=== PATIENT | female | born 1935 | race Caucasian/White ===

== ENCOUNTER 2016-12-30 00:12 | Inpatient (IN) ==
--- NOTE | 2016-12-30 05:06 | Emergency Department Note ---
Disposition Clinical Impression: Hypercalcemia, NSTEMI (non-ST elevated myocardial infarction) Acute on chronic kidney failure Qualifiers: Acute renal failure type: unspecified Chronic kidney disease stage: stage 4 ( severe) Qualified Code(s): N17.9 - Acute kidney failure, unspecified Acute exacerbation of CHF (congestive heart failure) Qualifiers: Congestive heart failure type: diastolic Qualified Code(s): I50.33 - Acute on chronic diastolic (congestive) heart failure Fall Qualifiers: Encounter type: initial encounter Qualified Code(s): W19.XXXA - Unspecified fall, initial encounter Disposition: Still a Patient Condition: Critical Referrals: NONE,PCP [Primary Care Provider] - Forms: ED Satisfaction Letter Time of Disposition: 07:01 Fall HPI - General Chief Complaint: ED Fall Stated Complaint: fall Time Seen by Provider: 12/30/16 04:14 Source: patient, family Nursing Notes Reviewed: Yes Vital Signs Reviewed: Yes - History of Present Illness HPI Narrative: Mrs. Dorsey, an 81yo female, presents from home via EMS for evaluation of fall. Onset 4 PM last night. Patient states that she was walking and experienced intense left knee pain. She was attempting to find a place to sit and rest but was unable to do so before her knee gave out and she fell. No loss across this. She was not down for very long and was able to reach the telephone. She did not hit her head or neck. Her only pain at this time is left knee pain and left hip pain. Patient is anticoagulated on Coumadin secondary to atrial fibrillation. PMH: Atrial fibrillation, diabetes, congestive heart failure, chronic kidney disease-in discussion with her caregivers regarding dialysis.. ROS: Positive: Left knee and left hip pain. Negative: Chest pain, palpitations, dyspnea, diaphoresis, unusual back pain, headache, loss of consciousness, dysuria, melena, hematochezia, fever, chills - Related Data Home Medications Medication Instructions Recorded Confirmed Amlodipine Besylate 10 mg PO DAILY 10/02/15 10/02/15 DULoxetine [Cymbalta] 30 mg PO DAILY 10/02/15 10/02/15 Esomeprazole Magnesium [Nexium] 40 mg PO DAILY 10/02/15 10/02/15 Gabapentin [Neurontin] 300 mg PO TID 10/02/15 10/02/15 Hydralazine HCl 50 mg PO TID 10/02/15 10/02/15 Insulin Glargine,Hum.rec.anlog 22 unit SQ DAILY 10/02/15 10/02/15 [Lantus Solostar] Isosorbide MONOnitrate (24 HR) 30 mg PO DAILY 12/30/16 12/30/16 [Imdur] Metoprolol XL (24 HR) Succ [Toprol 25 mg PO DAILY 12/30/16 12/30/16 XL] Warfarin [Coumadin] 5 mg PO SUMOWETHFR 12/30/16 12/30/16 Warfarin perPT [Coumadin perPT] 5.5 mg PO TUTHSA 12/30/16 12/30/16 Previous Rx's Medication Instructions Recorded Acetaminophen [Tylenol] 650 mg PO Q6HR PRN #0 tablet 10/10/15 Aspirin Enteric Coated [Aspirin EC] 81 mg PO DAILY tablet. 10/10/15 Docusate [Colace] 100 mg PO BID PRN #0 capsule 10/10/15 Furosemide [Lasix] 80 mg PO BID tablet 10/10/15 Allergies Allergy/AdvReac Type Severity Reaction Status Date / Time cephalexin [From Keflex] AdvReac Unknown Hypotension Verified 10/02/15 21:49 codeine AdvReac Hypotension Verified 10/02/15 21:49 lisinopril AdvReac See Verified 10/02/15 21:49 Comments metoprolol AdvReac See Verified 10/02/15 21:49 Comments All systems ED: reviewed and negative except as stated. Fall PMH - Past Medical History Medical history: Reports: atrial fibrillation, CHF, diabetes, renal disease Surgical history: Reports: cholecystectomy, orthopedic, other, PJ/BSO Psychiatric history: Reports: no psych history - Social History Smoking Status: Never smoker Alcohol use: Reports: none Drug use: Reports: none Physical Exam Vital Signs Reviewed General: Patient is alert, oriented, and in no acute distress. HEENT: No facial asymmetry. Head is normocephalic and atraumatic. PERRLA, EOMI. oral mucosa moist. Trachea midline. Cardiovascular: Heart regular rate and rhythm without clicks, rubs, gallops. Systolic murmur. No JVD. PMI nondisplaced. Bilateral radial and cells pedis pulses 2/4. Respiratory: Symmetric chest rise with good respiratory effort. Bilateral breath sounds are clear without wheezing, crackles, or rhonchi. Abdomen: Obese. Bowel sounds present normoactive x-4 quadrants. Abdomen is soft, nondistended, and nontender. Musculoskeletal: Muscle strength 5/5 and symmetric bilaterally in upper and lower extremities. Midline C-spine tenderness. Tenderness to palpation of patient's left knee and left hip. Neuro: Cranial nerves II through XII grossly intact. Sensation light touch intact. Psych: Patient's affect is appropriate for situation. - General Limitations: no limitations General appearance: alert, in no apparent distress Course Course Narrative: Patient presents from home. EMS after what appears to be a mechanical fall secondary to left knee giving out secondary to left knee pain. She had no head trauma, no loss of consciousness. Patient has midline C-spine tenderness, left knee pain, left hip pain. Patient notes she has fallen 4 times recently because of her left knee pain which eventually will give out on her. Patient does have a history of atrial fibrillation. On bedside monitor, she is bradycardic with a rate of 46 with PVCs. Pulses at that time her strong, she is awake and alert. No she clinically has the potential to have symptomatic bradycardia, her story is clearly consistent with mechanical cause. In contrast , however, patient's family at bedside notes that patient is a candidate for pacemaker and she has been having falls frequently over the past several months which are not always attributed to knee pain. This is concerning and more consistent with symptomatic bradycardia. Patient's lab work has multiple concerning points. She has elevated creatinine of 4.0 which is well above her baseline in the tissues. She has hypercalcemia and the 13th; no history of cancer. Patient has elevated troponin of 0.15-no ST -T changes on EKG and no chest pain. I cannot explain her troponin strictly with renal insufficiency. Echocardiogram of 08/28/16: LVEF 60-65%. Patient's imaging results today have returned showing no acute injuries per radiology read. Assessment: Acute on chronic kidney injury. Exacerbation of diastolic congestive heart failure. Hypercalcemia. NSTEMI. Fall. Knee X-Ray 12/30/16 00:26 IMPRESSION: Osteochondral injury could be an acute or chronic process. MRI would be required to differentiate. Tricompartmental osteoarthrosis. D/ / Ankur East MD / Ankur East MD Interpreting Provider: Ankur East MD Hip X-Ray 12/30/16 04:45 IMPRESSION: No acute osseous abnormality. D/ / Rolf Matson MD / Rolf Matson MD Interpreting Provider: Rolf Matson MD Cervical Spine CT 12/30/16 04:46 IMPRESSION: No acute abnormality of the cervical spine. D/ / Rolf Matson MD / Rolf Matson MD Interpreting Provider: Rolf Matson MD Head CT 12/30/16 04:46 IMPRESSION: Small vessel chronic ischemic changes with no acute hemorrhage or definite evidence for acute ischemia. D/ / Ankur East MD / Ankur East MD Interpreting Provider: Ankur East MD Vital Signs Temperature 97.8 F 12/30/16 00:13 Pulse Rate 57 12/30/16 00:13 Respiratory Rate 18 12/30/16 00:13 Blood Pressure 199/82 12/30/16 00:13 O2 Sat by Pulse Oximetry 93 12/30/16 00:13 Temperature 97.8 F 12/30/16 00:13 Pulse Rate 54 12/30/16 07:00 Respiratory Rate 16 12/30/16 07:00 Blood Pressure 119/105 12/30/16 07:00 O2 Sat by Pulse Oximetry 95 12/30/16 07:00 Oxygen Delivery Oxygen Delivery Nasal Cannula Fall - Lab Data Result diagrams: 12/30/16 05:13 12/30/16 05:13 Lab Results 12/30/16 12/30/16 12/30/16 Range/Units 05:13 05:13 05:13 WBC 6.7 (4.3-11.1) K/mcL RBC 3.98 (3.82-4.97) M/mcL Hgb 12.0 (11.5-15.4) g/dL Hct 37.3 (35.3-44.9) % MCV 93.7 (83.0-100.0) fL MCH 30.2 (28.0-33.3) pg MCHC 32.2 (31.6-35.5) g/dL RDW 15.6 H (11.5-14.5) % Plt Count 234 (140-400) K/mcL MPV 10.9 (9.4-12.4) fL Immature Gran % 1.2 (0-4) % Seg Neutrophils % 51.6 % Lymphocytes % 19.0 % Monocytes % 26.9 % Eosinophils % 1.0 % Basophils % 0.3 % Neutrophils # 3.5 (1.6-8.9) K/mcL Lymphocytes # 1.3 (0.6-4.6) K/mcL Monocytes # 1.8 H (0.0-1.3) K/mcL Eosinophils # 0.1 (0.0-0.6) K/mcL Basophils # 0.0 (0.0-0.2) K/mcL Reactive Lymphocytes Present A (Not Present) Platelet Estimate Normal (Normal) PT 30.8 H (9.4-12.1) Seconds INR 2.8 Sodium 139 (136-145) mEq/L Potassium 4.4 (3.5-4.5) mEq/L Chloride 105 (98-109) mEq/L Carbon Dioxide 21 (19-29) mEq/L BUN 71 H (7-20) mg/dL Creatinine 4.03 H (0.57-1.11) mg/dL Est GFR ( Amer) 13 L (> 60) Est GFR (Non-Af Amer) 11 L (> 60) BUN/Creatinine Ratio 18 (6-26) Glucose 139 H (70-99) mg/dL Calculated Osmolality 311 H (280-300) Calcium 13.4 H* (8.6-10.8) mg/dL Troponin I (0-0.03) ng/mL B-Natriuretic Peptide (0-100) pg/mL TSH 1.703 (0.350-4.840) mcIU/mL 12/30/16 12/30/16 Range/Units 05:13 05:13 WBC (4.3-11.1) K/mcL RBC (3.82-4.97) M/mcL Hgb (11.5-15.4) g/dL Hct (35.3-44.9) % MCV (83.0-100.0) fL MCH (28.0-33.3) pg MCHC (31.6-35.5) g/dL RDW (11.5-14.5) % Plt Count (140-400) K/mcL MPV (9.4-12.4) fL Immature Gran % (0-4) % Seg Neutrophils % % Lymphocytes % % Monocytes % % Eosinophils % % Basophils % % Neutrophils # (1.6-8.9) K/mcL Lymphocytes # (0.6-4.6) K/mcL Monocytes # (0.0-1.3) K/mcL Eosinophils # (0.0-0.6) K/mcL Basophils # (0.0-0.2) K/mcL Reactive Lymphocytes (Not Present) Platelet Estimate (Normal) PT (9.4-12.1) Seconds INR Sodium (136-145) mEq/L Potassium (3.5-4.5) mEq/L Chloride (98-109) mEq/L Carbon Dioxide (19-29) mEq/L BUN (7-20) mg/dL Creatinine (0.57-1.11) mg/dL Est GFR ( Amer) (> 60) Est GFR (Non-Af Amer) (> 60) BUN/Creatinine Ratio (6-26) Glucose (70-99) mg/dL Calculated Osmolality (280-300) Calcium (8.6-10.8) mg/dL Troponin I 0.15 H* (0-0.03) ng/mL B-Natriuretic Peptide 605 H (0-100) pg/mL TSH (0.350-4.840) mcIU/mL - EKG Data EKG attestation: Yes I reviewed and interpreted this EKG. EKG results narrative: EKG dated 12/30/16 at 05:08 interpreted as sinus bradycardia with a rate of 50. Normal intervals. Left axis. Rare PVCs. Left bundle branch block. QRS and T waves are appropriately discordant. Compared to previous EKG dated 09/03/2016 showing no acute ischemic changes. Attestation Statement - Attestation Attestation: I, Reese Higginbotham DO, examined this patient [id number] and my medical decision-making was reviewed with Dr. Magdy Mendoza, Resident Physician. I agree with the documented findings, disposition and treatment plan as described except to the extent set forth below. Please see my progress notes for details. 81-year-old female presents to emergency room with complaint of a mechanical fall at home. Family is with her and describes multiple other issues including generalized weakness fatigue increased exertional dyspnea. Patient does not follow up with her doctors and she supposed to. Family describes a patient most of the time refusing to be seen by medical riders. Vital signs on presentation are stable except for bradycardia. Patient has known atrial fibrillation and is on blood thinner Coumadin at home. Patient did fall denied any head injury or loss of consciousness. Physical exam is a well-appearing female in no distress answering questions appropriately. HEENT signs of trauma. Pupils are equal round reactive to light. Oropharynx is patent. Extremities are moist trachea is midline. Lungs are clear heart is regular abdomen is soft she moves all 4 extremities but does have pain in the left knee. Patient also has progression of her renal insufficiency and was evaluated by her production illustrator and may require dialysis at some point here in the future. Patient found to have elevated calcium, elevated BNP, elevated troponin with abnormal EKG. Patient is currently denying chest pain shortness of breath fevers chills nausea vomiting or diarrhea. Denies headache or vision change. Patient to be evaluated in the inpatient setting for treatment of multiple abnormalities including electrolyte and cardiac related pathology. Echo was reviewed from previous evaluation appears to be stable. See detailed documentation of physical exam, medical intervention, medical decision making process and consultations in the resident physician's note. Patient is stable and in no acute distress at time of admission process being completed.
[2016-12-30 05:19] LABS: Basophils % 0.3 %; Eosinophils # 0.1 K/mcL (0.0-0.6); Hematocrit 37.3 % (35.3-44.9); Immature Granulocytes % 1.2 % (0-4); Lymphocytes # 1.3 K/mcL (0.6-4.6); Mean Corpuscular HGB Conc 32.2 g/dL (31.6-35.5); Mean Corpuscular Hemoglobin 30.2 pg (28.0-33.3); Mean Corpuscular Volume 93.7 fL (83.0-100.0); Mean Platelet Volume 10.9 fL (9.4-12.4); Monocytes # 1.8 K/mcL (0.0-1.3); Monocytes % 26.9 %; Platelet Count 234 K/mcL (140-400); Red Blood Count 3.98 M/mcL (3.82-4.97); Red Cell Distribution Width 15.6 % (11.5-14.5); Segmented Neutrophils % 51.6 %
[2016-12-30 05:24] LABS: INR 2.8; Prothrombin Time 30.8 Seconds (9.4-12.1)
[2016-12-30 05:25] LABS: Neutrophils # 3.5 K/mcL (1.6-8.9)
[2016-12-30 05:30] LABS: Potassium 4.4 mEq/L (3.5-4.5)
[2016-12-30 05:32] LABS: Calcium 13.4 mg/dL (8.6-10.8)
[2016-12-30] MEDS ORDERED: 0.9 % Sodium Chloride 1,000 ML IVC ONE (05:36)
[2016-12-30 05:39] LABS: Platelet Estimate Normal (Normal); Reactive Lymphocytes Present (Not Present)
[2016-12-30 06:12] LABS: Thyroid Stimulating Hormone 1.703 mcIU/mL (0.350-4.840)
[2016-12-30] MEDS ORDERED: Aspirin 81 MG TAB.CHEW PO ONE (06:25)
[2016-12-30] MEDS ORDERED: *HR* Morphine 2 MG/ML SYRINGE IVP PRN (07:55)
[2016-12-30] MEDS ORDERED: Naloxone 0.4 MG/ML INJ IVP PRN (07:55)
[2016-12-30] MEDS ORDERED: *HR* OxyCODONE Immed Rel 5 MG TABLET PO PRN (07:55)
[2016-12-30] MEDS ORDERED: Ondansetron 4 MG/2 ML VIAL IVP PRN (07:55)
[2016-12-30] MEDS ORDERED: Acetaminophen 325 MG TABLET PO PRN ×2 (07:55→15:33)
[2016-12-30 08:38] LABS: Albumin 3.2 g/dL (3.5-5.0); Albumin/Globulin Ratio 0.8 (1.1-2.2); Bilirubin,Total 0.2 mg/dL (0.2-1.2); Calcium 12.2 mg/dL (8.6-10.8); Globulin 3.9 g/dL (2.4-3.5); Magnesium 2.2 mg/dL (1.6-2.6); Phosphorous 4.5 mg/dL (2.3-4.7); Potassium 4.3 mEq/L (3.5-4.5); Total Protein 7.1 g/dL (6.0-8.3)
[2016-12-30] MEDS ORDERED: FLUARIX QUAD 2017-18 36MOS UP/PF 0.5 ML SYRINGE IM ONE (09:12)
[2016-12-30] MEDS: hydrALAZINE 25 MG TABLET PO SCH ×3 (09:29→22:10)
[2016-12-30] MEDS: Gabapentin 100 MG CAPSULE PO SCH ×3 (09:29→22:10)
[2016-12-30] MEDS: Isosorbide MONOnitrate (24 HR) 30 MG TAB.ER.24H PO SCH (09:29)
[2016-12-30] MEDS: Aspirin Enteric Coated 81 MG Tablet PO SCH (09:29)
[2016-12-30] MEDS: 0.9 % Sodium Chloride 1,000 ML IVC SCH ×2 (09:30→19:29)
[2016-12-30] MEDS: amLODIPine 5 MG TABLET PO SCH (09:30)
--- NOTE | 2016-12-30 11:14 | Internal Med History&Physical ---
<Brian Haywood - Last Filed: 12/30/16 11:08> Date of Encounter: 12/30/16 Time of Encounter: 11:08 Assessment and Plan (1) Acute kidney injury superimposed on chronic kidney disease Current visit: Yes Status: Acute Patient reports increase in urinary frequency, polyruia, excessive thirst, and falls. H/o CKD which she reports her ice house supervisor suggesting Hemodialysis. Increasing in Cr from baseline and hypercalcemia noted on metabolic panel. She apprears to be dehydrated. Continuous IVF 0.9% NS @100cc/hr. Stop lasix q12 calcium Consult Nephrology, she has previously seen Dr. Sarkar metabolic panel in AM (2) Bradycardia Current visit: Yes Status: Acute Presents s/p multiple falls at home over the last few days. Noted to be bradycardic per EKG. Troponin elevated, she does have a h/o CHF for which she sees cardio. Stop BB Consult cardio Continuous cardiac monitoring Trend trop (3) Diabetes mellitus Current visit: Yes Status: Chronic Chronic history of diabetes mellitus. Continue long-acting insulin at home dose Qualifiers: Diabetes mellitus type: type 2 Diabetes mellitus complication status: with unspecified complications Diabetes mellitus assisted insulin use: with intermediate frame tender use Qualified Code(s): E11.8 - Type 2 diabetes mellitus with unspecified complications; Z79.4 - [facility] (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 (4) Hypercalcemia Current visit: Yes Status: Acute Hypercalcemia 12.2 likely due to dehydration and CKD. Imaging does not reveal any suspicious lesions and ROS and exam are non-suspicious for malignancy. Q12 calcium Consult nephrology. Dr. Sarkar has seen patient upon prior visits metabolic panel in AM 0.9 % NS @100 cc/hr PTH, and Vit D ordered for further eval (5) Fall Current visit: Yes Status: Acute Reports multiple falls throughout the last few days, reporting 3-4 overall. She denies any syncope only stating "my knee keeps giving out". Is on Coumadin at home, CT head negative for hemorrhage. Is noted to be bradycardic via EKG. Up with assist only Cardiac monitoring Consult cardiology Stop BB for now Qualifiers: Encounter type: initial encounter Qualified Code(s): W19.XXXA - Unspecified fall, initial encounter (6) Elevated troponin Current visit: Yes Status: Acute Falls at home over the last few days. Workup in the ED revealed elevated troponin of 0.20. Trend troponins to r/o ischemia (7) DVT prophylaxis Current visit: Yes Status: Acute Risk for dvt d/t hospital stay and prolonged immobility. Will continue patients warfarin. Internal Medicine - H&P: HPI Chief complaint: falls, fatigue, weakness Admitted From: Home Plans for Post Hospital Care: Home History of present illness: Ms. Dorsey is a 81 year old female with a past medical history of CHF, CAD, atrial fibrillation, diabetes mellitus presents to [facility] home due to multiple falls, reporting 3-4 falls within the last 48 hours. Patient reports that her left knee has continued to give out over the last couple of days and that she is experiencing left knee pain. Family at bedside and reports that she has had an increasing alkaline phosphatase throughout the last couple of months even before the knee pain began. Family reports that she has seen cardiology, and air hoist operator informed family she may be a candidate for pacemaker due to history of bradycardia. Telemetry in the ED revealed bradycardia, EKG confirmed bradycardia with PVCs and a rate of 46. CT head unremarkable. X-ray of knee and hip unremarkable. Metabolic panel reveals hypercalcemia 12.2, elevated creatinine of 3.82, she does see a ice house supervisor due to CKD. Troponin elevated at 0.20. Both hypercalcemia and elevated troponin may be a result renal disease. She is being admitted to [facility] for further workup and evaluation. Past Med Surg Social Fam HX - Past Medical History Medical history: arthritis, atrial fibrillation, CHF, diabetes, hyperlipidemia, hypertension, renal disease Psychiatric history: no psych history - Past Surgical History Surgical History: cholecystectomy, orthopedic, other, PJ/BSO - Social History Smoking Status: Never smoker Smokeless Tobacco Status: No Alcohol use: none Drug use: none - Family History Mother Living Status: Hx Family Cardiac Disorders: Yes Hx Family Cancer: Yes (Skin) Hx Family Endocrine Disorder: Yes (diabetes) Father History Unknown: Yes Adopted: No Family Member Ethnicity: Non- Living Status: Hx Family Cardiac Disorders: Yes Hx Family Endocrine Disorder: Yes (diabetes) Internal Medicine - H&P: Meds Amlodipine Besylate 10 mg PO DAILY 10/02/15 [History] DULoxetine [Cymbalta] 30 mg PO DAILY 10/02/15 [History] Esomeprazole Magnesium [Nexium] 40 mg PO DAILY 10/02/15 [History] Gabapentin [Neurontin] 300 mg PO TID 10/02/15 [History] Hydralazine HCl 50 mg PO TID 10/02/15 [History] Insulin Glargine,Hum.rec.anlog [Lantus Solostar] 18 unit SQ QPM 10/02/15 [ History] Acetaminophen [Tylenol] 650 mg PO Q6HR PRN #0 tablet 10/10/15 [Rx] Aspirin Enteric Coated [Aspirin EC] 81 mg PO DAILY tablet. 10/10/15 [Rx] Docusate [Colace] 100 mg PO BID PRN #0 capsule 10/10/15 [Rx] Furosemide [Lasix] 80 mg PO BID tablet 10/10/15 [Rx] Isosorbide MONOnitrate (24 HR) [Imdur] 30 mg PO DAILY 12/30/16 [History] Metoprolol XL (24 HR) Succ [Toprol XL] 25 mg PO DAILY 12/30/16 [History] Warfarin [Coumadin] 5 mg PO SUMOWETHFR 12/30/16 [History] Warfarin perPT [Coumadin perPT] 5.5 mg PO TUTHSA 12/30/16 [History] 3 Allergy/AdvReac Type Severity Reaction Status Date / Time cephalexin [From Keflex] AdvReac Unknown Hypotension Verified 10/02/15 21:49 codeine AdvReac Hypotension Verified 10/02/15 21:49 lisinopril AdvReac See Verified 10/02/15 21:49 Comments metoprolol AdvReac See Verified 10/02/15 21:49 Comments All Systems PM: A 10-system review of systems was performed and is negative for pertinent findings except as documented above in the HPI. - Constitutional Constitutional: fatigue, falls (Reporting 3-4 yesterday and 1 today), weakness, no chills, no fever(s), no night sweats, no weight gain, no weight loss - EENT Eyes: no change in vision, no discharge, no pain, no photophobia Ears: no ear discharge, no ear pain, no tinnitus Nose, mouth and throat: no dysphagia, no nasal discharge, no neck pain, no sore throat - Cardiovascular Cardiovascular ROS IM: dyspnea on exertion, lightheadedness, no chest pain, no diaphoresis, no edema, no palpitations, no syncope - Respiratory Respiratory: cough (Dry and nonproductive), no dyspnea, no wheezing, no chest congestion, no excessive phlegm production, no pain with cough - Gastrointestinal Gastrointestinal: no abdominal pain, no diarrhea, no hematemesis, no hematochezia, no melena, no nausea, no vomiting - Genitourinary Genitourinary: urinary frequency, no change in urinary stream, no dysuria, no flank pain, no hematuria, no urinary incontinence - Musculoskeletal Musculoskeletal ROS IM: arthralgias (back and BL hips), back pain, no deformity , no joint swelling, no muscle cramps, no muscle weakness, no myalgias, no numbness, no tingling - Integumentary Integumentary IM: no new lesions, no non-healing lesions, no rash, no unusual bruising - Neurological Neurological ROS: frequent falls, weakness, no confusion, no convulsions, no disequilibrium, no dizziness, no focal weakness, no headache(s), no loss of vision, no numbness, no tingling, no tremor(s) - Endocrine Endocrine IM: fatigue, polydipsia, polyuria, no excessive sweating - Hematologic/Lymphatic Hematologic/Lymphatic: no easy bruising - Constitutional Vitals: Temp Pulse Resp BP Pulse Ox 97.5 F L 52 18 197/81 94 12/30/16 08:55 12/30/16 09:00 12/30/16 08:55 12/30/16 08:55 12/30/16 08:55 General appearance: Present: cooperative, A&O X 3, no acute distress, obese, answers questions appropriately - Head Head exam: Present: atraumatic, normocephalic - Eye Eye exam: Present: EOMI, PERRL. Absent: nystagmus, periorbital swelling Pupils: Present: PERRL - Neck Neck exam general surgery: Present: supple, trachea midline. Absent: lymphadenopathy - Respiratory Respiratory exam: Present: CTAB. Absent: accessory muscle use, rales, rhonchi, wheezes - Cardiovascular Cardiovascular exam: Present: bradycardia, irregular rhythm, +S1, +S2, systolic murmur. Absent: diastolic murmur, gallop, rubs - GI/Abdominal GI/Abdominal exam: Present: normal bowel sounds, soft, no peritoneal signs. Absent: distended, tenderness - Extremities Exam Extremities exam: Present: warm, radial pulses palpable and symmetrical. Absent : calf tenderness, cyanotic, pedal edema - Expanded Upper Extremities Exam Forearm wrist exam: Present: ecchymosis (RUE) Hand wrist exam: Present: ecchymosis - Back Exam Back exam: Present: normal inspection. Absent: tenderness, vertebral tenderness - Neurological Exam Neurological exam: Present: alert, CN II-XII intact, oriented X3, no focal deficits. Absent: pronater drift, facial droop, speech deficit - Psychiatric Psychiatric exam: Present: normal affect, normal mood - Skin Skin exam: Present: dry, intact Internal Med - H&P Results - Labs CBC & Chem 7: 12/30/16 05:13 12/30/16 08:17 Labs: BMP 12/30/16 08:17 Sodium 140 Potassium 4.3 Chloride 110 H Carbon Dioxide 18 L BUN 67 H Creatinine 3.82 H Glucose 143 H Calcium 12.2 H Cardiac Enzymes 12/30/16 Range/Units 08:17 Troponin I 0.20 H* (0-0.03) ng/mL Liver Function 12/30/16 Range/Units 08:17 Total Bilirubin 0.2 (0.2-1.2) mg/dL AST 17 (5-34) Units/L ALT 14 (0-55) Units/L Alkaline Phosphatase 67 (38-126) Units/L Albumin 3.2 L (3.5-5.0) g/dL - EKG Data Prior EKG available for review: yes EKG comments: 12/30/16 11:23 Sinus bradycardia with occasional PVCs - Diagnostic Studies CT scan - head Status: image reviewed by me Additional comments: No evidence of hemorrhage or acute ischemia. Showing chronic small vessel ischemic changes. Other Images Status: image reviewed by me Additional comments: CT of C-spine reveals no abnormalities Chest x-ray Additional comments: Stable, acute versus chronic pulmonary hypertension without signs or symptoms of overt CHF <Lee Stewart - Last Filed: 12/30/16 17:43> Date of Encounter: 12/30/16 Internal Medicine - H&P: HPI History of present illness: Ms. Dorsey is a 81 year old female All Systems PM: A 10-system review of systems was performed and is negative for pertinent findings except as documented above in the HPI. - Constitutional Vitals: Temp Pulse Resp BP Pulse Ox 97.9 F 52 15 184/70 94 12/30/16 16:06 12/30/16 16:06 12/30/16 16:06 12/30/16 16:06 12/30/16 16:06 Internal Med - H&P Results - Labs CBC & Chem 7: 12/30/16 05:13 12/30/16 08:17 Labs: BMP 12/30/16 08:17 Sodium 140 Potassium 4.3 Chloride 110 H Carbon Dioxide 18 L BUN 67 H Creatinine 3.82 H Glucose 143 H Calcium 12.2 H Cardiac Enzymes 12/30/16 Range/Units 08:17 Troponin I 0.20 H* (0-0.03) ng/mL Liver Function 12/30/16 Range/Units 08:17 Total Bilirubin 0.2 (0.2-1.2) mg/dL AST 17 (5-34) Units/L ALT 14 (0-55) Units/L Alkaline Phosphatase 67 (38-126) Units/L Albumin 3.2 L (3.5-5.0) g/dL - Attending Attestation I have personally performed a face to face evaluation on this patient and I discussed the assessment and plan with the nurse practitioner. I have reviewed and agree with the documented care plan. History and Exam by me shows: Ms. Dorsey is a 81 year old female with a past medical history of CHF, CAD, atrial fibrillation, diabetes mellitus presents to [facility] home due to multiple falls, reporting 3-4 falls within the last 48 hours. Patient reports that her left knee has continued to give out over the last couple of days and that she is experiencing left knee pain. Family at bedside and reports that she has had an increasing alkaline phosphatase throughout the last couple of months even before the knee pain began. Family reports that she has seen cardiology, and air hoist operator informed family she may be a candidate for pacemaker due to history of bradycardia. Telemetry in the ED revealed bradycardia, EKG confirmed bradycardia with PVCs and a rate of 46. CT head unremarkable. X-ray of knee and hip unremarkable. Metabolic panel reveals hypercalcemia 12.2, elevated creatinine of 3.82, she does see a ice house supervisor due to CKD. Troponin elevated at 0.20. Both hypercalcemia and elevated troponin may be a result renal disease. She is being admitted to [facility] for further workup and evaluation. Gne: A, A, O x3 Chest : CTA, No Wheezing, No crackles Heart: S1 S2 + Bradycardia a/p 1. Acute hypercalcemia 2. RIYA with CKD-4 her hypercalcemia due to dehdyration will proceed with hypercalcemia work up IV fluids avoid nephrotoxic meds 3. Bradycardia Card consulted Hold B everardo
--- NOTE | 2016-12-30 12:50 | Cardiology Consult Note ---
<Tata Olson - Last Filed: 12/30/16 13:23> Date of Encounter: 12/30/16 Time of Encounter: 12:00 Assessment and Plan (1) Fall Current Visit: Yes Status: Acute Per cardiology: -Mechanical fall at home. -Denies dizziness/lightheadedness. -Management per primary service. Qualifiers: Encounter type: initial encounter Qualified Code(s): W19.XXXA - Unspecified fall, initial encounter (2) Acute kidney injury superimposed on chronic kidney disease Current Visit: Yes Status: Acute Per cardiology: -Known CKD with baseline creatinine 2.3-2.6. -Creatinine on admission 4.03. -Management per primary service. -Recommend nephrology consultation. (3) Bradycardia Current Visit: Yes Status: Chronic Per cardiology: -Known bradycardia. -Telemetry with average HR 52. -Holter 09/2016 reviewed with average HR 50, sinus bradycardia. -Echo 08/18/16 with LVEF 60-65%, mild concentric LVH, atypical septal motion consistent with bundle branch block, RV appeared dilated with normal systolic function, mild MR, mild TR, severe pulmonary hypertension. -Denies dizziness, lightheadedness. -Will continue to monitor. -Consider EP consult. (4) A-fib Current Visit: No Status: Chronic Per cardiology: -Known PAF. -On coumadin for anticoagulation. -Periods of a.fib noted per telemetry. -Holter 09/2016 with PAF. -Will continue to monitor. Qualifiers: Atrial fibrillation type: unspecified Qualified Code(s): I48.91 - Unspecified atrial fibrillation (5) Elevated troponin Current Visit: Yes Status: Acute Per cardiology: -Troponin 0.15, 0.2. -Denies chest pain -Recent echo as above. -Mildly elevated troponin in the setting of fall and RIYA on CKD, -ECG with no ischemic changes. -Will continue to monitor troponin. -Do not suspect NSTEMI, suspect demand ischemia related to fall and RIYA on CKD. Discussion w patient/family: The assessment and plan as outlined above was discussed with the patient and/or family members who expressed understanding and agreement. All questions were answered. Thank you for involving us in the care of your patient. Please call with any questions. Discussed and reviewed with . History of Present Illness Consult date: 12/30/16 Requesting physician: Magdy Mendoza Consult reason: suspected symptomatic bradycardia, elevated troponin Chief complaint: fall History of present illness: Ms. Dorsey is a 81 year old female with a relevant past medical history of bradycardia, CKD, atrial fibrillation, CHF, DM. Patient states she was at home when she felt her knee "give out" and fell. Patient states she was not dizzy or lightheaded prior to or at the time of the fall. Patient denies chest pain or shortness of breath. Patient admits ot fatigue, however states this is about baseline for a few years. Patient denies any dizziness, lightheadedness, syncope , or near syncope. Past Med Surg Social Fam HX - Past Medical History Attestation: Yes The following information was validated with the patient. Source: patient, old records reviewed Medical history: arthritis, atrial fibrillation, CHF, diabetes, hyperlipidemia, hypertension, renal disease Psychiatric history: no psych history - Past Surgical History Surgical History: cholecystectomy, orthopedic, other, PJ/BSO - Social History Smoking Status: Never smoker Smokeless Tobacco Status: No Alcohol use: none Drug use: none - Family History Mother Living Status: Hx Family Cardiac Disorders: Yes Hx Family Cancer: Yes (Skin) Hx Family Endocrine Disorder: Yes (diabetes) Father History Unknown: Yes Adopted: No Family Member Ethnicity: Non- Living Status: Hx Family Cardiac Disorders: Yes Hx Family Endocrine Disorder: Yes (diabetes) Medications and Allergies Amlodipine Besylate 10 mg PO DAILY 10/02/15 [History] DULoxetine [Cymbalta] 30 mg PO DAILY 10/02/15 [History] Esomeprazole Magnesium [Nexium] 40 mg PO DAILY 10/02/15 [History] Gabapentin [Neurontin] 300 mg PO TID 10/02/15 [History] Hydralazine HCl 50 mg PO TID 10/02/15 [History] Insulin Glargine,Hum.rec.anlog [Lantus Solostar] 18 unit SQ QPM 10/02/15 [ History] Acetaminophen [Tylenol] 650 mg PO Q6HR PRN #0 tablet 10/10/15 [Rx] Aspirin Enteric Coated [Aspirin EC] 81 mg PO DAILY tablet. 10/10/15 [Rx] Docusate [Colace] 100 mg PO BID PRN #0 capsule 10/10/15 [Rx] Furosemide [Lasix] 80 mg PO BID tablet 10/10/15 [Rx] Isosorbide MONOnitrate (24 HR) [Imdur] 30 mg PO DAILY 12/30/16 [History] Metoprolol XL (24 HR) Succ [Toprol XL] 25 mg PO DAILY 12/30/16 [History] Warfarin [Coumadin] 5 mg PO SUMOWETHFR 12/30/16 [History] Warfarin perPT [Coumadin perPT] 5.5 mg PO TUTHSA 12/30/16 [History] 3 Allergy/AdvReac Type Severity Reaction Status Date / Time cephalexin [From Keflex] AdvReac Unknown Hypotension Verified 10/02/15 21:49 codeine AdvReac Hypotension Verified 10/02/15 21:49 lisinopril AdvReac See Verified 10/02/15 21:49 Comments metoprolol AdvReac See Verified 10/02/15 21:49 Comments All Systems Review: A 10-system review of systems was performed and is negative for pertinent findings except as documented above in the HPI. - Constitutional Constitutional: frequent falls - Cardiovascular Cardiovascular: as per HPI Physical Examination Vital Signs, Last 4 Hours Temp Pulse Resp BP Pulse Ox 12/30/16 11:12 97.8 F 54 16 177/57 98 12/30/16 09:00 52 12/30/16 08:55 97.5 F L 49 18 197/81 94 General: Conversant, No Apparent Distress HEENT: Atraumatic, Normocephaly, Mucus Membranes Moist Neck: No JVD, Normal carotid pulses Cardiac: Reg Rate and Rhythm, Normal S1 and S2, No Murmur Lungs: Normal Breath Sounds, No Wheeze, Rales, Rhonchi Neuro: Alert and responsive, No focal deficits noted Abdomen: Soft, Non-Tender Skin: No rashes noted on visualized skin Musculoskeletal: No Chest Wall Tenderness Extremities: No Clubbing, No Cyanosis, No Edema, Normal Pulses Results 12/30/16 05:13 12/30/16 08:17 Lab Results Impressions Knee X-Ray 12/30/16 00:26 IMPRESSION: Osteochondral injury could be an acute or chronic process. MRI would be required to differentiate. Tricompartmental osteoarthrosis. D/ / Ankur East MD / Ankur East MD Interpreting Provider: Ankur East MD Hip X-Ray 12/30/16 04:45 IMPRESSION: No acute osseous abnormality. D/ / Rolf Matson MD / Rolf Matson MD Interpreting Provider: Rolf Matson MD Cervical Spine CT 12/30/16 04:46 IMPRESSION: No acute abnormality of the cervical spine. D/ / Rolf Mtason MD / Rolf Matson MD Interpreting Provider: Rolf Matson MD Head CT 12/30/16 04:46 IMPRESSION: Small vessel chronic ischemic changes with no acute hemorrhage or definite evidence for acute ischemia. D/ / Ankur East MD / Ankur East MD Interpreting Provider: Ankur East MD Chest X-Ray 12/30/16 06:07 IMPRESSION: Stable cardiomegaly. Acute versus chronic pulmonary venous hypertension with no overt congestive heart failure. D/ / 12/30/2016 07:15:28 Heber Evans MD / [facility] Interpreting Provider: Heber Evans MD Active Medications Acetaminophen (Tylenol) 650 mg PO Q6HR PRN PRN Reason: Mild Pain (1-3) Stop: 07/01/17 07:56 Amlodipine Besylate (Norvasc) 10 mg PO DAILY [facility] Stop: 07/01/17 09:01 Last Admin: 12/30/16 09:30 Dose: 10 mg Aspirin (Aspirin Ec) 81 mg PO DAILY [facility] Stop: 07/01/17 09:01 Last Admin: 12/30/16 09:29 Dose: 81 mg Docusate Sodium (Colace) 100 mg PO BID PRN; Protocol PRN Reason: Constipation Stop: 07/01/17 08:03 Duloxetine HCl (Cymbalta) 30 mg PO DAILY [facility] Stop: 07/01/17 09:01 Last Admin: 12/30/16 09:29 Dose: 30 mg Gabapentin (Neurontin) 100 mg PO TID [facility] Stop: 07/01/17 09:01 Last Admin: 12/30/16 09:29 Dose: 100 mg Hydralazine HCl (Hydralazine) 50 mg PO TID [facility] Stop: 07/01/17 09:01 Last Admin: 12/30/16 09:29 Dose: 50 mg Sodium Chloride (0.9 % Sodium Chloride) 1,000 mls @ 100 mls/hr IVC .Q10H [facility] Stop: 07/01/17 08:01 Last Admin: 12/30/16 09:30 Dose: 100 mls/hr Insulin Detemir (Levemir) 18 unit SQ QPM [facility] Stop: 07/01/17 18:01 Isosorbide Mononitrate (Imdur) 30 mg PO DAILY [facility] Stop: 07/01/17 09:01 Last Admin: 12/30/16 09:29 Dose: 30 mg Morphine Sulfate (Morphine Sulfate) 2 mg IVP Q4HR PRN PRN Reason: Severe Pain (7-10) Stop: 07/01/17 07:56 Naloxone HCl (Narcan) 0.4 mg IVP Q2MIN PRN PRN Reason: Opioid Reversal Stop: 07/01/17 07:56 Ondansetron HCl (Zofran) 4 mg IVP Q8HR PRN PRN Reason: Nausea And Vomiting Stop: 07/01/17 07:56 Oxycodone HCl (Roxicodone) 5 mg PO Q6HR PRN PRN Reason: Moderate Pain (4-6) Stop: 07/01/17 07:56 Laboratory Tests 10/07/15 10/08/15 12/30/16 03:23 04:47 05:13 Hgb INR 2.8 Chloride Creatinine 2.42 H 2.37 H Calcium Ionized Calcium Troponin I B-Natriuretic Peptide 12/30/16 12/30/16 12/30/16 05:13 05:13 05:13 Hgb 12.0 INR Chloride Creatinine 4.03 H Calcium 13.4 H* Ionized Calcium Troponin I 0.15 H* B-Natriuretic Peptide 12/30/16 12/30/16 12/30/16 05:13 08:17 08:17 Hgb INR Chloride Creatinine Calcium Ionized Calcium 1.68 H Troponin I 0.20 H* B-Natriuretic Peptide 605 H 12/30/16 08:17 Hgb INR Chloride 110 H Creatinine 3.82 H Calcium Ionized Calcium Troponin I B-Natriuretic Peptide - Imaging and Cardiology Chest Xray: report reviewed Echo: report reviewed Holter: report reviewed - EKG Interpretation EKG results cardiology: personally reviewed (ECG with sinus bradycardia, left bundle branch block, HR 50. PVC noted.), other (Telemetry reviewed with average HR 52, atrial fibrillation with slow ventricular response with intermittent sinus bradycarida.) Consult Discharge Plan - Plan Referrals: NONE,PCP [Primary Care Provider] - <Munira Aponte - Last Filed: 12/30/16 18:09> Date of Encounter: 12/30/16 Assessment and Plan Discussion w patient/family: The assessment and plan as outlined above was discussed with the patient and/or family members who expressed understanding and agreement. All questions were answered. Thank you for involving us in the care of your patient. Please call with any questions. History of Present Illness History of present illness: Ms. Dorsey is a 81 year old female All Systems Review: A 10-system review of systems was performed and is negative for pertinent findings except as documented above in the HPI. Physical Examination Vital Signs, Last 4 Hours Temp Pulse Resp BP Pulse Ox 12/30/16 16:06 97.9 F 52 15 184/70 94 Results 12/30/16 05:13 12/30/16 08:17 Lab Results 12/30/16 12/30/16 08:17 08:17 Sodium 140 Potassium 4.3 Chloride 110 H Carbon Dioxide 18 L BUN 67 H Creatinine 3.82 H Glucose 143 H Calcium 12.2 H Magnesium 2.2 Total Bilirubin 0.2 AST 17 ALT 14 Alkaline Phosphatase 67 Troponin I 0.20 H* - Attending Attestation I examined this patient and my medical decision-making was reviewed with the Resident Physician. I agree with the documented findings, disposition and treatment plan. Ms. Dorsey presents after having a mechanical fall at home due to intense left knee pain. She denies LOC. Incidentally noted is ARF on CKD. Mild troponin elevation is not diagnostic in setting of ARF, GFR 11. Recommend cycling troponin for downtrend. Patient denies chest pain. There are no ischemic ECG findings. Continue aspirin. Otherwise noted is sinus bradycardia which is longstanding. She's being followed in the outpatient Cardiology office. There has been no documentation of syncopal events and recent holter did not demonstrate serious concerns. However, it is reasonable to have her evaluated by EP while hospitalized but can also be done as an outpatient. Continue telemetry monitoring.
--- NOTE | 2016-12-30 14:22 | Nephrology Consult Note ---
Date of Encounter: 12/30/16 Time of Encounter: 14:21 Assessment and Plan (1) CKD (chronic kidney disease) stage 5, GFR less than 15 ml/min Current Visit: Yes Status: Acute In September 2015 old records show baseline Scr 3.17 and GFR 14. 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 Does not have an access yet. Will proceed with CKD workup Renal diet Strict I/Os Avoid nephrotoxins if possible Does not need urgent dialysis at this time but will monitor very closely (2) Fall Current Visit: Yes Status: Acute per primary team Qualifiers: Encounter type: initial encounter Qualified Code(s): W19.XXXA - Unspecified fall, initial encounter (3) Bradycardia Current Visit: Yes Status: Chronic per cardiology team History of Present Illness - Reason for Consult Consult date: 12/30/16 - Chief Complaint multiple falls, CKD stage 5 - History of Present Illness Ms. Dorsey is a 81 year old female with a past medical history of CHF, CAD, atrial fibrillation, diabetes mellitus, CKD stage 5 who was admitted due to multiple falls, reporting 3-4 falls within the last 48 hours. Family reported that she has seen cardiology, and private mortgage banker safe informed family she may be a candidate for pacemaker due to history of bradycardia. Metabolic panel reveals hypercalcemia 12.2, elevated creatinine of 3.82; she does see Dr Michael, conservation science teacher in [place] due to CKD stage 5 and they have already discussed dialysis. She does not have an access at this time. Past Med Surg Social Fam HX - Past Medical History Medical history: arthritis, atrial fibrillation, CHF, diabetes, hyperlipidemia, hypertension, renal disease Psychiatric history: no psych history - Past Surgical History Surgical History: cholecystectomy, orthopedic, other, PJ/BSO - Social History Smoking Status: Never smoker Smokeless Tobacco Status: No Alcohol use: none Drug use: none - Family History Mother Living Status: Hx Family Cardiac Disorders: Yes Hx Family Cancer: Yes (Skin) Hx Family Endocrine Disorder: Yes (diabetes) Father History Unknown: Yes Adopted: No Family Member Ethnicity: Non- Living Status: Hx Family Cardiac Disorders: Yes Hx Family Endocrine Disorder: Yes (diabetes) Medications and Allergies Amlodipine Besylate 10 mg PO DAILY 10/02/15 [History] DULoxetine [Cymbalta] 30 mg PO DAILY 10/02/15 [History] Esomeprazole Magnesium [Nexium] 40 mg PO DAILY 10/02/15 [History] Gabapentin [Neurontin] 300 mg PO TID 10/02/15 [History] Hydralazine HCl 50 mg PO TID 10/02/15 [History] Insulin Glargine,Hum.rec.anlog [Lantus Solostar] 18 unit SQ QPM 10/02/15 [ History] Acetaminophen [Tylenol] 650 mg PO Q6HR PRN #0 tablet 10/10/15 [Rx] Aspirin Enteric Coated [Aspirin EC] 81 mg PO DAILY tablet. 10/10/15 [Rx] Docusate [Colace] 100 mg PO BID PRN #0 capsule 10/10/15 [Rx] Furosemide [Lasix] 80 mg PO BID tablet 10/10/15 [Rx] Isosorbide MONOnitrate (24 HR) [Imdur] 30 mg PO DAILY 12/30/16 [History] Metoprolol XL (24 HR) Succ [Toprol XL] 25 mg PO DAILY 12/30/16 [History] Warfarin [Coumadin] 5 mg PO SUMOWETHFR 12/30/16 [History] Warfarin perPT [Coumadin perPT] 5.5 mg PO TUTHSA 12/30/16 [History] 3 Allergy/AdvReac Type Severity Reaction Status Date / Time cephalexin [From Keflex] AdvReac Unknown Hypotension Verified 10/02/15 21:49 codeine AdvReac Hypotension Verified 10/02/15 21:49 lisinopril AdvReac See Verified 10/02/15 21:49 Comments metoprolol AdvReac See Verified 10/02/15 21:49 Comments Review of Systems All Systems: reviewed and no additional remarkable complaints except as stated Constitutional: frequent falls, no chills, no fatigue Nose, mouth and throat: dizziness Cardiovascular: no chest pain, no leg edema, no palpitations Respiratory: no dyspnea Gastrointestinal: no vomiting Musculoskeletal: muscle weakness Neurological: no behavioral changes Exam - Vital Signs Vital signs: Initial Vital Signs Temp Pulse Resp BP Pulse Ox 97.8 F 57 18 199/82 93 12/30/16 00:13 12/30/16 00:13 12/30/16 00:13 12/30/16 00:13 12/30/16 00:13 Vital Signs - Last 8 Hours Temp Pulse Resp BP Pulse Ox 12/30/16 11:12 97.8 F 54 16 177/57 98 12/30/16 09:00 52 12/30/16 08:55 97.5 F L 49 18 197/81 94 12/30/16 08:26 57 18 165/69 97 12/30/16 08:25 18 165/69 Intake and Output 12/29/16 12/30/16 12/30/16 23:59 07:59 15:59 Intake Total 480 / 480 Output Total 150 / 150 Balance 330 / 330 Intake: Oral 480 / 480 Output: Urine 150 / 150 Other: Meal Lunch Percent of Meal Consumed 75% Blood Glucose* 150 - General Appearance General appearance: well-developed, well-nourished EENT: ATNC, mucous membranes moist, hearing intact, vision intact Neck: supple Respiratory: clear Cardiology: no edema, normal S1, normal S2 Gastrointestinal: no tenderness, no guarding Integumentary: warm and dry Neurologic: alert and oriented x3 Psychiatric: mood/affect appropriate, cooperative Results - Lab Results 12/30/16 05:13 12/30/16 08:17 Most recent lab results Calcium 12.2 mg/dL (8.6-10.8) H 12/30/16 08:17 Phosphorus 4.5 mg/dL (2.3-4.7) 12/30/16 08:17 Magnesium 2.2 mg/dL (1.6-2.6) 12/30/16 08:17 Consult Discharge Plan - Plan Referrals: NONE,PCP [Primary Care Provider] -
[2016-12-30] MEDS: Insulin DETEMIR 100 UNIT/ML X5UNITS SQ SCH (17:47)
[2016-12-30] MEDS ORDERED: Warfarin perPT PO PRN (18:00)
[2016-12-30] MEDS ORDERED: *HR* Warfarin 4 MG TABLET PO SCH (18:00)
--- NOTE | 2016-12-30 18:17 | Electrocardiograph Report ---
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
--- NOTE | 2016-12-31 00:54 | Event Note ---
Date of Encounter: 12/31/16 Time of Encounter: 00:50 Patient's blood pressure decreased from 196/72 to 174/68 after IV Hydralazine and telemetry reveals NSR at 63 with occasional runs of A-flutter. Patient has a h/o A-fib and is on IVF at 100cc/hr for RIYA. IVF decreased to 75cc/hr and second dose of IV Hydralazine ordered.
[2016-12-31 06:08] LABS: Protein/Creatinine Ratio,Urine 4.87 mg/mg (0-0.20)
[2016-12-31 06:41] LABS: Bilirubin,Urine Negative (Negative); Blood,Urine Trace (Negative); Clarity,Urine Cloudy (Clear); Color,Urine Yellow (Yellow); Glucose,Urine (UA) Normal (Normal); Ketones,Urine Negative (Negative); Protein,Urine 100 mg/dL (Neg-Trace); Specific Gravity,Urine 1.013 (1.010-1.025)
[2016-12-31 06:42] LABS: Bacteria,Urine Many per hpf (None-Few); Hyaline Casts,Urine None Seen per lpf (None-Few); Leukocyte Esterase,Urine Large (Negative); Nitrite,Urine Negative (Negative); RBC,Urine 0-3 per hpf (0-3); Squamous Epithelial Cell,Urine Few per lpf (None-Few); Urobilinogen,Urine Normal (Normal); WBC,Urine TNTC per hpf (0-3)
[2016-12-31 06:43] LABS: Mucus,Urine Few (Few); Yeast,Urine Few per hpf (None Seen)
[2016-12-31 07:40] LABS: Albumin 3.1 g/dL (3.5-5.0); Albumin/Globulin Ratio 0.8 (1.1-2.2); Bilirubin,Total 0.3 mg/dL (0.2-1.2); Calcium 11.6 mg/dL (8.6-10.8); Globulin 3.7 g/dL (2.4-3.5); Magnesium 2.1 mg/dL (1.6-2.6); Potassium 4.9 mEq/L (3.5-4.5); Total Protein 6.8 g/dL (6.0-8.3)
[2016-12-31 07:48] LABS: Hematocrit 33.5 % (35.3-44.9); Mean Corpuscular Hemoglobin 29.5 pg (28.0-33.3); Mean Corpuscular Volume 95.2 fL (83.0-100.0); Mean Platelet Volume 11.7 fL (9.4-12.4); Platelet Count 223 K/mcL (140-400); Red Blood Count 3.52 M/mcL (3.82-4.97); Red Cell Distribution Width 15.9 % (11.5-14.5)
[2016-12-31 08:11] LABS: Hemoglobin 10.4 g/dL (11.5-15.4)
[2016-12-31 09:18] LABS: Lymphocytes # 1.2 K/mcL (0.6-4.6); Monocytes # 1.8 K/mcL (0.0-1.3); Neutrophils # 5.3 K/mcL (1.6-8.9); Platelet Estimate Normal (Normal)
[2016-12-31] MEDS: hydrALAZINE 25 MG TABLET PO SCH ×3 (09:30→20:43)
[2016-12-31] MEDS: Isosorbide MONOnitrate (24 HR) 30 MG TAB.ER.24H PO SCH (09:30)
[2016-12-31] MEDS: amLODIPine 5 MG TABLET PO SCH (09:31)
[2016-12-31] MEDS: Gabapentin 100 MG CAPSULE PO SCH ×2 (09:33→15:54)
--- NOTE | 2016-12-31 09:57 | Cardiology Progress Note ---
Date of Encounter: 12/31/16 Time of Encounter: 08:30 Assessment and Plan (1) Fall Current Visit: Yes Status: Acute Per cardiology: -Mechanical fall at home. -Denies dizziness/lightheadedness. -Management per primary service. Qualifiers: Encounter type: initial encounter Qualified Code(s): W19.XXXA - Unspecified fall, initial encounter (2) Acute kidney injury superimposed on chronic kidney disease Current Visit: Yes Status: Acute Per cardiology: -Known CKD with baseline creatinine 2.3-2.6. -Creatinine on admission 4.03. -Creatinine today 3.46. -Nephrology following. -Management per primary and nephrology services. (3) Bradycardia Current Visit: Yes Status: Chronic Per cardiology: -Known bradycardia. -Telemetry with average HR 62. -Holter 09/2016 reviewed with average HR 50, sinus bradycardia. -Echo 08/18/16 with LVEF 60-65%, mild concentric LVH, atypical septal motion consistent with bundle branch block, RV appeared dilated with normal systolic function, mild MR, mild TR, severe pulmonary hypertension. -Denies dizziness, lightheadedness. -Will continue to monitor. -Consider EP consult in am. (4) A-fib Current Visit: No Status: Chronic Per cardiology: -Known PAF. -On coumadin for anticoagulation. -Periods of a.fib noted per telemetry. -Holter 09/2016 with PAF. -Will continue to monitor. Qualifiers: Atrial fibrillation type: unspecified Qualified Code(s): I48.91 - Unspecified atrial fibrillation (5) Elevated troponin Current Visit: Yes Status: Acute Per cardiology: -Troponin 0.15, 0.2, 0.14. -Denies chest pain -Recent echo as above. -Mildly elevated troponin in the setting of fall and RIYA on CKD, -ECG with no ischemic changes. -Will continue to monitor troponin. -Do not suspect NSTEMI, suspect demand ischemia related to fall and RIYA on CKD. (6) Essential hypertension Current Visit: Yes Status: Chronic Per cardiology: -Known HTN. -On amlodipine and hydralazine. -Was given IV hydralazine during the night. -BP 180-190s systolic. -Unable to add joaquín inhibitor or ARB due to renal function. -Will discuss and review medications and BP with and will make changes. Discussion w patient/family: The assessment and plan as outlined above was discussed with the patient and/or family members who expressed understanding and agreement. All questions were answered. Thank you for involving us in the care of your patient. Please call with any questions. Discussed and reviewed with . Subjective Principal diagnosis: fall Interval history: Patient states she feels well this morning. Patient denies chest pain or shortness of breath. Patient denies dizziness or lightheadedness. Objective Vital Signs, Last 4 Hours Temp Pulse Resp BP Pulse Ox 12/31/16 08:12 60 12/31/16 07:23 98.7 F 65 18 183/75 95 General: Conversant, No Apparent Distress HEENT: Atraumatic, Normocephaly, Mucus Membranes Moist Neck: No JVD, Normal carotid pulses Cardiac: Reg Rate and Rhythm, Normal S1 and S2, No Murmur Lungs: Normal Breath Sounds, No Wheeze, Rales, Rhonchi Neuro: Alert and responsive, No focal deficits noted Abdomen: Soft, Non-Tender Skin: No rashes noted on visualized skin Musculoskeletal: No Chest Wall Tenderness Extremities: No Clubbing, No Cyanosis, No Edema, Normal Pulses Results 12/31/16 06:24 12/31/16 06:24 Lab Results Active Medications Acetaminophen (Tylenol) 650 mg PO Q6HR PRN PRN Reason: Mild Pain (1-3) Stop: 07/01/17 15:34 Amlodipine Besylate (Norvasc) 10 mg PO DAILY [facility] Stop: 07/01/17 09:01 Last Admin: 12/31/16 09:31 Dose: 10 mg Aspirin (Aspirin Ec) 81 mg PO DAILY [facility] Stop: 07/01/17 09:01 Last Admin: 12/30/16 09:29 Dose: 81 mg Docusate Sodium (Colace) 100 mg PO BID PRN; Protocol PRN Reason: Constipation Stop: 07/01/17 08:03 Duloxetine HCl (Cymbalta) 30 mg PO DAILY [facility] Stop: 07/01/17 09:01 Last Admin: 12/31/16 09:30 Dose: 30 mg Gabapentin (Neurontin) 100 mg PO TID [facility] Stop: 07/01/17 09:01 Last Admin: 12/31/16 09:33 Dose: 100 mg Hydralazine HCl (Hydralazine) 50 mg PO TID [facility] Stop: 07/01/17 09:01 Last Admin: 12/31/16 09:30 Dose: 50 mg Sodium Chloride (0.9 % Sodium Chloride) 1,000 mls @ 75 mls/hr IVC .[id number] [facility] Stop: 07/02/17 00:50 Insulin Detemir (Levemir) 18 unit SQ QPM [facility] Stop: 07/01/17 18:01 Last Admin: 12/30/16 17:47 Dose: 18 unit Isosorbide Mononitrate (Imdur) 30 mg PO DAILY [facility] Stop: 07/01/17 09:01 Last Admin: 12/31/16 09:30 Dose: 30 mg Morphine Sulfate (Morphine Sulfate) 2 mg IVP Q4HR PRN PRN Reason: Severe Pain (7-10) Stop: 07/01/17 07:56 Naloxone HCl (Narcan) 0.4 mg IVP Q2MIN PRN PRN Reason: Opioid Reversal Stop: 07/01/17 07:56 Omeprazole (Prilosec) 40 mg PO DAILY [facility] Stop: 07/02/17 09:01 Last Admin: 12/31/16 09:32 Dose: 20 mg Ondansetron HCl (Zofran) 4 mg IVP Q8HR PRN PRN Reason: Nausea And Vomiting Stop: 07/01/17 07:56 Oxycodone HCl (Roxicodone) 5 mg PO Q6HR PRN PRN Reason: Moderate Pain (4-6) Stop: 07/01/17 07:56 Warfarin Sodium (Coumadin Perpt) 1 each PO DAILY@1800 PRN PRN Reason: SEE COMMENTS Stop: 07/01/17 18:01 Warfarin Sodium (Coumadin) 4 mg PO DAILY@1800 [facility] Stop: 07/01/17 18:01 Last Admin: 12/30/16 17:47 Dose: 4 mg Laboratory Tests 12/30/16 12/30/16 12/30/16 05:13 05:13 08:17 Hgb Creatinine 4.03 H Troponin I 0.15 H* 0.20 H* 12/30/16 12/30/16 12/31/16 08:17 20:56 06:24 Hgb 10.4 L D Creatinine 3.82 H Troponin I 0.14 H* 12/31/16 06:24 Hgb Creatinine 3.46 H Troponin I - Imaging and Cardiology Chest Xray: report reviewed Echo: report reviewed Holter: report reviewed - EKG Interpretation EKG results cardiology: other (Telemetry reviewed with average HR previous 12 hours noted to be 62, sinus rhythm. Minimum HR 48 at 2032. PVCs and PACs noted.) Consult Discharge Plan - Plan Referrals: NONE,PCP [Primary Care Provider] -
[2016-12-31] MEDS: Aspirin Enteric Coated 81 MG Tablet PO SCH (10:26)
[2016-12-31 10:56] LABS: Prothrombin Time 21.9 Seconds (9.4-12.1)
--- NOTE | 2016-12-31 11:57 | Internal Med Progress Note ---
Date of Encounter: 12/31/16 Time of Encounter: 11:54 - Assessment and plan (1) UTI (urinary tract infection) Current Visit: Yes Status: Acute Assessment and plan: Start doxy empirically. f/u urine culture, adjust Abx. Qualifiers: Urinary tract infection type: acute cystitis Hematuria presence: without hematuria Qualified Code(s): N30.00 - Acute cystitis without hematuria (2) Hyperkalemia Current Visit: Yes Status: Acute Assessment and plan: renal diet. Iv fluids (3) Bradycardia Current Visit: Yes Status: Chronic Assessment and plan: Ct to monitor, tele, appreciate cardio recs. (4) Acute kidney injury superimposed on chronic kidney disease Current Visit: Yes Status: Acute Assessment and plan: IV fluids. Gentle IV fluid hydration. Avoid nephrotoxins. Monitor blood pressure. Check BUN and creatinine in the morning. (5) Diabetes mellitus Current Visit: Yes Status: Chronic Qualifiers: Diabetes mellitus type: type 2 Diabetes mellitus complication status: with unspecified complications Diabetes mellitus snf insulin use: with snf use Qualified Code(s): E11.8 - Type 2 diabetes mellitus with unspecified complications; Z79.4 - penitentiary (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 (6) DVT prophylaxis Current Visit: Yes Status: Acute Assessment and plan: She is fully anticoagulated with Coumadin. (7) A-fib Current Visit: No Status: Chronic Assessment and plan: She had some runs of A. fib. Currently back in sinus. Qualifiers: Atrial fibrillation type: unspecified Qualified Code(s): I48.91 - Unspecified atrial fibrillation (8) Essential hypertension Current Visit: Yes Status: Chronic Assessment and plan: Continue Norvasc and into her. Consider adding oral hydralazine and uncontrolled. - Subjective Interval history: Patient is confused. Limited history. Per records rodrigo has had multiple falls. She denies dysuria and admits to mental cloudiness. Denies N, V, CP - Constitutional Vitals: Temp Pulse Resp BP Pulse Ox 98.7 F 53 18 183/75 95 12/31/16 07:23 12/31/16 11:19 12/31/16 07:23 12/31/16 07:23 12/31/16 07:23 General appearance: Present: cooperative, A&O X 3, no acute distress, obese, answers questions appropriately - Eye Eye exam: Present: PERRL, conjuntiva pink, sclera anicteric Pupils: Present: PERRL - Respiratory Respiratory exam: Present: decreased breath sounds, CTAB. Absent: accessory muscle use, rales, rhonchi, wheezes - Cardiovascular Cardiovascular exam: Present: bradycardia, +S1, +S2. Absent: diastolic murmur, gallop, rubs, systolic murmur - GI/Abdominal GI/Abdominal exam: Present: normal bowel sounds, soft, no peritoneal signs. Absent: distended, tenderness - Extremities Exam Extremities exam: Present: warm, radial pulses palpable and symmetrical. Absent : calf tenderness, cyanotic, pedal edema - Skin Skin exam: Present: dry, intact Internal Medicine: Result - Labs CBC & Chem 7: 12/31/16 06:24 12/31/16 06:24 Labs: Short CBC 12/31/16 Range/Units 06:24 WBC 8.3 (4.3-11.1) K/mcL Hgb 10.4 L D (11.5-15.4) g/dL Hct 33.5 L (35.3-44.9) % Plt Count 223 (140-400) K/mcL Neutrophils # 5.3 (1.6-8.9) K/mcL BMP 12/31/16 06:24 Sodium 142 Potassium 4.9 H Chloride 115 H Carbon Dioxide 17 L BUN 61 H Creatinine 3.46 H Glucose 104 H Calcium 11.6 H Cardiac Enzymes 12/30/16 Range/Units 20:56 Troponin I 0.14 H* (0-0.03) ng/mL Liver Function 12/31/16 Range/Units 06:24 Total Bilirubin 0.3 (0.2-1.2) mg/dL AST 18 (5-34) Units/L ALT 13 (0-55) Units/L Alkaline Phosphatase 62 (38-126) Units/L Albumin 3.1 L (3.5-5.0) g/dL Urine 12/31/16 Range/Units 01:50 Urine Color Yellow (Yellow) Urine Clarity Cloudy A (Clear) Urine pH 6.0 (5.0-8.0) pH Units Ur Specific Adin 1.013 (1.010-1.025) Urine Protein 100 H (Neg-Trace) mg/dL Urine Glucose (UA) Normal (Normal) mg/dL - ABG Interpretation ABG results: PT/INR, D-dimer PT 21.9 Seconds (9.4-12.1) H 12/31/16 10:45 Consult Discharge Plan - Plan Referrals: Krystle Henderson CNP [Primary Care Provider] - 01/08/17 1:00 pm
[2016-12-31] MEDS ORDERED: Doxycycline 100 MG in 0.9 % Sodium Chloride Mini Bag 100 ML IVPB SCH (12:00)
[2016-12-31] MEDS ORDERED: Isosorbide MONOnitrate (24 HR) 30 MG TAB.ER.24H PO ONE (12:14)
[2016-12-31] MEDS: 0.9 % Sodium Chloride 1,000 ML IVC SCH (12:34)
[2016-12-31] MEDS ORDERED: Dextrose Gel 15 GM PO PRN ×2 (15:58)
[2016-12-31] MEDS ORDERED: *HR* Dextrose 50 % in Water (Syg) 50 ML SYRINGE IVP PRN (15:58)
[2016-12-31] MEDS ORDERED: D5% in Water 1,000 ML IVC PRN (15:58)
[2016-12-31] MEDS: *HR* Warfarin 5 MG TABLET PO SCH (17:45)
[2016-12-31] MEDS: Insulin LISPRO 300 UNITS/3 ML VIAL SQ SCH ×2 (17:46→21:45)
[2016-12-31] MEDS: Insulin DETEMIR 100 UNIT/ML X5UNITS SQ SCH (18:27)
[2017-01-01 05:03] LABS: Basophils % 0.3 %; Eosinophils # 0.1 K/mcL (0.0-0.6); Eosinophils % 1.5 %; Hematocrit 33.8 % (35.3-44.9); Hemoglobin 10.4 g/dL (11.5-15.4); Immature Granulocytes % 0.7 % (0-4); Lymphocytes # 1.1 K/mcL (0.6-4.6); Lymphocytes % 15.9 %; Mean Corpuscular HGB Conc 30.8 g/dL (31.6-35.5); Mean Corpuscular Hemoglobin 29.9 pg (28.0-33.3); Mean Corpuscular Volume 97.1 fL (83.0-100.0); Mean Platelet Volume 11.3 fL (9.4-12.4); Monocytes # 2.1 K/mcL (0.0-1.3); Monocytes % 30.5 %; Neutrophils # 3.5 K/mcL (1.6-8.9); Platelet Count 177 K/mcL (140-400); Red Blood Count 3.48 M/mcL (3.82-4.97); Red Cell Distribution Width 16.1 % (11.5-14.5); Segmented Neutrophils % 51.1 %
[2017-01-01 05:05] LABS: INR 1.9; Prothrombin Time 20.3 Seconds (9.4-12.1)
[2017-01-01 05:13] LABS: Potassium 4.5 mEq/L (3.5-4.5)
[2017-01-01 05:31] LABS: Anisocytosis 1+ (Not Present); Platelet Estimate Normal (Normal)
--- NOTE | 2017-01-01 08:10 | Electrocardiograph Report ---
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
--- NOTE | 2017-01-01 08:27 | Internal Med Progress Note ---
<Esteban Delaney - Last Filed: 01/01/17 17:26> Date of Encounter: 01/01/17 Time of Encounter: 08:27 - Assessment and plan (1) UTI (urinary tract infection) Current Visit: Yes Status: Acute Assessment and plan: Patient presented to the ED after sustaining multiple falls and confusion. Patient was determined on UA to have a UTI Urine cultures growing gram negative rubina, sensitivities pending. Patient reports decreased confusion and better alertness this morning. Also reports resolution of her abdominal pain. -Discontinued doxycyline d1 -Continue Rocephin d1 Qualifiers: Urinary tract infection type: acute cystitis Hematuria presence: without hematuria Qualified Code(s): N30.00 - Acute cystitis without hematuria (2) Fall Current Visit: Yes Status: Acute Assessment and plan: Multiple falls over the past 48 hours prior to admission. CT Head was negative for acute intracranial process Knee and Hip xrays were essentially negative. Suspect falls likely secondary to confusion and UTI. Though, cardiac cause cannot be fully ruled out in this patient known to have afib and bradycardia. Continue with fall precautions and monitor patient. Qualifiers: Encounter type: initial encounter Qualified Code(s): W19.XXXA - Unspecified fall, initial encounter (3) Confusion Current Visit: Yes Status: Acute Assessment and plan: Presented with confusion and "mental cloudiness". This morning patient reports she is more alert and back to her baseline. Likely secondary to UTI, will continue to monitor mental status. (4) Bradycardia Current Visit: Yes Status: Chronic Assessment and plan: Presented and found to have bradycardia rate 53-57 on arrival. -Continue telemetry. Hr 52-58 overnight, likely baseline. -Cardio was consulted. -Continue holding metoprolol XL -EP Consult reviewed, no indication for further intervention at this time. Outpatient Cardio follow up. Avoid AV daniel blockers (5) A-fib Current Visit: Yes Status: Chronic Assessment and plan: Telemetry revealed runs of afib, but was at sinus rhythm yesterday. Still continues to have occassional afib. -Continue with coumadin therapy -Continue telemetry. Qualifiers: Atrial fibrillation type: paroxysmal Qualified Code(s): I48.0 - Paroxysmal atrial fibrillation (6) CKD (chronic kidney disease) stage 5, GFR less than 15 ml/min Current Visit: Yes Status: Chronic Assessment and plan: Known history of CKD stage 5, determined to have Cr 4.03 on arrival Cr 3.32, returning to baseline. -Nephrology on board. Continue following recommendations, avoid nephrotoxic agents, renal protective strategy. No need for dialysis -Renal diet (7) Hyperkalemia Current Visit: Yes Status: Resolved Assessment and plan: Potassium 4.9 yesterday. Potassium 4.5 this morning. -continue following labs. -Renal diet -Nephrology on board. (8) Diabetes mellitus Current Visit: Yes Status: Resolved Assessment and plan: Know history of diabetes. Continue with renal and ada diet Continue insulin per protocol Qualifiers: Diabetes mellitus type: type 2 Diabetes mellitus complication status: with unspecified complications Diabetes mellitus intermediate manager insulin use: with retirement use Qualified Code(s): E11.8 - Type 2 diabetes mellitus with unspecified complications; Z79.4 - joint terminal attack controller (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 (9) Essential hypertension Current Visit: Yes Status: Chronic Assessment and plan: Bp 154/63, rate 58. Continue home dose of norvasc and hydralazine, continue holding Metoprolol due to bradycardia. Continue monitoring vitals. Known history of adverse reaction to lisinopril, CKD stage 5 may be concern for addition of a hctz, and metoprolol causing bradycardia. -Nephro on board, will continue to follow recommendations. (10) DVT prophylaxis Current Visit: Yes Status: Acute Assessment and plan: Continue with Coumadin. - Subjective Interval history: Ms. Dorsey is an 81 year old female with history CHF, CAD, afib on coumadin, fm , htn who presented to the ED after multiple falls over the past 48 hours and mental cloudiness. Patient reports that she could tell she was not thinking right, but reports that has cleared up this morning. She also report that overall she is feeling much better and abdominal pain is now gone. Denies fevers, chills, sweats, nausea, vomiting, dysphagia, chest pain or pressure, shortness of breath, abdominal pain, changes in bowels, dysuria or increased frequency, new weakness, or new loss of sensation. - Constitutional Vitals: Temp Pulse Resp BP Pulse Ox 98.0 F 58 16 154/63 97 01/01/17 07:36 01/01/17 07:36 01/01/17 07:36 01/01/17 07:36 01/01/17 07:36 General appearance: Present: cooperative, A&O X 3, pleasant, no acute distress, obese, answers questions appropriately - Head Head exam: Present: atraumatic, normal inspection, normocephalic - Eye Eye exam: Present: EOMI, normal appearance - ENT ENT exam: Present: mucous membranes moist, normal exam, normal oropharynx - Neck Neck exam general surgery: Present: full ROM, normal inspection, trachea midline - Respiratory Respiratory exam: Present: CTAB. Absent: rales, rhonchi, wheezes, tachypnea - Cardiovascular Cardiovascular exam: Present: irregular rhythm, +S1, +S2. Absent: diastolic murmur, JVD, systolic murmur - GI/Abdominal GI/Abdominal exam: Present: normal bowel sounds, soft. Absent: distended, guarding, rebound, tenderness, no peritoneal signs - Extremities Exam Extremities exam: Present: full ROM, normal capillary refill, normal inspection , warm, radial pulses palpable and symmetrical. Absent: pedal edema, tenderness - Neurological Exam Neurological exam: Present: alert, oriented X3, no focal deficits, strengths equal and symetr throughout. Absent: facial droop, speech deficit - Psychiatric Psychiatric exam: Present: normal affect, normal mood - Skin Skin exam: Present: dry, intact, normal color, warm. Absent: rash Internal Medicine: Result - Labs CBC & Chem 7: 01/01/17 04:08 01/01/17 04:08 Labs: Short CBC 12/31/16 01/01/17 Range/Units 06:24 04:08 WBC 6.8 (4.3-11.1) K/mcL Hgb 10.4 L (11.5-15.4) g/dL Hct 33.8 L (35.3-44.9) % Plt Count 177 (140-400) K/mcL Neutrophils # 5.3 3.5 (1.6-8.9) K/mcL BMP 01/01/17 04:08 Sodium 139 Potassium 4.5 Chloride 113 H Carbon Dioxide 16 L BUN 54 H Creatinine 3.32 H Glucose 95 Calcium 11.0 H - ABG Interpretation ABG results: PT/INR, D-dimer PT 20.3 Seconds (9.4-12.1) H 01/01/17 04:08 - Impressions Impressions Echocardiogram Limited Views 12/31/16 08:46 Impressions: LVEF 60-65%. Normal LV chamber size and function. Mild concentric left ventricular hypertrophy. Atypical septal motion consistent with bundle branch block. Left Ventricular Wall Motion: Rest Echo Findings All wall segments showed normal motion. Findings: Study Quality * Technically adequate exam. ECG Findings * Sinus rhythm with BBB. Left Ventricle * LVEF 60-65%. * Normal LV chamber size and function. * Mild concentric left ventricular hypertrophy. * Atypical septal motion consistent with bundle branch block. Aorta * Normally sized aortic root. Pericardium * The pericardium appears normal. IVC * The IVC is not well evaluated. Consult Discharge Plan - Plan Referrals: Krystle Henderson CNP [Primary Care Provider] - 01/08/17 1:00 pm Munira Aponte DO [Partnered Physician] - 01/23/17 10:30 am <Cisco Colvin - Last Filed: 01/01/17 18:15> Date of Encounter: 01/01/17 - Assessment and plan (1) UTI (urinary tract infection) Current Visit: Yes Status: Acute Qualifiers: Urinary tract infection type: acute cystitis Hematuria presence: without hematuria Qualified Code(s): N30.00 - Acute cystitis without hematuria (2) Hyperkalemia Current Visit: Yes Status: Resolved (3) Bradycardia Current Visit: Yes Status: Chronic (4) Acute kidney injury superimposed on chronic kidney disease Current Visit: Yes Status: Acute (5) Diabetes mellitus Current Visit: Yes Status: Resolved Qualifiers: Diabetes mellitus type: type 2 Diabetes mellitus complication status: with unspecified complications Diabetes mellitus intermediate manager insulin use: with retirement use Qualified Code(s): E11.8 - Type 2 diabetes mellitus with unspecified complications; Z79.4 - joint terminal attack controller (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 (6) DVT prophylaxis Current Visit: Yes Status: Acute (7) A-fib Current Visit: Yes Status: Chronic Qualifiers: Atrial fibrillation type: paroxysmal Qualified Code(s): I48.0 - Paroxysmal atrial fibrillation (8) Essential hypertension Current Visit: Yes Status: Chronic - Constitutional Vitals: Temp Pulse Resp BP Pulse Ox 97.6 F 61 18 177/62 92 01/01/17 16:35 01/01/17 16:35 01/01/17 16:35 01/01/17 16:35 01/01/17 16:35 Internal Medicine: Result - Labs CBC & Chem 7: 01/01/17 04:08 01/01/17 04:08 Labs: Short CBC 01/01/17 Range/Units 04:08 WBC 6.8 (4.3-11.1) K/mcL Hgb 10.4 L (11.5-15.4) g/dL Hct 33.8 L (35.3-44.9) % Plt Count 177 (140-400) K/mcL Neutrophils # 3.5 (1.6-8.9) K/mcL BMP 01/01/17 04:08 Sodium 139 Potassium 4.5 Chloride 113 H Carbon Dioxide 16 L BUN 54 H Creatinine 3.32 H Glucose 95 Calcium 11.0 H - ABG Interpretation ABG results: PT/INR, D-dimer PT 20.3 Seconds (9.4-12.1) H 01/01/17 04:08 - Impressions Impressions Echocardiogram Limited Views 12/31/16 08:46 Impressions: LVEF 60-65%. Normal LV chamber size and function. Mild concentric left ventricular hypertrophy. Atypical septal motion consistent with bundle branch block. Left Ventricular Wall Motion: Rest Echo Findings All wall segments showed normal motion. Findings: Study Quality * Technically adequate exam. ECG Findings * Sinus rhythm with BBB. Left Ventricle * LVEF 60-65%. * Normal LV chamber size and function. * Mild concentric left ventricular hypertrophy. * Atypical septal motion consistent with bundle branch block. Aorta * Normally sized aortic root. Pericardium * The pericardium appears normal. IVC * The IVC is not well evaluated. - Attending Attestation I examined this patient and my medical decision-making was reviewed with the Resident Physician. I agree with the documented findings, disposition and treatment plan as described except to the extent set forth below. Patient's mental status was back to baseline, reports generalized weakness. On exam she is no distress. Heart is regular. Lungs are clear. Abdomen is soft. Plan: Urine culture growing gram-negative rubina. We will continue treatment with ceftriaxone and follow culture and sensitivities. Will adjust antibiotic therapy according to final culture results. Continue with PT OT. Blood glucose and 100-200 range. We will decrease Levemir to 5 units daily at bedtime.
[2017-01-01] MEDS: Isosorbide MONOnitrate (24 HR) 60 MG TAB.ER.24H PO SCH (09:06)
[2017-01-01] MEDS: Aspirin Enteric Coated 81 MG Tablet PO SCH (09:06)
[2017-01-01] MEDS: hydrALAZINE 25 MG TABLET PO SCH ×3 (09:06→21:54)
[2017-01-01] MEDS: amLODIPine 5 MG TABLET PO SCH (09:06)
[2017-01-01] MEDS: Insulin LISPRO 300 UNITS/3 ML VIAL SQ SCH ×4 (09:07→21:48)
--- NOTE | 2017-01-01 10:22 | Nephrology Progress Note ---
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 (2) Fall Current Visit: Yes Status: Acute per primary team Qualifiers: Encounter type: initial encounter Qualified Code(s): W19.XXXA - Unspecified fall, initial encounter (3) Bradycardia Current Visit: Yes Status: Chronic per primary team Subjective Principal diagnosis: fall Interval history: Patient seen and examined. Feeling well and thinks she may be discharged tomorrow. Objective - Vital Signs Vital signs: Vital Signs Temp Pulse Resp BP Pulse Ox 01/01/17 07:36 98.0 F 58 16 154/63 97 01/01/17 04:17 98.0 F 56 14 145/67 94 01/01/17 00:49 97.9 F 53 14 165/69 97 12/31/16 19:39 97.9 F 52 14 178/65 97 12/31/16 16:50 98.2 F 57 13 177/68 98 12/31/16 15:30 50 12/31/16 11:50 98.0 F 53 16 121/65 93 12/31/16 11:19 53 Intake and Output 12/31/16 01/01/17 01/01/17 23:59 07:59 15:59 Intake Total 300 / 300 1000 / 1000 Output Total 800 / 800 600 / 600 Balance -500 / -500 400 / 400 Intake: IV Fluids 1000 / 1000 0.45% Sodium Chloride 1000 Ml 1000 / 1000 1000 Ml 1,000 ML @ 75 mls/hr IVC .[id number] SHAZIA Rx#:[id number] Oral 300 / 300 Output: Urine 800 / 800 600 / 600 Other: Meal Dinner Percent of Meal Consumed 90% # Voids 1 Blood Glucose* 113 98 - General Appearance General appearance: Present: well-developed, well-nourished, obese EENT: Present: ATNC, mucous membranes moist, hearing intact, vision intact Neck: Present: supple Respiratory: Present: clear Cardiology: Present: normal S1, normal S2 Gastrointestinal: Present: no tenderness, no guarding Integumentary: Present: warm and dry Neurologic: Present: alert and oriented x3 Psychiatric: Present: mood/affect appropriate, cooperative - Lab 01/01/17 04:08 01/01/17 04:08 Most recent lab results Calcium 11.0 mg/dL (8.6-10.8) H 01/01/17 04:08 Phosphorus 4.0 mg/dL (2.3-4.7) 12/31/16 06:24 Magnesium 2.1 mg/dL (1.6-2.6) 12/31/16 06:24 Urine Creatinine 30 mg/dL 12/31/16 01:50 Urine Sodium 88.0 mEq/L 12/31/16 01:50 Urine Total Protein 146 mg/dL (1-14) H 12/31/16 01:50 Consult Discharge Plan - Plan Referrals: Krystle Henderson CNP [Primary Care Provider] - 01/08/17 1:00 pm
--- NOTE | 2017-01-01 12:05 | Electrophysiology Consult Note ---
Date of Encounter: 01/01/17 Time of Encounter: 12:04 Assessment and Plan (1) Bradycardia Current Visit: Yes Status: Chronic Per EP: -Known hx of bradycardia, not on AV daniel blockers. -K 4.5, TSH 1.703, Mag 2.1. -24 hr telemetry with average HR 54. Lowest HR 42, sinus dominic. Episodes of PAF noted. -Holter 09/2016 reviewed with average HR 50, sinus bradycardia and intermittent junctional rhythm, ectopic atrial rhythm. -Echo LVEF 60-65%, mild concentric LVH, atypical septal motion consistent with bundle branch block. -Denies dizziness, lightheadedness or syncope. -Reports recent fall was mechanical from knee giving out. -Daughter at bedside suspicious that pt may be be minimizing symptoms, but pt continues to deny. -Discussed and reviewed with Dr. Leno Walter. No clinical indication for PPM at this time since she denies symptoms and lowest HR 42. Continue to avoid AV daniel blockers. -Anticipate sign off once seen and evaluated by Dr. Leno Walter. Close outpt follow-up. (2) A-fib Current Visit: Yes Status: Chronic Per EP: -Known PAF hx. -On coumadin for anticoagulation. INR 1.9. -Periods of a.fib noted per telemetry. -Holter 09/2016 with PAF. -Bradycardic, unable to tolerate AV daniel blockers. Qualifiers: Atrial fibrillation type: paroxysmal Qualified Code(s): I48.0 - Paroxysmal atrial fibrillation Discussion w patient/family: The assessment and plan as outlined above was discussed with the patient and/or family members who expressed understanding and agreement. All questions were answered. Thank you for involving us in the care of your patient. Please call with any questions. I will discuss all the above with Dr. Leno Walter and make changes as necessary. History of Present Illness Consult date: 01/01/17 Requesting physician: Tata Olson Consult reason: bradycardia Chief complaint: fall History of present illness: Ms. Dorsey is a 81 year old female with a relevant past medical history of bradycardia, CKD, atrial fibrillation, CHF, DM. Patient states she was at home when she felt her knee "give out" and fell. Patient states she was not dizzy or lightheaded prior to or at the time of the fall. Patient denies chest pain or shortness of breath. Patient admits ot fatigue, however states this is about baseline for a few years. Patient denies any dizziness, lightheadedness, syncope , or near syncope. She reports exertional dyspnea. She has been having bradycardia, PAF with slow ventricular response and intermittent junctional rhythm. Electrophysiology consulted for further evaluation. Prior CV testing: Echo 12/31/16: LVEF 60-65%, Normal LV chamber size and function, Mild concentric left ventricular hypertrophy, Atypical septal motion consistent with bundle branch block. Holter 09/2016: AVG HR 50, sinus dominic. Intermittent junctional rhythm. Intermittent ectopic atrial rhythm. One short episode of PAF. Frequent PVCs. Echo 08/18/16: LVEF 60-65%, mild concentric LVH, atypical septal motion consistent with BBB, RV appeared dilated with normal systolic function, mild MR , mild TR, severe phtn. Past Med Surg Social Fam HX - Past Medical History Medical history: arthritis, atrial fibrillation, CHF, diabetes, hyperlipidemia, hypertension, renal disease Psychiatric history: no psych history - Past Surgical History Surgical History: cholecystectomy, orthopedic, other, PJ/BSO - Social History Smoking Status: Never smoker Smokeless Tobacco Status: No Alcohol use: none Drug use: none - Family History Mother Living Status: Hx Family Cardiac Disorders: Yes Hx Family Cancer: Yes (Skin) Hx Family Endocrine Disorder: Yes (diabetes) Father History Unknown: Yes Adopted: No Family Member Ethnicity: Non- Living Status: Hx Family Cardiac Disorders: Yes Hx Family Endocrine Disorder: Yes (diabetes) Medications and Allergies Amlodipine Besylate 10 mg PO DAILY 10/02/15 [History] DULoxetine [Cymbalta] 30 mg PO DAILY 10/02/15 [History] Esomeprazole Magnesium [Nexium] 40 mg PO DAILY 10/02/15 [History] Gabapentin [Neurontin] 300 mg PO TID 10/02/15 [History] Hydralazine HCl 50 mg PO TID 10/02/15 [History] Insulin Glargine,Hum.rec.anlog [Lantus Solostar] 18 unit SQ QPM 10/02/15 [ History] Acetaminophen [Tylenol] 650 mg PO Q6HR PRN #0 tablet 10/10/15 [Rx] Aspirin Enteric Coated [Aspirin EC] 81 mg PO DAILY tablet. 10/10/15 [Rx] Docusate [Colace] 100 mg PO BID PRN #0 capsule 10/10/15 [Rx] Furosemide [Lasix] 80 mg PO BID tablet 10/10/15 [Rx] Isosorbide MONOnitrate (24 HR) [Imdur] 30 mg PO DAILY 12/30/16 [History] Metoprolol XL (24 HR) Succ [Toprol XL] 25 mg PO DAILY 12/30/16 [History] Warfarin [Coumadin] 5 mg PO SUMOWETHFR 12/30/16 [History] Warfarin perPT [Coumadin perPT] 5.5 mg PO TUTHSA 12/30/16 [History] 3 Allergy/AdvReac Type Severity Reaction Status Date / Time cephalexin [From Keflex] AdvReac Unknown Hypotension Verified 10/02/15 21:49 codeine AdvReac Hypotension Verified 10/02/15 21:49 lisinopril AdvReac See Verified 10/02/15 21:49 Comments metoprolol AdvReac See Verified 10/02/15 21:49 Comments All Systems Review: A 10-system review of systems was performed and is negative for pertinent findings except as documented above in the HPI. Physical Examination Vital Signs, Last 4 Hours Temp Pulse Resp BP Pulse Ox 01/01/17 11:16 50 01/01/17 10:57 98.0 F 51 15 139/56 92 Vital Signs Temp Pulse Resp BP Pulse Ox 01/01/17 11:16 50 01/01/17 10:57 98.0 F 51 15 139/56 92 01/01/17 07:36 98.0 F 58 16 154/63 97 01/01/17 04:17 98.0 F 56 14 145/67 94 01/01/17 00:49 97.9 F 53 14 165/69 97 12/31/16 19:39 97.9 F 52 14 178/65 97 12/31/16 16:50 98.2 F 57 13 177/68 98 12/31/16 15:30 50 Intake and Output 12/31/16 01/01/17 01/01/17 23:59 07:59 15:59 Intake Total 300 / 300 1000 / 1000 Output Total 800 / 800 600 / 600 300 / 300 Balance -500 / -500 400 / 400 -300 / -300 Intake: IV Fluids 1000 / 1000 0.45% Sodium Chloride 1000 Ml 1000 / 1000 1000 Ml 1,000 ML @ 75 mls/hr IVC .[id number] SHAZIA Rx#:[id number] Oral 300 / 300 Output: Urine 800 / 800 600 / 600 300 / 300 Other: Meal Dinner Percent of Meal Consumed 90% # Voids 1 Blood Glucose* 113 98 165 General: Conversant, No Apparent Distress HEENT: Atraumatic, Normocephaly, Mucus Membranes Moist Neck: No JVD, Normal carotid pulses Cardiac: Reg Rate and Rhythm, Normal S1 and S2, No Murmur Lungs: Normal Breath Sounds, No Wheeze, Rales, Rhonchi Neuro: Alert and responsive, No focal deficits noted Abdomen: Soft, Non-Tender Skin: No rashes noted on visualized skin Musculoskeletal: No Chest Wall Tenderness Extremities: No Clubbing, No Cyanosis, No Edema, Normal Pulses Results 01/01/17 04:08 01/01/17 04:08 Lab Results 01/01/17 01/01/17 01/01/17 04:08 04:08 04:08 WBC 6.8 Hgb 10.4 L Hct 33.8 L Plt Count 177 INR 1.9 Sodium 139 Potassium 4.5 Chloride 113 H Carbon Dioxide 16 L BUN 54 H Creatinine 3.32 H Glucose 95 Calcium 11.0 H Short CBC 01/01/17 Range/Units 04:08 WBC 6.8 (4.3-11.1) K/mcL Hgb 10.4 L (11.5-15.4) g/dL Hct 33.8 L (35.3-44.9) % Plt Count 177 (140-400) K/mcL Neutrophils # 3.5 (1.6-8.9) K/mcL BMP 01/01/17 Range/Units 04:08 Sodium 139 (136-145) mEq/L Potassium 4.5 (3.5-4.5) mEq/L Chloride 113 H (98-109) mEq/L Carbon Dioxide 16 L (19-29) mEq/L BUN 54 H (7-20) mg/dL Creatinine 3.32 H (0.57-1.11) mg/dL Glucose 95 (70-99) mg/dL Calcium 11.0 H (8.6-10.8) mg/dL Impressions Echocardiogram Limited Views 12/31/16 08:46 Impressions: LVEF 60-65%. Normal LV chamber size and function. Mild concentric left ventricular hypertrophy. Atypical septal motion consistent with bundle branch block. Left Ventricular Wall Motion: Rest Echo Findings All wall segments showed normal motion. Findings: Study Quality * Technically adequate exam. ECG Findings * Sinus rhythm with BBB. Left Ventricle * LVEF 60-65%. * Normal LV chamber size and function. * Mild concentric left ventricular hypertrophy. * Atypical septal motion consistent with bundle branch block. Aorta * Normally sized aortic root. Pericardium * The pericardium appears normal. IVC * The IVC is not well evaluated. Active Medications Acetaminophen (Tylenol) 650 mg PO Q6HR PRN PRN Reason: Mild Pain (1-3) Stop: 07/01/17 15:34 Amlodipine Besylate (Norvasc) 10 mg PO DAILY [facility] Stop: 07/01/17 09:01 Last Admin: 01/01/17 09:06 Dose: 10 mg Aspirin (Aspirin Ec) 81 mg PO DAILY [facility] Stop: 07/01/17 09:01 Last Admin: 01/01/17 09:06 Dose: 81 mg Dextrose/Water (Dextrose 50% (Syg)) 25 ml IVP AD PRN PRN Reason: Hypoglycemia Stop: 07/02/17 15:59 Docusate Sodium (Colace) 100 mg PO BID PRN; Protocol PRN Reason: Constipation Stop: 07/01/17 08:03 Glucagon (Glucagen) 1 mg IM ONCE PRN PRN Reason: Hypoglycemia Stop: 07/02/17 15:59 Glucose (Gluctose) 15 gm PO ONCE PRN PRN Reason: Hypoglycemia Stop: 07/02/17 15:59 Glucose (Gluctose) 30 gm PO ONCE PRN PRN Reason: Hypoglycemia Stop: 07/02/17 15:59 Hydralazine HCl (Hydralazine) 50 mg PO TID [facility] Stop: 07/01/17 09:01 Last Admin: 01/01/17 09:06 Dose: 50 mg Ceftriaxone Sodium 1,000 mg/ (Dextrose) 100 mls @ 200 mls/hr IVPB Q24H [facility]AZIA Stop: 07/02/17 16:01 Last Admin: 12/31/16 17:43 Dose: 200 mls/hr Dextrose (Dextrose 5%) 1,000 mls @ 100 mls/hr IVC .Q10H PRN PRN Reason: HYPOGLYCEMIA Stop: 07/02/17 15:59 Sodium Chloride (0.45% Sodium Chloride 1000 Ml 1000 Ml) 1,000 mls @ 75 mls/hr IVC .[id number] [facility] Stop: 07/02/17 16:01 Last Admin: 01/01/17 09:06 Dose: 75 mls/hr Insulin Detemir (Levemir) 18 unit SQ QPM [facility] Stop: 07/01/17 18:01 Last Admin: 12/31/16 18:27 Dose: Not Given Insulin Human Lispro (Humalog) 0 units SQ HS [facility] PRN Reason: Protocol Stop: 07/02/17 21:01 Last Admin: 12/31/16 21:45 Dose: Not Given Insulin Human Lispro (Humalog) 0 units SQ TIDAC [facility] PRN Reason: Protocol Stop: 07/02/17 16:31 Last Admin: 01/01/17 11:23 Dose: 2 units Isosorbide Mononitrate (Imdur) 60 mg PO DAILY [facility] Stop: 07/03/17 09:01 Last Admin: 01/01/17 09:06 Dose: 60 mg Morphine Sulfate (Morphine Sulfate) 2 mg IVP Q4HR PRN PRN Reason: Severe Pain (7-10) Stop: 07/01/17 07:56 Naloxone HCl (Narcan) 0.4 mg IVP Q2MIN PRN PRN Reason: Opioid Reversal Stop: 07/01/17 07:56 Omeprazole (Prilosec) 40 mg PO DAILY [facility] Stop: 07/02/17 09:01 Last Admin: 01/01/17 09:06 Dose: 40 mg Ondansetron HCl (Zofran) 4 mg IVP Q8HR PRN PRN Reason: Nausea And Vomiting Stop: 07/01/17 07:56 Oxycodone HCl (Roxicodone) 5 mg PO Q6HR PRN PRN Reason: Moderate Pain (4-6) Stop: 07/01/17 07:56 Last Admin: 12/31/16 10:26 Dose: 5 mg Warfarin Sodium (Coumadin Perpt) 1 each PO DAILY@1800 PRN PRN Reason: SEE COMMENTS Stop: 07/01/17 18:01 Warfarin Sodium (Coumadin) 5 mg PO 1800 [facility] Stop: 07/02/17 18:01 Last Admin: 12/31/16 17:45 Dose: 5 mg - Imaging and Cardiology Stress Test: report reviewed Echo: report reviewed - EKG Interpretation EKG results cardiology: other (12 hr tele AVG HR 54, lowest HR 42 bpm, sinus dominic, PAF noted) Consult Discharge Plan - Plan Referrals: Krystle Henderson CNP [Primary Care Provider] - 01/08/17 1:00 pm Munira Aponte DO [Partnered Physician] - 01/23/17 10:30 am
[2017-01-01] MEDS: Sodium Bicarbonate 75 MEQ in 0.45 % Sodium Chloride 1,000 ML IVC SCH (13:15)
[2017-01-01] MEDS: *HR* Warfarin 5 MG TABLET PO SCH (17:31)
[2017-01-01] MEDS ORDERED: Insulin DETEMIR 100 UNIT/ML X5UNITS SQ SCH (18:15)
[2017-01-01] MEDS: 0.9 % Sodium Chloride 1,000 ML IVC SCH (18:25)
[2017-01-02] MEDS: hydrALAZINE 25 MG TABLET PO SCH ×2 (00:52→14:49)
[2017-01-02 05:58] LABS: Basophils % 0.1 %; Eosinophils # 0.1 K/mcL (0.0-0.6); Eosinophils % 1.8 %; Hematocrit 29.9 % (35.3-44.9); Hemoglobin 9.4 g/dL (11.5-15.4); Immature Granulocytes % 0.7 % (0-4); Lymphocytes # 1.7 K/mcL (0.6-4.6); Lymphocytes % 24.4 %; Mean Corpuscular HGB Conc 31.4 g/dL (31.6-35.5); Mean Corpuscular Hemoglobin 29.8 pg (28.0-33.3); Mean Corpuscular Volume 94.9 fL (83.0-100.0); Mean Platelet Volume 11.6 fL (9.4-12.4); Monocytes # 1.8 K/mcL (0.0-1.3); Monocytes % 27.1 %; Neutrophils # 3.1 K/mcL (1.6-8.9); Platelet Count 181 K/mcL (140-400); Red Blood Count 3.15 M/mcL (3.82-4.97); Red Cell Distribution Width 15.8 % (11.5-14.5); Segmented Neutrophils % 45.9 %
[2017-01-02 06:02] LABS: INR 1.9; Prothrombin Time 20.6 Seconds (9.4-12.1)
[2017-01-02 06:12] LABS: Calcium 10.9 mg/dL (8.6-10.8); Potassium 4.4 mEq/L (3.5-4.5)
[2017-01-02 06:46] LABS: Platelet Estimate Normal (Normal); Toxic Granulation Present (Not Present)
[2017-01-02] MEDS: Sodium Bicarbonate 75 MEQ in 0.45 % Sodium Chloride 1,000 ML IVC SCH (07:47)
[2017-01-02] MEDS: Aspirin Enteric Coated 81 MG Tablet PO SCH (07:47)
[2017-01-02] MEDS: amLODIPine 5 MG TABLET PO SCH (07:47)
[2017-01-02] MEDS: Isosorbide MONOnitrate (24 HR) 60 MG TAB.ER.24H PO SCH (07:47)
--- NOTE | 2017-01-02 08:20 | Internal Med Progress Note ---
Date of Encounter: 01/02/17 Time of Encounter: 08:20 - Assessment and plan (1) UTI (urinary tract infection) Current Visit: Yes Status: Acute Qualifiers: Urinary tract infection type: acute cystitis Hematuria presence: without hematuria Qualified Code(s): N30.00 - Acute cystitis without hematuria (2) Fall Current Visit: Yes Status: Acute Qualifiers: Encounter type: initial encounter Qualified Code(s): W19.XXXA - Unspecified fall, initial encounter (3) Confusion Current Visit: Yes Status: Acute (4) Bradycardia Current Visit: Yes Status: Chronic (5) A-fib Current Visit: Yes Status: Chronic Qualifiers: Atrial fibrillation type: paroxysmal Qualified Code(s): I48.0 - Paroxysmal atrial fibrillation (6) CKD (chronic kidney disease) stage 5, GFR less than 15 ml/min Current Visit: Yes Status: Chronic (7) Hyperkalemia Current Visit: Yes Status: Resolved (8) Diabetes mellitus Current Visit: Yes Status: Resolved Qualifiers: Diabetes mellitus type: type 2 Diabetes mellitus complication status: with unspecified complications Diabetes mellitus intermediate frame tender insulin use: with senior living use Qualified Code(s): E11.8 - Type 2 diabetes mellitus with unspecified complications; Z79.4 - halfway (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 (9) Essential hypertension Current Visit: Yes Status: Chronic (10) DVT prophylaxis Current Visit: Yes Status: Acute - Subjective Interval history: Ms. Dorsey is an 81 year old female with history CHF, CAD, afib on coumadin, fm , htn who presented to the ED after multiple falls over the past 48 hours and mental cloudiness. Patient reports that she could tell she was not thinking right, but reports that has cleared up this morning. She also report that overall she is feeling much better and abdominal pain is now gone. Denies fevers, chills, sweats, nausea, vomiting, dysphagia, chest pain or pressure, shortness of breath, abdominal pain, changes in bowels, dysuria or increased frequency, new weakness, or new loss of sensation. - Constitutional Vitals: Temp Pulse Resp BP Pulse Ox 97.7 F 61 15 194/62 96 01/02/17 08:04 01/02/17 08:04 01/02/17 08:04 01/02/17 08:04 01/02/17 08:04 General appearance: Present: cooperative, A&O X 3, pleasant, no acute distress, obese, answers questions appropriately Internal Medicine: Result - Labs CBC & Chem 7: 01/02/17 05:20 01/02/17 05:20 Labs: Short CBC 01/02/17 Range/Units 05:20 WBC 6.8 (4.3-11.1) K/mcL Hgb 9.4 L (11.5-15.4) g/dL Hct 29.9 L (35.3-44.9) % Plt Count 181 (140-400) K/mcL Neutrophils # 3.1 (1.6-8.9) K/mcL BMP 01/02/17 05:20 Sodium 141 Potassium 4.4 Chloride 112 H Carbon Dioxide 18 L BUN 48 H Creatinine 3.20 H Glucose 115 H Calcium 10.9 H - ABG Interpretation ABG results: PT/INR, D-dimer PT 20.6 Seconds (9.4-12.1) H 01/02/17 05:20 Consult Discharge Plan - Plan Referrals: Krystle Henderson CNP [Primary Care Provider] - 01/08/17 1:00 pm Munira Aponte DO [Partnered Physician] - 01/23/17 10:30 am
[2017-01-02] MEDS: Insulin LISPRO 300 UNITS/3 ML VIAL SQ SCH ×2 (08:42→12:07)
--- NOTE | 2017-01-02 10:29 | Discharge Summary ---
<KataleshiaEsteban goss - Last Filed: 01/02/17 13:22> Date of Encounter: 01/02/17 Time of Encounter: 10:27 - Discharge Diagnosis (1) UTI (urinary tract infection) Priority: Primary Status: Acute Comments: Urine culture returned positive for Klebsiella Pneumoniae. Sensitivity results reviewed. Will discharge to complete total 7 days antibiotics. Qualifiers: Urinary tract infection type: acute cystitis Hematuria presence: without hematuria Qualified Code(s): N30.00 - Acute cystitis without hematuria (2) Fall Priority: Primary Status: Acute Qualifiers: Encounter type: initial encounter Qualified Code(s): W19.XXXA - Unspecified fall, initial encounter (3) Confusion Priority: Primary Status: Resolved (4) Bradycardia Priority: Primary Status: Chronic (5) A-fib Priority: Secondary Status: Chronic Qualifiers: Atrial fibrillation type: paroxysmal Qualified Code(s): I48.0 - Paroxysmal atrial fibrillation (6) CKD (chronic kidney disease) stage 5, GFR less than 15 ml/min Priority: Secondary Status: Chronic (7) Hyperkalemia Priority: Secondary Status: Resolved (8) Diabetes mellitus Priority: Secondary Status: Resolved Qualifiers: Diabetes mellitus type: type 2 Diabetes mellitus complication status: with unspecified complications 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 Adverse reaction to lisinopril and having bradycardia to avoid metoprolol and av daniel blockers. Known history of CKD stage 5, renally dosed antibiotics. To follow up with PCP and Nephrology - Discharge Medications Prescriptions: Cefdinir [Omnicef] 300 mg PO DAILY 5 Days #5 capsule hydroCHLOROthiazide [Hydrochlorothiazide] 25 mg PO DAILY #14 tablet Home Medications: Amlodipine Besylate 10 mg PO DAILY 10/02/15 [History] DULoxetine [Cymbalta] 30 mg PO DAILY 10/02/15 [History] Esomeprazole Magnesium [Nexium] 40 mg PO DAILY 10/02/15 [History] Gabapentin [Neurontin] 300 mg PO TID 10/02/15 [History] Hydralazine HCl 50 mg PO TID 10/02/15 [History] Insulin Glargine,Hum.rec.anlog [Lantus Solostar] 18 unit SQ QPM 10/02/15 [ History] Acetaminophen [Tylenol] 650 mg PO Q6HR PRN #0 tablet 10/10/15 [Rx] Aspirin Enteric Coated [Aspirin EC] 81 mg PO DAILY tablet. 10/10/15 [Rx] Docusate [Colace] 100 mg PO BID PRN #0 capsule 10/10/15 [Rx] Isosorbide MONOnitrate (24 HR) [Imdur] 30 mg PO DAILY 12/30/16 [History] Warfarin [Coumadin] 5 mg PO SUMOWETHFR 12/30/16 [History] Warfarin perPT [Coumadin perPT] 5.5 mg PO TUTHSA 12/30/16 [History] Cefdinir [Omnicef] 300 mg PO DAILY 5 Days #5 capsule 01/02/17 [Rx] hydroCHLOROthiazide [Hydrochlorothiazide] 25 mg PO DAILY #14 tablet 01/02/17 [Rx ] Allergies/Adverse Reactions: 3 Allergy/AdvReac Type Severity Reaction Status Date / Time cephalexin [From Keflex] AdvReac Unknown Hypotension Verified 10/02/15 21:49 codeine AdvReac Hypotension Verified 10/02/15 21:49 lisinopril AdvReac See Verified 10/02/15 21:49 Comments metoprolol AdvReac See Verified 10/02/15 21:49 Comments Procedures/tests Complete & Pending: Procedures Performed prior 72 hours Category Date Time Status ECG 12 lead ECG [ECG] Routine Y 12/31/16 12:22 Completed EV limited echocardiogram Routine Y 12/31/16 08:46 Completed Date of admission: 12/30/16 08:15 Primary care physician: Krystle Henderson Consults: 12/30/16 09:12 Consult to Sharepoint Analyst [CONS] Routine Reason for SW Consult: discharge planning. 01/01/17 07:57 Consult to Electrophysiology (EP) [CONS] Routine Consulting Provider: Electrophysiology Katty Reason for Consult: bradycardia Call Completed: Yes 01/01/17 11:31 Consult to Nephrology [CONS] Routine Consulting Provider: [facility] [place]/ALONDRA/JORGE LUIS/JUVENCIO Reason for Consult: chronic kidney disease. Call Completed: Yes [facility]ing [facility] Anticipated date of discharge: 01/02/17 - Patient Status Disposition: Transfer Inpatient Rehab Fac Condition: Good Functional capacity at discharge: uses cane/walker Overall status at discharge: patient is progressing back to baseline - Discharge Instructions Instructions: Hydrochlorothiazide (By mouth), Cefdinir (By mouth), Fall Prevention (DC) Follow Up With: Krystle Henderson CNP [Primary Care Provider] - 01/08/17 1:00 pm Munira Aponte DO [Partnered Physician] - 01/23/17 10:30 am - Diet and Activity Activity: increase activity as tolerated Diet: diabetic diet, low salt diet, other (renal) Interval History: Patient reports doing well this morning. Denies fevers, chills, sweats, confusion, nausea, vomiting, abdominal pain, dysuria, or increased frequency. Patient also denies chest pain, shortness of breath, changes in bowels, dysphagia, changes in appetite, new weakness, or loss of sensation. Hospital course: Ms. Dorsey is a 81 year old female with history of CHF, CAD, afib on coumadin, diabetes, and SKD stage 5 who presented to ED with complaint of multiple falls according to family members and confusion. This was going on for the past 48 hours. EKG revealed bradycardia with PVCs and rate of 46, CT head was negative , Knee and hip xrays were unremarkable. Patient was determined to have a UTI and was initially started on doxycycline. Antibiotics were changed to Rocephin after cultures grew gram negative bacteria. Patient's confusion and alertness improved after treatment with Rocephin. Patient was also seen by cardiology for bradycardia and recommended avoiding AV daniel blockers and discontinuing metoprolol. Patient developed hypertension overnight since discontinuing lasix and metoprolol, started patient on HCTZ 25mg qd. Patient was also given one dose of Omnicef prior to discharge to determine tolerability due to known allergy to cephalexin, but was tolerating rocephin for past two days without problems. Patient to be discharged to [facility] inpatient rehab with 5 more days of Omnicef and with HCTZ for blood pressure. To follow up with PCP in 3-5 days regarding this hospital stay, Cardiology in 2 weeks, and Nephrology in [place] within 2 weeks. - Time Spent with Patient Total time spent providing and/or coordinating discharge services: - Constitutional Vitals: Temp Pulse Resp BP Pulse Ox 97.7 F 61 15 194/62 96 01/02/17 08:04 01/02/17 08:04 01/02/17 08:04 01/02/17 08:04 01/02/17 08:04 General appearance: Present: cooperative, A&O X 3, pleasant, no acute distress, obese, answers questions appropriately - Head Head exam: Present: atraumatic, normal inspection, normocephalic - Eye Eye exam: Present: EOMI, normal appearance - ENT ENT exam: Present: mucous membranes moist, normal exam, normal oropharynx - Neck Neck exam general surgery: Present: full ROM, normal inspection, supple, trachea midline. Absent: tenderness - Respiratory Respiratory exam: Present: CTAB. Absent: rales, respiratory distress, rhonchi, wheezes, tachypnea - Cardiovascular Cardiovascular exam: Present: bradycardia, +S1, +S2. Absent: diastolic murmur, JVD, systolic murmur - GI/Abdominal GI/Abdominal exam: Present: normal bowel sounds, soft. Absent: distended, guarding, tenderness - Extremities Exam Extremities exam: Present: full ROM, normal capillary refill, normal inspection , warm, radial pulses palpable and symmetrical. Absent: pedal edema, tenderness - Neurological Exam Neurological exam: Present: alert, oriented X3, no focal deficits, strengths equal and symetr throughout. Absent: motor sensory deficit, facial droop, speech deficit - Psychiatric Psychiatric exam: Present: normal affect, normal mood - Skin Skin exam: Present: dry, intact, normal color, warm. Absent: rash <RupeshuOseasCisco - Last Filed: 01/02/17 17:33> Date of Encounter: 01/02/17 - Discharge Diagnosis (1) UTI (urinary tract infection) Status: Acute Qualifiers: Urinary tract infection type: acute cystitis Hematuria presence: without hematuria Qualified Code(s): N30.00 - Acute cystitis without hematuria (2) Hyperkalemia Status: Resolved (3) Bradycardia Status: Chronic (4) Acute kidney injury superimposed on chronic kidney disease Status: Acute (5) Diabetes mellitus Status: Resolved Qualifiers: Diabetes mellitus type: type 2 Diabetes mellitus complication status: with unspecified complications Diabetes mellitus 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 Qualified Code(s): E11.8 - Type 2 diabetes mellitus with unspecified complications; Z79.4 - nursing home (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 (6) DVT prophylaxis Status: Acute (7) A-fib Status: Chronic Qualifiers: Atrial fibrillation type: paroxysmal Qualified Code(s): I48.0 - Paroxysmal atrial fibrillation (8) Essential hypertension Status: Chronic Procedures/tests Complete & Pending: Procedures Performed prior 72 hours Category Date Time Status ECG 12 lead ECG [ECG] Routine Y 12/31/16 12:22 Completed EV limited echocardiogram Routine Y 12/31/16 08:46 Completed Date of admission: 12/30/16 08:15 Primary care physician: Krystle Henderson Consults: 12/30/16 09:12 Consult to Sharepoint Analyst [CONS] Routine Reason for SW Consult: discharge planning. 01/01/17 07:57 Consult to Electrophysiology (EP) [CONS] Routine Consulting Provider: Electrophysiology Katty Reason for Consult: bradycardia Call Completed: Yes 01/01/17 11:31 Consult to Nephrology [CONS] Routine Consulting Provider: Kidney Katty/ALONDRA/JORGE LUIS/JUVENCIO Reason for Consult: chronic kidney disease. Call Completed: Yes Hospital course: Ms. Dorsey is a 81 year old female - Time Spent with Patient Total time spent providing and/or coordinating discharge services: - Constitutional Vitals: Temp Pulse Resp BP Pulse Ox 98.1 F 66 16 171/75 90 01/02/17 11:44 01/02/17 11:44 01/02/17 11:44 01/02/17 11:44 01/02/17 11:44 - Attending Attestation I examined this patient and my medical decision-making was reviewed with the Resident Physician. I agree with the documented findings, disposition and treatment plan as described except to the extent set forth below. Patient appears improved. She is asymptomatic. Abdominal exam reveals soft nontender nondistended abdomen. Plan: Discharged to subacute rehabilitation with antibiotics to complete 7 days. Discharge diagnosis UTI with Klebsiella pneumoniae.
[2017-01-02] MEDS ORDERED: hydroCHLOROthiazide 25 MG TABLET PO SCH (10:30)
[2017-01-02] MEDS ORDERED: Cefdinir 300 MG CAPSULE PO SCH (10:30)
[2017-01-02 11:51] VITALS: BP 171/75
[2017-01-02 12:30] LABS: Complement Component 3 126 mg/dL (88-201); Complement Component 4 38 mg/dL (10-40)
[2017-01-02 12:42] LABS: ANA IgG by ELISA NONE DETECTED (None Detected)
--- NOTE | 2017-01-02 13:07 | Nephrology Progress Note ---
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 avoid supplements in the future Subjective Principal diagnosis: fall Interval history: Pt seen and examined doing well. Interim events noted. Objective - Vital Signs Vital signs: Vital Signs Temp Pulse Resp BP Pulse Ox 01/02/17 11:44 98.1 F 66 16 171/75 90 01/02/17 08:04 97.7 F 61 15 194/62 96 01/02/17 03:21 98.1 F 61 18 175/65 92 01/02/17 00:15 98.1 F 61 17 186/64 92 01/01/17 19:38 97.6 F 56 17 172/65 92 01/01/17 16:35 97.6 F 61 18 177/62 92 Intake and Output 01/01/17 01/02/17 01/02/17 23:59 07:59 15:59 Intake Total 180 / 180 1075 / 1075 100 / 100 Output Total 300 / 300 300 / 300 0 / 0 Balance -120 / -120 775 / 775 100 / 100 Intake: IV Fluids 1075 / 1075 Sodium Bicarbonate 75 MEQ In 0. 1075 / 1075 45% Sodium Chloride 1000 Ml 1000 Ml 1,000 ML @ 75 mls/hr IVC .[id number] SHAZIA Rx#:[id number] Oral 180 / 180 100 / 100 Output: Urine 300 / 300 300 / 300 0 / 0 Other: Meal Dinner Breakfast Percent of Meal Consumed 30% 30% Stool Size Small Stool Consistency formed Stool Color Brown # Voids 1 # Bowel Movements 1 Weight 93.8 kg Blood Glucose* 129 155 Patient Weight 01/02/17 23:59 Weight 93.8 kg - General Appearance General appearance: Present: well-developed, well-nourished (NAD) EENT: Present: ATNC, mucous membranes moist Neck: Present: no JVD, supple Respiratory: Present: clear Cardiology: Present: no edema, normal S1, normal S2 Gastrointestinal: Present: no tenderness, no guarding Integumentary: Present: warm and dry Neurologic: Present: no focal deficit Musculoskeletal: Present: no deformities Psychiatric: Present: mood/affect appropriate, cooperative - Lab 01/02/17 05:20 01/02/17 05:20 Most recent lab results Calcium 10.9 mg/dL (8.6-10.8) H 01/02/17 05:20 Phosphorus 4.0 mg/dL (2.3-4.7) 12/31/16 06:24 Magnesium 2.1 mg/dL (1.6-2.6) 12/31/16 06:24 Urine Creatinine 30 mg/dL 12/31/16 01:50 Urine Sodium 88.0 mEq/L 12/31/16 01:50 Urine Total Protein 146 mg/dL (1-14) H 12/31/16 01:50 Consult Discharge Plan - Plan Referrals: Krystle Henderson CNP [Primary Care Provider] - 01/08/17 1:00 pm Munira Aponte DO [Partnered Physician] - 01/23/17 10:30 am Prescriptions: Cefdinir [Omnicef] 300 mg PO DAILY 5 Days #5 capsule hydroCHLOROthiazide [Hydrochlorothiazide] 25 mg PO DAILY #14 tablet
--- NOTE | 2017-01-02 13:26 | Physician Discharge Referral ---
[facility] Referral Info Transfer To: Inpatient rehab Provider in Charge: Dr. Colvin Provider in Charge after Transfer: PCP - Diagnosis (1) UTI (urinary tract infection) Priority: Primary Status: Acute (2) Fall Priority: Primary Status: Acute (3) Confusion Priority: Primary Status: Resolved (4) Bradycardia Priority: Primary Status: Chronic (5) A-fib Priority: Secondary Status: Chronic (6) CKD (chronic kidney disease) stage 5, GFR less than 15 ml/min Priority: Secondary Status: Chronic (7) Hyperkalemia Priority: Secondary Status: Resolved (8) Diabetes mellitus Priority: Secondary Status: Resolved (9) Essential hypertension Priority: Secondary Status: Chronic - Transfer Medications Prescriptions: Cefdinir [Omnicef] 300 mg PO DAILY 5 Days #5 capsule hydroCHLOROthiazide [Hydrochlorothiazide] 25 mg PO DAILY #14 tablet Home Medications: Amlodipine Besylate 10 mg PO DAILY 10/02/15 [History] DULoxetine [Cymbalta] 30 mg PO DAILY 10/02/15 [History] Esomeprazole Magnesium [Nexium] 40 mg PO DAILY 10/02/15 [History] Gabapentin [Neurontin] 300 mg PO TID 10/02/15 [History] Hydralazine HCl 50 mg PO TID 10/02/15 [History] Insulin Glargine,Hum.rec.anlog [Lantus Solostar] 18 unit SQ QPM 10/02/15 [ History] Acetaminophen [Tylenol] 650 mg PO Q6HR PRN #0 tablet 10/10/15 [Rx] Aspirin Enteric Coated [Aspirin EC] 81 mg PO DAILY tablet. 10/10/15 [Rx] Docusate [Colace] 100 mg PO BID PRN #0 capsule 10/10/15 [Rx] Isosorbide MONOnitrate (24 HR) [Imdur] 30 mg PO DAILY 12/30/16 [History] Warfarin [Coumadin] 5 mg PO SUMOWETHFR 12/30/16 [History] Warfarin perPT [Coumadin perPT] 5.5 mg PO TUTHSA 12/30/16 [History] Cefdinir [Omnicef] 300 mg PO DAILY 5 Days #5 capsule 01/02/17 [Rx] hydroCHLOROthiazide [Hydrochlorothiazide] 25 mg PO DAILY #14 tablet 01/02/17 [Rx ] Allergies/Adverse Reactions: 3 Allergy/AdvReac Type Severity Reaction Status Date / Time cephalexin [From Keflex] AdvReac Unknown Hypotension Verified 10/02/15 21:49 codeine AdvReac Hypotension Verified 10/02/15 21:49 lisinopril AdvReac See Verified 10/02/15 21:49 Comments metoprolol AdvReac See Verified 10/02/15 21:49 Comments - Respiratory Orders Smoking Cessation: Smoking cessation has been advised. For more information, call the [place] Tobacco Quit Line at 2-714-PQCR-NOW. - Lab Orders Lab Orders: Other (include drug levels w/frequency) (BMP in 5 days to monitor renal function) - Ancillary Orders May use pressure relief devices daily prn, May go on SARA w/family/respon constitution party w /meds at nurse discretion PRN, May consult with Dentist, Director Channel, Post Closing Specialist PRN - Advance Directives Code Status: Full Code - Mobility Orders Chair, Bedrest, Other (per PT recommendations) - Rehabiliation Orders Rehab Potential: Good Rehab Orders: ROM Exercises, Evaluation for Physical Therapy, Evaluation for Occupational Therapy - Treatments Skin tear care topically daily PRN per policy, May check for fecal impaction rectally daily PRN - Diet Orders No Added Salt (REENA), Renal CERTIFICATION: I certify that the transfer of the above named patient to an Extended Care Facility is necessary for the continuing treatment of the diagnosis listed. The above information is true and accurate reflection of patient's current condition. Confidential - Redisclosure prohibited without a patient's written consent.
[2017-01-02] MEDS ORDERED: FLUARIX QUAD 2017-18 36MOS UP/PF 0.5 ML SYRINGE IM ONE (14:01)
[2017-01-02] MEDS ORDERED: *HR* Warfarin 5 MG TABLET PO SCH (18:00)
[2017-01-02 22:07] LABS: Urine Collection Duration RANDOM hr; Urine Collection Volume RANDOM mL
[2017-01-03] MEDS ORDERED: Cefdinir 300 MG CAPSULE PO SCH (10:00)
== END 2017-01-02 15:33 | DRG 683 ==
LOC: EMEROO 00:12 → 2NNU 00:12 → 2ANU 01-01 12:27
PROVIDERS: ADMIT Family Medicine; ATTEND Internal Medicine

== ENCOUNTER 2017-04-14 15:37 | Inpatient (IN) ==
[2017-04-14] MEDS ORDERED: Ondansetron 4 MG/2 ML VIAL IVP PRN (18:30)
[2017-04-14] MEDS ORDERED: Naloxone 0.4 MG/ML INJ IVP PRN (18:30)
--- NOTE | 2017-04-14 19:07 | Internal Med History&Physical ---
<Roman Sheffield - Last Filed: 04/14/17 19:53> Date of Encounter: 04/14/17 Time of Encounter: 18:00 Assessment and Plan (1) Acute exacerbation of CHF (congestive heart failure) Status: Acute Acute exacerbation of CHF w/BNP of 1364 on admission. Pt. reports SOB/dyspnea/ orthopnea for the past several weeks which has worsened over the past two days. On exam, pt. has 2+ pitting edema in bilateral LEs and is using accessory muscles when breathing. Diminished breath sounds bilaterally on auscultation. 1.5L daily fluid restriction. Monitor I&O and daily weight. Continuous cardiac telemetry. Supplemental O2w/titration and SpO2 monitoring. DuoNebs Q6 scheduled. Cardiology consult ordered and discussed w/Dr. Aponte and I appreciate the consult. Pt. was given lasix at [facility] prior to transfer to [facility]. Nephrology consult ordered and discussed w/Dr. Sarkar who will see pt. in a.m. Will hold further lasix d/t current ESRD and GFR of 13 and creatinine of 3.32 until nephrology sees pt. Echocardiogram in 12/28 and 60-65 percent LVEF, normal LV chamber size and function, mild concentric left ventricular hypertrophy, and atypical septal motion consistent with BBB. Pt. discussed w/Dr. Olivia who agrees w/plan of care. Pt. is high risk for further morbidity, cardiac, and/or respiratory distress based on current CHF exacerbation, Afib, ESRD, hx, and risk factors. Inpatient. Qualifiers: Congestive heart failure type: diastolic Qualified Code(s): I50.33 - Acute on chronic diastolic (congestive) heart failure (2) HLD (hyperlipidemia) Status: Chronic Hx of chronic HLD but pt. reports she does not currently take a statin and is unsure of her lipid status. Lipid panel in a.m. labs. Will add Lipitor based lipid panel results. Qualifiers: Hyperlipidemia type: pure hypercholesterolemia Qualified Code(s): E78.00 - Pure hypercholesterolemia, unspecified; E78.0 - Pure hypercholesterolemia (3) HTN (hypertension) Status: Chronic Hx of chronic HTN. Monitor pt. and VS. continue patient's amlodipine, Imdur, and hydralazine. Qualifiers: Hypertension type: essential hypertension Qualified Code(s): I10 - Essential (primary) hypertension (4) GERD (gastroesophageal reflux disease) Status: Chronic Hx of chronic GERD. IVP Zofran 4 mg Q8 for N/V. Continue pts. Nexium. Qualifiers: Esophagitis presence: esophagitis presence not specified Qualified Code(s) : K21.9 - Gastro-esophageal reflux disease without esophagitis (5) Elevated troponin Status: Chronic Hx of chronically elevated troponin. Initial troponin 0.06 today. Previous troponins in December ranged from 0.14 to 0.20. Pt. denies chest pain on exam. Will trend x2. Continuous cardiac telemetry. Pt. states she is seen by Dr. Aponte for cardiology. Echocardiogram in December showed LVEF of 6065 percent, normal LV chamber size and function, mild concentric left ventricular hypertrophy and atypical septal motion consistent with bundle-branch block. Cardiology consult ordered and discussed w/Dr. Aponte who will see pt. in a.m. and I appreciate the consult. (6) Iron deficiency anemia Status: Chronic Hx of chronic anemia. Hgb is currently 8.5 and Hct is 28.3 on admission, down from 12.0 and 37.3 on 12/30/16 Pt. denies unusual bleeding. Will monitor H/H in a.m. labs. B12/Folic ordered PO. Monitor f/u labs. Qualifiers: Iron deficiency anemia type: unspecified iron deficiency Qualified Code(s) : D50.9 - Iron deficiency anemia, unspecified (7) A-fib Status: Chronic Hx of chronic atrial fibrillation. Patient currently anti-coagulated with Coumadin. Continuous cardiac telemetry. Will continue patient's Coumadin with pharmacy dosing and monitor patient for signs of bleeding. Qualifiers: Atrial fibrillation type: paroxysmal Qualified Code(s): I48.0 - Paroxysmal atrial fibrillation (8) CKD (chronic kidney disease) stage 5, GFR less than 15 ml/min Status: Chronic Hx of CKD. Pt. currently in ESRD not on dialysis w/GFR of 13 and creatinine of 3.32. Pt. reports her PCP states she may not be dialysis candidate at this time. Nephrology consult ordered and discussed w/Dr. Sarkar who will see pt. in a.m. and I appreciate the consult. Will use IV fluids judiciously d/t current ESRD as well as current CHF exacerbation. Will avoid nephrotoxins. Monitor I&O. (9) Diabetes mellitus Status: Chronic Hx of chronic diabetes controlled w/insulin. Continue patient's Lantus 14 units SQ every afternoon and add low-dose correction insulin sliding scale with hypoglycemic protocol. BG checks before meals at bedtime. A1c in a.m. labs. 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 Monitor patient for signs of bleeding. Internal Medicine - H&P: HPI Chief complaint: SOB/Dyspnea Admitted From: Emergency Dept Plans for Post Hospital Care: Home History of present illness: Ms. Dorsey is a 81 year old female with medical hx of arthritis, atrial fibrillation on Coumadin, CHF, diabetes controlled with insulin, GERD, hyperlipidemia, hypertension, and chronic kidney disease presents from the ED with chief complaint of shortness of breath and dyspnea for the past several weeks which worsened over the past 2 days. Patient reports she had one episode of chest pain 3 days ago that lasted several seconds. Patient reports her PCP is in [place] but sees her at [place]. Patient was given Lasix today prior to being transferred to [facility]. She has been told previously she has congestive heart failure and is in ESRD but is not currently on dialysis. Patient reports SOB, difficulty urinating, dyspnea, and orthopnea denies recent illness, fever, chills, cough, nausea, vomiting, chest pain, changes in vision, numbness, tingling, abdominal pain, unusual bleeding, diarrhea, constipation, dizziness, lightheadedness, pre-syncope, or syncope. Past Med Surg Social Fam HX - Past Medical History Source: patient, old records reviewed Medical history: arthritis, atrial fibrillation, CHF, diabetes, hyperlipidemia, hypertension, renal disease Psychiatric history: no psych history - Past Surgical History Surgical History: cholecystectomy, orthopedic, other, PJ/BSO - Social History Smoking Status: Never smoker Smokeless Tobacco Status: No Alcohol use: none Drug use: none Current living situation: Home Activity Level: Uses cane/walker Recent Out of Country Travel Within the Last 8 Weeks: No Exposure or Possible Exposure to Illness During Travel: No - Family History Mother Race: Family Member Ethnicity: Non- Living Status: Age at : 82 Cause of : CHOKED AND THAT SAME EVENING Hx Family Cardiac Disorders: Yes Hx Family Cancer: Yes Hx Family Endocrine Disorder: Yes Hx Family Neurologic Disorders: Yes Hx Family Medical Disorders: Yes Father Adopted: No Race: Family Member Ethnicity: Non- Living Status: Age at : 80 Cause of : [place] Hx Family Cardiac Disorders: Yes ([place]) Hx Family Endocrine Disorder: Yes Hx Family Medical Disorders: Yes Brother Race: Family Member Ethnicity: Non- Living Status: Still Living Hx Family Cancer: Yes (Melanoma) Sister Race: Family Member Ethnicity: Non- Living Status: Still Living Hx Family Respiratory Disorders: Yes (COPD) Hx Family Cancer: Yes (Lymphoma) Internal Medicine - H&P: Meds Amlodipine Besylate 10 mg PO DAILY 10/02/15 [History] DULoxetine [Cymbalta] 30 mg PO DAILY 10/02/15 [History] Esomeprazole Magnesium [Nexium] 40 mg PO DAILY 10/02/15 [History] Gabapentin [Neurontin] 300 mg PO TID 10/02/15 [History] Insulin Glargine,Hum.rec.anlog [Lantus Solostar] 20 unit SQ HS 10/02/15 [History ] Aspirin Enteric Coated [Aspirin EC] 81 mg PO DAILY tablet. 10/10/15 [Rx] Cyclosporine [Restasis] 1 drop OP BID 04/14/17 [History] Ergocalciferol (VITAMIN D2) [Vitamin D] 400 unit PO DAILY 04/14/17 [History] Ezetimibe [Zetia] 10 mg PO DAILY 04/14/17 [History] Fluticasone Propionate Nasal [Flonase] 1 spr NS BID 04/14/17 [History] Loteprednol Etabonate [Lotemax] 1 drop OP DAILY 04/14/17 [History] Melatonin 10 mg PO HS 04/14/17 [History] Metoprolol Succinate 25 mg PO DAILY 04/14/17 [History] Warfarin [Coumadin] 5 mg PO 3XW 04/15/17 [History] Warfarin [Coumadin] 5.5 mg PO 4XW 04/15/17 [History] Furosemide [Lasix] 40 mg PO BIDDIURETIC #60 tablet 04/21/17 [Rx] Iron 65 mg PO DAILY #0 04/21/17 [Rx] Isosorbide MONOnitrate (24 HR) [Imdur] 60 mg PO DAILY #30 tab.er.24h 04/21/17 [ Rx] hydrALAZINE [HydrALAZINE] 50 mg PO TID #90 tablet 04/21/17 [Rx] 3 Allergy/AdvReac Type Severity Reaction Status Date / Time cephalexin [From Keflex] AdvReac Unknown Hypotension Verified 04/14/17 20:54 codeine AdvReac Hypotension Verified 04/14/17 20:54 lisinopril AdvReac See Verified 04/14/17 20:54 Comments All Systems PM: A 10-system review of systems was performed and is negative for pertinent findings except as documented above in the HPI. - Constitutional Constitutional: no chills, no fever(s), no night sweats - EENT Eyes: no change in vision, no discharge, no pain, no photophobia Ears: no ear discharge, no ear pain, no tinnitus Nose, mouth and throat: no dysphagia, no nasal discharge, no neck pain, no sore throat - Breasts Breasts: as per HPI - Cardiovascular Cardiovascular ROS IM: as per HPI, dyspnea, dyspnea on exertion, edema ( Bilateral), irregular heart rhythm (Afib), orthopnea - Respiratory Respiratory: as per HPI, dyspnea, dyspnea on exertion, no cough, no wheezing, no excessive phlegm production - Gastrointestinal Gastrointestinal: no abdominal pain, no diarrhea, no hematemesis, no hematochezia, no melena, no nausea, no vomiting - Genitourinary Genitourinary: as per HPI, difficulty urinating, no change in urinary stream, no dysuria, no flank pain, no hematuria Menstruation: as per HPI - Musculoskeletal Musculoskeletal ROS IM: no numbness, no tingling - Integumentary Integumentary IM: no rash, no unusual bruising - Neurological Neurological ROS: no confusion, no convulsions, no focal weakness, no numbness, no tingling, no tremor(s) - Psychiatric Psychiatric: as per HPI - Endocrine Endocrine IM: as per HPI - Hematologic/Lymphatic Hematologic/Lymphatic: no easy bruising - Allergic/Immunologic Allergic/Immunologic: as per HPI - Constitutional Vitals: Temp Pulse Resp BP Pulse Ox 97.5 F L 86 14 151/81 91 04/14/17 16:59 04/14/17 16:59 04/14/17 16:59 04/14/17 16:59 04/14/17 16:59 General appearance: Present: cooperative, mild distress, A&O X 3, pleasant, obese, answers questions appropriately - Head Head exam: Present: atraumatic, normal inspection, normocephalic - Eye Eye exam: Present: PERRL, conjuntiva pink, sclera anicteric Pupils: Present: PERRL - ENT ENT exam: Present: normal exam - Neck Neck exam general surgery: Present: normal inspection - Respiratory Respiratory exam: Present: accessory muscle use, decreased breath sounds - Cardiovascular Cardiovascular exam: Present: irregular rhythm (Atrial fibrillation) - GI/Abdominal GI/Abdominal exam: Present: normal bowel sounds, soft, no peritoneal signs. Absent: distended, tenderness - Rectal Rectal exam: Present: deferred - Additional comments: exam deferred. - Extremities Exam Extremities exam: Present: pedal edema (2+ bilateral pitting edema), warm, radial pulses palpable and symmetrical - Back Exam Back exam: Present: normal inspection - Neurological Exam Neurological exam: Present: CN II-XII intact, oriented X3, no focal deficits. Absent: pronater drift, facial droop, speech deficit - Psychiatric Psychiatric exam: Present: normal affect, normal mood - Skin Skin exam: Present: dry, intact Internal Med - H&P Results - EKG Data Prior EKG available for review: no EKG comments: 04/14/17 19:13 EKG dated 04/14/17 shows atrial fibrillation with marked left axis deviation and intraventricular conduction delay, septal myocardial infarction (probably old), and possible lateral myocardial infarction of indeterminate age. <Andrea Olivia P - Last Filed: 04/25/17 11:33> Date of Encounter: 04/25/17 Internal Medicine - H&P: HPI History of present illness: Ms. Dorsey is a 81 year old female All Systems PM: A 10-system review of systems was performed and is negative for pertinent findings except as documented above in the HPI. - Constitutional Vitals: Temp Pulse Resp BP Pulse Ox 98 F 76 20 135/73 96 04/21/17 18:31 01/09/18 18:31 04/21/17 18:31 04/21/17 18:31 04/21/17 18:31 Internal Med - H&P Results - Labs CBC & Chem 7: 04/21/17 04:21 04/21/17 04:21 - Impressions ITS Impressions Chest X-Ray 04/17/17 12:56 IMPRESSION: 1. Findings suggest persistent congestive heart failure. 2. Left lower lobe opacification could represent atelectasis or pneumonia. D/ / 04/17/2017 14:49:37 Rolf Huang MD / martín Interpreting Provider: Rolf Huang MD - Attending Attestation I examined this patient and my medical decision-making was reviewed with the Resident Physician/INSTALLATION SUPERVISOR. I agree with the documented findings, disposition and treatment plan as described except to the extent set forth below.
[2017-04-14] MEDS ORDERED: Dextrose Gel 15 GM/37.5 ML TUBE PO PRN ×2 (19:19)
[2017-04-14] MEDS ORDERED: *HR* Dextrose 50 % in Water (Syg) 50 ML SYRINGE IVP PRN (19:19)
[2017-04-14] MEDS ORDERED: D5% in Water 1,000 ML IVC PRN (19:19)
[2017-04-14] MEDS: Gabapentin 300 MG CAPSULE PO SCH (20:49)
[2017-04-14] MEDS: hydrALAZINE 25 MG TABLET PO SCH (20:50)
[2017-04-14] MEDS: Insulin LISPRO 300 UNITS/3 ML VIAL SQ SCH (21:11)
[2017-04-14 22:03] LABS: INR 1.6; Prothrombin Time 17.8 Seconds (9.4-12.1)
[2017-04-14] MEDS: Ipratropium/Albuterol Neb 3 ML IH SCH (22:13)
[2017-04-14] MEDS ORDERED: *HR* Warfarin 3 MG TABLET PO ONE (22:45)
[2017-04-15 00:39] LABS: Basophils % 0.5 %; Eosinophils % 0.7 %; Hematocrit 26.4 % (35.3-44.9); Immature Granulocytes % 0.5 % (0-4); Immature Platelets 2.2 % (1.1-6.1); Lymphocytes # 0.9 K/mcL (0.6-4.6); Lymphocytes % 16.7 %; Mean Corpuscular HGB Conc 30.3 g/dL (31.6-35.5); Mean Corpuscular Hemoglobin 31.5 pg (28.0-33.3); Mean Corpuscular Volume 103.9 fL (83.0-100.0); Mean Platelet Volume 10.5 fL (9.4-12.4); Monocytes # 1.5 K/mcL (0.0-1.3); Monocytes % 27.1 %; Platelet Count 263 K/mcL (140-400); Red Blood Count 2.54 M/mcL (3.82-4.97); Red Cell Distribution Width 16.5 % (11.5-14.5); Segmented Neutrophils % 54.5 %
[2017-04-15 00:47] LABS: INR 1.6; Prothrombin Time 17.2 Seconds (9.4-12.1)
[2017-04-15 00:50] LABS: Activated Partial Thrombo Time 32.8 Seconds (26.0-36.0)
[2017-04-15 01:23] LABS: Albumin 3.4 g/dL (3.5-5.7); Albumin/Globulin Ratio 1.3 (1.1-2.2); Anisocytosis 1+ (Not Present); Bilirubin,Total 0.3 mg/dL (0.3-1.0); Calcium 9.2 mg/dL (8.6-10.3); Chol/HDL Ratio 3.5 (0-4.9); Globulin 2.7 g/dL (2.4-3.5); Macrocytosis Present (Not Present); Magnesium 2.2 mg/dL (1.6-2.6); Platelet Estimate Normal (Normal); Potassium 4.2 mEq/L (3.5-5.1); Total Protein 6.1 g/dL (6.4-8.9)
[2017-04-15 01:55] LABS: Hemoglobin A1C 5.1 %
[2017-04-15] MEDS: Ipratropium/Albuterol Neb 3 ML IH SCH ×4 (04:17→21:24)
[2017-04-15] MEDS: Folic Acid 1 MG TABLET PO SCH (08:31)
[2017-04-15] MEDS: amLODIPine 5 MG TABLET PO SCH (08:31)
[2017-04-15] MEDS: Gabapentin 300 MG CAPSULE PO SCH ×2 (08:31→14:51)
[2017-04-15] MEDS: hydrALAZINE 25 MG TABLET PO SCH ×3 (08:31→21:25)
[2017-04-15] MEDS: Cyanocobalamin (B-12) 1,000 MCG TABLET PO SCH (08:31)
[2017-04-15] MEDS: Aspirin Enteric Coated 81 MG Tablet PO SCH (08:31)
[2017-04-15] MEDS: Insulin LISPRO 300 UNITS/3 ML VIAL SQ SCH ×4 (08:32→21:19)
[2017-04-15] MEDS ORDERED: Isosorbide MONOnitrate (24 HR) 30 MG TAB.ER.24H PO SCH (09:00)
[2017-04-15 09:10] LABS: Hepatitis B Surface Antigen Nonreactive (Nonreactive)
--- NOTE | 2017-04-15 10:21 | Cardiology Consult Note ---
Date of Encounter: 04/15/17 Time of Encounter: 09:30 Assessment and Plan (1) Acute exacerbation of CHF (congestive heart failure) Current Visit: Yes Status: Acute Per cardiology: -Recent admission at outside facility for diastolic CHF. -ADmitted with increased shortness of breath. States had been working closely with her oil separator regarding diuretic dosing. States at one point was on lasix 80mg BID, most recently on 80mg am and 40mg pm. -CHest x-ray with bialteral pleural effusion with basilar consolidation, diffuse interstitial pulmonary edema. -BNP 1364. -Weight today 91.7 kg (201lbs), weight outpatient office 11/2016 91.5kg. Patient reports weight was up to 204 pounds at home, states by her home scales, weight is normally about 196pounds. -Reports increased peripheral edema at home. No edema noted today. -Reports shortness of breath improved today. -Awaiting nephrology recommendations regarding diuresis. KNown CKD, creatinine 3.07. -TTE 12/2016 LVEF 60-65%, no segmental wall motion abnormalities. -Awaiting nephrology recommendations for diuresis. Consider bumex for recurrent hospital admission for CHF. -Will increase imdur. -Strict i/os, fluid restriction, daily weights. -CHF education reinforced at length with patient. Qualifiers: Congestive heart failure type: diastolic Qualified Code(s): I50.33 - Acute on chronic diastolic (congestive) heart failure (2) Elevated troponin Current Visit: Yes Status: Chronic Per cardiology: -Troponins 0.04, 0.05, 0.05. Troponins flat and adynamic in the setting of CHF. -Denies chest pain. -ECG with no acute ischemic changes noted. -Denies chest pain. -TTE 12/2016 with LVEF 60-65%, no segmental wall motion abnormalities noted. -Of note, appears to have chronically elevated troponins with troponin 12/2016 0.2. -Do not suspect NSTEMI, suspect demand ischemia related to above, no cardiac rehab consult warranted. (3) CKD (chronic kidney disease) stage 4, GFR 15-29 ml/min Current Visit: No Status: Chronic Per cardiology: -KNown CKD. -Creatinine today 3.07. -Nephrology consulted. -Management per primary and nephrology services. (4) A-fib Current Visit: Yes Status: Chronic Per cardiology: -Known history of PAF. -Not on beta everardo due to bradycardia. -ON coumadin for anticoagulation. -HR controlled. -Continue telemetry. -Continue coumadin. Qualifiers: Atrial fibrillation type: paroxysmal Qualified Code(s): I48.0 - Paroxysmal atrial fibrillation Discussion w patient/family: The assessment and plan as outlined above was discussed with the patient who expressed understanding and agreement. All questions were answered. Thank you for involving us in the care of your patient. Please call with any questions. Discussed and reviewed with . History of Present Illness Consult date: 04/14/16 Requesting physician: Roman Sheffield Consult reason: CHF Chief complaint: shortness of breath History of present illness: Ms. Dorsey is a 81 year old female with a relevant past medical history of atrial fibrillation, diastolic CHF, CKD, HTN, DM, TAI. Patient presented to [facility] with complaints of increased shortness of breath. Patient states about a month ago, she was hospitalized at outside facility for CHF. Patient states since discharge, she has been working closely with her oil separator regarding diuretic dosing. Patient states intermittently over the past 4 weeks, she has had intermittent increased shortness of breath. Patient states that she had not noticed weight gain, until this last week. Patient states her normal weight at home is about 196-198 pounds. Patient reports last week she got up to 204 pounds. Patient states she has also had intermittent peripheral edema. Patient states she has not been very strict with her fluid restriction at home. Patient does report compliance with sodium restriction and daily weights. Patient states since her last hospitalization, she has been wearing O2 at 2LPM per nasal cannula at home. At [facility], patient was given does of lasix. Patient repots her breathing is better today and also her edema is better. Past Med Surg Social Fam HX - Past Medical History Attestation: Yes The following information was validated with the patient. Source: patient, old records reviewed Medical history: arthritis, atrial fibrillation, CHF, diabetes, hyperlipidemia, hypertension, renal disease Psychiatric history: no psych history - Past Surgical History Surgical History: cholecystectomy, orthopedic, other, PJ/BSO - Social History Smoking Status: Never smoker Smokeless Tobacco Status: No Alcohol use: none Drug use: none - Family History Brother Race: Family Member Ethnicity: Non- Living Status: Still Living Hx Family Cancer: Yes (Melanoma) Sister Race: Family Member Ethnicity: Non- Living Status: Still Living Hx Family Respiratory Disorders: Yes (COPD) Hx Family Cancer: Yes (Lymphoma) Mother Race: Family Member Ethnicity: Non- Living Status: Age at : 81 Cause of : CHOKED AND THAT SAME EVENING Hx Family Cardiac Disorders: Yes Hx Family Respiratory Disorders: No Hx Family Cancer: Yes Hx Family Endocrine Disorder: Yes Hx Family Neurologic Disorders: Yes Hx Family Medical Disorders: Yes Father Adopted: No Race: Family Member Ethnicity: Non- Living Status: Age at : 80 Cause of : [place] Hx Family Cardiac Disorders: Yes ([place]) Hx Family Endocrine Disorder: Yes Hx Family Medical Disorders: Yes Medications and Allergies Amlodipine Besylate 10 mg PO DAILY 10/02/15 [History] DULoxetine [Cymbalta] 30 mg PO DAILY 10/02/15 [History] Esomeprazole Magnesium [Nexium] 40 mg PO DAILY 10/02/15 [History] Gabapentin [Neurontin] 300 mg PO TID 10/02/15 [History] Hydralazine HCl 50 mg PO BID 10/02/15 [History] Insulin Glargine,Hum.rec.anlog [Lantus Solostar] 20 unit SQ HS 10/02/15 [History ] Aspirin Enteric Coated [Aspirin EC] 81 mg PO DAILY tablet. 10/10/15 [Rx] Isosorbide MONOnitrate (24 HR) [Imdur] 30 mg PO DAILY 12/30/16 [History] Cyclosporine [Restasis] 1 drop OP BID 04/14/17 [History] Ergocalciferol (VITAMIN D2) [Vitamin D] 400 unit PO DAILY 04/14/17 [History] Ezetimibe [Zetia] 10 mg PO DAILY 04/14/17 [History] Fluticasone Propionate Nasal [Flonase] 1 spr NS BID 04/14/17 [History] Furosemide [Lasix] 80 mg PO BID 04/14/17 [History] Iron 65 mg PO DAILY 04/14/17 [History] Loteprednol Etabonate [Lotemax] 1 drop OP DAILY 04/14/17 [History] Melatonin 5.5 mg PO HS 04/14/17 [History] Metoprolol Succinate 25 mg PO DAILY 04/14/17 [History] Warfarin Sodium [Coumadin] 6 mg PO HS 04/14/17 [History] hydrALAZINE [HydrALAZINE] 75 mg PO HS 04/14/17 [History] 3 Allergy/AdvReac Type Severity Reaction Status Date / Time cephalexin [From Keflex] AdvReac Unknown Hypotension Verified 04/14/17 20:54 codeine AdvReac Hypotension Verified 04/14/17 20:54 lisinopril AdvReac See Verified 04/14/17 20:54 Comments metoprolol AdvReac See Verified 04/14/17 20:54 Comments All Systems Review: A 10-system review of systems was performed and is negative for pertinent findings except as documented above in the HPI. - Cardiovascular Cardiovascular: as per HPI, dyspnea at rest, dyspnea on exertion, leg edema Physical Examination Vital Signs Temperature 97.5 F L 04/14/17 16:59 Pulse Rate 86 04/14/17 16:59 Respiratory Rate 14 04/14/17 16:59 Blood Pressure 151/81 04/14/17 16:59 O2 Sat by Pulse Oximetry 91 04/14/17 16:59 Temperature 97.9 F 04/15/17 05:00 Pulse Rate 79 04/15/17 05:00 Respiratory Rate 18 04/15/17 05:00 Blood Pressure 131/71 04/15/17 05:00 O2 Sat by Pulse Oximetry 92 04/15/17 05:00 General: Conversant, No Apparent Distress HEENT: Atraumatic, Normocephaly, Mucus Membranes Moist Neck: No JVD, Normal carotid pulses Cardiac: Normal S1 and S2, No Murmur, Other (Irregularly irregular) Lungs: Other (Crackles noted to bilateral bases. ) Neuro: Alert and responsive, No focal deficits noted Abdomen: Soft, Non-Tender Skin: No rashes noted on visualized skin Musculoskeletal: No Chest Wall Tenderness Extremities: No Clubbing, No Cyanosis, No Edema, Normal Pulses Results 04/15/17 00:29 04/15/17 00:29 Lab Results Active Medications Albuterol/Ipratropium (Duoneb) 3 ml IH [id number] SHAZIA Stop: 10/14/17 22:01 Last Admin: 04/15/17 10:53 Dose: Not Given Amlodipine Besylate (Norvasc) 10 mg PO DAILY SHAZIA Stop: 10/15/17 09:01 Last Admin: 04/15/17 08:31 Dose: 10 mg Aspirin (Aspirin Ec) 81 mg PO DAILY [facility] Stop: 10/15/17 09:01 Last Admin: 04/15/17 08:31 Dose: 81 mg Cyanocobalamin (Vitamin B12) 1,000 mcg PO DAILY SHAZIA Stop: 10/15/17 09:01 Last Admin: 04/15/17 08:31 Dose: 1,000 mcg Dextrose/Water (Dextrose 50% (Syg)) 25 ml IVP AD PRN PRN Reason: Hypoglycemia Stop: 10/14/17 19:20 Duloxetine HCl (Cymbalta) 30 mg PO DAILY [facility] Stop: 10/15/17 09:01 Last Admin: 04/15/17 08:31 Dose: 30 mg Folic Acid (Folic Acid) 1 mg PO DAILY [facility] Stop: 10/15/17 09:01 Last Admin: 04/15/17 08:31 Dose: 1 mg Furosemide (Lasix) 40 mg PO BIDDIURETIC [facility] Stop: 10/15/17 11:01 Gabapentin (Neurontin) 300 mg PO TID [facility] Stop: 10/14/17 21:01 Last Admin: 04/15/17 08:31 Dose: 300 mg Glucagon (Glucagen) 1 mg IM ONCE PRN PRN Reason: Hypoglycemia Stop: 10/14/17 19:20 Glucose (Gluctose) 15 gm PO ONCE PRN PRN Reason: Hypoglycemia Stop: 10/14/17 19:20 Glucose (Gluctose) 30 gm PO ONCE PRN PRN Reason: Hypoglycemia Stop: 10/14/17 19:20 Hydralazine HCl (Hydralazine) 50 mg PO TID [facility] Stop: 10/14/17 21:01 Last Admin: 04/15/17 08:31 Dose: 50 mg Dextrose (Dextrose 5%) 1,000 mls @ 100 mls/hr IVC .Q10H PRN PRN Reason: HYPOGLYCEMIA Stop: 10/14/17 19:20 Insulin Detemir (Levemir) 14 unit SQ QPM [facility] Stop: 10/15/17 18:01 Insulin Human Lispro (Humalog) 0 units SQ TIDAC SHAZIA PRN Reason: Protocol Stop: 10/15/17 07:31 Last Admin: 04/15/17 08:32 Dose: 2 units Insulin Human Lispro (Humalog) 0 units SQ HS SHAZIA PRN Reason: Protocol Stop: 10/14/17 21:01 Last Admin: 04/14/17 21:11 Dose: 2 units Isosorbide Mononitrate (Imdur) 30 mg PO DAILY [facility] Stop: 10/15/17 09:01 Last Admin: 04/15/17 08:31 Dose: 30 mg Naloxone HCl (Narcan) 0.4 mg IVP Q2MIN PRN PRN Reason: Opioid Reversal Stop: 10/14/17 18:31 Omeprazole (Prilosec) 40 mg PO 0630 [facility] Stop: 10/15/17 09:01 Last Admin: 04/15/17 08:31 Dose: 40 mg Ondansetron HCl (Zofran) 4 mg IVP Q8HR PRN PRN Reason: Nausea And Vomiting Stop: 10/14/17 18:31 Warfarin Sodium (Coumadin Perpt) 1 each PO DAILY@1800 PRN PRN Reason: SEE COMMENTS Stop: 10/15/17 18:01 Laboratory Tests 01/10/17 01/12/17 04/14/17 05:57 06:30 11:23 Hgb INR Creatinine 3.57 H 4.09 H 3.32 H Troponin I 04/14/17 04/15/17 04/15/17 19:14 00:29 00:29 Hgb 8.0 L INR Creatinine Troponin I 0.04 H* 0.05 H* 04/15/17 04/15/17 04/15/17 00:29 00:29 06:18 Hgb INR 1.6 Creatinine 3.07 H Troponin I 0.05 H* - Imaging and Cardiology Chest Xray: report reviewed Echo: report reviewed - EKG Interpretation EKG results cardiology: personally reviewed (ECG with atrial fibrillation, HR 77.), other (Telemetry reviewed with average HR previous 12 hours noted to be 86 , atrial fibrillation. PVCs noted.) Consult Discharge Plan - Plan Referrals: Krystle Henderson, PHYSICAL SCIENCE TEACHER [Primary Care Provider] -
--- NOTE | 2017-04-15 10:27 | Internal Med Progress Note ---
Date of Encounter: 04/15/17 Time of Encounter: 10:17 - Assessment and plan (1) Acute exacerbation of CHF (congestive heart failure) Current Visit: Yes Status: Acute Assessment and plan: Cardiology on board and consultation appreciated started on Lasix 40mg PO BID as per nephrology's recommendation pt in no distress at rest will closely monitor currently saturating well on 3L NC monitor daily weight, I/Os, fluid restriction diet continue home meds dietary education provided given pt's fluid intake at home Qualifiers: Congestive heart failure type: diastolic Qualified Code(s): I50.33 - Acute on chronic diastolic (congestive) heart failure (2) A-fib Current Visit: Yes Status: Chronic Assessment and plan: Anticoagulated with Coumadin not on BB due to history of bradycardia rate currently controlled Qualifiers: Atrial fibrillation type: paroxysmal Qualified Code(s): I48.0 - Paroxysmal atrial fibrillation (3) CKD (chronic kidney disease) stage 4, GFR 15-29 ml/min Current Visit: No Status: Chronic Assessment and plan: nephrology on board and consultation appreciated started Lasix 40mg PO BID no need for DOUBLE BOTTOM DRIVER at this time will closely monitor (4) Diabetes mellitus Current Visit: Yes Status: Chronic Assessment and plan: Sliding scale insulin algorithm monitor FS and BG ADA diet Qualifiers: Diabetes mellitus type: type 2 Diabetes mellitus complication status: with unspecified complications Diabetes mellitus intermediate project manager insulin use: with intermediate project manager use Qualified Code(s): E11.8 - Type 2 diabetes mellitus with unspecified complications; Z79.4 - CHCF (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 (5) DVT prophylaxis Current Visit: Yes Status: Acute Assessment and plan: on coumadin (6) Elevated troponin Current Visit: Yes Status: Chronic Assessment and plan: likely demand ischemia in the setting of CHF no signs of angina present will closely monitor (7) Essential hypertension Current Visit: No Status: Chronic Assessment and plan: BP within acceptable range continue home meds (8) HLD (hyperlipidemia) Current Visit: Yes Status: Chronic Qualifiers: Hyperlipidemia type: pure hypercholesterolemia Qualified Code(s): E78.00 - Pure hypercholesterolemia, unspecified; E78.0 - Pure hypercholesterolemia (9) Obesity (BMI 30-39.9) Current Visit: Yes Status: Chronic - Subjective Interval history: Pt seen and examined at bedside. Resting in bed and denies any shortness of breath at rest. Reported of drinking excessive fluids daily at home and states her symptoms have been gradually worsening (exertional dyspnea).Denies any chest pain or other discomfort at this time. States she uses 2L of oxygen at home at baseline however has had to use 2.5 L lately and was still short of breath. Currently saturating appropriately on 3L NC. - Constitutional Vitals: Temp Pulse Resp BP Pulse Ox 97.9 F 79 18 131/71 92 04/15/17 05:00 04/15/17 05:00 04/15/17 05:00 04/15/17 05:00 04/15/17 05:00 General appearance: Present: cooperative, A&O X 3, pleasant, no acute distress, obese, answers questions appropriately - Head Head exam: Present: atraumatic, normocephalic - Eye Eye exam: Present: conjuntiva pink, sclera anicteric - Respiratory Respiratory exam: Absent: respiratory distress, wheezes (diffuse rales-worst on bilateral bases) - Cardiovascular Cardiovascular exam: Present: RRR, +S1, +S2. Absent: diastolic murmur, gallop, rubs, systolic murmur - GI/Abdominal GI/Abdominal exam: Present: normal bowel sounds, soft, no peritoneal signs. Absent: distended, tenderness - Extremities Exam Extremities exam: Present: warm, radial pulses palpable and symmetrical. Absent : calf tenderness, pedal edema - Neurological Exam Neurological exam: Present: alert, oriented X3 - Psychiatric Psychiatric exam: Present: normal affect, normal mood Internal Medicine: Result - Labs CBC & Chem 7: 04/15/17 00:29 04/15/17 00:29 Labs: Short CBC 04/15/17 Range/Units 00:29 WBC 5.5 (4.3-11.1) K/mcL Hgb 8.0 L (11.5-15.4) g/dL Hct 26.4 L (35.3-44.9) % Plt Count 263 (140-400) K/mcL Neutrophils # 3.0 (1.6-8.9) K/mcL BMP 04/15/17 00:29 Sodium 141 Potassium 4.2 Chloride 104 Carbon Dioxide 31 H BUN 60 H Creatinine 3.07 H Glucose 160 H Calcium 9.2 Cardiac Enzymes 04/14/17 04/15/17 04/15/17 Range/Units 19:14 00:29 06:18 Troponin I 0.04 H* 0.05 H* 0.05 H* (< 0.04) ng/mL Liver Function 04/15/17 Range/Units 00:29 Total Bilirubin 0.3 (0.3-1.0) mg/dL AST 21 (13-39) Units/L ALT 22 (7-52) Units/L Alkaline Phosphatase 89 (34-104) Units/L Albumin 3.4 L (3.5-5.7) g/dL - ABG Interpretation ABG results: PT/INR, D-dimer PT 17.2 Seconds (9.4-12.1) H 04/15/17 00:29 - VTE Documentation of Mechanical Device: Intermittent pneumatic compression device Consult Discharge Plan - Plan Referrals: Krystle Henderson, WAREHOUSE FOREMAN [Primary Care Provider] -
[2017-04-15] MEDS: Furosemide 40 MG TABLET PO SCH ×2 (11:14→17:26)
[2017-04-15] MEDS ORDERED: Isosorbide MONOnitrate (24 HR) 30 MG TAB.ER.24H PO ONE (11:18)
--- NOTE | 2017-04-15 14:39 | Nephrology Consult Note ---
Date of Encounter: 04/15/17 Time of Encounter: 14:37 Assessment and Plan (1) CKD (chronic kidney disease) stage 4, GFR 15-29 ml/min Current Visit: No Status: Chronic Chronic kidney disease stage IV secondary to hypertension and diabetes. Patient presents with a creatinine of 3.07 and the EGFR 15 which appears to be around her baseline. On exam today she appears relatively euvolemic and her shortness of breath has improved, although she does still have rales on exam as well as increasing oxygen requirements from baseline. Given her relative euvolemia will restart her home Lasix dose of 40 mg PO twice a day. Patient does not appear to need IV diuresis at this time. Patient continues to have good urine output, is not hyperkalemic and uremic, no indications for renal replacement therapy at this time. We will continue to closely monitor renal function. Recommend a renal protective strategy by avoiding nephrotoxins and dose medications based on GFR. Anemia: Hemoglobin 8.0 presentation, baseline readings here previously appears to be 9-10. We will check iron panel in the morning and supplement as necessary. No indications of active bleeding. Thank you for consulting the [facility], we will continue to follow. (2) Iron deficiency anemia Current Visit: Yes Status: Chronic As above Qualifiers: Iron deficiency anemia type: unspecified iron deficiency Qualified Code(s) : D50.9 - Iron deficiency anemia, unspecified (3) Diabetes mellitus Current Visit: Yes Status: Chronic Management per primary Qualifiers: Diabetes mellitus type: type 2 Diabetes mellitus complication status: with unspecified complications Diabetes mellitus equipment operator intermodal yard insulin use: with equipment operator intermodal yard use Qualified Code(s): E11.8 - Type 2 diabetes mellitus with unspecified complications; Z79.4 - intermediate frame tender (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 (4) A-fib Current Visit: Yes Status: Chronic Management per primary/cardio Qualifiers: Atrial fibrillation type: paroxysmal Qualified Code(s): I48.0 - Paroxysmal atrial fibrillation (5) Acute exacerbation of CHF (congestive heart failure) Current Visit: Yes Status: Acute Management per primary/cardio Qualifiers: Congestive heart failure type: diastolic Qualified Code(s): I50.33 - Acute on chronic diastolic (congestive) heart failure (6) Essential hypertension Current Visit: No Status: Chronic History of Present Illness - Reason for Consult Consult date: 04/15/17 Chronic Kidney Disease Requesting physician: Roman Sheffield - Chief Complaint Dyspnea - History of Present Illness Patient is an 81-year-old female with history of chronic kidney disease stage IV , iron deficiency anemia who presents with progressive shortness of breath. Patient states that she has had shortness of breath on and off over the last several months. She also reports some mild increase in her lower extremity edema. She states that she has been hospitalized several times in the last several months and has also been trying to manage her symptoms as an outpatient with changing Lasix dosing. She states that she normally wears 2 L of oxygen and has had to increase that to 3 L over the last several days. She denies chest pain, fever, chills, abdominal pain, nausea, vomiting. Past Med Surg Social Fam HX - Past Medical History Medical history: arthritis, atrial fibrillation, CHF, diabetes, hyperlipidemia, hypertension, renal disease Psychiatric history: no psych history - Past Surgical History Surgical History: cholecystectomy, orthopedic, other, PJ/BSO - Social History Smoking Status: Never smoker Smokeless Tobacco Status: No Alcohol use: none Drug use: none - Family History Brother Race: Family Member Ethnicity: Non- Living Status: Still Living Hx Family Cancer: Yes (Melanoma) Sister Race: Family Member Ethnicity: Non- Living Status: Still Living Hx Family Respiratory Disorders: Yes (COPD) Hx Family Cancer: Yes (Lymphoma) Mother Race: Family Member Ethnicity: Non- Living Status: Age at : 82 Cause of : CHOKED AND THAT SAME EVENING Hx Family Cardiac Disorders: Yes Hx Family Respiratory Disorders: No Hx Family Cancer: Yes Hx Family Endocrine Disorder: Yes Hx Family Neurologic Disorders: Yes Hx Family Medical Disorders: Yes Father Adopted: No Race: Family Member Ethnicity: Non- Living Status: Age at : 80 Cause of : [place] Hx Family Cardiac Disorders: Yes ([place]) Hx Family Endocrine Disorder: Yes Hx Family Medical Disorders: Yes Medications and Allergies Amlodipine Besylate 10 mg PO DAILY 10/02/15 [History] DULoxetine [Cymbalta] 30 mg PO DAILY 10/02/15 [History] Esomeprazole Magnesium [Nexium] 40 mg PO DAILY 10/02/15 [History] Gabapentin [Neurontin] 300 mg PO TID 10/02/15 [History] Hydralazine HCl 50 mg PO BID 10/02/15 [History] Insulin Glargine,Hum.rec.anlog [Lantus Solostar] 20 unit SQ HS 10/02/15 [History ] Aspirin Enteric Coated [Aspirin EC] 81 mg PO DAILY tablet. 10/10/15 [Rx] Isosorbide MONOnitrate (24 HR) [Imdur] 30 mg PO DAILY 12/30/16 [History] Cyclosporine [Restasis] 1 drop OP BID 04/14/17 [History] Ergocalciferol (VITAMIN D2) [Vitamin D] 400 unit PO DAILY 04/14/17 [History] Ezetimibe [Zetia] 10 mg PO DAILY 04/14/17 [History] Fluticasone Propionate Nasal [Flonase] 1 spr NS BID 04/14/17 [History] Furosemide [Lasix] 80 mg PO BID 04/14/17 [History] Iron 65 mg PO DAILY 04/14/17 [History] Loteprednol Etabonate [Lotemax] 1 drop OP DAILY 04/14/17 [History] Melatonin 5.5 mg PO HS 04/14/17 [History] Metoprolol Succinate 25 mg PO DAILY 04/14/17 [History] hydrALAZINE [HydrALAZINE] 75 mg PO HS 04/14/17 [History] Warfarin [Coumadin] 5 mg PO 3XW 04/15/17 [History] Warfarin [Coumadin] 5.5 mg PO 4XW 04/15/17 [History] 3 Allergy/AdvReac Type Severity Reaction Status Date / Time cephalexin [From Keflex] AdvReac Unknown Hypotension Verified 04/14/17 20:54 codeine AdvReac Hypotension Verified 04/14/17 20:54 lisinopril AdvReac See Verified 04/14/17 20:54 Comments metoprolol AdvReac See Verified 04/14/17 20:54 Comments Review of Systems All Systems: reviewed and no additional remarkable complaints except as stated Exam - Vital Signs Vital signs: Initial Vital Signs Temp Pulse Resp BP Pulse Ox 97.5 F L 86 14 151/81 91 04/14/17 16:59 04/14/17 16:59 04/14/17 16:59 04/14/17 16:59 04/14/17 16:59 Vital Signs - Last 8 Hours Temp Pulse Resp BP Pulse Ox 04/15/17 11:59 97.8 F 81 15 151/78 94 Intake and Output 04/14/17 04/15/17 04/15/17 23:59 07:59 15:59 Intake Total 0 / 0 1220 / 1220 360 / 360 Output Total 450 / 450 350 / 350 Balance -450 / -450 870 / 870 360 / 360 Intake: Oral 0 / 0 1220 / 1220 360 / 360 Output: Catheter 450 / 450 350 / 350 Other: Meal Dinner Lunch Percent of Meal Consumed 0% 100% Weight 89.8 kg 91.7 kg Blood Glucose* 219 150 203 Patient Weight 04/15/17 23:59 Weight 91.7 kg - General Appearance General appearance: well-developed, well-nourished, appears started age EENT: ATNC, mucous membranes moist Neck: supple Respiratory: rales Cardiology: no murmurs, no rub, no gallops, edema (Trace lower extremity bilaterally), regular rate, irregular rhythm Gastrointestinal: normoactive bowel sounds, no tenderness, no guarding Integumentary: no rash, warm and dry Neurologic: no focal deficit, alert and oriented x3 Musculoskeletal: no deformities, no erythema, no cyanosis Results - Lab Results 04/15/17 00:29 04/15/17 00:29 Most recent lab results Calcium 9.2 mg/dL (8.6-10.3) 04/15/17 00:29 Magnesium 2.2 mg/dL (1.6-2.6) 04/15/17 00:29 Consult Discharge Plan - Plan Referrals: Krystle Henderson, COMBATANT SWIMMER [Primary Care Provider] -
[2017-04-15] MEDS ORDERED: Warfarin perPT PO PRN (18:00)
[2017-04-15] MEDS ORDERED: Insulin DETEMIR 100 UNIT/ML X5UNITS SQ SCH (18:00)
[2017-04-15] MEDS: Melatonin 3 MG TABLET PO PRN (21:25)
[2017-04-15] MEDS: Insulin DETEMIR 100 UNIT/ML X5UNITS SQ SCH (21:25)
[2017-04-16] MEDS: Ipratropium/Albuterol Neb 3 ML IH SCH ×4 (04:05→22:31)
[2017-04-16 05:40] LABS: Basophils % 0.3 %; Eosinophils # 0.1 K/mcL (0.0-0.6); Hematocrit 25.6 % (35.3-44.9); Hemoglobin 7.7 g/dL (11.5-15.4); Immature Granulocytes % 0.5 % (0-4); Lymphocytes # 1.1 K/mcL (0.6-4.6); Lymphocytes % 18.1 %; Mean Corpuscular HGB Conc 30.1 g/dL (31.6-35.5); Mean Corpuscular Hemoglobin 31.7 pg (28.0-33.3); Mean Corpuscular Volume 105.3 fL (83.0-100.0); Mean Platelet Volume 10.5 fL (9.4-12.4); Monocytes # 1.8 K/mcL (0.0-1.3); Monocytes % 28.7 %; Platelet Count 233 K/mcL (140-400); Red Blood Count 2.43 M/mcL (3.82-4.97); Red Cell Distribution Width 16.7 % (11.5-14.5); Segmented Neutrophils % 51.4 %
[2017-04-16 05:46] LABS: INR 1.6; Prothrombin Time 17.5 Seconds (9.4-12.1)
[2017-04-16 05:52] LABS: Albumin 3.3 g/dL (3.5-5.7); Albumin/Globulin Ratio 1.5 (1.1-2.2); Bilirubin,Total 0.3 mg/dL (0.3-1.0); Globulin 2.2 g/dL (2.4-3.5); Magnesium 2.4 mg/dL (1.6-2.6); Phosphorous 4.4 mg/dL (2.7-4.5); Potassium 4.2 mEq/L (3.5-5.1); Total Protein 5.5 g/dL (6.4-8.9)
[2017-04-16 06:10] LABS: Neutrophils # 3.1 K/mcL (1.6-8.9); Platelet Estimate Normal (Normal)
[2017-04-16] MEDS: Gabapentin 300 MG CAPSULE PO SCH (09:16)
[2017-04-16] MEDS: Isosorbide MONOnitrate (24 HR) 60 MG TAB.ER.24H PO SCH (09:16)
[2017-04-16] MEDS: Cyanocobalamin (B-12) 1,000 MCG TABLET PO SCH (09:16)
[2017-04-16] MEDS: Furosemide 40 MG TABLET PO SCH ×2 (09:16→16:06)
[2017-04-16] MEDS: Aspirin Enteric Coated 81 MG Tablet PO SCH (09:16)
[2017-04-16] MEDS: hydrALAZINE 25 MG TABLET PO SCH ×3 (09:16→21:44)
[2017-04-16] MEDS: Folic Acid 1 MG TABLET PO SCH (09:16)
[2017-04-16] MEDS: amLODIPine 5 MG TABLET PO SCH (09:16)
[2017-04-16] MEDS: Insulin LISPRO 300 UNITS/3 ML VIAL SQ SCH ×4 (09:17→21:37)
--- NOTE | 2017-04-16 09:37 | Cardiology Progress Note ---
Date of Encounter: 04/16/17 Time of Encounter: 09:00 Assessment and Plan (1) Acute exacerbation of CHF (congestive heart failure) Current Visit: Yes Status: Acute Per cardiology: -Recent admission at outside facility for diastolic CHF. -ADmitted with increased shortness of breath. States had been working closely with her application packager regarding diuretic dosing. States at one point was on lasix 80mg BID, most recently on 80mg am and 40mg pm. -CHest x-ray with bialteral pleural effusion with basilar consolidation, diffuse interstitial pulmonary edema. -BNP 1364. -Euvolemic on exam today. -Currently net negative 620ml since admission at [facility], was at [place] prior to admission. -Nephrology on board and placed patient on lasix 40mg BID po. KNown CKD, creatinine 3.21 today. -TTE 12/2016 LVEF 60-65%, no segmental wall motion abnormalities. -CHF education reviewed with patient at length regarding fluid restriction of 1.5L/day, sodium restriction, and daily weights. Patient educated to call cardiology for weight gain of 2 pounds overnight or 5 pounds in one week. Patient states understanding. -Cardiology will sign off and will follow in outpatient setting. Patient has follow up set on 04/24/16 with . Qualifiers: Congestive heart failure type: diastolic Qualified Code(s): I50.33 - Acute on chronic diastolic (congestive) heart failure (2) Elevated troponin Current Visit: Yes Status: Chronic Per cardiology: -Troponins 0.04, 0.05, 0.05. Troponins flat and adynamic in the setting of CHF. -Denies chest pain. -ECG with no acute ischemic changes noted. -Denies chest pain. -TTE 12/2016 with LVEF 60-65%, no segmental wall motion abnormalities noted. -Of note, appears to have chronically elevated troponins with troponin 12/2016 0.2. -Do not suspect NSTEMI, suspect demand ischemia related to above, no cardiac rehab consult warranted. (3) CKD (chronic kidney disease) stage 4, GFR 15-29 ml/min Current Visit: No Status: Chronic Per cardiology: -KNown CKD. -Creatinine today 3.21. -Nephrology consulted. -Management per primary and nephrology services. (4) A-fib Current Visit: Yes Status: Chronic Per cardiology: -Known history of PAF. -Not on beta everardo due to bradycardia. -ON coumadin for anticoagulation. -HR controlled. -Continue coumadin. -Will continue to monitor in outpatient setting. Qualifiers: Atrial fibrillation type: paroxysmal Qualified Code(s): I48.0 - Paroxysmal atrial fibrillation (5) Essential hypertension Current Visit: No Status: Chronic Per cardiology: -Known HTN. -BPs mostly 130-140s systolic. -BP this am 170s systolic. -On amlodipine and hydralazine. -Patient encouraged to continue to monitor BP at home and to bring BP log with her to outpatient cardiology visit. Discussion w patient/family: The assessment and plan as outlined above was discussed with the patient who expressed understanding and agreement. All questions were answered. Thank you for involving us in the care of your patient. Please call with any questions. Discussed and reviewed with . Subjective Principal diagnosis: CHF, CKD Interval history: Patient states she feels much better today. Objective Vital Signs, Last 4 Hours Temp Pulse Resp BP Pulse Ox 04/16/17 07:09 97.8 F 87 15 177/77 90 General: Conversant, No Apparent Distress HEENT: Atraumatic, Normocephaly, Mucus Membranes Moist Neck: No JVD, Normal carotid pulses Cardiac: Normal S1 and S2, No Murmur, Other (Irregularly irregular) Lungs: Normal Breath Sounds, No Wheeze, Rales, Rhonchi Neuro: Alert and responsive, No focal deficits noted Abdomen: Soft, Non-Tender Skin: No rashes noted on visualized skin Musculoskeletal: No Chest Wall Tenderness Extremities: No Clubbing, No Cyanosis, No Edema, Normal Pulses Results 04/16/17 05:11 04/16/17 05:11 Lab Results Active Medications Albuterol/Ipratropium (Duoneb) 3 ml IH [id number] SHAZIA Stop: 10/14/17 22:01 Last Admin: 04/16/17 04:05 Dose: 3 ml Amlodipine Besylate (Norvasc) 10 mg PO DAILY SHAZIA Stop: 10/15/17 09:01 Last Admin: 04/16/17 09:16 Dose: 10 mg Aspirin (Aspirin Ec) 81 mg PO DAILY SHAZIA Stop: 10/15/17 09:01 Last Admin: 04/16/17 09:16 Dose: 81 mg Cyanocobalamin (Vitamin B12) 1,000 mcg PO DAILY SHAZIA Stop: 10/15/17 09:01 Last Admin: 04/16/17 09:16 Dose: 1,000 mcg Dextrose/Water (Dextrose 50% (Syg)) 25 ml IVP AD PRN PRN Reason: Hypoglycemia Stop: 10/14/17 19:20 Duloxetine HCl (Cymbalta) 30 mg PO DAILY SHAZIA Stop: 10/15/17 09:01 Last Admin: 04/16/17 09:16 Dose: 30 mg Folic Acid (Folic Acid) 1 mg PO DAILY SHAZIA Stop: 10/15/17 09:01 Last Admin: 04/16/17 09:16 Dose: 1 mg Furosemide (Lasix) 40 mg PO BIDDIURETIC SHAZIA Stop: 10/15/17 11:01 Last Admin: 04/16/17 09:16 Dose: 40 mg Gabapentin (Neurontin) 300 mg PO DAILY SHAZIA Stop: 10/16/17 09:01 Last Admin: 04/16/17 09:16 Dose: 300 mg Glucagon (Glucagen) 1 mg IM ONCE PRN PRN Reason: Hypoglycemia Stop: 10/14/17 19:20 Glucose (Gluctose) 15 gm PO ONCE PRN PRN Reason: Hypoglycemia Stop: 10/14/17 19:20 Glucose (Gluctose) 30 gm PO ONCE PRN PRN Reason: Hypoglycemia Stop: 10/14/17 19:20 Hydralazine HCl (Hydralazine) 50 mg PO TID [facility] Stop: 10/14/17 21:01 Last Admin: 04/16/17 09:16 Dose: 50 mg Dextrose (Dextrose 5%) 1,000 mls @ 100 mls/hr IVC .Q10H PRN PRN Reason: HYPOGLYCEMIA Stop: 10/14/17 19:20 Insulin Detemir (Levemir) 14 unit SQ HS [facility] Stop: 10/15/17 21:01 Last Admin: 04/15/17 21:25 Dose: 14 unit Insulin Human Lispro (Humalog) 0 units SQ TIDAC [facility] PRN Reason: Protocol Stop: 10/15/17 07:31 Last Admin: 04/16/17 09:17 Dose: 2 units Insulin Human Lispro (Humalog) 0 units SQ HS [facility] PRN Reason: Protocol Stop: 10/14/17 21:01 Last Admin: 04/15/17 21:19 Dose: Not Given Isosorbide Mononitrate (Imdur) 60 mg PO DAILY [facility] Stop: 10/16/17 09:01 Last Admin: 04/16/17 09:16 Dose: 60 mg Melatonin (Melatonin) 9 mg PO HS PRN PRN Reason: Insomnia Stop: 10/15/17 16:41 Last Admin: 04/15/17 21:25 Dose: 9 mg Naloxone HCl (Narcan) 0.4 mg IVP Q2MIN PRN PRN Reason: Opioid Reversal Stop: 10/14/17 18:31 Omeprazole (Prilosec) 40 mg PO 0630 [facility] Stop: 10/15/17 09:01 Last Admin: 04/16/17 05:41 Dose: 40 mg Ondansetron HCl (Zofran) 4 mg IVP Q8HR PRN PRN Reason: Nausea And Vomiting Stop: 10/14/17 18:31 Warfarin Sodium (Coumadin Perpt) 1 each PO DAILY@1800 PRN PRN Reason: SEE COMMENTS Stop: 10/15/17 18:01 Laboratory Tests 04/15/17 04/15/17 04/16/17 00:29 00:29 05:11 Hgb 8.0 L 7.7 L INR Creatinine 3.07 H 04/16/17 04/16/17 05:11 05:11 Hgb INR 1.6 Creatinine 3.21 H - Imaging and Cardiology Chest Xray: report reviewed Echo: report reviewed - EKG Interpretation EKG results cardiology: other (Telemetry reviewed with average HR previous 12 hours noted to be 96, atrial fibrillation. PVCs, couplets, and 1 triplet noted.) - VTE Documentation of Mechanical Device: Intermittent pneumatic compression device Consult Discharge Plan - Plan Referrals: Krystle Henderson, CFO [Primary Care Provider] -
--- NOTE | 2017-04-16 14:58 | Nephrology Progress Note ---
Date of Encounter: 04/16/17 Time of Encounter: 14:53 - Assessment and Plan (1) CKD (chronic kidney disease) stage 4, GFR 15-29 ml/min Current Visit: No Status: Chronic Secondary to hypertension and diabetes. Creatinine is slightly worse today with GFR very mildly decreased from 15-14. Patient continues to have clinical evidence of pulmonary edema with increasing oxygen demands although she does appear comfortable at rest. There is no lower extremity edema. We will continue with Lasix 40 mg by mouth twice a day. If she does not respond appropriately need to initiate hemodialysis for fluid removal. Otherwise there is currently no indication for renal replacement therapy today. We will continue to monitor renal function daily. Anemia: Hemoglobin down to 7.7 today. No evidence of active bleeding. Possibly related to chronic kidney disease as well as iron deficiency anemia. Patient is currently on oral iron supplementation, will consider feraheme infusions. Continue to follow her renal protective strategy by avoiding nephrotoxins inducing medications based on GFR. (2) Iron deficiency anemia Current Visit: Yes Status: Chronic Qualifiers: Iron deficiency anemia type: unspecified iron deficiency Qualified Code(s) : D50.9 - Iron deficiency anemia, unspecified (3) Diabetes mellitus Current Visit: Yes Status: Chronic Qualifiers: Diabetes mellitus type: type 2 Diabetes mellitus complication status: with unspecified complications Diabetes mellitus intermediate manager insulin use: with chcf use Qualified Code(s): E11.8 - Type 2 diabetes mellitus with unspecified complications; Z79.4 - penitentiary (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 (4) A-fib Current Visit: Yes Status: Chronic Qualifiers: Atrial fibrillation type: paroxysmal Qualified Code(s): I48.0 - Paroxysmal atrial fibrillation (5) Acute exacerbation of CHF (congestive heart failure) Current Visit: Yes Status: Acute Qualifiers: Congestive heart failure type: diastolic Qualified Code(s): I50.33 - Acute on chronic diastolic (congestive) heart failure (6) Essential hypertension Current Visit: No Status: Chronic Subjective Principal diagnosis: CHF, CKD Interval history: Patient seen and examined at bedside. Patient states that she feels pretty good today. She denies shortness of breath but was told that he needed to increase her oxygen overnight. She denies chest pain, shortness of breath, abdominal pain, decreased appetite, nausea, vomiting. Objective - Vital Signs Vital signs: Vital Signs Temp Pulse Resp BP Pulse Ox 04/16/17 12:04 98.0 F 94 18 161/65 91 04/16/17 10:15 15 90 04/16/17 07:09 97.8 F 87 15 177/77 90 04/16/17 04:07 20 98 04/16/17 03:20 97.9 F 100 13 145/75 93 04/16/17 02:06 92 04/15/17 23:33 98.0 F 102 17 145/65 91 04/15/17 21:26 14 98 04/15/17 19:06 97.7 F 89 17 134/73 93 04/15/17 15:55 97.9 F 96 15 147/68 98 04/15/17 15:48 18 94 Intake and Output 04/15/17 04/16/17 04/16/17 23:59 07:59 15:59 Intake Total 480 / 480 Output Total 1400 / 1400 450 / 450 Balance -1400 / -1400 30 / 30 Intake: Oral 480 / 480 Output: Urine 500 / 500 Catheter 900 / 900 450 / 450 Other: Meal Dinner Lunch Percent of Meal Consumed 50% 80% Weight 95.7 kg Blood Glucose* 162 149 202 Patient Weight 04/16/17 23:59 Weight 95.7 kg - General Appearance General appearance: Present: well-developed, appears started age EENT: Present: ATNC, mucous membranes moist Neck: Present: supple Respiratory: Present: rales (Improved from yesterday) Cardiology: Present: no murmurs, no rub, no gallops, no edema, regular rate, irregular rhythm Gastrointestinal: Present: normoactive bowel sounds, no tenderness, no guarding Integumentary: Present: no rash, warm and dry Neurologic: Present: no focal deficit, alert and oriented x3 - Lab 04/16/17 05:11 04/16/17 05:11 Most recent lab results Calcium 9.0 mg/dL (8.6-10.3) 04/16/17 05:11 Phosphorus 4.4 mg/dL (2.7-4.5) 04/16/17 05:11 Magnesium 2.4 mg/dL (1.6-2.6) 04/16/17 05:11 - VTE Documentation of Mechanical Device: Intermittent pneumatic compression device Consult Discharge Plan - Plan Referrals: Krystle Henderson, SAW STRAIGHTENER [Primary Care Provider] -
--- NOTE | 2017-04-16 15:57 | Internal Med Progress Note ---
Date of Encounter: 04/16/17 Time of Encounter: 14:25 - Assessment and plan (1) Acute exacerbation of CHF (congestive heart failure) Current Visit: Yes Status: Acute Assessment and plan: Cardiology evaluation appreciated. Cardiology signed out and outpatient follow up recommended continue Lasix 40mg PO BID as per nephrology's recommendation pt in no distress at rest will closely monitor currently saturating well on 3L NC monitor daily weight, I/Os, fluid restriction diet continue home meds dietary education provided given pt's fluid intake at home Qualifiers: Congestive heart failure type: diastolic Qualified Code(s): I50.33 - Acute on chronic diastolic (congestive) heart failure (2) A-fib Current Visit: Yes Status: Chronic Assessment and plan: Anticoagulated with Coumadin home medications verification reported pt being on Metoprolol 25mg PO qdaily, will resume will continue tele monitoring Qualifiers: Atrial fibrillation type: paroxysmal Qualified Code(s): I48.0 - Paroxysmal atrial fibrillation (3) CKD (chronic kidney disease) stage 4, GFR 15-29 ml/min Current Visit: No Status: Chronic Assessment and plan: nephrology on board and consultation appreciated Lasix 40mg PO BID no need for DRAWING CHECKER at this time will closely monitor (4) Diabetes mellitus Current Visit: Yes Status: Chronic Assessment and plan: Sliding scale insulin algorithm monitor FS and BG ADA diet Qualifiers: Diabetes mellitus type: type 2 Diabetes mellitus complication status: with unspecified complications Diabetes mellitus intermodal truck driver insulin use: with senior care use Qualified Code(s): E11.8 - Type 2 diabetes mellitus with unspecified complications; Z79.4 - intermediate (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 (5) DVT prophylaxis Current Visit: Yes Status: Acute Assessment and plan: on coumadin (6) Elevated troponin Current Visit: Yes Status: Chronic Assessment and plan: likely demand ischemia in the setting of CHF no signs of angina present will closely monitor (7) Essential hypertension Current Visit: No Status: Chronic Assessment and plan: Noted to be hypertensive this morning repeat BP: 151/86 continue home meds will closely monitor BP add Hydralazine 10mg IV q6h prn SBP>160 (8) HLD (hyperlipidemia) Current Visit: Yes Status: Chronic Qualifiers: Hyperlipidemia type: pure hypercholesterolemia Qualified Code(s): E78.00 - Pure hypercholesterolemia, unspecified; E78.0 - Pure hypercholesterolemia (9) Obesity (BMI 30-39.9) Current Visit: Yes Status: Chronic - Subjective Interval history: Pt seen and examined with daughter present at bedside. Pt sitting in a chair and reports of feeling better compared to previous day. Noted to be on 4L NC and saturating 100%, titrated the O2 to 3L and O2 remained around 97%. Pt denies any discomfort. Baseline home O2: 2L NC No overnight issues reported. - Constitutional Vitals: Temp Pulse Resp BP Pulse Ox 98.0 F 94 18 161/65 91 04/16/17 12:04 04/16/17 12:04 04/16/17 15:51 04/16/17 12:04 04/16/17 15:51 General appearance: Present: cooperative, A&O X 3, pleasant, no acute distress, obese, answers questions appropriately - Head Head exam: Present: atraumatic, normocephalic - Eye Eye exam: Present: conjuntiva pink, sclera anicteric - Respiratory Respiratory exam: Absent: respiratory distress, wheezes (mild bibasilar rales ) - Cardiovascular Cardiovascular exam: Present: RRR, +S1, +S2. Absent: bradycardia, tachycardia - GI/Abdominal GI/Abdominal exam: Present: normal bowel sounds, soft, no peritoneal signs. Absent: distended, tenderness - Extremities Exam Extremities exam: Present: warm, radial pulses palpable and symmetrical. Absent : calf tenderness, pedal edema - Neurological Exam Neurological exam: Present: alert, oriented X3 Internal Medicine: Result - Labs CBC & Chem 7: 04/16/17 05:11 04/16/17 05:11 Labs: Short CBC 04/16/17 Range/Units 05:11 WBC 6.1 (4.3-11.1) K/mcL Hgb 7.7 L (11.5-15.4) g/dL Hct 25.6 L (35.3-44.9) % Plt Count 233 (140-400) K/mcL Neutrophils # 3.1 (1.6-8.9) K/mcL BMP 04/16/17 05:11 Sodium 143 Potassium 4.2 Chloride 108 H Carbon Dioxide 29 BUN 59 H Creatinine 3.21 H Glucose 136 H Calcium 9.0 Liver Function 04/16/17 Range/Units 05:11 Total Bilirubin 0.3 (0.3-1.0) mg/dL AST 17 (13-39) Units/L ALT 18 (7-52) Units/L Alkaline Phosphatase 80 (34-104) Units/L Albumin 3.3 L (3.5-5.7) g/dL - ABG Interpretation ABG results: PT/INR, D-dimer PT 17.5 Seconds (9.4-12.1) H 04/16/17 05:11 - VTE Documentation of Mechanical Device: Intermittent pneumatic compression device Consult Discharge Plan - Plan Referrals: Krystle Henderson, TEAM PRIMARY CARE PHYSICIAN [Primary Care Provider] -
[2017-04-16] MEDS: *HR* Warfarin 3 MG TABLET PO SCH (16:06)
[2017-04-16] MEDS: Metoprolol XL (24 HR) Succ 25 MG TAB.ER.24H PO SCH (16:12)
[2017-04-16] MEDS: Sennosides/Docusate Sodium TABLET PO SCH (21:45)
[2017-04-16] MEDS: Insulin DETEMIR 100 UNIT/ML X5UNITS SQ SCH ×2 (21:45→22:35)
[2017-04-16] MEDS: Fluticasone Propionate Nasal 50 MCG/SPRAY BOTTLE NS SCH (21:45)
[2017-04-16] MEDS: Melatonin 3 MG TABLET PO PRN (21:49)
[2017-04-17] MEDS: Ipratropium/Albuterol Neb 3 ML IH SCH ×4 (03:33→22:19)
[2017-04-17] MEDS: Insulin LISPRO 300 UNITS/3 ML VIAL SQ SCH ×4 (07:30→20:59)
[2017-04-17] MEDS: Aspirin Enteric Coated 81 MG Tablet PO SCH (07:36)
[2017-04-17] MEDS: Furosemide 40 MG TABLET PO SCH (07:36)
[2017-04-17] MEDS: amLODIPine 5 MG TABLET PO SCH (07:36)
[2017-04-17] MEDS: Cyanocobalamin (B-12) 1,000 MCG TABLET PO SCH (07:36)
[2017-04-17] MEDS: Folic Acid 1 MG TABLET PO SCH (07:36)
[2017-04-17] MEDS: Gabapentin 300 MG CAPSULE PO SCH (07:36)
[2017-04-17] MEDS: Sennosides/Docusate Sodium TABLET PO SCH ×2 (07:36→20:59)
[2017-04-17] MEDS: hydrALAZINE 25 MG TABLET PO SCH ×3 (07:36→20:58)
[2017-04-17] MEDS: Metoprolol XL (24 HR) Succ 25 MG TAB.ER.24H PO SCH (07:37)
[2017-04-17] MEDS: Isosorbide MONOnitrate (24 HR) 60 MG TAB.ER.24H PO SCH (07:37)
[2017-04-17] MEDS: Fluticasone Propionate Nasal 50 MCG/SPRAY BOTTLE NS SCH ×2 (07:37→20:59)
[2017-04-17 08:04] LABS: Albumin 3.3 g/dL (3.5-5.7); Albumin/Globulin Ratio 1.2 (1.1-2.2); Bilirubin,Total 0.4 mg/dL (0.3-1.0); Calcium 9.1 mg/dL (8.6-10.3); Globulin 2.8 g/dL (2.4-3.5); Magnesium 2.4 mg/dL (1.6-2.6); Phosphorous 4.4 mg/dL (2.7-4.5); Potassium 4.5 mEq/L (3.5-5.1); Total Protein 6.1 g/dL (6.4-8.9)
[2017-04-17 08:08] LABS: INR 1.7; Prothrombin Time 18.4 Seconds (9.4-12.1)
[2017-04-17 08:33] LABS: Hemoglobin 7.1 g/dL (11.5-15.4); Lymphocytes # 0.7 K/mcL (0.6-4.6); Mean Corpuscular HGB Conc 29.6 g/dL (31.6-35.5); Mean Corpuscular Volume 104.8 fL (83.0-100.0); Mean Platelet Volume 10.8 fL (9.4-12.4); Platelet Count 235 K/mcL (140-400); Red Blood Count 2.29 M/mcL (3.82-4.97); Red Cell Distribution Width 16.8 % (11.5-14.5)
[2017-04-17] MEDS ORDERED: Ferumoxytol 510 MG in 0.9 % Sodium Chloride 100 ML IVPB ONE (11:34)
[2017-04-17 12:07] LABS: Anisocytosis 1+ (Not Present); Basophils # 0.1 K/mcL (0.0-0.2); Monocytes # 1.7 K/mcL (0.0-1.3); Neutrophils # 4.5 K/mcL (1.6-8.9); Platelet Estimate Normal (Normal)
[2017-04-17 12:08] LABS: Microcytosis Present (Not Present); Polychromasia 1+ (Not Present)
--- NOTE | 2017-04-17 12:54 | Internal Med Progress Note ---
Date of Encounter: 04/17/17 Time of Encounter: 12:20 - Assessment and plan (1) Anemia Current Visit: No Status: Chronic Assessment and plan: Noted to have drop in H&H along with increase O2 demand Discussed care plan with nephrology, will transfuse one unit PRBC followed by one dose of Lasix 40mg IV will obtain CXR to further evaluate pulm congestion continue to closely monitor H&H pt has history of anemia of chronic disease and iron deficiency anemia no acute bleeding reported at this time Qualifiers: Anemia type: iron deficiency Iron deficiency anemia type: chronic blood loss Qualified Code(s): D50.0 - Iron deficiency anemia secondary to blood loss (chronic) (2) Acute exacerbation of CHF (congestive heart failure) Current Visit: Yes Status: Acute Assessment and plan: Cardiology evaluation appreciated. Cardiology signed out and outpatient follow up recommended noted to have increase in O2 demand will transfuse one unit PRBC and give lasix 40mg IV after transfusion f/u repeat CXR to evaluate pulm congestion pt in no distress at rest will closely monitor currently saturating well on 3L NC monitor daily weight, I/Os, fluid restriction diet continue home meds dietary education provided given pt's fluid intake at home Qualifiers: Congestive heart failure type: diastolic Qualified Code(s): I50.33 - Acute on chronic diastolic (congestive) heart failure (3) A-fib Current Visit: Yes Status: Chronic Assessment and plan: Anticoagulated with Coumadin rate controlled with Metoprolol 25mg PO qdaily will continue tele monitoring Qualifiers: Atrial fibrillation type: paroxysmal Qualified Code(s): I48.0 - Paroxysmal atrial fibrillation (4) CKD (chronic kidney disease) stage 4, GFR 15-29 ml/min Current Visit: No Status: Chronic Assessment and plan: nephrology on board and consultation appreciated no need for ANALYTICS ASSOCIATE at this time will closely monitor (5) Diabetes mellitus Current Visit: Yes Status: Chronic Assessment and plan: Sliding scale insulin algorithm monitor FS and BG ADA diet Qualifiers: Diabetes mellitus type: type 2 Diabetes mellitus complication status: with unspecified complications Diabetes mellitus terminal gauger insulin use: with half-way use Qualified Code(s): E11.8 - Type 2 diabetes mellitus with unspecified complications; Z79.4 - [facility] (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 (6) DVT prophylaxis Current Visit: Yes Status: Acute Assessment and plan: on coumadin (7) Elevated troponin Current Visit: Yes Status: Chronic Assessment and plan: likely demand ischemia in the setting of CHF no signs of angina present will closely monitor (8) Essential hypertension Current Visit: No Status: Chronic Assessment and plan: BP within acceptable range continue home meds will closely monitor BP Hydralazine 10mg IV q6h prn SBP>160 (9) HLD (hyperlipidemia) Current Visit: Yes Status: Chronic Qualifiers: Hyperlipidemia type: pure hypercholesterolemia Qualified Code(s): E78.00 - Pure hypercholesterolemia, unspecified; E78.0 - Pure hypercholesterolemia (10) Obesity (BMI 30-39.9) Current Visit: Yes Status: Chronic - Subjective Interval history: Pt seen and examined at bedside. Resting in bed and reports of having shortness of breath overnight, requiring higher level of oxygen. Currently saturating well on 3L NC noted to have minimal bibasilar rales on auscultation. Does not appear to be in respiratory distress Noted to have drop in H&H along with increase O2 demand Discussed care plan with nephrology, will transfuse one unit PRBC followed by one dose of Lasix 40mg IV will obtain CXR to further evaluate pulm congestion - Constitutional Vitals: Temp Pulse Resp BP Pulse Ox 97.9 F 96 18 133/64 91 04/17/17 10:20 04/17/17 10:20 04/17/17 10:25 04/17/17 10:20 04/17/17 10:25 General appearance: Present: cooperative, A&O X 3, pleasant, no acute distress, obese, answers questions appropriately - Head Head exam: Present: normocephalic - Eye Eye exam: Present: conjuntiva pink, sclera anicteric - Respiratory Respiratory exam: Present: rales (minimal bibasilar rales). Absent: respiratory distress, wheezes - Cardiovascular Cardiovascular exam: Present: RRR, +S1, +S2. Absent: diastolic murmur, gallop, rubs, systolic murmur - GI/Abdominal GI/Abdominal exam: Present: normal bowel sounds, soft, no peritoneal signs. Absent: distended, tenderness - Extremities Exam Extremities exam: Present: warm, radial pulses palpable and symmetrical. Absent : calf tenderness, pedal edema - Neurological Exam Neurological exam: Present: alert, oriented X3 - Psychiatric Psychiatric exam: Present: normal affect, normal mood Internal Medicine: Result - Labs CBC & Chem 7: 04/17/17 07:29 04/17/17 07:29 Labs: Short CBC 04/17/17 Range/Units 07:29 WBC 7.0 (4.3-11.1) K/mcL Hgb 7.1 L (11.5-15.4) g/dL Hct 24.0 L (35.3-44.9) % Plt Count 235 (140-400) K/mcL Neutrophils # 4.5 (1.6-8.9) K/mcL BMP 04/17/17 07:29 Sodium 142 Potassium 4.5 Chloride 107 Carbon Dioxide 28 BUN 64 H Creatinine 3.13 H Glucose 125 H Calcium 9.1 Liver Function 04/17/17 Range/Units 07:29 Total Bilirubin 0.4 (0.3-1.0) mg/dL AST 16 (13-39) Units/L ALT 17 (7-52) Units/L Alkaline Phosphatase 72 (34-104) Units/L Albumin 3.3 L (3.5-5.7) g/dL - ABG Interpretation ABG results: PT/INR, D-dimer PT 18.4 Seconds (9.4-12.1) H 04/17/17 07:29 - VTE Documentation of Mechanical Device: Intermittent pneumatic compression device Consult Discharge Plan - Plan Referrals: Krystle Henderson CNP [Primary Care Provider] - 04/20/17 2:00 pm
--- NOTE | 2017-04-17 13:31 | Nephrology Progress Note ---
<SnehalRolf heredia - Last Filed: 04/17/17 13:23> Date of Encounter: 04/17/17 Time of Encounter: 13:23 - Assessment and Plan (1) CKD (chronic kidney disease) stage 4, GFR 15-29 ml/min Status: Chronic Secondary to hypertension and diabetes. Creatinine is stable today. Patient continues to have increasing oxygen demands although she does appear comfortable at rest, however her pulse oximeter may not be reading correctly due to nail irish. Agree with rechecking chest x-ray to evaluate degree of pulmonary edema There is no lower extremity edema. We will continue with Lasix 40 mg by mouth twice a day. If she does not respond appropriately need to initiate hemodialysis for fluid removal. Otherwise there is currently no indication for renal replacement therapy today. We will continue to monitor renal function daily. Anemia: Hemoglobin down to 7.1 today. No evidence of active bleeding. Possibly related to chronic kidney disease as well as iron deficiency anemia but will check fecal occult stool. Patient is currently on oral iron supplementation, will give 1 dose of Feraheme today. Agree with transfusion of 1 unit of packed red blood cells Continue to follow her renal protective strategy by avoiding nephrotoxins inducing medications based on GFR. (2) Iron deficiency anemia Status: Chronic As above Qualifiers: Iron deficiency anemia type: unspecified iron deficiency Qualified Code(s) : D50.9 - Iron deficiency anemia, unspecified (3) Diabetes mellitus Status: Chronic Qualifiers: Diabetes mellitus type: type 2 Diabetes mellitus complication status: with unspecified complications Diabetes mellitus fdc insulin use: with fdc use Qualified Code(s): E11.8 - Type 2 diabetes mellitus with unspecified complications; Z79.4 - senior living (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 (4) A-fib Status: Chronic Qualifiers: Atrial fibrillation type: paroxysmal Qualified Code(s): I48.0 - Paroxysmal atrial fibrillation (5) Acute exacerbation of CHF (congestive heart failure) Status: Acute Qualifiers: Congestive heart failure type: diastolic Qualified Code(s): I50.33 - Acute on chronic diastolic (congestive) heart failure (6) Essential hypertension Status: Chronic Subjective Principal diagnosis: CHF, CKD Interval history: Patient seen and examined at bedside. Patient states that she feels pretty good today. She denies shortness of breath. She denies chest pain, shortness of breath, abdominal pain, decreased appetite, nausea, vomiting. Objective - Vital Signs Vital signs: Vital Signs Temp Pulse Resp BP Pulse Ox 04/17/17 10:25 18 91 04/17/17 10:20 97.9 F 96 15 133/64 93 04/17/17 06:25 97.1 F L 85 20 130/71 90 04/17/17 03:43 81 17 149/71 92 04/17/17 03:35 16 88 04/17/17 00:55 88 04/16/17 22:33 18 92 04/16/17 19:36 98.4 F 97 17 144/86 93 04/16/17 15:55 97.5 F L 95 17 146/75 93 04/16/17 15:51 18 91 Intake and Output 04/16/17 04/17/17 04/17/17 23:59 07:59 15:59 Intake Total 360 / 360 Output Total 800 / 800 200 / 200 Balance -800 / -800 160 / 160 Intake: Oral 360 / 360 Output: Catheter 800 / 800 200 / 200 Other: Meal Breakfast Percent of Meal Consumed 95% Blood Glucose* 141 127 135 - General Appearance General appearance: Present: well-developed, well-nourished, appears started age EENT: Present: ATNC, mucous membranes moist Neck: Present: supple Respiratory: Present: rales (faint b/l) Additional Comments: Diminished breath sounds at bases bilaterally Cardiology: Present: no murmurs, no rub, no gallops, no edema, regular rate, irregular rhythm Gastrointestinal: Present: normoactive bowel sounds, no tenderness, no guarding Integumentary: Present: no rash, warm and dry Neurologic: Present: no focal deficit, alert and oriented x3 Musculoskeletal: Present: no deformities, no erythema, no cyanosis - Lab 04/17/17 07:29 04/17/17 07:29 Most recent lab results Calcium 9.1 mg/dL (8.6-10.3) 04/17/17 07:29 Phosphorus 4.4 mg/dL (2.7-4.5) 04/17/17 07:29 Magnesium 2.4 mg/dL (1.6-2.6) 04/17/17 07:29 - VTE Documentation of Mechanical Device: Intermittent pneumatic compression device Consult Discharge Plan - Plan Instructions: Furosemide (By mouth), Hydralazine (By mouth), Isosorbide Mononitrate (By mouth), Myocardial Infarction (DC), Heart Failure (DC), Atrial Fibrillation (DC), Urinary Tract Infection in Women (DC), Chronic Kidney Disease (DC), Chronic Kidney Disease (GEN), Diabetes Mellitus Type 2 in Adults ( DC), Chronic Hypertension (DC), Anemia (GEN), Fall Prevention (DC) Referrals: Estuardo Michael MD [Non-Partnered Physician] - (2 weeks please call and make an appointment for 2 weeks i tried to call several times and never got an answer) Krystle Henderson [Non-Partnered Physician] - 04/29/17 10:00 am Munira Aponte DO [Partnered Physician] - 04/24/17 2:15 pm (2 weeks this appointment is at [place] ) Prescriptions: Furosemide [Lasix] 40 mg PO BIDDIURETIC #60 tablet hydrALAZINE [HydrALAZINE] 50 mg PO TID #90 tablet Isosorbide MONOnitrate (24 HR) [Imdur] 60 mg PO DAILY #30 tab.er.24h <Fabián Colunga - Last Filed: 05/21/17 14:58> Date of Encounter: 04/17/17 - Assessment and Plan (1) CKD (chronic kidney disease) stage 5, GFR less than 15 ml/min Status: Chronic (2) Iron deficiency anemia Status: Chronic Qualifiers: Iron deficiency anemia type: unspecified iron deficiency Qualified Code(s) : D50.9 - Iron deficiency anemia, unspecified Objective - Lab 04/21/17 04:21 04/21/17 04:21 Most recent lab results Calcium 8.3 mg/dL (8.6-10.3) L 04/21/17 04:21 Phosphorus 5.1 mg/dL (2.7-4.5) H 04/21/17 04:21 Magnesium 2.2 mg/dL (1.6-2.6) 04/21/17 04:21 - Attending Attestation I examined this patient and my medical decision-making was reviewed with the Resident Physician. I agree with the documented findings, disposition and treatment plan as described except to the extent set forth below. Pt seen and examined with still increase oxygen need. SCr fairly stable. No LE edema noted. Will continue current diuretic regimen. Obtain CXR and if pum edema present, may need KEEL PRESS OPERATOR at a last resort as if appears diuretics not working well enough. hgb noted low, can transfuse and will also replete iron stores
[2017-04-17] MEDS: *HR* Warfarin 3 MG TABLET PO SCH (16:46)
[2017-04-17] MEDS: Furosemide 40 MG/4 ML VIAL IVP SCH (16:51)
[2017-04-17] MEDS ORDERED: 0.9 % Sodium Chloride 250 ML ONE (19:40)
[2017-04-17] MEDS: Melatonin 3 MG TABLET PO PRN (20:58)
[2017-04-17] MEDS: Insulin DETEMIR 100 UNIT/ML X5UNITS SQ SCH (22:04)
[2017-04-18 03:47] LABS: Eosinophils % 1.1 %; Hemoglobin 8.3 g/dL (11.5-15.4); Mean Corpuscular Volume 101.5 fL (83.0-100.0); Nucleated Red Blood Cells 0.3 /100 WBC (0)
[2017-04-18 03:49] LABS: Basophils % 0.3 %; Eosinophils # 0.1 K/mcL (0.0-0.6); Hematocrit 27.5 % (35.3-44.9); Immature Granulocytes % 1.3 % (0-4); Lymphocytes # 0.7 K/mcL (0.6-4.6); Lymphocytes % 10.9 %; Mean Corpuscular HGB Conc 30.2 g/dL (31.6-35.5); Mean Corpuscular Hemoglobin 30.6 pg (28.0-33.3); Mean Platelet Volume 10.5 fL (9.4-12.4); Monocytes # 1.8 K/mcL (0.0-1.3); Monocytes % 28.6 %; Neutrophils # 3.6 K/mcL (1.6-8.9); Platelet Count 217 K/mcL (140-400); Red Blood Count 2.71 M/mcL (3.82-4.97); Red Cell Distribution Width 18.4 % (11.5-14.5); Segmented Neutrophils % 57.8 %
[2017-04-18 04:07] LABS: INR 1.7; Prothrombin Time 18.7 Seconds (9.4-12.1)
[2017-04-18] MEDS: Ipratropium/Albuterol Neb 3 ML IH SCH ×4 (04:18→21:54)
[2017-04-18 05:00] LABS: Magnesium 2.4 mg/dL (1.6-2.6); Phosphorous 4.5 mg/dL (2.7-4.5)
[2017-04-18 05:10] LABS: Albumin 3.3 g/dL (3.5-5.7); Albumin/Globulin Ratio 1.2 (1.1-2.2); Bilirubin,Total 0.3 mg/dL (0.3-1.0); Calcium 8.8 mg/dL (8.6-10.3); Globulin 2.8 g/dL (2.4-3.5); Potassium 4.4 mEq/L (3.5-5.1); Total Protein 6.1 g/dL (6.4-8.9)
[2017-04-18 05:45] LABS: Anisocytosis 1+ (Not Present); Large Platelets Present (Not Present); Platelet Estimate Normal (Normal)
[2017-04-18] MEDS: Fluticasone Propionate Nasal 50 MCG/SPRAY BOTTLE NS SCH ×2 (08:02→19:57)
[2017-04-18] MEDS: Furosemide 40 MG/4 ML VIAL IVP SCH (08:02)
[2017-04-18] MEDS: Cyanocobalamin (B-12) 1,000 MCG TABLET PO SCH (08:03)
[2017-04-18] MEDS: hydrALAZINE 25 MG TABLET PO SCH ×3 (08:03→19:58)
[2017-04-18] MEDS: Metoprolol XL (24 HR) Succ 25 MG TAB.ER.24H PO SCH (08:03)
[2017-04-18] MEDS: Sennosides/Docusate Sodium TABLET PO SCH ×2 (08:03→19:58)
[2017-04-18] MEDS: Folic Acid 1 MG TABLET PO SCH (08:03)
[2017-04-18] MEDS: amLODIPine 5 MG TABLET PO SCH (08:03)
[2017-04-18] MEDS: Gabapentin 300 MG CAPSULE PO SCH (08:03)
[2017-04-18] MEDS: Aspirin Enteric Coated 81 MG Tablet PO SCH (08:03)
[2017-04-18] MEDS: Isosorbide MONOnitrate (24 HR) 60 MG TAB.ER.24H PO SCH (08:11)
[2017-04-18] MEDS: Insulin LISPRO 300 UNITS/3 ML VIAL SQ SCH ×4 (08:12→21:20)
--- NOTE | 2017-04-18 14:13 | Internal Med Progress Note ---
Date of Encounter: 04/18/17 Time of Encounter: 13:50 - Assessment and plan (1) Anemia Current Visit: No Status: Chronic Assessment and plan: s/p one unit PRBC transfusion on 04/17/17 repeat H&H within acceptable range will continue to closely monitor pt has history of anemia of chronic disease and iron deficiency anemia no acute bleeding reported at this time Qualifiers: Anemia type: iron deficiency Iron deficiency anemia type: chronic blood loss Qualified Code(s): D50.0 - Iron deficiency anemia secondary to blood loss (chronic) (2) Acute exacerbation of CHF (congestive heart failure) Current Visit: Yes Status: Acute Assessment and plan: Cardiology evaluation appreciated. Cardiology signed out and outpatient follow up recommended CXR reports pulm vascular congestion and pulm edema, left lower lobe opacification could be atelectasis vs. pneumonia. Pt afebrile, no leukocytosis, will monitor off abx, pt encouraged to use incentive spirometry. pt in no distress at rest will continue lasix 40mg IV qd will closely monitor currently saturating well on 3L NC monitor daily weight, I/Os, fluid restriction diet continue home meds dietary education provided given pt's fluid intake at home Qualifiers: Congestive heart failure type: diastolic Qualified Code(s): I50.33 - Acute on chronic diastolic (congestive) heart failure (3) A-fib Current Visit: Yes Status: Chronic Assessment and plan: Anticoagulated with Coumadin rate controlled with Metoprolol 25mg PO qdaily will continue tele monitoring Qualifiers: Atrial fibrillation type: paroxysmal Qualified Code(s): I48.0 - Paroxysmal atrial fibrillation (4) CKD (chronic kidney disease) stage 4, GFR 15-29 ml/min Current Visit: No Status: Chronic Assessment and plan: nephrology on board and consultation appreciated no need for PRECISION LENS GRINDER at this time will closely monitor (5) Diabetes mellitus Current Visit: Yes Status: Chronic Assessment and plan: Sliding scale insulin algorithm monitor FS and BG ADA diet Qualifiers: Diabetes mellitus type: type 2 Diabetes mellitus complication status: with unspecified complications Diabetes mellitus retirement insulin use: with retirement use Qualified Code(s): E11.8 - Type 2 diabetes mellitus with unspecified complications; Z79.4 - terminal make up operator (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 (6) DVT prophylaxis Current Visit: Yes Status: Acute Assessment and plan: on coumadin (7) Elevated troponin Current Visit: Yes Status: Chronic Assessment and plan: likely demand ischemia in the setting of CHF no signs of angina present will closely monitor (8) Essential hypertension Current Visit: No Status: Chronic Assessment and plan: BP within acceptable range continue home meds will closely monitor BP Hydralazine 10mg IV q6h prn SBP>160 (9) HLD (hyperlipidemia) Current Visit: Yes Status: Chronic Qualifiers: Hyperlipidemia type: pure hypercholesterolemia Qualified Code(s): E78.00 - Pure hypercholesterolemia, unspecified; E78.0 - Pure hypercholesterolemia (10) Obesity (BMI 30-39.9) Current Visit: Yes Status: Chronic - Subjective Interval history: Pt seen and examined at bedside. resting in bed and saturating well on 3L NC. Noted to have bibasilar rales and increased O2 demand overnight Pt will need conitnuous IV Lasix Nephrology on board and in agreement to continuation of lasix. s/p One unit PRBC transfusion (04/17/17), repeat H&H within acceptable range. CXR reports pulm vascular congestion and pulm edema, left lower lobe opacification could be atelectasis vs. pneumonia. Pt afebrile, no leukocytosis, will monitor off abx, pt encouraged to use incentive spirometry. - Constitutional Vitals: Temp Pulse Resp BP Pulse Ox 98.1 F 86 18 149/64 92 04/18/17 07:31 04/18/17 07:31 04/18/17 07:31 04/18/17 12:32 04/18/17 07:31 General appearance: Present: cooperative, A&O X 3, pleasant, no acute distress, obese, answers questions appropriately - Head Head exam: Present: atraumatic, normocephalic - Eye Eye exam: Present: conjuntiva pink, sclera anicteric - Respiratory Respiratory exam: Absent: respiratory distress, wheezes (bibasilar rales) - Cardiovascular Cardiovascular exam: Present: RRR, +S1, +S2. Absent: diastolic murmur, gallop, rubs, systolic murmur - GI/Abdominal GI/Abdominal exam: Present: normal bowel sounds, soft, no peritoneal signs. Absent: distended, tenderness - Extremities Exam Extremities exam: Present: warm, radial pulses palpable and symmetrical. Absent : calf tenderness, pedal edema - Neurological Exam Neurological exam: Present: alert, oriented X3 Internal Medicine: Result - Labs CBC & Chem 7: 04/18/17 03:37 04/18/17 03:37 Labs: Short CBC 04/18/17 Range/Units 03:37 WBC 6.3 (4.3-11.1) K/mcL Hgb 8.3 L (11.5-15.4) g/dL Hct 27.5 L (35.3-44.9) % Plt Count 217 (140-400) K/mcL Neutrophils # 3.6 (1.6-8.9) K/mcL BMP 04/18/17 03:37 Sodium 142 Potassium 4.4 Chloride 107 Carbon Dioxide 27 BUN 67 H Creatinine 3.37 H Glucose 102 Calcium 8.8 Liver Function 04/18/17 Range/Units 03:37 Total Bilirubin 0.3 (0.3-1.0) mg/dL AST 16 (13-39) Units/L ALT 16 (7-52) Units/L Alkaline Phosphatase 69 (34-104) Units/L Albumin 3.3 L (3.5-5.7) g/dL - ABG Interpretation ABG results: PT/INR, D-dimer PT 18.7 Seconds (9.4-12.1) H 04/18/17 03:37 - Impressions Impressions Chest X-Ray 04/17/17 12:56 IMPRESSION: 1. Findings suggest persistent congestive heart failure. 2. Left lower lobe opacification could represent atelectasis or pneumonia. D/ / 04/17/2017 14:49:37 Rolf Huang MD / [email or web address] Interpreting Provider: Rolf Huang MD - VTE Documentation of Mechanical Device: Intermittent pneumatic compression device Consult Discharge Plan - Plan Referrals: Krystle Henderson CNP [Primary Care Provider] - 04/20/17 2:00 pm
--- NOTE | 2017-04-18 16:11 | Nephrology Progress Note ---
Date of Encounter: 04/18/17 Time of Encounter: 14:00 - Assessment and Plan (1) CKD (chronic kidney disease) stage 5, GFR less than 15 ml/min Status: Chronic SCr slightly worse at 3.37, GFR 13, no acute indication for ACCESS REGISTRAR just yet but discussed with possibility with pt if further worsening UOP good at 1200cc in the past 24hrs Continue lasix at 40mg iv daily given persistent CHF on cxr Continue to avoid nephrotoxins if possible (2) Iron deficiency anemia Status: Chronic Hgb improved from 7.1 to 8.3 after transfusion 1 unit pRBCs which was appropriate s/p feraheme as well Qualifiers: Iron deficiency anemia type: unspecified iron deficiency Qualified Code(s) : D50.9 - Iron deficiency anemia, unspecified Subjective Principal diagnosis: CHF, CKD Interval history: Pt seen and examined with no new complaints. she reports still having SOB especially on exertion. s/p transfusion pRBCs yesterday Objective - Vital Signs Vital signs: Vital Signs Temp Pulse Resp BP Pulse Ox 04/18/17 12:32 149/64 04/18/17 11:10 16 94 04/18/17 07:31 98.1 F 86 18 161/77 92 04/18/17 05:00 97.8 F 81 24 137/70 94 04/18/17 04:18 18 90 04/18/17 00:30 98.2 F 94 20 133/75 94 04/17/17 22:27 98 F 76 20 142/72 99 04/17/17 22:19 18 91 04/17/17 22:12 98.6 F 81 21 135/65 94 04/17/17 19:20 98 F 80 23 117/55 97 Intake and Output 04/18/17 04/18/17 04/18/17 07:59 15:59 23:59 Intake Total 690 / 690 480 / 480 Output Total 800 / 800 Balance -110 / -110 480 / 480 Intake: Oral 340 / 340 480 / 480 Blood Product 350 / 350 Rbcs Leuko Poor As-1 Unit 350 / 350 [id number] Output: Catheter 800 / 800 Other: Meal Lunch Percent of Meal Consumed 25% Stool Size Moderate Stool Consistency soft Stool Characteristics Normal for Patient Stool Color Brown # Bowel Movements 1 Weight 94.9 kg Blood Glucose* 109 193 Patient Weight 04/18/17 23:59 Weight 94.9 kg - General Appearance General appearance: Present: well-developed, well-nourished EENT: Present: ATNC, mucous membranes moist Neck: Present: no JVD, supple Additional Comments: decreased BS bilat Cardiology: Present: no edema, normal S1, normal S2 Gastrointestinal: Present: no tenderness, no guarding Integumentary: Present: warm and dry Neurologic: Present: no focal deficit Musculoskeletal: Present: no deformities Psychiatric: Present: mood/affect appropriate, cooperative - Lab 04/21/17 04:21 04/21/17 04:21 Most recent lab results Calcium 8.8 mg/dL (8.6-10.3) 04/18/17 03:37 Phosphorus 4.5 mg/dL (2.7-4.5) 04/18/17 03:37 Magnesium 2.4 mg/dL (1.6-2.6) 04/18/17 03:37 - VTE Documentation of Mechanical Device: Intermittent pneumatic compression device Consult Discharge Plan - Plan Instructions: Furosemide (By mouth), Hydralazine (By mouth), Isosorbide Mononitrate (By mouth), Myocardial Infarction (DC), Heart Failure (DC), Atrial Fibrillation (DC), Urinary Tract Infection in Women (DC), Chronic Kidney Disease (DC), Chronic Kidney Disease (GEN), Diabetes Mellitus Type 2 in Adults ( DC), Chronic Hypertension (DC), Anemia (GEN), Fall Prevention (DC) Referrals: Estuardo Michael MD [Non-Partnered Physician] - (2 weeks please call and make an appointment for 2 weeks i tried to call several times and never got an answer) Krystle Henderson [Non-Partnered Physician] - 04/29/17 10:00 am Munira Aponte DO [Partnered Physician] - 04/24/17 2:15 pm (2 weeks this appointment is at [place] ) Prescriptions: Furosemide [Lasix] 40 mg PO BIDDIURETIC #60 tablet hydrALAZINE [HydrALAZINE] 50 mg PO TID #90 tablet Isosorbide MONOnitrate (24 HR) [Imdur] 60 mg PO DAILY #30 tab.er.24h
[2017-04-18] MEDS: *HR* Warfarin 3 MG TABLET PO SCH (17:12)
[2017-04-18] MEDS: Insulin DETEMIR 100 UNIT/ML X5UNITS SQ SCH (21:20)
[2017-04-19] MEDS: Ipratropium/Albuterol Neb 3 ML IH SCH ×4 (04:01→22:11)
[2017-04-19 05:45] LABS: Basophils % 0.3 %; Eosinophils # 0.1 K/mcL (0.0-0.6); Eosinophils % 1.4 %; Hematocrit 28.1 % (35.3-44.9); Hemoglobin 8.4 g/dL (11.5-15.4); Immature Granulocytes % 0.8 % (0-4); Lymphocytes # 0.8 K/mcL (0.6-4.6); Lymphocytes % 13.2 %; Mean Corpuscular HGB Conc 29.9 g/dL (31.6-35.5); Mean Corpuscular Hemoglobin 30.8 pg (28.0-33.3); Mean Corpuscular Volume 102.9 fL (83.0-100.0); Mean Platelet Volume 10.9 fL (9.4-12.4); Monocytes # 1.7 K/mcL (0.0-1.3); Monocytes % 28.4 %; Neutrophils # 3.3 K/mcL (1.6-8.9); Nucleated Red Blood Cells 0.5 /100 WBC (0); Platelet Count 248 K/mcL (140-400); Red Blood Count 2.73 M/mcL (3.82-4.97); Red Cell Distribution Width 17.9 % (11.5-14.5); Segmented Neutrophils % 55.9 %
[2017-04-19 06:00] LABS: INR 1.8; Prothrombin Time 19.7 Seconds (9.4-12.1)
[2017-04-19 06:02] LABS: Albumin 3.3 g/dL (3.5-5.7); Albumin/Globulin Ratio 1.2 (1.1-2.2); Bilirubin,Total 0.4 mg/dL (0.3-1.0); Calcium 8.9 mg/dL (8.6-10.3); Globulin 2.8 g/dL (2.4-3.5); Magnesium 2.4 mg/dL (1.6-2.6); Phosphorous 4.9 mg/dL (2.7-4.5); Potassium 4.5 mEq/L (3.5-5.1); Total Protein 6.1 g/dL (6.4-8.9)
[2017-04-19 06:23] LABS: Hypochromasia Present (Not Present); Platelet Estimate Normal (Normal)
[2017-04-19 06:24] LABS: Basophilic Stippling 1+ (Not Present); Polychromasia 1+ (Not Present)
[2017-04-19] MEDS: Insulin LISPRO 300 UNITS/3 ML VIAL SQ SCH ×4 (08:00→20:36)
[2017-04-19] MEDS: Aspirin Enteric Coated 81 MG Tablet PO SCH (08:12)
[2017-04-19] MEDS: amLODIPine 5 MG TABLET PO SCH (08:12)
[2017-04-19] MEDS: Folic Acid 1 MG TABLET PO SCH (08:12)
[2017-04-19] MEDS: Sennosides/Docusate Sodium TABLET PO SCH ×2 (08:12→20:34)
[2017-04-19] MEDS: Metoprolol XL (24 HR) Succ 25 MG TAB.ER.24H PO SCH (08:12)
[2017-04-19] MEDS: Isosorbide MONOnitrate (24 HR) 60 MG TAB.ER.24H PO SCH (08:12)
[2017-04-19] MEDS: Cyanocobalamin (B-12) 1,000 MCG TABLET PO SCH (08:13)
[2017-04-19] MEDS: Gabapentin 300 MG CAPSULE PO SCH (08:13)
[2017-04-19] MEDS: hydrALAZINE 25 MG TABLET PO SCH ×3 (08:13→20:34)
[2017-04-19] MEDS: Furosemide 40 MG/4 ML VIAL IVP SCH ×2 (08:13→17:10)
[2017-04-19] MEDS: Fluticasone Propionate Nasal 50 MCG/SPRAY BOTTLE NS SCH ×2 (08:19→20:35)
--- NOTE | 2017-04-19 12:31 | Internal Med Progress Note ---
Date of Encounter: 04/19/17 Time of Encounter: 11:50 - Assessment and plan (1) Anemia Current Visit: No Status: Chronic Assessment and plan: s/p one unit PRBC transfusion on 04/17/17 repeat H&H within acceptable range will continue to closely monitor pt has history of anemia of chronic disease and iron deficiency anemia no acute bleeding reported at this time Qualifiers: Anemia type: iron deficiency Iron deficiency anemia type: chronic blood loss Qualified Code(s): D50.0 - Iron deficiency anemia secondary to blood loss (chronic) (2) Acute exacerbation of CHF (congestive heart failure) Current Visit: Yes Status: Acute Assessment and plan: Cardiology evaluation appreciated. Cardiology signed out and outpatient follow up recommended CXR reports pulm vascular congestion and pulm edema, left lower lobe opacification could be atelectasis vs. pneumonia. Pt afebrile, no leukocytosis, will monitor off abx, pt encouraged to use incentive spirometry. pt in no distress at rest will increase to lasix 40mg IV BID will closely monitor currently saturating well on 3L NC monitor daily weight, I/Os, fluid restriction diet continue home meds dietary education provided given pt's fluid intake at home Qualifiers: Congestive heart failure type: diastolic Qualified Code(s): I50.33 - Acute on chronic diastolic (congestive) heart failure (3) A-fib Current Visit: Yes Status: Chronic Assessment and plan: Anticoagulated with Coumadin rate controlled with Metoprolol 25mg PO qdaily will continue tele monitoring Qualifiers: Atrial fibrillation type: paroxysmal Qualified Code(s): I48.0 - Paroxysmal atrial fibrillation (4) CKD (chronic kidney disease) stage 4, GFR 15-29 ml/min Current Visit: No Status: Chronic Assessment and plan: nephrology on board and consultation appreciated no need for TREE DEADENER at this time will closely monitor (5) Diabetes mellitus Current Visit: Yes Status: Chronic Assessment and plan: Sliding scale insulin algorithm monitor FS and BG ADA diet Qualifiers: Diabetes mellitus type: type 2 Diabetes mellitus complication status: with unspecified complications 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 oil terminal 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 insulin use: with marine oil terminal 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 use Qualified Code(s): E11.8 - Type 2 diabetes mellitus with unspecified complications; Z79.4 - FPC (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 (6) DVT prophylaxis Current Visit: Yes Status: Acute Assessment and plan: on coumadin (7) Elevated troponin Current Visit: Yes Status: Chronic Assessment and plan: likely demand ischemia in the setting of CHF no signs of angina present will closely monitor (8) Essential hypertension Current Visit: No Status: Chronic Assessment and plan: BP within acceptable range continue home meds will closely monitor BP Hydralazine 10mg IV q6h prn SBP>160 (9) HLD (hyperlipidemia) Current Visit: Yes Status: Chronic Qualifiers: Hyperlipidemia type: pure hypercholesterolemia Qualified Code(s): E78.00 - Pure hypercholesterolemia, unspecified; E78.0 - Pure hypercholesterolemia (10) Obesity (BMI 30-39.9) Current Visit: Yes Status: Chronic - Subjective Interval history: Pt seen and examined at bedside. resting in bed and saturating well on 3L NC. Noted to have bibasilar rales and increased O2 demand overnight Pt will need continuous IV Lasix Nephrology on board and in agreement to continuation of lasix. Reported of left knee pain due to arthritis and states she chronically gets corticosteroid injections in that need. Will use tylenol prn for pain. s/p One unit PRBC transfusion (04/17/17), repeat H&H within acceptable range. - Constitutional Vitals: Temp Pulse Resp BP Pulse Ox 97.8 F 89 18 146/67 96 04/19/17 12:02 04/19/17 12:02 04/19/17 12:02 04/19/17 12:02 04/19/17 12:02 General appearance: Present: cooperative, A&O X 3, pleasant, no acute distress, obese, answers questions appropriately - Head Head exam: Present: atraumatic, normocephalic - Eye Eye exam: Present: conjuntiva pink, sclera anicteric - Respiratory Respiratory exam: Absent: respiratory distress, wheezes (scatterred rales worst on bilateral bases) - Cardiovascular Cardiovascular exam: Present: RRR, +S1, +S2. Absent: diastolic murmur, gallop, rubs, systolic murmur - GI/Abdominal GI/Abdominal exam: Present: normal bowel sounds, soft, no peritoneal signs. Absent: distended, tenderness - Extremities Exam Extremities exam: Present: warm, radial pulses palpable and symmetrical. Absent : calf tenderness, cyanotic, pedal edema - Neurological Exam Neurological exam: Present: alert, oriented X3 Internal Medicine: Result - Labs CBC & Chem 7: 04/19/17 05:29 04/19/17 05:29 Labs: Short CBC 04/19/17 Range/Units 05:29 WBC 5.9 (4.3-11.1) K/mcL Hgb 8.4 L (11.5-15.4) g/dL Hct 28.1 L (35.3-44.9) % Plt Count 248 (140-400) K/mcL Neutrophils # 3.3 (1.6-8.9) K/mcL BMP 04/19/17 05:29 Sodium 141 Potassium 4.5 Chloride 108 H Carbon Dioxide 26 BUN 71 H Creatinine 3.28 H Glucose 88 Calcium 8.9 Liver Function 04/19/17 Range/Units 05:29 Total Bilirubin 0.4 (0.3-1.0) mg/dL AST 14 (13-39) Units/L ALT 14 (7-52) Units/L Alkaline Phosphatase 68 (34-104) Units/L Albumin 3.3 L (3.5-5.7) g/dL - ABG Interpretation ABG results: PT/INR, D-dimer PT 19.7 Seconds (9.4-12.1) H 04/19/17 05:29 - VTE Documentation of Mechanical Device: Intermittent pneumatic compression device Consult Discharge Plan - Plan Referrals: Krystle Henderson CNP [Primary Care Provider] - 04/20/17 2:00 pm
[2017-04-19] MEDS: Acetaminophen 325 MG TABLET PO PRN (12:47)
--- NOTE | 2017-04-19 14:45 | Nephrology Progress Note ---
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 just yet but discussed with possibility with pt if further worsening and/or if fluid overload persists or worsens her breathing UOP good at 1500cc in the past 24hrs Continue lasix at 40mg iv but can inrease back to bid given persistent CHF Continue to avoid nephrotoxins if possible (2) Iron deficiency anemia Status: Chronic Hgb stable at 8.4 after transfusion 1 unit pRBCs 2 days ago s/p feraheme as well Qualifiers: Iron deficiency anemia type: unspecified iron deficiency Qualified Code(s) : D50.9 - Iron deficiency anemia, unspecified Subjective Principal diagnosis: CHF, CKD Interval history: Pt seen and examined Objective - Vital Signs Vital signs: Vital Signs Temp Pulse Resp BP Pulse Ox 04/19/17 12:02 97.8 F 89 18 146/67 96 04/19/17 10:44 16 94 04/19/17 07:51 97.8 F 93 16 142/76 96 04/19/17 06:00 97.8 F 70 15 118/63 100 04/19/17 04:01 18 98 04/18/17 21:54 16 99 04/18/17 20:00 98.2 F 87 15 128/56 95 04/18/17 19:57 99 04/18/17 16:46 16 94 04/18/17 16:38 98.3 F 86 18 144/73 91 Intake and Output 04/18/17 04/19/17 04/19/17 23:59 07:59 15:59 Intake Total 360 / 360 365 / 365 Output Total 700 / 700 700 / 700 400 / 400 Balance -700 / -700 -340 / -340 -35 / -35 Intake: Oral 360 / 360 365 / 365 Output: Catheter 700 / 700 700 / 700 400 / 400 Other: Meal Lunch Breakfast Percent of Meal Consumed 50% 100% Stool Size Large Stool Consistency formed Stool Color Brown Weight 95.4 kg Blood Glucose* 158 99 124 Patient Weight 04/19/17 23:59 Weight 95.4 kg - General Appearance General appearance: Present: well-developed, well-nourished EENT: Present: ATNC, mucous membranes moist Neck: Present: no JVD, supple Additional Comments: decreased BS bilat Cardiology: Present: no edema, normal S1, normal S2 Gastrointestinal: Present: no tenderness, no guarding Integumentary: Present: warm and dry Neurologic: Present: no focal deficit Musculoskeletal: Present: no deformities Psychiatric: Present: mood/affect appropriate, cooperative - Lab 04/21/17 04:21 04/21/17 04:21 Most recent lab results Calcium 8.9 mg/dL (8.6-10.3) 04/19/17 05:29 Phosphorus 4.9 mg/dL (2.7-4.5) H 04/19/17 05:29 Magnesium 2.4 mg/dL (1.6-2.6) 04/19/17 05:29 - VTE Documentation of Mechanical Device: Intermittent pneumatic compression device Consult Discharge Plan - Plan Instructions: Furosemide (By mouth), Hydralazine (By mouth), Isosorbide Mononitrate (By mouth), Myocardial Infarction (DC), Heart Failure (DC), Atrial Fibrillation (DC), Urinary Tract Infection in Women (DC), Chronic Kidney Disease (DC), Chronic Kidney Disease (GEN), Diabetes Mellitus Type 2 in Adults ( DC), Chronic Hypertension (DC), Anemia (GEN), Fall Prevention (DC) Referrals: Estuardo Michael MD [Non-Partnered Physician] - (2 weeks please call and make an appointment for 2 weeks i tried to call several times and never got an answer) Krystle Henderson [Non-Partnered Physician] - 04/29/17 10:00 am Munira Aponte DO [Partnered Physician] - 04/24/17 2:15 pm (2 weeks this appointment is at [place] ) Prescriptions: Furosemide [Lasix] 40 mg PO BIDDIURETIC #60 tablet hydrALAZINE [HydrALAZINE] 50 mg PO TID #90 tablet Isosorbide MONOnitrate (24 HR) [Imdur] 60 mg PO DAILY #30 tab.er.24h
[2017-04-19] MEDS: *HR* Warfarin 3 MG TABLET PO SCH (17:10)
[2017-04-19] MEDS: Insulin DETEMIR 100 UNIT/ML X5UNITS SQ SCH (20:35)
[2017-04-20] MEDS: Ipratropium/Albuterol Neb 3 ML IH SCH ×4 (04:14→22:01)
[2017-04-20 04:37] LABS: Basophils % 0.4 %; Eosinophils # 0.1 K/mcL (0.0-0.6); Eosinophils % 1.3 %; Hematocrit 29.5 % (35.3-44.9); Hemoglobin 8.7 g/dL (11.5-15.4); Immature Granulocytes % 1.3 % (0-4); Lymphocytes # 0.6 K/mcL (0.6-4.6); Lymphocytes % 11.5 %; Mean Corpuscular HGB Conc 29.5 g/dL (31.6-35.5); Mean Corpuscular Hemoglobin 30.5 pg (28.0-33.3); Mean Corpuscular Volume 103.5 fL (83.0-100.0); Mean Platelet Volume 11.1 fL (9.4-12.4); Monocytes # 1.7 K/mcL (0.0-1.3); Monocytes % 29.7 %; Neutrophils # 3.1 K/mcL (1.6-8.9); Platelet Count 257 K/mcL (140-400); Red Blood Count 2.85 M/mcL (3.82-4.97); Red Cell Distribution Width 17.7 % (11.5-14.5); Segmented Neutrophils % 55.8 %
[2017-04-20 04:46] LABS: Calcium 8.4 mg/dL (8.6-10.3); Magnesium 2.3 mg/dL (1.6-2.6); Phosphorous 4.6 mg/dL (2.7-4.5); Potassium 4.5 mEq/L (3.5-5.1)
[2017-04-20 04:49] LABS: INR 2.1
[2017-04-20 05:00] LABS: Platelet Estimate Normal (Normal)
[2017-04-20 05:01] LABS: Large Platelets Present (Not Present)
[2017-04-20] MEDS: Furosemide 40 MG/4 ML VIAL IVP SCH ×2 (09:39→18:13)
[2017-04-20] MEDS: amLODIPine 5 MG TABLET PO SCH (09:40)
[2017-04-20] MEDS: Fluticasone Propionate Nasal 50 MCG/SPRAY BOTTLE NS SCH ×2 (09:40→20:43)
[2017-04-20] MEDS: Metoprolol XL (24 HR) Succ 25 MG TAB.ER.24H PO SCH (09:41)
[2017-04-20] MEDS: Isosorbide MONOnitrate (24 HR) 60 MG TAB.ER.24H PO SCH (09:41)
[2017-04-20] MEDS: Cyanocobalamin (B-12) 1,000 MCG TABLET PO SCH (09:41)
[2017-04-20] MEDS: Sennosides/Docusate Sodium TABLET PO SCH ×2 (09:41→20:43)
[2017-04-20] MEDS: Aspirin Enteric Coated 81 MG Tablet PO SCH (09:41)
[2017-04-20] MEDS: Gabapentin 300 MG CAPSULE PO SCH (09:41)
[2017-04-20] MEDS: Folic Acid 1 MG TABLET PO SCH (09:41)
[2017-04-20] MEDS: hydrALAZINE 25 MG TABLET PO SCH ×3 (09:41→20:43)
[2017-04-20] MEDS: Insulin LISPRO 300 UNITS/3 ML VIAL SQ SCH ×4 (09:42→20:44)
--- NOTE | 2017-04-20 10:59 | Internal Med Progress Note ---
Date of Encounter: 04/20/17 Time of Encounter: 10:25 - Assessment and plan (1) Anemia Current Visit: No Status: Chronic Assessment and plan: s/p one unit PRBC transfusion on 04/17/17 repeat H&H within acceptable range will continue to closely monitor pt has history of anemia of chronic disease and iron deficiency anemia no acute bleeding reported at this time Qualifiers: Anemia type: iron deficiency Iron deficiency anemia type: chronic blood loss Qualified Code(s): D50.0 - Iron deficiency anemia secondary to blood loss (chronic) (2) Acute exacerbation of CHF (congestive heart failure) Current Visit: Yes Status: Acute Assessment and plan: Cardiology evaluation appreciated. Cardiology signed out and outpatient follow up recommended CXR reports pulm vascular congestion and pulm edema, left lower lobe opacification could be atelectasis vs. pneumonia. Pt afebrile, no leukocytosis, will monitor off abx, pt encouraged to use incentive spirometry. pt in no distress at rest Continue lasix 40mg IV BID will closely monitor currently saturating well on 3L NC monitor daily weight, I/Os, fluid restriction diet continue home meds dietary education provided given pt's fluid intake at home Qualifiers: Congestive heart failure type: diastolic Qualified Code(s): I50.33 - Acute on chronic diastolic (congestive) heart failure (3) A-fib Current Visit: Yes Status: Chronic Assessment and plan: Anticoagulated with Coumadin rate controlled with Metoprolol 25mg PO qdaily will continue tele monitoring Qualifiers: Atrial fibrillation type: paroxysmal Qualified Code(s): I48.0 - Paroxysmal atrial fibrillation (4) CKD (chronic kidney disease) stage 4, GFR 15-29 ml/min Current Visit: No Status: Chronic Assessment and plan: nephrology on board and consultation appreciated no need for CARDIOVASCULAR OPERATING ROOM NURSE at this time will closely monitor (5) Diabetes mellitus Current Visit: Yes Status: Chronic Assessment and plan: Sliding scale insulin algorithm monitor FS and BG ADA diet Qualifiers: Diabetes mellitus type: type 2 Diabetes mellitus complication status: with unspecified complications Diabetes mellitus assisted insulin use: with assisted use Qualified Code(s): E11.8 - Type 2 diabetes mellitus with unspecified complications; Z79.4 - prison (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 (6) DVT prophylaxis Current Visit: Yes Status: Acute Assessment and plan: on coumadin (7) Elevated troponin Current Visit: Yes Status: Chronic Assessment and plan: likely demand ischemia in the setting of CHF no signs of angina present will closely monitor (8) Essential hypertension Current Visit: No Status: Chronic Assessment and plan: BP within acceptable range continue home meds will closely monitor BP Hydralazine 10mg IV q6h prn SBP>160 (9) HLD (hyperlipidemia) Current Visit: Yes Status: Chronic Qualifiers: Hyperlipidemia type: pure hypercholesterolemia Qualified Code(s): E78.00 - Pure hypercholesterolemia, unspecified; E78.0 - Pure hypercholesterolemia (10) Obesity (BMI 30-39.9) Current Visit: Yes Status: Chronic - Subjective Interval history: Pt seen and examined at bedside. Resting in bed and reports of feeling weak compared to the previous day. Saturating well on 3LNC however continues to have bibasilar rales which are improved from yesterday. Renal function mildly improved, good urine output noted will continue Lasix 40mg IV BID Nephrology on board s/p One unit PRBC transfusion (04/17/17), repeat H&H within acceptable range. Pt encouraged to get out of bed to chair and increase activity as tolerated PT/OT evaluation requested - Constitutional Vitals: Temp Pulse Resp BP Pulse Ox 97.9 F 79 15 164/72 97 04/20/17 07:49 04/20/17 07:49 04/20/17 07:49 04/20/17 07:49 04/20/17 07:49 General appearance: Present: cooperative, A&O X 3, pleasant, no acute distress, obese, answers questions appropriately - Head Head exam: Present: atraumatic, normocephalic - Eye Eye exam: Present: conjuntiva pink, sclera anicteric - Respiratory Respiratory exam: Absent: respiratory distress, wheezes (bibasilar rales- improved from previous day) - Cardiovascular Cardiovascular exam: Present: RRR, +S1, +S2. Absent: diastolic murmur, gallop, rubs, systolic murmur - GI/Abdominal GI/Abdominal exam: Present: normal bowel sounds, soft, no peritoneal signs. Absent: distended, tenderness - Extremities Exam Extremities exam: Present: warm, radial pulses palpable and symmetrical. Absent : calf tenderness, pedal edema - Neurological Exam Neurological exam: Present: alert, oriented X3 Internal Medicine: Result - Labs CBC & Chem 7: 04/20/17 03:57 04/20/17 03:57 Labs: Short CBC 04/20/17 Range/Units 03:57 WBC 5.6 (4.3-11.1) K/mcL Hgb 8.7 L (11.5-15.4) g/dL Hct 29.5 L (35.3-44.9) % Plt Count 257 (140-400) K/mcL Neutrophils # 3.1 (1.6-8.9) K/mcL BMP 04/20/17 03:57 Sodium 141 Potassium 4.5 Chloride 107 Carbon Dioxide 27 BUN 72 H Creatinine 3.22 H Glucose 100 Calcium 8.4 L - ABG Interpretation ABG results: PT/INR, D-dimer PT 23.0 Seconds (9.4-12.1) H 04/20/17 03:57 - VTE Documentation of Mechanical Device: Intermittent pneumatic compression device Consult Discharge Plan - Plan Referrals: Krystle Henderson CNP [Primary Care Provider] - 04/20/17 2:00 pm
--- NOTE | 2017-04-20 13:48 | Nephrology Progress Note ---
<MaryRolf Gage - Last Filed: 04/20/17 13:45> Date of Encounter: 04/20/17 Time of Encounter: 13:45 - Assessment and Plan (1) CKD (chronic kidney disease) stage 4, GFR 15-29 ml/min Status: Chronic Serum creatinine slightly improved today at 3.22, GFR 14. No acute indication for renal replacement therapy but will be considered if her fluid overload and pulmonary edema continued to worsen. She continues to have good urine output. Continue Lasix at 40 mg IV twice a day and monitor renal function daily. Continue to follow a renal protective strategy by avoiding nephrotoxins and basic medications based on GFR (2) Iron deficiency anemia Status: Chronic Hemoglobin slightly improved, status post Feraheme and transfusion. No evidence of active bleeding. Qualifiers: Iron deficiency anemia type: unspecified iron deficiency Qualified Code(s) : D50.9 - Iron deficiency anemia, unspecified (3) Diabetes mellitus Status: Chronic Qualifiers: Diabetes mellitus type: type 2 Diabetes mellitus complication status: with unspecified complications Diabetes mellitus watermaster insulin use: with snf use Qualified Code(s): E11.8 - Type 2 diabetes mellitus with unspecified complications; Z79.4 - assisted (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 (4) A-fib Status: Chronic Qualifiers: Atrial fibrillation type: paroxysmal Qualified Code(s): I48.0 - Paroxysmal atrial fibrillation (5) Acute exacerbation of CHF (congestive heart failure) Status: Acute Qualifiers: Qualified Code(s): I50.33 - Acute on chronic diastolic (congestive) heart failure (6) Essential hypertension Status: Chronic Subjective Principal diagnosis: CHF, CKD Interval history: Patient seen and examined at bedside. Patient states that she feels pretty good today. She denies shortness of breath at rest, she reports dyspnea on exertion. She denies chest pain, shortness of breath, abdominal pain, decreased appetite, nausea, vomiting. Objective - Vital Signs Vital signs: Vital Signs Temp Pulse Resp BP Pulse Ox 04/20/17 11:57 98.2 F 91 16 134/85 97 04/20/17 11:32 16 97 04/20/17 07:49 97.9 F 79 15 164/72 97 04/20/17 06:00 97.8 F 79 12 131/92 95 04/20/17 04:14 16 95 01/07/18 22:11 16 98 04/19/17 19:30 98 04/19/17 19:00 98 F 79 16 132/80 97 04/19/17 16:17 18 98 04/19/17 16:00 97.8 F 78 18 134/61 97 Intake and Output 04/19/17 04/20/17 04/20/17 23:59 07:59 15:59 Intake Total 240 / 240 240 / 240 Output Total 1000 / 1000 Balance -760 / -760 240 / 240 Intake: Oral 240 / 240 240 / 240 Output: Catheter 1000 / 1000 Other: Meal Lunch Percent of Meal Consumed 100% Weight 97.6 kg Blood Glucose* 185 113 172 Patient Weight 04/20/17 23:59 Weight 97.6 kg - General Appearance General appearance: Present: well-developed, well-nourished, appears started age EENT: Present: ATNC, mucous membranes moist Neck: Present: supple Respiratory: Present: rales (slightly improved) Cardiology: Present: no murmurs, no rub, no gallops, no edema, regular rate, irregular rhythm Gastrointestinal: Present: normoactive bowel sounds, no tenderness, no guarding Integumentary: Present: no rash, warm and dry Neurologic: Present: no focal deficit, alert and oriented x3 Musculoskeletal: Present: no deformities, no erythema, no cyanosis - Lab 04/20/17 03:57 04/20/17 03:57 Most recent lab results Calcium 8.4 mg/dL (8.6-10.3) L 04/20/17 03:57 Phosphorus 4.6 mg/dL (2.7-4.5) H 04/20/17 03:57 Magnesium 2.3 mg/dL (1.6-2.6) 04/20/17 03:57 - VTE Documentation of Mechanical Device: Intermittent pneumatic compression device Consult Discharge Plan - Plan Instructions: Furosemide (By mouth), Hydralazine (By mouth), Isosorbide Mononitrate (By mouth), Myocardial Infarction (DC), Heart Failure (DC), Atrial Fibrillation (DC), Urinary Tract Infection in Women (DC), Chronic Kidney Disease (DC), Chronic Kidney Disease (GEN), Diabetes Mellitus Type 2 in Adults ( DC), Chronic Hypertension (DC), Anemia (GEN), Fall Prevention (DC) Referrals: Estuardo Michael MD [Non-Partnered Physician] - (2 weeks please call and make an appointment for 2 weeks i tried to call several times and never got an answer) Krystle Henderson [Non-Partnered Physician] - 04/29/17 10:00 am Munira Aponte DO [Partnered Physician] - 04/24/17 2:15 pm (2 weeks this appointment is at [email or web address] ) Prescriptions: Furosemide [Lasix] 40 mg PO BIDDIURETIC #60 tablet hydrALAZINE [HydrALAZINE] 50 mg PO TID #90 tablet Isosorbide MONOnitrate (24 HR) [Imdur] 60 mg PO DAILY #30 tab.er.24h <Fabián Colunga - Last Filed: 05/24/17 22:45> Date of Encounter: 04/20/17 - Assessment and Plan (1) CKD (chronic kidney disease) stage 5, GFR less than 15 ml/min Status: Chronic (2) Iron deficiency anemia Status: Chronic Qualifiers: Iron deficiency anemia type: unspecified iron deficiency Qualified Code(s) : D50.9 - Iron deficiency anemia, unspecified Objective - Lab 04/21/17 04:21 04/21/17 04:21 Most recent lab results Calcium 8.3 mg/dL (8.6-10.3) L 04/21/17 04:21 Phosphorus 5.1 mg/dL (2.7-4.5) H 04/21/17 04:21 Magnesium 2.2 mg/dL (1.6-2.6) 04/21/17 04:21 - Attending Attestation I examined this patient and my medical decision-making was reviewed with the Resident Physician. I agree with the documented findings, disposition and treatment plan as described except to the extent set forth below. Pt seen and examined feels a little better with less SOB. SCr slightly improved. UOP good. Lungs sounds better on exam. Will continue current diuretic regimen. continue to avoid nephrotoxins. No acute indication for TIRE FINISHER at this time.
[2017-04-20] MEDS: *HR* Warfarin 3 MG TABLET PO SCH (18:12)
[2017-04-20] MEDS: Acetaminophen 325 MG TABLET PO PRN (18:14)
[2017-04-20] MEDS: Melatonin 3 MG TABLET PO PRN (20:43)
[2017-04-20] MEDS: Insulin DETEMIR 100 UNIT/ML X5UNITS SQ SCH (20:45)
[2017-04-21] MEDS: Ipratropium/Albuterol Neb 3 ML IH SCH ×3 (04:03→16:13)
[2017-04-21 04:33] LABS: Hematocrit 28.8 % (35.3-44.9); Hemoglobin 8.5 g/dL (11.5-15.4); Lymphocytes # 0.5 K/mcL (0.6-4.6); Mean Corpuscular HGB Conc 29.5 g/dL (31.6-35.5); Mean Corpuscular Hemoglobin 30.7 pg (28.0-33.3); Mean Platelet Volume 10.8 fL (9.4-12.4); Platelet Count 230 K/mcL (140-400); Red Blood Count 2.77 M/mcL (3.82-4.97); Red Cell Distribution Width 17.5 % (11.5-14.5)
[2017-04-21 04:49] LABS: INR 2.2; Prothrombin Time 24.1 Seconds (9.4-12.1)
[2017-04-21 04:58] LABS: Calcium 8.3 mg/dL (8.6-10.3); Magnesium 2.2 mg/dL (1.6-2.6); Phosphorous 5.1 mg/dL (2.7-4.5); Potassium 4.5 mEq/L (3.5-5.1)
[2017-04-21 05:42] LABS: Basophils # 0.1 K/mcL (0.0-0.2); Monocytes # 1.3 K/mcL (0.0-1.3); Neutrophils # 3.3 K/mcL (1.6-8.9); Platelet Estimate Normal (Normal)
[2017-04-21] MEDS: Furosemide 40 MG/4 ML VIAL IVP SCH (08:15)
[2017-04-21] MEDS: hydrALAZINE 25 MG TABLET PO SCH ×2 (08:16→20:27)
[2017-04-21] MEDS: Aspirin Enteric Coated 81 MG Tablet PO SCH (08:16)
[2017-04-21] MEDS: Folic Acid 1 MG TABLET PO SCH (08:16)
[2017-04-21] MEDS: Isosorbide MONOnitrate (24 HR) 60 MG TAB.ER.24H PO SCH (08:16)
[2017-04-21] MEDS: Sennosides/Docusate Sodium TABLET PO SCH (08:17)
[2017-04-21] MEDS: Metoprolol XL (24 HR) Succ 25 MG TAB.ER.24H PO SCH (08:17)
[2017-04-21] MEDS: amLODIPine 5 MG TABLET PO SCH (08:17)
[2017-04-21] MEDS: Gabapentin 300 MG CAPSULE PO SCH (08:19)
[2017-04-21] MEDS: Insulin LISPRO 300 UNITS/3 ML VIAL SQ SCH ×2 (08:21→11:54)
--- NOTE | 2017-04-21 09:54 | Nephrology Progress Note ---
<SnehalRolf heredia Gage - Last Filed: 04/21/17 11:42> Date of Encounter: 04/21/17 Time of Encounter: 09:50 - Assessment and Plan (1) CKD (chronic kidney disease) stage 4, GFR 15-29 ml/min Status: Chronic Serum creatinine slightly improved today at 3.11, GFR stable at 14. No acute indication for renal replacement therapy. She continues to have good urine output. She is at her baseline oxygen dose and her dyspnea on exertion appears to be much improved. We will transition Lasix 40 mg twice a day back to oral and monitor renal function daily. Continue to follow a renal protective strategy by avoiding nephrotoxins and basic medications based on GFR (2) Iron deficiency anemia Status: Chronic Hemoglobin slightly improved, status post Feraheme and transfusion. No evidence of active bleeding. Qualifiers: Iron deficiency anemia type: unspecified iron deficiency Qualified Code(s) : D50.9 - Iron deficiency anemia, unspecified (3) Diabetes mellitus Status: Chronic Qualifiers: Diabetes mellitus type: type 2 Diabetes mellitus complication status: with unspecified complications Diabetes mellitus jail insulin use: with jail use Qualified Code(s): E11.8 - Type 2 diabetes mellitus with unspecified complications; Z79.4 - buttermaker helper (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 (4) A-fib Status: Chronic Qualifiers: Atrial fibrillation type: paroxysmal Qualified Code(s): I48.0 - Paroxysmal atrial fibrillation (5) Acute exacerbation of CHF (congestive heart failure) Status: Acute Qualifiers: Qualified Code(s): I50.33 - Acute on chronic diastolic (congestive) heart failure (6) Essential hypertension Status: Chronic Subjective Principal diagnosis: CHF, CKD Interval history: Patient seen and examined at bedside. Patient states that she feels pretty good today. She denies shortness of breath at rest, and she states she is able to get up and walk around the room without dyspnea on exertion. She denies chest pain, shortness of breath, abdominal pain, decreased appetite, nausea, vomiting. Objective - Vital Signs Vital signs: Vital Signs Temp Pulse Resp BP Pulse Ox 04/21/17 06:22 98.0 F 81 14 135/57 92 04/21/17 04:05 99.0 F 68 13 129/62 100 04/21/17 04:03 16 96 04/20/17 22:01 16 96 04/20/17 20:41 95 01/08/18 18:51 98.6 F 94 18 147/65 95 04/20/17 17:12 98.1 F 86 14 144/73 98 04/20/17 16:55 16 96 04/20/17 11:57 98.2 F 91 16 134/85 97 04/20/17 11:32 16 97 Intake and Output 04/20/17 04/21/17 04/21/17 23:59 07:59 15:59 Intake Total 360 / 360 120 / 120 Output Total 800 / 800 700 / 700 Balance -440 / -440 -580 / -580 Intake: Oral 360 / 360 120 / 120 Output: Catheter 800 / 800 700 / 700 Other: Meal Dinner Percent of Meal Consumed 80% Weight 98.7 kg Blood Glucose* 178 98 Patient Weight 04/21/17 23:59 Weight 98.7 kg - General Appearance General appearance: Present: well-developed, well-nourished, appears started age EENT: Present: ATNC, mucous membranes moist Neck: Present: supple Respiratory: Absent: rales Additional Comments: Slightly diminished at bases bilaterally Cardiology: Present: no murmurs, no rub, no gallops, no edema, irregular rhythm Gastrointestinal: Present: normoactive bowel sounds, no tenderness, no guarding Integumentary: Present: no rash, warm and dry Neurologic: Present: no focal deficit, alert and oriented x3 - Lab 04/21/17 04:21 04/21/17 04:21 Most recent lab results Calcium 8.3 mg/dL (8.6-10.3) L 04/21/17 04:21 Phosphorus 5.1 mg/dL (2.7-4.5) H 04/21/17 04:21 Magnesium 2.2 mg/dL (1.6-2.6) 04/21/17 04:21 - VTE Documentation of Mechanical Device: Intermittent pneumatic compression device Consult Discharge Plan - Plan Instructions: Furosemide (By mouth), Hydralazine (By mouth), Isosorbide Mononitrate (By mouth), Myocardial Infarction (DC), Heart Failure (DC), Atrial Fibrillation (DC), Urinary Tract Infection in Women (DC), Chronic Kidney Disease (DC), Chronic Kidney Disease (GEN), Diabetes Mellitus Type 2 in Adults ( DC), Chronic Hypertension (DC), Anemia (GEN), Fall Prevention (DC) Referrals: Estuardo Michael MD [Non-Partnered Physician] - (2 weeks please call and make an appointment for 2 weeks i tried to call several times and never got an answer) Krystle Henderson [Non-Partnered Physician] - 04/29/17 10:00 am Munira Aponte DO [Partnered Physician] - 04/24/17 2:15 pm (2 weeks this appointment is at [facility] ) Prescriptions: Furosemide [Lasix] 40 mg PO BIDDIURETIC #60 tablet hydrALAZINE [HydrALAZINE] 50 mg PO TID #90 tablet Isosorbide MONOnitrate (24 HR) [Imdur] 60 mg PO DAILY #30 tab.er.24h <Fabián Colunga - Last Filed: 05/24/17 23:57> Date of Encounter: 04/21/17 - Assessment and Plan (1) CKD (chronic kidney disease) stage 5, GFR less than 15 ml/min Status: Chronic (2) Iron deficiency anemia Status: Chronic Qualifiers: Iron deficiency anemia type: unspecified iron deficiency Qualified Code(s) : D50.9 - Iron deficiency anemia, unspecified Objective - Lab 04/21/17 04:21 04/21/17 04:21 Most recent lab results Calcium 8.3 mg/dL (8.6-10.3) L 04/21/17 04:21 Phosphorus 5.1 mg/dL (2.7-4.5) H 04/21/17 04:21 Magnesium 2.2 mg/dL (1.6-2.6) 04/21/17 04:21 - Attending Attestation I examined this patient and my medical decision-making was reviewed with the Resident Physician/SAT INSTRUCTOR. I agree with the documented findings, disposition and treatment plan as described except to the extent set forth below. Pt seen and examined feeling better with less SOB overall. oxygen requirement back to baseline. On exam, lungs with improved areation ant bilat. SCr improving at 3.11, GFR 11. Will transition lasix back to po in anticipation for discahnge soon. UOP good. No acute indication for TRAY PACKER at this time.
[2017-04-21] MEDS: Fluticasone Propionate Nasal 50 MCG/SPRAY BOTTLE NS SCH (11:53)
[2017-04-21] MEDS: Cyanocobalamin (B-12) 1,000 MCG TABLET PO SCH (11:54)
--- NOTE | 2017-04-21 13:51 | Discharge Summary ---
Date of Encounter: 04/21/17 Time of Encounter: 13:49 - Discharge Diagnosis (1) Anemia Priority: Primary Status: Chronic Qualifiers: Anemia type: iron deficiency Iron deficiency anemia type: chronic blood loss Qualified Code(s): D50.0 - Iron deficiency anemia secondary to blood loss (chronic) (2) Diabetes mellitus Priority: Secondary Status: Chronic Qualifiers: Diabetes mellitus type: type 2 Diabetes mellitus complication status: with unspecified complications Diabetes mellitus half-way insulin use: with half-way use Qualified Code(s): E11.8 - Type 2 diabetes mellitus with unspecified complications; Z79.4 - senior living (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 (3) Acute on chronic kidney failure Priority: Primary Status: Acute Qualifiers: Acute renal failure type: unspecified Chronic kidney disease stage: stage 4 (severe) Qualified Code(s): N17.9 - Acute kidney failure, unspecified; N18.4 - Chronic kidney disease, stage 4 (severe); N18.4 - Chronic kidney disease , stage 4 (severe); N18.4 - Chronic kidney disease, stage 4 (severe); N18.4 - Chronic kidney disease, stage 4 (severe) (4) Acute exacerbation of CHF (congestive heart failure) Priority: Primary Status: Acute Qualifiers: Congestive heart failure type: diastolic Qualified Code(s): I50.33 - Acute on chronic diastolic (congestive) heart failure (5) Essential hypertension Priority: Secondary Status: Chronic (6) HLD (hyperlipidemia) Priority: Secondary Status: Chronic Qualifiers: Hyperlipidemia type: pure hypercholesterolemia Qualified Code(s): E78.00 - Pure hypercholesterolemia, unspecified; E78.0 - Pure hypercholesterolemia (7) HTN (hypertension) Priority: Secondary Status: Chronic Qualifiers: Hypertension type: essential hypertension Qualified Code(s): I10 - Essential (primary) hypertension (8) Obesity (BMI 30-39.9) Priority: Secondary Status: Chronic - Discharge Medications Prescriptions: Furosemide [Lasix] 40 mg PO BIDDIURETIC #60 tablet hydrALAZINE [HydrALAZINE] 50 mg PO TID #90 tablet Isosorbide MONOnitrate (24 HR) [Imdur] 60 mg PO DAILY #30 tab.er.24h Home Medications: Amlodipine Besylate 10 mg PO DAILY 10/02/15 [History] DULoxetine [Cymbalta] 30 mg PO DAILY 10/02/15 [History] Esomeprazole Magnesium [Nexium] 40 mg PO DAILY 10/02/15 [History] Gabapentin [Neurontin] 300 mg PO TID 10/02/15 [History] Insulin Glargine,Hum.rec.anlog [Lantus Solostar] 20 unit SQ HS 10/02/15 [History ] Aspirin Enteric Coated [Aspirin EC] 81 mg PO DAILY tablet. 10/10/15 [Rx] Cyclosporine [Restasis] 1 drop OP BID 04/14/17 [History] Ergocalciferol (VITAMIN D2) [Vitamin D] 400 unit PO DAILY 04/14/17 [History] Ezetimibe [Zetia] 10 mg PO DAILY 04/14/17 [History] Fluticasone Propionate Nasal [Flonase] 1 spr NS BID 04/14/17 [History] Loteprednol Etabonate [Lotemax] 1 drop OP DAILY 04/14/17 [History] Melatonin 10 mg PO HS 04/14/17 [History] Metoprolol Succinate 25 mg PO DAILY 04/14/17 [History] Warfarin [Coumadin] 5 mg PO 3XW 04/15/17 [History] Warfarin [Coumadin] 5.5 mg PO 4XW 04/15/17 [History] Furosemide [Lasix] 40 mg PO BIDDIURETIC #60 tablet 04/21/17 [Rx] Iron 65 mg PO DAILY #0 04/21/17 [Rx] Isosorbide MONOnitrate (24 HR) [Imdur] 60 mg PO DAILY #30 tab.er.24h 04/21/17 [ Rx] hydrALAZINE [HydrALAZINE] 50 mg PO TID #90 tablet 04/21/17 [Rx] Allergies/Adverse Reactions: 3 Allergy/AdvReac Type Severity Reaction Status Date / Time cephalexin [From Keflex] AdvReac Unknown Hypotension Verified 04/14/17 20:54 codeine AdvReac Hypotension Verified 04/14/17 20:54 lisinopril AdvReac See Verified 04/14/17 20:54 Comments Date of admission: 04/14/17 18:25 Primary care physician: Krystle Henderson Consults: 04/14/17 18:30 Consult to Transformation Lead [CONS] Routine Reason for SW Consult: [facility] O2 @2L LIVES ALONE AT HOME BUT IS GOING TO STAY W/ [facility] ON D/C 04/14/17 18:34 Consult to Occupational Therapy [CONS] Routine Comment: Evaluate, develop and implement POC Reason for Consult: Patient reports problems w/ambulation from SOB and weakness. Please assess patient for ambulation strength, stability, safety, and possible home assistive needs for post-discharge planning. Consult to Transformation Lead [CONS] Routine Reason for SW Consult: Please assess patient for possible home needs for post -discharge planning. 04/14/17 18:37 Consult to Physical Therapy [CONS] Routine Comment: Evaluate, develop and implement POC Reason for Consult: Patient reports problems w/ambulation from SOB and weakness. Please assess patient for ambulation strength, stability, safety, and possible home assistive needs for post-discharge planning. 04/14/17 18:51 Consult to Cardiology [CONS] Routine Comment: Consulting Provider: Cardiology Katty Reason for Consult: Patient is being admitted for CHF exacerbation. Initial troponin is 0.06 which is lower than pts. chronically elevated troponins since December. Echo in December shows LVEF of 6065 percent, normal LV chamber size and function, mild concentric left ventricular hypertrophy, and atypical septal motion consistent with bundle branch block. Call Completed: Yes Consult to Nephrology [CONS] Routine Consulting Provider: Kidney Katty/ALONDRA/JORGE LUIS/JUVENCIO Reason for Consult: Pt. being admitted for CHF exacerbation. Creatinine is currently 3.32 and GFR is 13 now. Pt. transferred from [place] and PCP is not wanting to discuss dialysis at this time. Pt. needs discussion regarding possible dialysis. Call Completed: Yes - Patient Status Disposition: Home Health Service Condition: Fair Overall status at discharge: patient is progressing back to baseline - Discharge Instructions Follow Up With: Estuardo Michael MD [Non-Partnered Physician] - (2 weeks please call and make an appointment for 2 weeks i tried to call several times and never got an answer) Krystle Henderson [Non-Partnered Physician] - 04/29/17 10:00 am Munira Aponte DO [Partnered Physician] - 04/24/17 2:15 pm (2 weeks this appointment is at [place] ) - Diet and Activity Activity: increase activity as tolerated, wear oxygen at all times Diet: diabetic diet, low salt diet Hospital course: Ms. Dorsey is a 81 year old female with medical hx of arthritis, atrial fibrillation on Coumadin, CHF, diabetes controlled with insulin, GERD, hyperlipidemia, hypertension, and chronic kidney disease presented from the ED with chief complaint of shortness of breath and dyspnea for the past several weeks which worsened over the past 2 days. Patient went to an outside ED then was transferred to [facility]. Chest x-ray showed pulmonary vascular congestion and pulmonary edema. The patient was admitted for volume overload due to CKD on the verge of ESRD and acute exacerbation of diastolic heart failure. Both cardiology and nephrology followed along with us. We will continue to diurese the patient and were able to wean her down to her chronic O2 needs of 2 L. Nephrology did not feel the patient had an indication for dialysis. She does follow-up with a data warehouse architect and will need to do so at discharge. She follows up with Dr. Michael. While hospitalized patient's hemoglobin was noted to be low. It did go as low as 7.1. There was no signs of bleeding. Suspected this is anemia of chronic disease. She was transfused 1 unit while hospitalized of PRBCs. Her hemoglobin responded appropriately. On day of discharge was 8.5. She was stable for discharge in her previous baseline condition on 04/21/2017 - Time Spent with Patient Total time spent providing and/or coordinating discharge services: Greater than 30 minutes - Constitutional Vitals: Temp Pulse Resp BP Pulse Ox 97.8 F 74 12 127/64 99 04/21/17 10:12 04/21/17 10:12 04/21/17 10:55 04/21/17 10:12 04/21/17 10:55 General appearance: Present: cooperative, A&O X 3, pleasant, no acute distress, obese, answers questions appropriately Exam: GEN: NAD CVS: RRR. S1, S2, No m/r/g RESP: CTAB ABD: Soft, NT, ND, +BS EXT: No edema. 2+ DP. No rashes NEURO: Nonfocal - VTE Documentation of Mechanical Device: Intermittent pneumatic compression device
--- NOTE | 2017-04-21 13:59 | Physician Discharge Referral ---
Home Health/Hosp Referral Info Transfer to: Home Health - Diagnosis (1) Anemia Priority: Primary Status: Chronic (2) Diabetes mellitus Priority: Secondary Status: Chronic (3) Acute on chronic kidney failure Priority: Primary Status: Acute (4) Acute exacerbation of CHF (congestive heart failure) Priority: Primary Status: Acute (5) Essential hypertension Priority: Secondary Status: Chronic (6) HLD (hyperlipidemia) Priority: Secondary Status: Chronic (7) HTN (hypertension) Priority: Secondary Status: Chronic (8) Obesity (BMI 30-39.9) Priority: Secondary Status: Chronic - Respiratory Orders Smoking Cessation: Smoking cessation has been advised. For more information, call the [place] Tobacco Quit Line at 8-837-PXNC-NOW. - Diet/Nutrition Diet/Nutrition Orders: Renal Diet/Nutrition: List: diabetic - Services Needed Following services are medically necessary services: Nursing, Home Health Aide, Physical Therapy - Transfer Medications Prescriptions: Furosemide [Lasix] 40 mg PO BIDDIURETIC #60 tablet hydrALAZINE [HydrALAZINE] 50 mg PO TID #90 tablet Isosorbide MONOnitrate (24 HR) [Imdur] 60 mg PO DAILY #30 tab.er.24h Home Medications: Amlodipine Besylate 10 mg PO DAILY 10/02/15 [History] DULoxetine [Cymbalta] 30 mg PO DAILY 10/02/15 [History] Esomeprazole Magnesium [Nexium] 40 mg PO DAILY 10/02/15 [History] Gabapentin [Neurontin] 300 mg PO TID 10/02/15 [History] Insulin Glargine,Hum.rec.anlog [Lantus Solostar] 20 unit SQ HS 10/02/15 [History ] Aspirin Enteric Coated [Aspirin EC] 81 mg PO DAILY tablet. 10/10/15 [Rx] Cyclosporine [Restasis] 1 drop OP BID 04/14/17 [History] Ergocalciferol (VITAMIN D2) [Vitamin D] 400 unit PO DAILY 04/14/17 [History] Ezetimibe [Zetia] 10 mg PO DAILY 04/14/17 [History] Fluticasone Propionate Nasal [Flonase] 1 spr NS BID 04/14/17 [History] Loteprednol Etabonate [Lotemax] 1 drop OP DAILY 04/14/17 [History] Melatonin 10 mg PO HS 04/14/17 [History] Metoprolol Succinate 25 mg PO DAILY 04/14/17 [History] Warfarin [Coumadin] 5 mg PO 3XW 04/15/17 [History] Warfarin [Coumadin] 5.5 mg PO 4XW 04/15/17 [History] Furosemide [Lasix] 40 mg PO BIDDIURETIC #60 tablet 04/21/17 [Rx] Iron 65 mg PO DAILY #0 04/21/17 [Rx] Isosorbide MONOnitrate (24 HR) [Imdur] 60 mg PO DAILY #30 tab.er.24h 04/21/17 [ Rx] hydrALAZINE [HydrALAZINE] 50 mg PO TID #90 tablet 04/21/17 [Rx] Allergies/Adverse Reactions: 3 Allergy/AdvReac Type Severity Reaction Status Date / Time cephalexin [From Keflex] AdvReac Unknown Hypotension Verified 04/14/17 20:54 codeine AdvReac Hypotension Verified 04/14/17 20:54 lisinopril AdvReac See Verified 04/14/17 20:54 Comments Certification: Further, I certify that my clinical findings support that this patient is homebound (i.e. absences from home require considerable and taxing effort and are for medical reasons or yazdanism services or infrequently or short duration when for other reasons) because: Homebound Reason: Patient requires assistance of a person or device to safely leave home Attestation: My signature below is to certify that this patient is under my care and that I, or nurse practitioner, or a physician's branch assistant working with me, has a face-to -face encounter with this patient.
[2017-04-21] MEDS ORDERED: Furosemide 40 MG TABLET PO SCH (17:00)
[2017-04-21 20:22] VITALS: BP 135/73
[2017-04-21] MEDS: *HR* Warfarin 3 MG TABLET PO SCH (20:28)
== END 2017-04-21 20:45 | disposition home health service (06) | DRG 291 ==
LOC: 2NENU
PROVIDERS: ADMIT Internal Medicine; ATTEND Internal Medicine

== ENCOUNTER 2017-07-10 20:32 | Inpatient (IN) ==
[2017-07-10] MEDS ORDERED: Dextrose Gel 15 GM/37.5 ML TUBE PO PRN ×2 (23:28)
[2017-07-10] MEDS ORDERED: *HR* Dextrose 50 % in Water (Syg) 50 ML SYRINGE IVP PRN (23:28)
[2017-07-10] MEDS ORDERED: D5% in Water 1,000 ML IVC PRN (23:28)
[2017-07-10] MEDS ORDERED: Naloxone 0.4 MG/ML INJ IVP PRN (23:28)
[2017-07-10] MEDS ORDERED: Acetaminophen 325 MG TABLET PO PRN (23:36)
[2017-07-11] MEDS ORDERED: Albuterol 2.5 MG/3 ML NEBULIZER IH PRN (00:04)
--- NOTE | 2017-07-11 00:47 | Internal Med History&Physical ---
<Demetrio Singletary - Last Filed: 07/11/17 01:09> Date of Encounter: 07/11/17 Time of Encounter: 22:55 Assessment and Plan (1) Fluid overload Status: Acute Patient presenting with increasing dyspnea. She does have lower extremity, but she reports this is improving Chest x-ray shows moderate to large left-sided pleural effusion, and small right -sided pleural effusion. We will consult IR for thoracentesis. Patient's fluid overload is likely related to end-stage renal disease and will need extra dialysis to improve her symptoms. She does have a history of diastolic CHF, however ESRD is more likely the reason for her fluid overload. Will hold diuretics to better evaluate the underlying remaining renal function and residual urine output, and to further determine CATTLE EXAMINER need. We will continue to monitor daily weights, I's and O's, and place patient on fluid restriction. Qualifiers: Hypervolemia type: other Qualified Code(s): E87.79 - Other fluid overload (2) ESRD (end stage renal disease) Status: Acute Recently diagnosed with ESRD and placed on dialysis about 2 weeks ago. Patient had dialysis today, but this sounds like it was probably stopped a little early. It appears dry weight has not been established. Patient does produce urine 2-3 times a day. No evidence of RIYA. Potassium 3.7, creatinine 2.48 (baseline 3.2), GFR currently 19. Patient's fluid overload is likely secondary to her renal disease, and she will likely need extra dialysis sessions to improve her dyspnea. We will consult Nephrology to address daily CATTLE EXAMINER need. (3) UTI (urinary tract infection) Status: Acute UA positive for leuk esterase, white blood cells, bacteria. Urine culture is pending. Patient has urine output 2-3 times daily. Patient does report mild confusion, but no urinary symptoms. Previous urine culture was positive for Klebsiella, sensitive to Levaquin. Will place patient on Levaquin now. Qualifiers: Urinary tract infection type: acute cystitis Hematuria presence: without hematuria Qualified Code(s): N30.00 - Acute cystitis without hematuria (4) Anemia in chronic kidney disease (CKD) Status: Acute Hemoglobin 10.1, not requiring ESAs. Baseline hemoglobin appears to be between 8-9. Will obtain iron studies, B12, folate. Qualifiers: Chronic kidney disease stage: on chronic dialysis Qualified Code(s): N18.6 - End stage renal disease; D63.1 - Anemia in chronic kidney disease; D63.1 - Anemia in chronic kidney disease; Z99.2 - Dependence on renal dialysis; Z99.2 - Dependence on renal dialysis; Z99.2 - Dependence on renal dialysis; Z99.2 - Dependence on renal dialysis (5) Chronic kidney disease-mineral and bone disorder Status: Acute Calcium normal. Will check parathyroid hormone and vitamin D. (6) Diabetes mellitus Status: Chronic Continue basal insulin 10U and SSI. Last A1c 5.1% in April 2017. Qualifiers: Diabetes mellitus type: type 2 Diabetes mellitus watermaster insulin use: with watermaster use Diabetes mellitus complication status: with kidney complications Diabetes mellitus complication detail: with chronic kidney disease Chronic kidney disease stage: stage 4 (severe) Qualified Code(s): E11.22 - Type 2 diabetes mellitus with diabetic chronic kidney disease; N18.4 - Chronic kidney disease, stage 4 (severe); N18.4 - Chronic kidney disease, stage 4 (severe); N18.4 - Chronic kidney disease, stage 4 (severe); N18.4 - Chronic kidney disease, stage 4 (severe); Z79.4 - senior care (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; Z79.4 - local intermodal truck driver (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; Z79.4 - senior care (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; Z79.4 - local intermodal truck driver (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 (7) A-fib Status: Chronic Heart rate 90 and irregular. Will continue home metoprolol. Place patient on telemetry. Qualifiers: Atrial fibrillation type: chronic Qualified Code(s): I48.2 - Chronic atrial fibrillation (8) HTN (hypertension) Status: Chronic BP 98/60. Will continue to monitor. No Light-headedness or dizziness. Hold amlodipine. Qualifiers: Hypertension type: essential hypertension Qualified Code(s): I10 - Essential (primary) hypertension (9) DVT prophylaxis Status: Acute SCDs Internal Medicine - H&P: HPI Chief complaint: Dyspnea Admitted From: Hospital to Hospital Transfer ([place] ED) History of present illness: Ms. Dorsey is a 81 year old female with PMH of ESRD on dialysis (MWF), A. fib ( not on anticoagulation currently), diastolic CHF, diabetes, hypertension, and hyperlipidemia, presented to the [place] emergency department with complaint of dyspnea and a low oxygen saturation at dialysis today. She is unsure of how lower oxygen was but the staff wanted her to be evaluated. She was recently diagnosed with ESRD and reports that she began dialysis about 2 weeks ago. She states that her dyspnea became worse 5-6 days ago, and is associated with a nonproductive cough, mild confusion, and nausea. She states that she is able to lay flat without worsening dyspnea. She does have lower extremity edema, however this is significantly improved since she began dialysis. She is unsure of her currently. She does still produce urine 1-3 times daily. She denies fevers, chills, syncope, chest pain, pleuritic pain, abdominal pain, vomiting, change in bowels, hematochezia, melena, dysuria, hematuria, or leg pain. She does report that at the beginning of June she had a fall, and was diagnosed with a subdural hematoma at [facility], but then transferred to [facility]. She has not been on Coumadin since that time. No new falls. Past Med Surg Social Fam HX - Past Medical History Medical history: arthritis, atrial fibrillation, CHF, diabetes, dialysis, GERD, hyperlipidemia, hypertension, renal disease Psychiatric history: no psych history - Past Surgical History Surgical History: cholecystectomy, orthopedic, other, PJ/BSO - Social History Smoking Status: Never smoker Smokeless Tobacco Status: No Alcohol use: none Drug use: none - Family History Brother Family Member Ethnicity: Non- Living Status: Still Living Hx Family Cancer: Yes Sister Family Member Ethnicity: Non- Living Status: Still Living Hx Family Respiratory Disorders: Yes (COPD) Hx Family Cancer: Yes Mother Family Member Ethnicity: Non- Living Status: Hx Family Cardiac Disorders: Yes Hx Family Respiratory Disorders: No Hx Family Cancer: Yes Hx Family Endocrine Disorder: Yes Hx Family Neurologic Disorders: Yes Father Adopted: No Family Member Ethnicity: Non- Living Status: Hx Family Cardiac Disorders: Yes (MT) Hx Family Endocrine Disorder: Yes Internal Medicine - H&P: Meds Amlodipine Besylate 10 mg PO DAILY 10/02/15 [History] DULoxetine [Cymbalta] 30 mg PO DAILY 10/02/15 [History] Gabapentin [Neurontin] 300 mg PO DAILY 10/02/15 [History] Insulin Glargine,Hum.rec.anlog [Lantus Solostar] 10 unit SQ HS 10/02/15 [History ] Cyclosporine [Restasis] 1 drop OP BID 04/14/17 [History] Ergocalciferol (VITAMIN D2) [Vitamin D] 400 unit PO DAILY 04/14/17 [History] Fluticasone Propionate Nasal [Flonase] 1 spr NS BID 04/14/17 [History] Melatonin 10 mg PO HS 04/14/17 [History] Metoprolol Succinate 25 mg PO DAILY 04/14/17 [History] Iron 65 mg PO DAILY #0 04/21/17 [Rx] Isosorbide MONOnitrate (24 HR) [Imdur] 60 mg PO DAILY #30 tab.er.24h 04/21/17 [ Rx] Furosemide [Lasix] 80 mg PO BID 07/10/17 [History] hydrALAZINE [HydrALAZINE] 50 mg PO TID 07/10/17 [History] Levalbuterol Tartrate [Xopenex Hfa] 2 puff IH Q4-6H 07/12/17 [History] Omeprazole [PriLOSEC] 40 mg PO DAILY 07/12/17 [History] Sevelamer [Renvela] 800 mg PO QID 07/12/17 [History] Acetaminophen [Tylenol] 650 mg PO Q6HR PRN tablet 07/17/17 [Rx] Polyethylene Glycol 3350 [MiraLAX] 17 gm PO DAILY powd.pack 07/17/17 [Rx] Sennosides/Docusate Sodium [Senna Plus] 1 each PO BID tablet 07/17/17 [Rx] levoFLOXacin [Levaquin] 500 mg PO Q48H #1 tablet 07/17/17 [Rx] 3 Allergy/AdvReac Type Severity Reaction Status Date / Time cephalexin [From Keflex] AdvReac Unknown Hypotension Verified 04/14/17 20:54 codeine AdvReac Hypotension Verified 04/14/17 20:54 lisinopril AdvReac See Verified 04/14/17 20:54 Comments All Systems PM: A 10-system review of systems was performed and is negative for pertinent findings except as documented above in the HPI. - Constitutional Vitals: Temp Pulse Resp BP Pulse Ox 97.5 F L 90 17 98/60 92 07/10/17 23:27 07/10/17 23:27 07/10/17 23:27 07/10/17 23:27 07/10/17 23:27 General appearance: Present: A&O X 3, no acute distress, answers questions appropriately - Head Head exam: Present: atraumatic, normocephalic - Eye Eye exam: Present: EOMI, PERRL, conjuntiva pink, sclera anicteric - Neck Neck exam general surgery: Present: supple, trachea midline. Absent: lymphadenopathy - Respiratory Respiratory exam: Present: decreased breath sounds, rales. Absent: accessory muscle use, rhonchi, wheezes - Cardiovascular Cardiovascular exam: Present: irregular rhythm, +S1, +S2. Absent: diastolic murmur, systolic murmur - GI/Abdominal GI/Abdominal exam: Present: normal bowel sounds, soft, no peritoneal signs. Absent: distended, tenderness - Extremities Exam Extremities exam: Present: warm, radial pulses palpable and symmetrical. Absent : calf tenderness, cyanotic, pedal edema - Neurological Exam Neurological exam: Present: CN II-XII intact, oriented X3, no focal deficits. Absent: facial droop, speech deficit - Skin Skin exam: Present: dry, intact - Other Additional findings: Right tunneled catheter examined. Clean, dry, no drainage noted. No tenderness or erythema. Cuff is well seated, but close to the exit site. Dressing replaced after evaluation. <Deneen Morales - Last Filed: 07/27/17 04:12> Date of Encounter: 07/27/17 Internal Medicine - H&P: HPI History of present illness: Ms. Dorsey is a 81 year old female All Systems PM: A 10-system review of systems was performed and is negative for pertinent findings except as documented above in the HPI. - Constitutional Vitals: Temp Pulse Resp BP Pulse Ox 98.0 F 92 18 139/61 94 07/17/17 18:16 07/17/17 10:54 07/17/17 18:16 07/17/17 18:16 07/17/17 10:54 Internal Med - H&P Results - Labs CBC & Chem 7: 07/17/17 04:44 07/17/17 04:44 - Impressions ITS Impressions Chest X-Ray 07/12/17 12:31 IMPRESSION: 1. Improved aeration of the left upper lobe with slightly decreased size of moderate left pleural effusion. 2. Pneumothorax. 3. Persistent right pleural effusion and atelectasis. D/ / Jaylen Wahl MD / Jaylen Wahl MD Interpreting Provider: Jaylen Wahl MD Chest X-Ray 07/13/17 08:00 IMPRESSION: 1. Stable bilateral pleural effusions. 2. Stable bilateral pulmonary consolidation. 3. No pneumothorax. D/ / 07/13/2017 08:07:57 Heber Evans MD / marie Interpreting Provider: Heber Evans MD - Attending Attestation I personally and independently interviewed and examined the patient, and I reviewed the patient's medical record. I am in agreement with the residents assessment and proposed treatment plan. I discussed my findings and recommendation with the patient and answer his questions. The patient's medical records were edited to accurately reflect this encounter.
[2017-07-11] MEDS: Levofloxacin 500 MG/100 ML 500 MG/100 ML BAG IVPB SCH (01:27)
[2017-07-11] MEDS: Ipratropium/Albuterol Neb 3 ML IH SCH ×4 (03:39→21:37)
[2017-07-11 04:38] LABS: Basophils % 0.2 %; Eosinophils % 0.2 %
[2017-07-11 04:42] LABS: Albumin 3.5 g/dL (3.5-5.7); Albumin/Globulin Ratio 1.3 (1.1-2.2); Bilirubin,Total 0.4 mg/dL (0.3-1.0); Calcium 8.7 mg/dL (8.6-10.3); Globulin 2.6 g/dL (2.4-3.5); Hematocrit 34.1 % (35.3-44.9); Hemoglobin 9.9 g/dL (11.5-15.4); INR 1.1; Immature Granulocytes % 0.8 % (0-4); Lymphocytes # 0.5 K/mcL (0.6-4.6); Lymphocytes % 8.8 %; Mean Corpuscular Hemoglobin 30.9 pg (28.0-33.3); Mean Corpuscular Volume 106.6 fL (83.0-100.0); Mean Platelet Volume 11.2 fL (9.4-12.4); Monocytes # 1.2 K/mcL (0.0-1.3); Monocytes % 22.9 %; Neutrophils # 3.4 K/mcL (1.6-8.9); Nucleated Red Blood Cells 0.6 /100 WBC (0); Platelet Count 129 K/mcL (140-400); Potassium 3.4 mEq/L (3.5-5.1); Prothrombin Time 11.7 Seconds (9.4-12.1); Red Cell Distribution Width 17.2 % (11.5-14.5); Segmented Neutrophils % 67.1 %; Total Protein 6.1 g/dL (6.4-8.9)
[2017-07-11 04:44] LABS: % Iron Saturation 10 % (15-50); Iron 28 mcg/dL (50-170); Transferrin 201 mg/dL (203-362)
[2017-07-11 04:46] LABS: Activated Partial Thrombo Time 30.5 Seconds (26.0-36.0)
[2017-07-11 05:09] LABS: Vitamin B12 1403 pg/mL (250-1100)
[2017-07-11 05:15] LABS: Folate > 22.3 ng/mL (3.0-16.0)
[2017-07-11 05:22] LABS: Anisocytosis 1+ (Not Present); Hypochromasia Present (Not Present); Platelet Estimate Normal (Normal)
[2017-07-11] MEDS: Insulin LISPRO 300 UNITS/3 ML VIAL SQ SCH ×4 (07:30→21:09)
[2017-07-11] MEDS: Furosemide 40 MG/4 ML VIAL IVP SCH ×2 (15:59→18:33)
--- NOTE | 2017-07-11 18:12 | Internal Med Progress Note ---
Date of Encounter: 07/11/17 Time of Encounter: 18:12 - Assessment and plan (1) Fluid overload Current Visit: Yes Status: Acute Assessment and plan: Still with significant fluid and SOB. Pulmonology consulted; appreciate input. Spoke personally with Dr. Dalotn, who agrees with trial of diuresis as this has worked in the past. He will consider thoracentesis tomorrow if no improvement. Will consult nephrology on Thursday to resume M-W-F dialysis. Continue daily weights, strict I&Os, and fluid restriction diet. Recheck BMP in AM. Qualifiers: Hypervolemia type: other Qualified Code(s): E87.79 - Other fluid overload (2) ESRD (end stage renal disease) Current Visit: Yes Status: Chronic Assessment and plan: Consult nephrology on Thursday to resume M-W-F dialysis. Recheck BMP in AM. (3) UTI (urinary tract infection) Current Visit: Yes Status: Acute Assessment and plan: Continue renally-dosed levaquin. Follow up on urine culture. Qualifiers: Urinary tract infection type: acute cystitis Hematuria presence: without hematuria Qualified Code(s): N30.00 - Acute cystitis without hematuria (4) Hypokalemia Current Visit: Yes Status: Acute Assessment and plan: Mild. Likely secondary to diuresis. K = 3.4. Give 40 mEq KCl PO once. Recheck BMP in AM. (5) Anemia in chronic kidney disease (CKD) Current Visit: Yes Status: Chronic Assessment and plan: Hgb = 9.8. Baseline hemoglobin appears to be between 8-9. Continue to monitor. Recheck CBC in AM. Qualifiers: Chronic kidney disease stage: on chronic dialysis Qualified Code(s): N18.6 - End stage renal disease; D63.1 - Anemia in chronic kidney disease; D63.1 - Anemia in chronic kidney disease; Z99.2 - Dependence on renal dialysis; Z99.2 - Dependence on renal dialysis; Z99.2 - Dependence on renal dialysis; Z99.2 - Dependence on renal dialysis (6) A-fib Current Visit: Yes Status: Chronic Assessment and plan: Continue telemetry and home metoprolol. Qualifiers: Atrial fibrillation type: chronic Qualified Code(s): I48.2 - Chronic atrial fibrillation (7) Diabetes mellitus Current Visit: Yes Status: Chronic Assessment and plan: Continue accuchecks and SSI QID AC/HS. Continue home basal insulin. Qualifiers: Diabetes mellitus type: type 2 Diabetes mellitus assisted insulin use: with assisted use Diabetes mellitus complication status: with kidney complications Diabetes mellitus complication detail: with chronic kidney disease Chronic kidney disease stage: stage 4 (severe) Qualified Code(s): E11.22 - Type 2 diabetes mellitus with diabetic chronic kidney disease; N18.4 - Chronic kidney disease, stage 4 (severe); N18.4 - Chronic kidney disease, stage 4 (severe); N18.4 - Chronic kidney disease, stage 4 (severe); N18.4 - Chronic kidney disease, stage 4 (severe); Z79.4 - termite helper (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; Z79.4 - termite helper (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; Z79.4 - nursing home (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; Z79.4 - termite helper (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 (8) HTN (hypertension) Current Visit: Yes Status: Chronic Assessment and plan: BP now high normal. Restart home medications. Qualifiers: Hypertension type: essential hypertension Qualified Code(s): I10 - Essential (primary) hypertension (9) DVT prophylaxis Current Visit: Yes Status: Acute Assessment and plan: Start renally dosed lovenox. - Time Spent With Patient less than 15 minutes - Subjective Interval history: Patient had no acute events overnight. Still with SOB this AM. She denies fever, chills, or chest pain. She states that she has had pleural effusions before, and it responds well to diuretics. She has no new complaints. - Constitutional Vitals: Temp Pulse Resp BP Pulse Ox 98.2 F 110 17 138/66 90 07/11/17 15:23 07/11/17 15:23 07/11/17 15:23 07/11/17 15:23 07/11/17 15:23 General appearance: Present: cooperative, A&O X 3, pleasant, no acute distress, answers questions appropriately - Respiratory Respiratory exam: Present: decreased breath sounds, CTAB. Absent: accessory muscle use, rales, rhonchi, wheezes Additional comments: Mildly labored WOB - Cardiovascular Cardiovascular exam: Present: RRR, +S1, +S2. Absent: diastolic murmur, gallop, rubs, systolic murmur Additional comments: Trace BLE edema - GI/Abdominal GI/Abdominal exam: Present: normal bowel sounds, soft. Absent: distended, hepatomegaly, mass, splenomegaly, tenderness - Psychiatric Psychiatric exam: Present: normal affect, normal mood. Absent: anxious, depressed - Skin Skin exam: Present: dry, intact, warm. Absent: cyanosis, rash Internal Medicine: Result - Labs CBC & Chem 7: 07/12/17 03:26 07/12/17 03:26 Labs: Short CBC 07/11/17 Range/Units 03:32 WBC 5.1 (4.3-11.1) K/mcL Hgb 9.9 L (11.5-15.4) g/dL Hct 34.1 L (35.3-44.9) % Plt Count 129 L (140-400) K/mcL Neutrophils # 3.4 (1.6-8.9) K/mcL BMP 07/11/17 03:32 Sodium 138 Potassium 3.4 L Chloride 100 Carbon Dioxide 31 H BUN 15 Creatinine 2.69 H Glucose 117 H Calcium 8.7 Liver Function 07/11/17 Range/Units 03:32 Total Bilirubin 0.4 (0.3-1.0) mg/dL AST 22 (13-39) Units/L ALT 14 (7-52) Units/L Alkaline Phosphatase 89 (34-104) Units/L Albumin 3.5 (3.5-5.7) g/dL - ABG Interpretation ABG results: PT/INR, D-dimer PT 11.7 Seconds (9.4-12.1) 07/11/17 03:32 Consult Discharge Plan - Plan Referrals: Krystle Henderson [Primary Care Provider] -
[2017-07-11] MEDS: Insulin DETEMIR 100 UNIT/ML X5UNITS SQ SCH (21:09)
[2017-07-12] MEDS: Ipratropium/Albuterol Neb 3 ML IH SCH ×4 (03:30→22:56)
[2017-07-12 04:26] LABS: Eosinophils % 0.4 %
[2017-07-12 04:27] LABS: Hematocrit 34.3 % (35.3-44.9); Hemoglobin 9.8 g/dL (11.5-15.4); Immature Granulocytes % 0.8 % (0-4); Lymphocytes # 0.7 K/mcL (0.6-4.6); Lymphocytes % 9.8 %; Mean Corpuscular HGB Conc 28.6 g/dL (31.6-35.5); Mean Corpuscular Hemoglobin 30.4 pg (28.0-33.3); Mean Corpuscular Volume 106.5 fL (83.0-100.0); Mean Platelet Volume 10.3 fL (9.4-12.4); Monocytes # 1.8 K/mcL (0.0-1.3); Monocytes % 25.9 %; Neutrophils # 4.5 K/mcL (1.6-8.9); Nucleated Red Blood Cells 0.3 /100 WBC (0); Platelet Count 156 K/mcL (140-400); Red Blood Count 3.22 M/mcL (3.82-4.97); Red Cell Distribution Width 17.4 % (11.5-14.5); Segmented Neutrophils % 63.1 %
[2017-07-12 04:41] LABS: Calcium 9.1 mg/dL (8.6-10.3); Potassium 3.4 mEq/L (3.5-5.1)
[2017-07-12 04:53] LABS: Anisocytosis 1+ (Not Present); Hypochromasia Present (Not Present); Platelet Estimate Normal (Normal); Poikilocytosis 1+ (Not Present)
[2017-07-12] MEDS ORDERED: *HR* Labetalol 20 MG/4 ML SYRINGE IVP STA (07:43)
[2017-07-12] MEDS ORDERED: Ipratropium/Albuterol Neb 3 ML IH STA (07:54)
--- NOTE | 2017-07-12 07:59 | Internal Med Progress Note ---
Date of Encounter: 07/12/17 Time of Encounter: 07:57 - Assessment and plan (1) Fluid overload Current Visit: Yes Status: Acute Assessment and plan: She states that SOB is better, but increased oxygen requirement overnight. Will monitor closely today and do trial of weaning oxygen given subjective improvement. Pulmonology consulted; appreciate input. Will call for thoracentesis if worsening of respiratory status. Will consult nephrology on Thursday to resume M-W-F dialysis. Continue daily weights, strict I&Os, and fluid restriction diet. Recheck BMP in AM. Qualifiers: Hypervolemia type: other Qualified Code(s): E87.79 - Other fluid overload (2) ESRD (end stage renal disease) Current Visit: Yes Status: Chronic Assessment and plan: Consult nephrology on Thursday to resume M-W-F dialysis. Recheck BMP in AM. (3) UTI (urinary tract infection) Current Visit: Yes Status: Acute Assessment and plan: Continue renally-dosed levaquin. Follow up on urine culture. Qualifiers: Urinary tract infection type: acute cystitis Hematuria presence: without hematuria Qualified Code(s): N30.00 - Acute cystitis without hematuria (4) Hypokalemia Current Visit: Yes Status: Acute Assessment and plan: Mild. Likely secondary to diuresis. K = 3.4. Give 40 mEq KCl PO once. Recheck BMP in AM. (5) Anemia in chronic kidney disease (CKD) Current Visit: Yes Status: Chronic Assessment and plan: Hgb = 9.8. Baseline hemoglobin appears to be between 8-9. Continue to monitor. Recheck CBC in AM. Qualifiers: Chronic kidney disease stage: on chronic dialysis Qualified Code(s): N18.6 - End stage renal disease; D63.1 - Anemia in chronic kidney disease; D63.1 - Anemia in chronic kidney disease; Z99.2 - Dependence on renal dialysis; Z99.2 - Dependence on renal dialysis; Z99.2 - Dependence on renal dialysis; Z99.2 - Dependence on renal dialysis (6) A-fib Current Visit: Yes Status: Chronic Assessment and plan: Continue telemetry and home metoprolol. Qualifiers: Atrial fibrillation type: chronic Qualified Code(s): I48.2 - Chronic atrial fibrillation (7) Diabetes mellitus Current Visit: Yes Status: Chronic Assessment and plan: Continue accuchecks and SSI QID AC/HS. Continue home basal insulin. Qualifiers: Diabetes mellitus type: type 2 Diabetes mellitus assisted insulin use: with assisted use Diabetes mellitus complication status: with kidney complications Diabetes mellitus complication detail: with chronic kidney disease Chronic kidney disease stage: stage 4 (severe) Qualified Code(s): E11.22 - Type 2 diabetes mellitus with diabetic chronic kidney disease; N18.4 - Chronic kidney disease, stage 4 (severe); N18.4 - Chronic kidney disease, stage 4 (severe); N18.4 - Chronic kidney disease, stage 4 (severe); N18.4 - Chronic kidney disease, stage 4 (severe); Z79.4 - silk screen frame assembler (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; Z79.4 - silk screen frame assembler (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; Z79.4 - [facility] (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; Z79.4 - silk screen frame assembler (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 (8) HTN (hypertension) Current Visit: Yes Status: Chronic Assessment and plan: Continue home medications. Qualifiers: Hypertension type: essential hypertension Qualified Code(s): I10 - Essential (primary) hypertension (9) DVT prophylaxis Current Visit: Yes Status: Acute Assessment and plan: Continue renally dosed lovenox. - Time Spent With Patient less than 15 minutes - Subjective Interval history: Patient had oxygen desaturation last night, had to be put on up to 15 L high flow NC to maintain saturations. She states that she is doing better this AM. She is alert and oriented x 3. She states that her breathing is better, and she is not SOB. She is still on 15 L HFNC this AM. Nursing staff will attempt to wean. Urine output overnight noted to be 200 ml. She denies fever, chills, or chest pain. She has no new complaints. - Constitutional Vitals: Temp Pulse Resp BP Pulse Ox 97.9 F 106 12 154/78 94 07/12/17 07:04 07/12/17 07:04 07/12/17 07:04 07/12/17 07:04 07/12/17 07:04 General appearance: Present: cooperative, A&O X 3, pleasant, no acute distress, answers questions appropriately - Respiratory Respiratory exam: Present: decreased breath sounds, CTAB. Absent: accessory muscle use, rales, rhonchi, wheezes Additional comments: Mildly labored WOB - Cardiovascular Cardiovascular exam: Present: RRR, +S1, +S2. Absent: diastolic murmur, gallop, rubs, systolic murmur Additional comments: Trace BLE edema - GI/Abdominal GI/Abdominal exam: Present: normal bowel sounds, soft. Absent: distended, hepatomegaly, mass, splenomegaly, tenderness - Psychiatric Psychiatric exam: Present: normal affect, normal mood. Absent: anxious, depressed - Skin Skin exam: Present: dry, intact, warm. Absent: cyanosis, rash Internal Medicine: Result - Labs CBC & Chem 7: 07/12/17 03:26 07/12/17 03:26 Labs: Short CBC 07/12/17 Range/Units 03:26 WBC 7.1 (4.3-11.1) K/mcL Hgb 9.8 L (11.5-15.4) g/dL Hct 34.3 L (35.3-44.9) % Plt Count 156 (140-400) K/mcL Neutrophils # 4.5 (1.6-8.9) K/mcL BMP 07/12/17 03:26 Sodium 139 Potassium 3.4 L Chloride 101 Carbon Dioxide 31 H BUN 20 Creatinine 3.28 H Glucose 76 Calcium 9.1 - ABG Interpretation ABG results: PT/INR, D-dimer PT 11.7 Seconds (9.4-12.1) 07/11/17 03:32 Consult Discharge Plan - Plan Referrals: Krystle Henderson [Primary Care Provider] -
[2017-07-12] MEDS: Insulin LISPRO 300 UNITS/3 ML VIAL SQ SCH ×4 (08:31→22:18)
--- NOTE | 2017-07-12 09:00 | Pulmonology Consult Note ---
Date of Encounter: 07/12/17 Time of Encounter: 09:00 Assessment and Plan (1) Acute and chronic respiratory failure Current Visit: Yes Status: Acute Acute on Chronic hypoxic respiratory failure secondary to fluid overload secondary to ESRD and Diastolic heart failure . To wean O2 supplementation as tolerated. Qualifiers: Respiratory failure complication: hypoxia Qualified Code(s): J96.21 - Acute and chronic respiratory failure with hypoxia (2) Pleural effusion Current Visit: Yes Status: Acute Patient has bilateral pleural effusion left greater than right . Under ultrasound guidance a good pocket was found on left side , 1 liter of fluid which was straw colored . Post procedure CXR didnt show any pneumothorax , radiologist addendum final shows No Pneumothorax . Patient V/Q mismatch improved after Thoracentesis . Sent the Pleural fluid studies Will get CXR tomorrow morning . History of Present Illness Consult date: 07/12/17 Requesting physician: Andres Meyer Reason for consult: dyspnea, pleural effusion Chief complaint: Shrotness of breadth History of present illness: 81 year old female with past medical history significant for morbid obesity, ESRD recently on MWF dialysis , Afib , diastolic heart failure is coming with increasing shortness of breadth and pedal edema on thursday during her dialysis she was dropping O2 saturation , was admitted to [facility] for worsening shortness of breadth and hypoxic respiratory failure , denies any chest pain or tightness , denies any cough or sputum production , denies any abdominal symptoms , denies anjy neuro symptoms . Pulmonary was consulted for Thoracentesis of the left sided pleural effusion . Past Med Surg Social Fam HX - Past Medical History Medical history: arthritis, atrial fibrillation, CHF, diabetes, dialysis, GERD, hyperlipidemia, hypertension, renal disease Psychiatric history: no psych history - Past Surgical History Surgical History: cholecystectomy, orthopedic, other, PJ/BSO - Social History Smoking Status: Never smoker Smokeless Tobacco Status: No Alcohol use: none Drug use: none - Family History Brother Family Member Ethnicity: Non- Living Status: Still Living Hx Family Cancer: Yes Sister Family Member Ethnicity: Non- Living Status: Still Living Hx Family Respiratory Disorders: Yes (COPD) Hx Family Cancer: Yes Mother Family Member Ethnicity: Non- Living Status: Hx Family Cardiac Disorders: Yes Hx Family Respiratory Disorders: No Hx Family Cancer: Yes Hx Family Endocrine Disorder: Yes Hx Family Neurologic Disorders: Yes Father Adopted: No Family Member Ethnicity: Non- Living Status: Hx Family Cardiac Disorders: Yes (IN) Hx Family Endocrine Disorder: Yes Medications and Allergies Amlodipine Besylate 10 mg PO DAILY 10/02/15 [History] DULoxetine [Cymbalta] 30 mg PO DAILY 10/02/15 [History] Esomeprazole Magnesium [Nexium] 40 mg PO DAILY 10/02/15 [History] Gabapentin [Neurontin] 300 mg PO DAILY 10/02/15 [History] Insulin Glargine,Hum.rec.anlog [Lantus Solostar] 10 unit SQ HS 10/02/15 [History ] Cyclosporine [Restasis] 1 drop OP BID 04/14/17 [History] Ergocalciferol (VITAMIN D2) [Vitamin D] 400 unit PO DAILY 04/14/17 [History] Fluticasone Propionate Nasal [Flonase] 1 spr NS BID 04/14/17 [History] Melatonin 10 mg PO HS 04/14/17 [History] Metoprolol Succinate 25 mg PO DAILY 04/14/17 [History] Iron 65 mg PO DAILY #0 04/21/17 [Rx] Isosorbide MONOnitrate (24 HR) [Imdur] 60 mg PO DAILY #30 tab.er.24h 04/21/17 [ Rx] Furosemide [Lasix] 80 mg PO DAILY 07/10/17 [History] hydrALAZINE [HydrALAZINE] 25 mg PO BID 07/10/17 [History] 3 Allergy/AdvReac Type Severity Reaction Status Date / Time cephalexin [From Keflex] AdvReac Unknown Hypotension Verified 04/14/17 20:54 codeine AdvReac Hypotension Verified 04/14/17 20:54 lisinopril AdvReac See Verified 04/14/17 20:54 Comments All Systems: The remainder of the systems were reviewed and are negative Physical Examination Vital Signs: Vital Signs, Last 4 Hours Temp Pulse Resp BP Pulse Ox 07/12/17 07:04 97.9 F 106 12 154/78 94 Auscultation: bilateral: diminished breath sounds (Left> Right ) Results - Laboratory Findings CBC and BMP: 07/12/17 03:26 07/12/17 03:26 PT/INR, D-dimer PT 11.7 Seconds (9.4-12.1) 07/11/17 03:32 Abnormal lab findings: Abnormal lab results RBC 3.22 M/mcL (3.82-4.97) L 07/12/17 03:26 Hgb 9.8 g/dL (11.5-15.4) L 07/12/17 03:26 Hct 34.3 % (35.3-44.9) L 07/12/17 03:26 MCV 106.5 fL (83.0-100.0) H 07/12/17 03:26 MCHC 28.6 g/dL (31.6-35.5) L 07/12/17 03:26 RDW 17.4 % (11.5-14.5) H 07/12/17 03:26 Monocytes # 1.8 K/mcL (0.0-1.3) H 07/12/17 03:26 Nucleated RBCs/100 WBC 0.3 /100 WBC (0) H 07/12/17 03:26 Hypochromasia Present (Not Present) A 07/12/17 03:26 Poikilocytosis 1+ (Not Present) A 07/12/17 03:26 Anisocytosis 1+ (Not Present) A 07/12/17 03:26 Potassium 3.4 mEq/L (3.5-5.1) L 07/12/17 03:26 Carbon Dioxide 31 mEq/L (23-29) H 07/12/17 03:26 Creatinine 3.28 mg/dL (0.60-1.20) H 07/12/17 03:26 Est GFR ( Amer) 16 (> 60) L 07/12/17 03:26 Est GFR (Non-Af Amer) 13 (> 60) L 07/12/17 03:26 POC Glucose 150 mg/dL (58-89) H 07/11/17 15:29 Iron 28 mcg/dL (50-170) L 07/11/17 03:32 % Saturation 10 % (15-50) L 07/11/17 03:32 Transferrin 201 mg/dL (203-362) L 07/11/17 03:32 Serum Total Protein 6.1 g/dL (6.4-8.9) L 07/11/17 03:32 Vitamin B12 1403 pg/mL (250-1100) H 07/11/17 03:32 Folate > 22.3 ng/mL (3.0-16.0) H 07/11/17 03:32 PTH Intact 160.2 pg/ml (10.0-65.0) H 07/11/17 03:32 - Clinical Findings Intake & Output: Intake & Output 07/11/17 07/12/17 07/12/17 23:59 07:59 15:59 Intake Total 260 / 260 Output Total 150 / 150 200 / 200 Balance 110 / 110 -200 / -200 Consult Discharge Plan - Plan Referrals: Krystle Henderson [Primary Care Provider] -
[2017-07-12] MEDS: Furosemide 40 MG/4 ML VIAL IVP SCH ×2 (10:00→18:32)
[2017-07-12] MEDS: Metoprolol XL (24 HR) Succ 25 MG TAB.ER.24H PO SCH (10:01)
--- NOTE | 2017-07-12 12:29 | Procedure Note ---
<Victorino Hilario - Last Filed: 07/12/17 12:36> Date of procedure: 07/12/17 Pre-op diagnosis: LT PLEURAL EFFUSION Post-op diagnosis: same Procedure: Left Thoracentesis Date: 07/12/2017 Time: 1224 Indication: Large pleural effusion Resident: Victorino Hilario DO Attending: Dipak Dalton MD A time-out was completed verifying correct patient, procedure, site, positioning , and special equipment if applicable. The patient's LEFT side was prepped and draped in a sterile manner after the appropriate infiltration level was confirmed by ultrasound. 7 mL of 1% lidocaine was used anesthetize the surrounding skin. A finder needle was then used to locate fluid and clear yellow fluid was obtained. A 10-blade scalpel used to make the incision. The thoracentesis catheter was then threaded without difficulty. The patient had 1000 mL of clear yellow fluid removed. My attending Dr. Dipak Dalton was present for the entire procedure. A post-procedure chest x-ray was ordered and the fluid will be sent for several studies. Estimated Blood Loss: minimal The patient tolerated the procedure well and there were no complications. Anesthesia: local (1% lidocaine 7 cc) Was there an assistant director of plant operations present: No Estimated blood loss (cc): 1 Specimen: left pleural fluid Pathology: other Condition: stable Disposition: floor <Dipak Dalton S - Last Filed: 07/12/17 14:47> Procedure: Procedure went well i was present during the entire procedure assisting critical portions of the procedure . 1.0 liter of fluid was removed . Post procedure CXR showed no pneumthorax , the impression of the X ray showed pneumothorax then we called radiology statistical consultant and clarified there is no pneumothorax they did an addendum at 14:12 which showed no pneumothorax .
--- NOTE | 2017-07-12 13:08 | Nephrology Consult Note ---
Date of Encounter: 07/12/17 Time of Encounter: 12:45 Assessment and Plan (1) ESRD (end stage renal disease) Status: Chronic HD planned in am with aggressive UF as tolerated and possibly UF the next day Lytes stable Resume home meds (2) Anemia in chronic kidney disease (CKD) Status: Chronic hgb noted at 9.8, will monitor and use EPO if needed Qualifiers: Chronic kidney disease stage: on chronic dialysis Qualified Code(s): N18.6 - End stage renal disease; D63.1 - Anemia in chronic kidney disease; D63.1 - Anemia in chronic kidney disease; Z99.2 - Dependence on renal dialysis; Z99.2 - Dependence on renal dialysis; Z99.2 - Dependence on renal dialysis; Z99.2 - Dependence on renal dialysis (3) Fluid overload Status: Acute Strict I/Os advised Fluid restriction advised Will likely need several days of HD/UF/UF to improve her edeme, will try Qualifiers: Hypervolemia type: other Qualified Code(s): E87.79 - Other fluid overload History of Present Illness - Reason for Consult Consult date: 07/12/17 end stage renal disease Requesting physician: Andres Meyer - History of Present Illness 81 y o female newly started on HD in [place] (known to me from previous hospital stay at [facility] but follows with Dr Michael outpatient) with PMH of DM, HTN, dCHF admitted with dyspnea. She reports having had 7 HD sessions so far with improvement in her edema but still with significant LE edema. s/p thoracentesis and feels much better with breathing. She denies any chest pain. Past Med Surg Social Fam HX - Past Medical History Medical history: arthritis, atrial fibrillation, CHF, diabetes, dialysis, GERD, hyperlipidemia, hypertension, renal disease Psychiatric history: no psych history - Past Surgical History Surgical History: cholecystectomy, orthopedic, other, PJ/BSO - Social History Smoking Status: Never smoker Smokeless Tobacco Status: No Alcohol use: none Drug use: none - Family History Brother Family Member Ethnicity: Non- Living Status: Still Living Hx Family Cancer: Yes Sister Family Member Ethnicity: Non- Living Status: Still Living Hx Family Respiratory Disorders: Yes (COPD) Hx Family Cancer: Yes Mother Family Member Ethnicity: Non- Living Status: Hx Family Cardiac Disorders: Yes Hx Family Respiratory Disorders: No Hx Family Cancer: Yes Hx Family Endocrine Disorder: Yes Hx Family Neurologic Disorders: Yes Father Adopted: No Family Member Ethnicity: Non- Living Status: Hx Family Cardiac Disorders: Yes (SD) Hx Family Endocrine Disorder: Yes Medications and Allergies Amlodipine Besylate 10 mg PO DAILY 10/02/15 [History] DULoxetine [Cymbalta] 30 mg PO DAILY 10/02/15 [History] Gabapentin [Neurontin] 300 mg PO DAILY 10/02/15 [History] Insulin Glargine,Hum.rec.anlog [Lantus Solostar] 10 unit SQ HS 10/02/15 [History ] Cyclosporine [Restasis] 1 drop OP BID 04/14/17 [History] Ergocalciferol (VITAMIN D2) [Vitamin D] 400 unit PO DAILY 04/14/17 [History] Fluticasone Propionate Nasal [Flonase] 1 spr NS BID 04/14/17 [History] Melatonin 10 mg PO HS 04/14/17 [History] Metoprolol Succinate 25 mg PO DAILY 04/14/17 [History] Iron 65 mg PO DAILY #0 04/21/17 [Rx] Isosorbide MONOnitrate (24 HR) [Imdur] 60 mg PO DAILY #30 tab.er.24h 04/21/17 [ Rx] Furosemide [Lasix] 80 mg PO BID 07/10/17 [History] hydrALAZINE [HydrALAZINE] 50 mg PO TID 07/10/17 [History] Levalbuterol Tartrate [Xopenex Hfa] 2 puff IH Q4-6H 07/12/17 [History] Omeprazole [PriLOSEC] 40 mg PO DAILY 07/12/17 [History] Sevelamer [Renvela] 800 mg PO QID 07/12/17 [History] Acetaminophen [Tylenol] 650 mg PO Q6HR PRN tablet 07/17/17 [Rx] Polyethylene Glycol 3350 [MiraLAX] 17 gm PO DAILY powd.pack 07/17/17 [Rx] Sennosides/Docusate Sodium [Senna Plus] 1 each PO BID tablet 07/17/17 [Rx] levoFLOXacin [Levaquin] 500 mg PO Q48H #1 tablet 07/17/17 [Rx] 3 Allergy/AdvReac Type Severity Reaction Status Date / Time cephalexin [From Keflex] AdvReac Unknown Hypotension Verified 04/14/17 20:54 codeine AdvReac Hypotension Verified 04/14/17 20:54 lisinopril AdvReac See Verified 04/14/17 20:54 Comments Review of Systems All Systems: reviewed and no additional remarkable complaints except as stated ( 10 systems reviewed) Exam - Vital Signs Vital signs: Initial Vital Signs Temp Pulse Resp BP Pulse Ox 97.5 F L 90 17 98/60 92 07/10/17 23:27 07/10/17 23:27 07/10/17 23:27 07/10/17 23:27 07/10/17 23:27 Vital Signs - Last 8 Hours Temp Pulse Resp BP Pulse Ox 07/12/17 12:37 97.5 F L 92 1 104/63 99 07/12/17 10:39 18 90 07/12/17 07:04 97.9 F 106 12 154/78 94 Intake and Output 07/11/17 07/12/17 07/12/17 23:59 07:59 15:59 Intake Total 260 / 260 100 / 100 Output Total 150 / 150 200 / 200 Balance 110 / 110 -200 / -200 100 / 100 Intake: IV Fluids 100 / 100 Levaquin Premix 500mg/100mL 500 100 / 100 mg In 100 ml @ 100 mls/hr IVPB Q48H [facility] Rx#:[id number] Oral 160 / 160 100 / 100 Output: Catheter 150 / 150 200 / 200 Other: Meal Dinner Breakfast Percent of Meal Consumed 30% 20% Blood Glucose* 126 77 164 - General Appearance General appearance: chronically ill EENT: ATNC, mucous membranes moist Neck: no JVD, supple Additional Comments: improved areation Cardiology: edema (+2 LE bilat) - Dialysis Access Dialysis Vascular Access: Venous Catheter (permcath R chest) Gastrointestinal: no tenderness, no guarding, obese Integumentary: warm and dry Neurologic: no focal deficit Musculoskeletal: no deformities Psychiatric: mood/affect appropriate Results - Lab Results 07/17/17 04:44 07/17/17 04:44 Most recent lab results Calcium 9.1 mg/dL (8.6-10.3) 07/12/17 03:26 Consult Discharge Plan - Plan Additional Instructions: Please follow up with your primary care physician within five days after your discharge from the hospital. Please follow up with nephrology and continue your scheduled hemodialysis sessions after discharge. Continue oral antibiotics as prescribed. Resume all other medications as prescribed by your primary care physician. Referrals: Krystle Henderson [Primary Care Provider] - 07/23/17 1:00 pm (Please bring your insurance card and photo id. Also please bring your green discharge folder with your discharge paper work in it to your appointment. Thank you!)
[2017-07-12 13:29] LABS: Lactate Dehydrogenase 157 Units/L (140-271); Total Protein 5.7 g/dL (6.4-8.9)
[2017-07-12 16:54] LABS: Appearance of Pleural Fl Hazy (Clear)
[2017-07-12 16:58] LABS: RBC,Pleural Fluid 0.003 M/mcL
[2017-07-12 17:18] LABS: Glucose,Pleural Fluid 128 mg/dL (No Ref Range); LDH,Pleural Fluid 43 Units/L (No Ref Range); Total Protein,Pleural Fluid < 3.0 g/dL (No Ref Range)
[2017-07-12] MEDS: Insulin DETEMIR 100 UNIT/ML X5UNITS SQ SCH (22:20)
[2017-07-13] MEDS: Levofloxacin 500 MG/100 ML 500 MG/100 ML BAG IVPB SCH (02:53)
[2017-07-13] MEDS: Ipratropium/Albuterol Neb 3 ML IH SCH ×4 (03:48→21:49)
[2017-07-13 03:59] LABS: Basophils % 0.1 %; Immature Granulocytes % 1.2 % (0-4)
[2017-07-13 04:00] LABS: Eosinophils % 0.4 %; Hematocrit 35.3 % (35.3-44.9); Lymphocytes # 0.6 K/mcL (0.6-4.6); Lymphocytes % 9.6 %; Mean Corpuscular HGB Conc 28.3 g/dL (31.6-35.5); Mean Platelet Volume 10.9 fL (9.4-12.4); Monocytes # 1.5 K/mcL (0.0-1.3); Monocytes % 21.7 %; Neutrophils # 4.5 K/mcL (1.6-8.9); Nucleated Red Blood Cells 0.3 /100 WBC (0); Platelet Count 183 K/mcL (140-400); Red Blood Count 3.33 M/mcL (3.82-4.97); Red Cell Distribution Width 17.5 % (11.5-14.5)
[2017-07-13 04:21] LABS: Calcium 9.2 mg/dL (8.6-10.3); Potassium 4.2 mEq/L (3.5-5.1)
[2017-07-13 04:30] LABS: Hypochromasia Present (Not Present); Platelet Estimate Normal (Normal)
[2017-07-13 04:31] LABS: Anisocytosis 1+ (Not Present)
[2017-07-13 04:33] LABS: Hepatitis B Surface Antibody 0.05 mIU/mL; Hepatitis B Surface Antigen Nonreactive (Nonreactive)
[2017-07-13] MEDS ORDERED: *HR* Enoxaparin 30 MG/0.3 ML SYRINGE SQ SCH (06:00)
[2017-07-13] MEDS ORDERED: 0.9 % Sodium Chloride 2,000 ML ONE (07:41)
[2017-07-13] MEDS: Insulin LISPRO 300 UNITS/3 ML VIAL SQ SCH ×4 (07:48→21:26)
[2017-07-13] MEDS: Metoprolol XL (24 HR) Succ 25 MG TAB.ER.24H PO SCH (07:52)
[2017-07-13] MEDS: Furosemide 40 MG/4 ML VIAL IVP SCH ×2 (07:52→16:22)
[2017-07-13] MEDS ORDERED: 0.9 % Sodium Chloride 250 ML IVC PRN (08:35)
[2017-07-13] MEDS ORDERED: 0.9 % Sodium Chloride 1,000 ML PRIME SCH (08:45)
[2017-07-13] MEDS ORDERED: *HR* Heparin 5,000 UNIT/ML VIAL ONE (09:13)
[2017-07-13] MEDS: *HR* Heparin 5,000 UNIT/ML VIAL SQ SCH (16:23)
--- NOTE | 2017-07-13 16:46 | Internal Med Progress Note ---
Date of Encounter: 07/13/17 Time of Encounter: 16:44 - Assessment and plan (1) Fluid overload Current Visit: Yes Status: Acute Assessment and plan: Improved. Pulmonology consulted; appreciate input. S/P thoracentesis yesterday with 1 L removed. Breathing much better. Down to 10 L HFNC. Continue weaning oxygen as tolerated. Nephrology consulted; appreciate input. Continue M-W-F hemodialysis. Continue daily weights, strict I&Os, and fluid restriction diet. Recheck BMP in AM. Qualifiers: Hypervolemia type: other Qualified Code(s): E87.79 - Other fluid overload (2) ESRD (end stage renal disease) Current Visit: Yes Status: Chronic Assessment and plan: Nephrology consulted; appreciate input. Continue M-W-F dialysis. Recheck BMP in AM. (3) UTI (urinary tract infection) Current Visit: Yes Status: Acute Assessment and plan: Continue renally-dosed levaquin. Follow up on urine culture. Qualifiers: Urinary tract infection type: acute cystitis Hematuria presence: without hematuria Qualified Code(s): N30.00 - Acute cystitis without hematuria (4) Hypokalemia Current Visit: Yes Status: Resolved Assessment and plan: Resolved. K = 4.2. (5) Anemia in chronic kidney disease (CKD) Current Visit: Yes Status: Chronic Assessment and plan: Stable. Hgb = 10.0. Baseline hemoglobin appears to be between 8-9. Continue to monitor. Recheck CBC in AM. Qualifiers: Chronic kidney disease stage: on chronic dialysis Qualified Code(s): N18.6 - End stage renal disease; D63.1 - Anemia in chronic kidney disease; D63.1 - Anemia in chronic kidney disease; Z99.2 - Dependence on renal dialysis; Z99.2 - Dependence on renal dialysis; Z99.2 - Dependence on renal dialysis; Z99.2 - Dependence on renal dialysis (6) A-fib Current Visit: Yes Status: Chronic Assessment and plan: Continue telemetry and home metoprolol. Qualifiers: Atrial fibrillation type: chronic Qualified Code(s): I48.2 - Chronic atrial fibrillation (7) Diabetes mellitus Current Visit: Yes Status: Chronic Assessment and plan: Continue accuchecks and SSI QID AC/HS. Continue home basal insulin. Qualifiers: Diabetes mellitus type: type 2 Diabetes mellitus intermission coordinator insulin use: with intermission coordinator use Diabetes mellitus complication status: with kidney complications Diabetes mellitus complication detail: with chronic kidney disease Chronic kidney disease stage: stage 4 (severe) Qualified Code(s): E11.22 - Type 2 diabetes mellitus with diabetic chronic kidney disease; N18.4 - Chronic kidney disease, stage 4 (severe); N18.4 - Chronic kidney disease, stage 4 (severe); N18.4 - Chronic kidney disease, stage 4 (severe); N18.4 - Chronic kidney disease, stage 4 (severe); Z79.4 - terminal manager (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; Z79.4 - terminal manager (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; Z79.4 - custodial (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; Z79.4 - terminal manager (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 (8) HTN (hypertension) Current Visit: Yes Status: Chronic Assessment and plan: Continue home medications. Qualifiers: Hypertension type: essential hypertension Qualified Code(s): I10 - Essential (primary) hypertension (9) DVT prophylaxis Current Visit: Yes Status: Acute Assessment and plan: Switch SC lovenox to SC heparin due to CKD. - Time Spent With Patient less than 15 minutes - Subjective Interval history: Patient had no acute events overnight. She states that she is feeling much better this AM after thoracentesis yesterday. She states breathing is better. She is alert and oriented x 3. She is down to 10 L HFNC this AM. Nursing staff continuing to wean. She denies fever, chills, or chest pain. She has no new complaints. - Constitutional Vitals: Temp Pulse Resp BP Pulse Ox 98.2 F 96 16 131/73 93 07/13/17 15:35 07/13/17 15:35 07/13/17 15:44 07/13/17 15:35 07/13/17 15:44 General appearance: Present: cooperative, A&O X 3, pleasant, no acute distress, answers questions appropriately - Respiratory Respiratory exam: Present: CTAB. Absent: accessory muscle use, rales, rhonchi, wheezes Additional comments: Mildly labored WOB - Cardiovascular Cardiovascular exam: Present: RRR, +S1, +S2. Absent: diastolic murmur, gallop, rubs, systolic murmur Additional comments: Trace BLE edema - GI/Abdominal GI/Abdominal exam: Present: normal bowel sounds, soft. Absent: distended, hepatomegaly, mass, splenomegaly, tenderness - Psychiatric Psychiatric exam: Present: normal affect, normal mood. Absent: anxious, depressed - Skin Skin exam: Present: dry, intact, warm. Absent: cyanosis, rash Internal Medicine: Result - Labs CBC & Chem 7: 07/13/17 03:05 07/13/17 03:05 Labs: Short CBC 07/13/17 Range/Units 03:05 WBC 6.7 (4.3-11.1) K/mcL Hgb 10.0 L (11.5-15.4) g/dL Hct 35.3 (35.3-44.9) % Plt Count 183 (140-400) K/mcL Neutrophils # 4.5 (1.6-8.9) K/mcL BMP 07/13/17 03:05 Sodium 139 Potassium 4.2 Chloride 102 Carbon Dioxide 30 H BUN 26 H Creatinine 3.84 H Glucose 125 H Calcium 9.2 - ABG Interpretation ABG results: PT/INR, D-dimer PT 11.7 Seconds (9.4-12.1) 07/11/17 03:32 - Impressions Impressions Chest X-Ray 07/13/17 08:00 IMPRESSION: 1. Stable bilateral pleural effusions. 2. Stable bilateral pulmonary consolidation. 3. No pneumothorax. D/ / 07/13/2017 08:07:57 Heber vEans MD / marie Interpreting Provider: Heber Evans MD Consult Discharge Plan - Plan Referrals: Krystle Henderson [Primary Care Provider] - 07/16/17 9:30 am (Please bring your insurance card and photo id. Also please bring your green discharge folder with your discharge paper work in it to your appointment. Thank you!)
[2017-07-13] MEDS: Gabapentin 300 MG CAPSULE PO SCH (17:59)
[2017-07-13] MEDS: Cholecalciferol (D-3) 1,000 UNIT TABLET PO SCH (17:59)
[2017-07-13] MEDS: hydrALAZINE 25 MG TABLET PO SCH ×2 (18:00→21:46)
[2017-07-13] MEDS: amLODIPine 5 MG TABLET PO SCH (18:00)
[2017-07-13] MEDS: Isosorbide MONOnitrate (24 HR) 60 MG TAB.ER.24H PO SCH (18:00)
--- NOTE | 2017-07-13 19:15 | Nephrology Progress Note ---
Date of Encounter: 07/13/17 Time of Encounter: 12:00 - Assessment and Plan (1) ESRD (end stage renal disease) Status: Chronic Continue HD with UF as tolerayed Will plan to extra UF tomorrow as well Strict I/O advised Fluid restriction advised as well (2) Anemia in chronic kidney disease (CKD) Status: Chronic Hgb stable at 10, will monitor Qualifiers: Chronic kidney disease stage: on chronic dialysis Qualified Code(s): N18.6 - End stage renal disease; D63.1 - Anemia in chronic kidney disease; D63.1 - Anemia in chronic kidney disease; Z99.2 - Dependence on renal dialysis; Z99.2 - Dependence on renal dialysis; Z99.2 - Dependence on renal dialysis; Z99.2 - Dependence on renal dialysis Subjective Interval history: Pt seen and examined on HD feeling less SOB. Objective - Vital Signs Vital signs: Vital Signs Temp Pulse Resp BP Pulse Ox 07/13/17 15:44 16 93 07/13/17 15:35 98.2 F 96 18 131/73 95 07/13/17 12:27 98.5 F 20 134/71 07/13/17 12:00 125/69 07/13/17 11:45 114/58 07/13/17 11:30 126/69 07/13/17 11:15 123/73 07/13/17 11:00 102/69 07/13/17 10:45 111/66 07/13/17 10:30 122/52 07/13/17 10:15 111/57 07/13/17 10:00 118/60 07/13/17 09:45 114/69 07/13/17 09:30 110/70 07/13/17 09:15 122/69 07/13/17 09:00 122/78 07/13/17 08:45 104/71 07/13/17 08:42 98.9 F 96 17 134/75 96 07/13/17 08:30 98.5 F 20 115/61 07/13/17 03:58 97.8 F 97 16 131/80 98 07/13/17 03:48 18 94 07/12/17 23:03 97.8 F 102 16 124/72 98 07/12/17 22:56 18 94 Intake and Output 07/13/17 07/13/17 07/13/17 07:59 15:59 23:59 Intake Total 630 / 630 Output Total 125 / 125 4600 / 4600 Balance -125 / -125 -3970 / -3970 Intake: Oral 30 / 30 Intake, Rinseback and Flushes 600 / 600 Output: Urine 0 / 0 Total Dialysis (HD) Output 4600 / 4600 Catheter 125 / 125 Other: Weight 95.5 kg Blood Glucose* 163 Hemodialysis Net Fluid Removed 4000 (mL) Patient Weight 07/13/17 23:59 Weight 95.5 kg - General Appearance General appearance: Present: chronically ill EENT: Present: ATNC, mucous membranes moist Neck: Present: no JVD, supple Additional Comments: Good areation ant bilat Cardiology: Present: edema, normal S1, normal S2 Dialysis Vascular Access: Venous Catheter Gastrointestinal: Present: no tenderness, no guarding Integumentary: Present: warm and dry Neurologic: Present: no focal deficit Musculoskeletal: Present: no deformities Psychiatric: Present: mood/affect appropriate - Lab 07/17/17 04:44 07/17/17 04:44 Most recent lab results Calcium 9.2 mg/dL (8.6-10.3) 07/13/17 03:05 Consult Discharge Plan - Plan Additional Instructions: Please follow up with your primary care physician within five days after your discharge from the hospital. Please follow up with nephrology and continue your scheduled hemodialysis sessions after discharge. Continue oral antibiotics as prescribed. Resume all other medications as prescribed by your primary care physician. Referrals: Krystle Henderson [Primary Care Provider] - 07/23/17 1:00 pm (Please bring your insurance card and photo id. Also please bring your green discharge folder with your discharge paper work in it to your appointment. Thank you!)
[2017-07-13] MEDS ORDERED: (Cyclosporine [Restasis] 1 DROP) OP SCH (21:00)
[2017-07-13] MEDS: Insulin DETEMIR 100 UNIT/ML X5UNITS SQ SCH (21:33)
[2017-07-13] MEDS: Melatonin 3 MG TABLET PO SCH (21:33)
[2017-07-13] MEDS: Fluticasone Propionate Nasal 50 MCG/SPRAY BOTTLE NS SCH (21:45)
[2017-07-14] MEDS: Ipratropium/Albuterol Neb 3 ML IH SCH ×4 (03:34→20:53)
[2017-07-14 04:25] LABS: Eosinophils % 0.6 %; Monocytes % 22.5 %
[2017-07-14 04:27] LABS: Basophils % 0.1 %; Hematocrit 34.1 % (35.3-44.9); Hemoglobin 9.9 g/dL (11.5-15.4); Immature Granulocytes % 0.7 % (0-4); Lymphocytes # 0.7 K/mcL (0.6-4.6); Mean Corpuscular Hemoglobin 30.6 pg (28.0-33.3); Mean Corpuscular Volume 105.2 fL (83.0-100.0); Mean Platelet Volume 10.5 fL (9.4-12.4); Monocytes # 1.5 K/mcL (0.0-1.3); Neutrophils # 4.4 K/mcL (1.6-8.9); Nucleated Red Blood Cells 0.7 /100 WBC (0); Platelet Count 175 K/mcL (140-400); Red Blood Count 3.24 M/mcL (3.82-4.97); Red Cell Distribution Width 17.2 % (11.5-14.5); Segmented Neutrophils % 66.1 %
[2017-07-14 04:45] LABS: Calcium 8.5 mg/dL (8.6-10.3); Potassium 4.3 mEq/L (3.5-5.1)
[2017-07-14 05:18] LABS: Anisocytosis 1+ (Not Present); Hypochromasia Present (Not Present); Macrocytosis Present (Not Present); Poikilocytosis 1+ (Not Present)
[2017-07-14 05:19] LABS: Platelet Estimate Normal (Normal)
[2017-07-14] MEDS: *HR* Heparin 5,000 UNIT/ML VIAL SQ SCH ×2 (05:46→17:44)
[2017-07-14] MEDS ORDERED: 0.9 % Sodium Chloride 2,000 ML ONE (07:08)
[2017-07-14] MEDS ORDERED: 0.9 % Sodium Chloride 250 ML IVC PRN (07:26)
[2017-07-14] MEDS ORDERED: *HR* Heparin 10,000 UNIT/10 ML VIAL IV PRN (07:26)
[2017-07-14] MEDS ORDERED: Artificial Tears SOLN 15 ML BOTTLE BOTH EYES PRN (07:42)
--- NOTE | 2017-07-14 10:17 | Nephrology Progress Note ---
<Natty Peña - Last Filed: 07/14/17 10:22> Date of Encounter: 07/14/17 Time of Encounter: 10:15 - Assessment and Plan (1) ESRD (end stage renal disease) Status: Chronic UF today Will re-evaluate tomorrow Continue strict I/Os Needs renal diet-ordered Avoid neprhotoxins if possible (2) Anemia in chronic kidney disease (CKD) Status: Chronic Hgb 9.9 Goal hgb 10-11 Qualifiers: Chronic kidney disease stage: on chronic dialysis Qualified Code(s): N18.6 - End stage renal disease; D63.1 - Anemia in chronic kidney disease; D63.1 - Anemia in chronic kidney disease; Z99.2 - Dependence on renal dialysis; Z99.2 - Dependence on renal dialysis; Z99.2 - Dependence on renal dialysis; Z99.2 - Dependence on renal dialysis Subjective Principal diagnosis: ESRD on dialysis, anemia Interval history: Patient seen and examined while in dialysis. States she is feeling better. Objective - Vital Signs Vital signs: Vital Signs Temp Pulse Resp BP Pulse Ox 07/14/17 09:45 119/70 07/14/17 09:30 126/55 07/14/17 09:15 119/67 07/14/17 09:00 121/69 07/14/17 08:45 121/66 07/14/17 08:30 98.3 F 20 126/67 07/14/17 07:10 97.6 F 94 18 134/72 91 07/14/17 04:41 97.6 F 97 16 117/67 93 07/14/17 03:34 14 94 07/13/17 23:37 97.8 F 106 17 113/66 90 07/13/17 21:50 14 96 07/13/17 20:16 98.3 F 109 18 137/78 96 07/13/17 15:44 16 93 07/13/17 15:35 98.2 F 96 18 131/73 95 07/13/17 12:27 98.5 F 20 134/71 07/13/17 12:00 125/69 07/13/17 11:45 114/58 07/13/17 11:30 126/69 07/13/17 11:15 123/73 07/13/17 11:00 102/69 04/02/18 10:45 111/66 07/13/17 10:30 122/52 Intake and Output 07/13/17 07/14/17 07/14/17 23:59 07:59 15:59 Intake Total 840 / 840 Output Total 300 / 300 Balance -300 / -300 840 / 840 Intake: Oral 240 / 240 Intake, Rinseback and Flushes 600 / 600 Output: Catheter 300 / 300 Other: Meal Breakfast Percent of Meal Consumed 75% Weight 97.6 kg 97.6 kg Blood Glucose* 109 111 Hemodialysis Net Fluid Removed 2882 (mL) Patient Weight 07/14/17 23:59 Weight 97.6 kg - General Appearance General appearance: Present: well-developed, well-nourished EENT: Present: ATNC, mucous membranes moist, hearing intact, vision intact Neck: Present: supple Cardiology: Present: edema (mild), normal S2 Dialysis Vascular Access: Venous Catheter Gastrointestinal: Present: no tenderness, no guarding Integumentary: Present: warm and dry Neurologic: Present: alert and oriented x3 Psychiatric: Present: mood/affect appropriate, cooperative - Lab 07/14/17 03:48 07/14/17 03:48 Most recent lab results Calcium 8.5 mg/dL (8.6-10.3) L 07/14/17 03:48 Consult Discharge Plan - Plan Additional Instructions: Please follow up with your primary care physician within five days after your discharge from the hospital. Please follow up with nephrology and continue your scheduled hemodialysis sessions after discharge. Continue oral antibiotics as prescribed. Resume all other medications as prescribed by your primary care physician. Referrals: Krystle Henderson [Primary Care Provider] - 07/23/17 1:00 pm (Please bring your insurance card and photo id. Also please bring your green discharge folder with your discharge paper work in it to your appointment. Thank you!) <Fabián Colunga - Last Filed: 08/11/17 22:34> Date of Encounter: 07/14/17 - Assessment and Plan (1) ESRD (end stage renal disease) Status: Chronic (2) Anemia in chronic kidney disease (CKD) Status: Chronic Qualifiers: Chronic kidney disease stage: on chronic dialysis Qualified Code(s): N18.6 - End stage renal disease; D63.1 - Anemia in chronic kidney disease; D63.1 - Anemia in chronic kidney disease; Z99.2 - Dependence on renal dialysis; Z99.2 - Dependence on renal dialysis; Z99.2 - Dependence on renal dialysis; Z99.2 - Dependence on renal dialysis Objective - Lab 07/17/17 04:44 07/17/17 04:44 Most recent lab results Calcium 8.9 mg/dL (8.6-10.3) 07/17/17 04:44 Phosphorus 3.2 mg/dL (2.7-4.5) 07/17/17 04:44 Magnesium 1.9 mg/dL (1.6-2.6) 07/17/17 04:44 - Attending Attestation I examined this patient and my medical decision-making was reviewed with the Resident Physician/PERSONNEL SECURITY ASSISTANT. I agree with the documented findings, disposition and treatment plan as described except to the extent set forth below. Pt seen and examined on HD, feeling better with less SOB after HF yesterday. Continue UF as tolerated with goal 3-4kg. Will plan for HD tomorrow as well. Lytes stable. Continue strict I/Os
--- NOTE | 2017-07-14 13:23 | Internal Med Progress Note ---
Date of Encounter: 07/14/17 Time of Encounter: 13:15 - Assessment and plan (1) Diabetes mellitus Current Visit: Yes Status: Chronic Qualifiers: Diabetes mellitus type: type 2 Diabetes mellitus jail insulin use: with jail use Diabetes mellitus complication status: with kidney complications Diabetes mellitus complication detail: with chronic kidney disease Chronic kidney disease stage: stage 4 (severe) Qualified Code(s): E11.22 - Type 2 diabetes mellitus with diabetic chronic kidney disease; N18.4 - Chronic kidney disease, stage 4 (severe); N18.4 - Chronic kidney disease, stage 4 (severe); N18.4 - Chronic kidney disease, stage 4 (severe); N18.4 - Chronic kidney disease, stage 4 (severe); 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 attendant (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; Z79.4 - halfway (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; 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 attendant (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; Z79.4 - halfway (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 (2) DVT prophylaxis Current Visit: Yes Status: Acute (3) A-fib Current Visit: Yes Status: Chronic Qualifiers: Atrial fibrillation type: chronic Qualified Code(s): I48.2 - Chronic atrial fibrillation (4) UTI (urinary tract infection) Current Visit: Yes Status: Acute Qualifiers: Urinary tract infection type: acute cystitis Hematuria presence: without hematuria Qualified Code(s): N30.00 - Acute cystitis without hematuria (5) HTN (hypertension) Current Visit: Yes Status: Chronic Qualifiers: Hypertension type: essential hypertension Qualified Code(s): I10 - Essential (primary) hypertension (6) Anemia in chronic kidney disease (CKD) Current Visit: Yes Status: Chronic Qualifiers: Chronic kidney disease stage: on chronic dialysis Qualified Code(s): N18.6 - End stage renal disease; D63.1 - Anemia in chronic kidney disease; D63.1 - Anemia in chronic kidney disease; Z99.2 - Dependence on renal dialysis; Z99.2 - Dependence on renal dialysis; Z99.2 - Dependence on renal dialysis; Z99.2 - Dependence on renal dialysis (7) ESRD (end stage renal disease) Current Visit: Yes Status: Chronic (8) Fluid overload Current Visit: Yes Status: Acute Qualifiers: Hypervolemia type: other Qualified Code(s): E87.79 - Other fluid overload (9) Hypokalemia Current Visit: Yes Status: Resolved - Time Spent With Patient Total time spent is greater than 50% in coordination of care (as documented) at patient's floor/unit and/or counseling patient: - Subjective Interval history: Pt seen and examined with family present at bedside. Pt reports of feeling significantly better compared to previous day. Reports of being on 4L NC at home , currently saturating on 5L NC. Pt underwent HD yesterday and had UF today. Pt encouraged to get out of bed to chair. PT/OT evaluation requested. Pt and family in agreement to ECF placement if necessary. - Assessment and plan (1) Fluid overload Current Visit: Yes Status: Acute Assessment and plan: Improving. Pulmonary input appreciated. S/P thoracentesis on 07/12/17 with removal of 1L pleural fluid Nephrology on board and consultation appreciated, s/p UF today (07/14/17) Respiratory status improving, currently saturating well on 5L NC, will continue HD on MWF, monitor daily weights, strict I/Os, fluid restriction diet Qualifiers: Hypervolemia type: other Qualified Code(s): E87.79 - Other fluid overload (2) ESRD (end stage renal disease) Current Visit: Yes Status: Chronic Assessment and plan: Nephrology consultation appreciated Continue M-W-F dialysis. (3) UTI (urinary tract infection) Current Visit: Yes Status: Acute Assessment and plan: Continue renally-dosed levaquin. Follow up on urine culture. Qualifiers: Urinary tract infection type: acute cystitis Hematuria presence: without hematuria Qualified Code(s): N30.00 - Acute cystitis without hematuria (4) Hypokalemia Current Visit: Yes Status: Resolved Assessment and plan: Resolved. K = 4.3 (5) Anemia in chronic kidney disease (CKD) Current Visit: Yes Status: Chronic Assessment and plan: H&H low but acceptable Baseline hemoglobin appears to be between 8-9. Continue to monitor. No acute bleeding reported at this time Qualifiers: Chronic kidney disease stage: on chronic dialysis Qualified Code(s): N18.6 - End stage renal disease; D63.1 - Anemia in chronic kidney disease; D63.1 - Anemia in chronic kidney disease; Z99.2 - Dependence on renal dialysis; Z99.2 - Dependence on renal dialysis; Z99.2 - Dependence on renal dialysis; Z99.2 - Dependence on renal dialysis (6) A-fib Current Visit: Yes Status: Chronic Assessment and plan: Continue telemetry and home metoprolol. Qualifiers: Atrial fibrillation type: chronic Qualified Code(s): I48.2 - Chronic atrial fibrillation (7) Diabetes mellitus Current Visit: Yes Status: Chronic Assessment and plan: Continue Sliding scale insulin algorithm in addition to home basal insulin monitor FS and BG ADA diet Qualifiers: Diabetes mellitus type: type 2 Diabetes mellitus automation technologist insulin use: with jail use Diabetes mellitus complication status: with kidney complications Diabetes mellitus complication detail: with chronic kidney disease Chronic kidney disease stage: stage 4 (severe) Qualified Code(s): E11.22 - Type 2 diabetes mellitus with diabetic chronic kidney disease; N18.4 - Chronic kidney disease, stage 4 (severe); N18.4 - Chronic kidney disease, stage 4 (severe); N18.4 - Chronic kidney disease, stage 4 (severe); N18.4 - Chronic kidney disease, stage 4 (severe); Z79.4 - halfway (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; Z79.4 - halfway (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; Z79.4 - halfway (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; 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 attendant (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 (8) HTN (hypertension) Current Visit: Yes Status: Chronic Assessment and plan: Continue home medications. Qualifiers: Hypertension type: essential hypertension Qualified Code(s): I10 - Essential (primary) hypertension (9) DVT prophylaxis Current Visit: Yes Status: Acute Assessment and plan: Heparin SQ - Constitutional Vitals: Temp Pulse Resp BP Pulse Ox 98.3 F 97 16 152/71 95 07/14/17 11:59 07/14/17 11:59 07/14/17 11:59 07/14/17 11:59 07/14/17 11:59 General appearance: Present: cooperative, A&O X 3, pleasant, no acute distress, obese, answers questions appropriately - Head Head exam: Present: atraumatic, normocephalic - Eye Eye exam: Present: conjuntiva pink, sclera anicteric - Respiratory Respiratory exam: Absent: respiratory distress, wheezes (scattered rales ) - Cardiovascular Cardiovascular exam: Present: RRR, +S1, +S2 - GI/Abdominal GI/Abdominal exam: Present: normal bowel sounds, soft. Absent: distended, tenderness - Extremities Exam Extremities exam: Present: pedal edema (b/l LE pitting edema ), warm. Absent: calf tenderness, tenderness - Neurological Exam Neurological exam: Present: oriented X3 Internal Medicine: Result - Labs CBC & Chem 7: 07/14/17 03:48 07/14/17 03:48 Labs: Short CBC 07/14/17 Range/Units 03:48 WBC 6.7 (4.3-11.1) K/mcL Hgb 9.9 L (11.5-15.4) g/dL Hct 34.1 L (35.3-44.9) % Plt Count 175 (140-400) K/mcL Neutrophils # 4.4 (1.6-8.9) K/mcL BMP 07/14/17 03:48 Sodium 136 Potassium 4.3 Chloride 100 Carbon Dioxide 30 H BUN 19 Creatinine 2.92 H Glucose 185 H Calcium 8.5 L - ABG Interpretation ABG results: PT/INR, D-dimer PT 11.7 Seconds (9.4-12.1) 07/11/17 03:32 Consult Discharge Plan - Plan Referrals: Krystle Henderson [Primary Care Provider] - 07/16/17 9:30 am (Please bring your insurance card and photo id. Also please bring your green discharge folder with your discharge paper work in it to your appointment. Thank you!)
[2017-07-14] MEDS: Insulin LISPRO 300 UNITS/3 ML VIAL SQ SCH ×3 (13:56→21:36)
[2017-07-14] MEDS: Furosemide 40 MG/4 ML VIAL IVP SCH ×2 (13:58→17:44)
[2017-07-14] MEDS: hydrALAZINE 25 MG TABLET PO SCH ×3 (13:58→20:37)
[2017-07-14] MEDS: Isosorbide MONOnitrate (24 HR) 60 MG TAB.ER.24H PO SCH (14:04)
[2017-07-14] MEDS: amLODIPine 5 MG TABLET PO SCH (14:04)
[2017-07-14] MEDS: Cholecalciferol (D-3) 1,000 UNIT TABLET PO SCH (14:05)
[2017-07-14] MEDS: levoFLOXacin 500 MG TABLET PO SCH (14:05)
[2017-07-14] MEDS: Metoprolol XL (24 HR) Succ 25 MG TAB.ER.24H PO SCH (14:06)
[2017-07-14] MEDS: Gabapentin 300 MG CAPSULE PO SCH (14:06)
[2017-07-14] MEDS: Fluticasone Propionate Nasal 50 MCG/SPRAY BOTTLE NS SCH ×2 (14:13→20:38)
[2017-07-14] MEDS: Sennosides/Docusate Sodium TABLET PO SCH ×2 (17:44→21:42)
[2017-07-14] MEDS: Melatonin 3 MG TABLET PO SCH (20:38)
[2017-07-14] MEDS: Insulin DETEMIR 100 UNIT/ML X5UNITS SQ SCH (21:42)
[2017-07-15] MEDS: Ipratropium/Albuterol Neb 3 ML IH SCH ×4 (03:47→22:13)
[2017-07-15] MEDS: *HR* Heparin 5,000 UNIT/ML VIAL SQ SCH ×2 (05:58→17:32)
[2017-07-15 06:06] LABS: Basophils % 0.2 %; Eosinophils % 0.6 %; Hematocrit 33.4 % (35.3-44.9); Hemoglobin 9.7 g/dL (11.5-15.4); Immature Granulocytes % 0.8 % (0-4); Lymphocytes # 0.8 K/mcL (0.6-4.6); Lymphocytes % 11.3 %; Mean Corpuscular Hemoglobin 30.5 pg (28.0-33.3); Mean Platelet Volume 10.8 fL (9.4-12.4); Monocytes # 1.6 K/mcL (0.0-1.3); Neutrophils # 4.2 K/mcL (1.6-8.9); Platelet Count 175 K/mcL (140-400); Red Blood Count 3.18 M/mcL (3.82-4.97); Red Cell Distribution Width 17.1 % (11.5-14.5); Segmented Neutrophils % 63.1 %
[2017-07-15 06:22] LABS: Calcium 8.9 mg/dL (8.6-10.3); Magnesium 1.8 mg/dL (1.6-2.6); Phosphorous 3.5 mg/dL (2.7-4.5); Potassium 4.6 mEq/L (3.5-5.1)
[2017-07-15 06:58] LABS: Anisocytosis 1+ (Not Present); Hypochromasia Present (Not Present); Macrocytosis Present (Not Present); Platelet Estimate Normal (Normal)
[2017-07-15] MEDS ORDERED: 0.9 % Sodium Chloride 250 ML IVC PRN (08:34)
[2017-07-15] MEDS ORDERED: *HR* Heparin 10,000 UNIT/10 ML VIAL IV PRN (08:34)
[2017-07-15] MEDS ORDERED: 0.9 % Sodium Chloride 1,000 ML PRIME SCH (08:45)
[2017-07-15] MEDS ORDERED: 0.9 % Sodium Chloride 1,000 ML ONE (09:15)
--- NOTE | 2017-07-15 15:28 | Internal Med Progress Note ---
Date of Encounter: 07/15/17 Time of Encounter: 12:45 - Assessment and plan (1) Diabetes mellitus Current Visit: Yes Status: Chronic Qualifiers: Diabetes mellitus type: type 2 Diabetes mellitus jail insulin use: with jail use Diabetes mellitus complication status: with kidney complications Diabetes mellitus complication detail: with chronic kidney disease Chronic kidney disease stage: stage 4 (severe) Qualified Code(s): E11.22 - Type 2 diabetes mellitus with diabetic chronic kidney disease; N18.4 - Chronic kidney disease, stage 4 (severe); N18.4 - Chronic kidney disease, stage 4 (severe); N18.4 - Chronic kidney disease, stage 4 (severe); N18.4 - Chronic kidney disease, stage 4 (severe); 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 (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; Z79.4 - half-way (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; 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 (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; Z79.4 - half-way (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 (2) DVT prophylaxis Current Visit: Yes Status: Acute (3) A-fib Current Visit: Yes Status: Chronic Qualifiers: Atrial fibrillation type: chronic Qualified Code(s): I48.2 - Chronic atrial fibrillation (4) UTI (urinary tract infection) Current Visit: Yes Status: Acute Qualifiers: Urinary tract infection type: acute cystitis Hematuria presence: without hematuria Qualified Code(s): N30.00 - Acute cystitis without hematuria (5) HTN (hypertension) Current Visit: Yes Status: Chronic Qualifiers: Hypertension type: essential hypertension Qualified Code(s): I10 - Essential (primary) hypertension (6) Anemia in chronic kidney disease (CKD) Current Visit: Yes Status: Chronic Qualifiers: Chronic kidney disease stage: on chronic dialysis Qualified Code(s): N18.6 - End stage renal disease; D63.1 - Anemia in chronic kidney disease; D63.1 - Anemia in chronic kidney disease; Z99.2 - Dependence on renal dialysis; Z99.2 - Dependence on renal dialysis; Z99.2 - Dependence on renal dialysis; Z99.2 - Dependence on renal dialysis (7) ESRD (end stage renal disease) Current Visit: Yes Status: Chronic (8) Fluid overload Current Visit: Yes Status: Acute Qualifiers: Hypervolemia type: other Qualified Code(s): E87.79 - Other fluid overload (9) Hypokalemia Current Visit: Yes Status: Resolved - Time Spent With Patient Total time spent is greater than 50% in coordination of care (as documented) at patient's floor/unit and/or counseling patient: - Subjective Interval history: Pt seen and examined in dialysis. Resting in bed and reports of feeling better compared to previous day. Currently saturating well on 3L NC. Pt to be evaluated by PT/OT after hemodialysis, likely will need ECF. garnett room worker on board for discharge disposition tentative d/c in am pt encouraged to get out of bed to chair and increase activity as tolerated with assistance - Assessment and plan (1) Fluid overload Current Visit: Yes Status: Acute Assessment and plan: Improving. Pulmonary input appreciated. S/P thoracentesis on 07/12/17 with removal of 1L pleural fluid Nephrology on board and consultation appreciated, s/p HD today (07/15/17) Respiratory status improving, currently saturating well on 5L NC, will continue HD on MWF, monitor daily weights, strict I/Os, fluid restriction diet Qualifiers: Hypervolemia type: other Qualified Code(s): E87.79 - Other fluid overload (2) ESRD (end stage renal disease) Current Visit: Yes Status: Chronic Assessment and plan: Nephrology consultation appreciated Continue M-W-F dialysis. (3) UTI (urinary tract infection) Current Visit: Yes Status: Acute Assessment and plan: Continue renally-dosed levaquin. Follow up on urine culture. Qualifiers: Urinary tract infection type: acute cystitis Hematuria presence: without hematuria Qualified Code(s): N30.00 - Acute cystitis without hematuria (4) Hypokalemia Current Visit: Yes Status: Resolved Assessment and plan: Resolved. K = 4.6 (5) Anemia in chronic kidney disease (CKD) Current Visit: Yes Status: Chronic Assessment and plan: H&H low but acceptable Baseline hemoglobin appears to be between 8-9. Continue to monitor. No acute bleeding reported at this time Qualifiers: Chronic kidney disease stage: on chronic dialysis Qualified Code(s): N18.6 - End stage renal disease; D63.1 - Anemia in chronic kidney disease; D63.1 - Anemia in chronic kidney disease; Z99.2 - Dependence on renal dialysis; Z99.2 - Dependence on renal dialysis; Z99.2 - Dependence on renal dialysis; Z99.2 - Dependence on renal dialysis (6) A-fib Current Visit: Yes Status: Chronic Assessment and plan: Continue telemetry and home metoprolol. Qualifiers: Atrial fibrillation type: chronic Qualified Code(s): I48.2 - Chronic atrial fibrillation (7) Diabetes mellitus Current Visit: Yes Status: Chronic Assessment and plan: Continue Sliding scale insulin algorithm in addition to home basal insulin monitor FS and BG ADA diet Qualifiers: Diabetes mellitus type: type 2 Diabetes mellitus jail insulin use: with jail use Diabetes mellitus complication status: with kidney complications Diabetes mellitus complication detail: with chronic kidney disease Chronic kidney disease stage: stage 4 (severe) Qualified Code(s): E11.22 - Type 2 diabetes mellitus with diabetic chronic kidney disease; N18.4 - Chronic kidney disease, stage 4 (severe); N18.4 - Chronic kidney disease, stage 4 (severe); N18.4 - Chronic kidney disease, stage 4 (severe); N18.4 - Chronic kidney disease, stage 4 (severe); 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 Qualifiers: Hypertension type: essential hypertension Qualified Code(s): I10 - Essential (primary) hypertension (9) DVT prophylaxis Current Visit: Yes Status: Acute Assessment and plan: Heparin SQ - Constitutional Vitals: Temp Pulse Resp BP Pulse Ox 97 F L 107 18 140/63 98 07/15/17 13:04 07/15/17 12:00 07/15/17 13:04 07/15/17 13:04 07/15/17 12:00 General appearance: Present: cooperative, A&O X 3, pleasant, no acute distress, obese, answers questions appropriately - Head Head exam: Present: atraumatic, normocephalic - Eye Eye exam: Present: conjuntiva pink, sclera anicteric - Respiratory Respiratory exam: Absent: respiratory distress, wheezes (scattered rales) - Cardiovascular Cardiovascular exam: Present: RRR, +S1, +S2. Absent: diastolic murmur, gallop, rubs, systolic murmur - GI/Abdominal GI/Abdominal exam: Present: normal bowel sounds, soft, no peritoneal signs. Absent: distended, tenderness - Extremities Exam Extremities exam: Present: pedal edema (2+ pitting edema), warm, radial pulses palpable and symmetrical. Absent: calf tenderness - Neurological Exam Neurological exam: Present: oriented X3 Internal Medicine: Result - Labs CBC & Chem 7: 07/15/17 05:22 07/15/17 05:22 Labs: Short CBC 07/15/17 Range/Units 05:22 WBC 6.6 (4.3-11.1) K/mcL Hgb 9.7 L (11.5-15.4) g/dL Hct 33.4 L (35.3-44.9) % Plt Count 175 (140-400) K/mcL Neutrophils # 4.2 (1.6-8.9) K/mcL BMP 07/15/17 05:22 Sodium 134 L Potassium 4.6 Chloride 99 Carbon Dioxide 29 BUN 27 H Creatinine 3.65 H Glucose 109 H Calcium 8.9 - ABG Interpretation ABG results: PT/INR, D-dimer PT 11.7 Seconds (9.4-12.1) 07/11/17 03:32 Consult Discharge Plan - Plan Referrals: Krystle Henderson [Primary Care Provider] - 07/16/17 9:30 am (Please bring your insurance card and photo id. Also please bring your green discharge folder with your discharge paper work in it to your appointment. Thank you!)
[2017-07-15] MEDS: Insulin LISPRO 300 UNITS/3 ML VIAL SQ SCH ×3 (15:32→22:05)
[2017-07-15] MEDS: Furosemide 40 MG/4 ML VIAL IVP SCH ×2 (15:32→17:31)
[2017-07-15] MEDS: hydrALAZINE 25 MG TABLET PO SCH ×3 (15:33→22:01)
[2017-07-15] MEDS: Sennosides/Docusate Sodium TABLET PO SCH ×2 (15:33→22:01)
[2017-07-15] MEDS: Fluticasone Propionate Nasal 50 MCG/SPRAY BOTTLE NS SCH ×2 (17:21→22:03)
[2017-07-15] MEDS: Cholecalciferol (D-3) 1,000 UNIT TABLET PO SCH (17:22)
--- NOTE | 2017-07-15 17:26 | Nephrology Progress Note ---
Date of Encounter: 07/15/17 Time of Encounter: 11:00 - Assessment and Plan (1) ESRD (end stage renal disease) Current Visit: Yes Status: Chronic Continue HD with UF as tolerated Aggressive UF has been successful overall Lytes stable and WNL Ok to discharge from a renal standpoint. Next HD for thursday if still hospitalized (2) Anemia in chronic kidney disease (CKD) Current Visit: Yes Status: Chronic Hgb fairly stable at 9.7, will monitor Qualifiers: Chronic kidney disease stage: on chronic dialysis Qualified Code(s): N18.6 - End stage renal disease; D63.1 - Anemia in chronic kidney disease; D63.1 - Anemia in chronic kidney disease; Z99.2 - Dependence on renal dialysis; Z99.2 - Dependence on renal dialysis; Z99.2 - Dependence on renal dialysis; Z99.2 - Dependence on renal dialysis Subjective Principal diagnosis: ESRD on dialysis, anemia Interval history: Pt seen and examined on HD doing well with less SOB and LE edema Objective - Vital Signs Vital signs: Vital Signs Temp Pulse Resp BP Pulse Ox 07/15/17 15:23 98.3 F 93 18 134/68 97 07/15/17 13:04 97 F L 18 140/63 07/15/17 12:35 123/64 07/15/17 12:20 120/51 07/15/17 12:05 129/45 07/15/17 12:00 98.2 F 107 16 124/68 98 07/15/17 11:50 143/63 07/15/17 11:35 126/59 07/15/17 11:20 131/56 07/15/17 11:05 137/46 07/15/17 10:50 111/42 07/15/17 10:35 140/58 07/15/17 10:20 142/52 07/15/17 10:05 132/56 07/15/17 09:50 155/59 07/15/17 09:35 140/57 07/15/17 09:20 131/63 07/15/17 09:05 98.8 F 18 153/44 07/15/17 07:06 97.8 F 78 16 159/65 93 07/15/17 04:22 98 F 80 17 145/67 96 07/15/17 03:47 20 92 07/15/17 00:20 98.5 F 91 18 141/67 93 07/14/17 23:50 18 94 07/14/17 21:23 98.2 F 74 16 129/63 99 Intake and Output 07/15/17 07/15/17 07/15/17 07:59 15:59 23:59 Intake Total 840 / 840 Output Total 175 / 175 4700 / 4700 Balance -175 / -175 -3860 / -3860 Intake: Oral 240 / 240 Intake, Rinseback and Flushes 600 / 600 Output: Urine 0 / 0 Total Dialysis (HD) Output 4600 / 4600 Catheter 175 / 175 100 / 100 Other: Meal Lunch Percent of Meal Consumed 0% Weight 97.6 kg Blood Glucose* 84 131 Hemodialysis Net Fluid Removed 4000 (mL) Patient Weight 07/15/17 23:59 Weight 97.6 kg - General Appearance General appearance: Present: chronically ill EENT: Present: ATNC, mucous membranes moist Neck: Present: no JVD, supple Respiratory: Present: clear Cardiology: Present: edema (decreased, now trace LE bilat), normal S1, normal S2 Dialysis Vascular Access: Venous Catheter Gastrointestinal: Present: no tenderness, no guarding Integumentary: Present: warm and dry Neurologic: Present: no focal deficit Musculoskeletal: Present: no deformities Psychiatric: Present: cooperative - Lab 07/15/17 05:22 07/15/17 05:22 Most recent lab results Calcium 8.9 mg/dL (8.6-10.3) 07/15/17 05:22 Phosphorus 3.5 mg/dL (2.7-4.5) 07/15/17 05:22 Magnesium 1.8 mg/dL (1.6-2.6) 07/15/17 05:22 Consult Discharge Plan - Plan Referrals: Krystle Henderson [Primary Care Provider] - 07/16/17 9:30 am (Please bring your insurance card and photo id. Also please bring your green discharge folder with your discharge paper work in it to your appointment. Thank you!)
[2017-07-15] MEDS: Gabapentin 300 MG CAPSULE PO SCH (17:31)
[2017-07-15] MEDS: Metoprolol XL (24 HR) Succ 25 MG TAB.ER.24H PO SCH (17:31)
[2017-07-15] MEDS: Isosorbide MONOnitrate (24 HR) 60 MG TAB.ER.24H PO SCH (17:31)
[2017-07-15] MEDS: amLODIPine 5 MG TABLET PO SCH (17:32)
[2017-07-15] MEDS: Melatonin 3 MG TABLET PO SCH (22:01)
[2017-07-15] MEDS: Insulin DETEMIR 100 UNIT/ML X5UNITS SQ SCH (22:05)
[2017-07-16] MEDS: Ipratropium/Albuterol Neb 3 ML IH SCH ×4 (03:35→22:36)
[2017-07-16] MEDS: *HR* Heparin 5,000 UNIT/ML VIAL SQ SCH ×2 (06:04→17:15)
[2017-07-16 07:52] LABS: Basophils % 0.3 %; Eosinophils % 0.5 %; Hematocrit 31.9 % (35.3-44.9); Hemoglobin 9.6 g/dL (11.5-15.4); Immature Granulocytes % 0.6 % (0-4); Lymphocytes # 0.7 K/mcL (0.6-4.6); Lymphocytes % 11.4 %; Mean Corpuscular HGB Conc 30.1 g/dL (31.6-35.5); Mean Corpuscular Volume 102.9 fL (83.0-100.0); Mean Platelet Volume 10.8 fL (9.4-12.4); Monocytes # 1.7 K/mcL (0.0-1.3); Monocytes % 26.8 %; Neutrophils # 3.8 K/mcL (1.6-8.9); Platelet Count 207 K/mcL (140-400); Segmented Neutrophils % 60.4 %
[2017-07-16 07:55] LABS: Calcium 8.6 mg/dL (8.6-10.3); Magnesium 1.8 mg/dL (1.6-2.6); Phosphorous 2.8 mg/dL (2.7-4.5)
[2017-07-16] MEDS: Insulin LISPRO 300 UNITS/3 ML VIAL SQ SCH ×4 (08:12→21:18)
[2017-07-16 08:24] LABS: Platelet Estimate Normal (Normal)
[2017-07-16] MEDS: levoFLOXacin 500 MG TABLET PO SCH (08:29)
[2017-07-16] MEDS: amLODIPine 5 MG TABLET PO SCH (08:29)
[2017-07-16] MEDS: Metoprolol XL (24 HR) Succ 25 MG TAB.ER.24H PO SCH (08:29)
[2017-07-16] MEDS: Sennosides/Docusate Sodium TABLET PO SCH ×2 (08:29→22:23)
[2017-07-16] MEDS: Furosemide 40 MG/4 ML VIAL IVP SCH (08:29)
[2017-07-16] MEDS: Cholecalciferol (D-3) 1,000 UNIT TABLET PO SCH (08:29)
[2017-07-16] MEDS: hydrALAZINE 25 MG TABLET PO SCH ×3 (08:29→22:23)
[2017-07-16] MEDS: Gabapentin 300 MG CAPSULE PO SCH (08:29)
[2017-07-16] MEDS: Isosorbide MONOnitrate (24 HR) 60 MG TAB.ER.24H PO SCH (08:29)
[2017-07-16] MEDS: Fluticasone Propionate Nasal 50 MCG/SPRAY BOTTLE NS SCH ×2 (08:38→22:22)
--- NOTE | 2017-07-16 10:55 | Nephrology Progress Note ---
<Natty Peña - Last Filed: 07/16/17 10:56> Date of Encounter: 07/16/17 Time of Encounter: 10:53 - Assessment and Plan (1) ESRD (end stage renal disease) Status: Chronic Plan for HD tomorrow if still here; waiting for rehab placement Continue strict I/Os Avoid neprhotoxins if possible (2) Anemia in chronic kidney disease (CKD) Status: Chronic Hgb 9.6 stable Goal hgb 10-11 Qualifiers: Chronic kidney disease stage: on chronic dialysis Qualified Code(s): N18.6 - End stage renal disease; D63.1 - Anemia in chronic kidney disease; D63.1 - Anemia in chronic kidney disease; Z99.2 - Dependence on renal dialysis; Z99.2 - Dependence on renal dialysis; Z99.2 - Dependence on renal dialysis; Z99.2 - Dependence on renal dialysis Subjective Principal diagnosis: ESRD on dialysis, anemia Interval history: Patient seen and examined, sleeping soundly. Waiting for rehab placement per hospitalist. Objective - Vital Signs Vital signs: Vital Signs Temp Pulse Resp BP Pulse Ox 07/16/17 10:15 18 95 07/16/17 09:10 98.6 F 07/16/17 07:13 98.6 F 93 18 126/65 92 07/16/17 04:20 97.9 F 108 18 131/68 93 07/16/17 03:36 20 93 07/15/17 23:46 97.8 F 97 18 123/64 95 07/15/17 22:13 17 95 07/15/17 20:24 98.2 F 96 18 122/64 98 07/15/17 15:49 18 91 07/15/17 15:23 98.3 F 93 18 134/68 97 07/15/17 13:04 97 F L 18 140/63 07/15/17 12:35 123/64 07/15/17 12:20 120/51 07/15/17 12:05 129/45 07/15/17 12:00 98.2 F 107 16 124/68 98 07/15/17 11:50 143/63 07/15/17 11:35 126/59 07/15/17 11:20 131/56 07/15/17 11:05 137/46 Intake and Output 07/15/17 07/16/17 07/16/17 23:59 07:59 15:59 Intake Total 0 / 0 0 / 0 240 / 240 Output Total 100 / 100 50 / 50 Balance -100 / -100 -50 / -50 240 / 240 Intake: Oral 0 / 0 0 / 0 240 / 240 Output: Urine 0 / 0 Catheter 100 / 100 50 / 50 Other: Meal Breakfast Percent of Meal Consumed 80% Weight 95.3 kg Blood Glucose* 125 79 Patient Weight 07/16/17 23:59 Weight 95.3 kg - General Appearance General appearance: Present: well-developed, well-nourished, obese EENT: Present: ATNC Neck: Present: supple Cardiology: Present: no edema, normal S1, normal S2 Dialysis Vascular Access: Venous Catheter Gastrointestinal: Present: no tenderness, no guarding Integumentary: Present: warm and dry - Lab 07/16/17 06:44 07/16/17 06:44 Most recent lab results Calcium 8.6 mg/dL (8.6-10.3) 07/16/17 06:44 Phosphorus 2.8 mg/dL (2.7-4.5) 07/16/17 06:44 Magnesium 1.8 mg/dL (1.6-2.6) 07/16/17 06:44 Consult Discharge Plan - Plan Additional Instructions: Please follow up with your primary care physician within five days after your discharge from the hospital. Please follow up with nephrology and continue your scheduled hemodialysis sessions after discharge. Continue oral antibiotics as prescribed. Resume all other medications as prescribed by your primary care physician. Referrals: Krystel Henderson [Primary Care Provider] - 07/23/17 1:00 pm (Please bring your insurance card and photo id. Also please bring your green discharge folder with your discharge paper work in it to your appointment. Thank you!) <Fabián Colunga - Last Filed: 08/13/17 22:46> Date of Encounter: 07/16/17 - Assessment and Plan (1) ESRD (end stage renal disease) Status: Chronic (2) Anemia in chronic kidney disease (CKD) Status: Chronic Qualifiers: Chronic kidney disease stage: on chronic dialysis Qualified Code(s): N18.6 - End stage renal disease; D63.1 - Anemia in chronic kidney disease; D63.1 - Anemia in chronic kidney disease; Z99.2 - Dependence on renal dialysis; Z99.2 - Dependence on renal dialysis; Z99.2 - Dependence on renal dialysis; Z99.2 - Dependence on renal dialysis Objective - Lab 07/17/17 04:44 07/17/17 04:44 Most recent lab results Calcium 8.9 mg/dL (8.6-10.3) 07/17/17 04:44 Phosphorus 3.2 mg/dL (2.7-4.5) 07/17/17 04:44 Magnesium 1.9 mg/dL (1.6-2.6) 07/17/17 04:44 - Attending Attestation I examined this patient and my medical decision-making was reviewed with the Resident Physician/EXTRACTOR FILLER. I agree with the documented findings, disposition and treatment plan as described except to the extent set forth below. Pt seen and examined feeling much better after aggressive fluid removal via HD/ UF. LE edema significantly diminished. Next HD planned tomorrow if still hospitalized. Continue strict I/Os. Continue fluid restriction.
--- NOTE | 2017-07-16 14:21 | Internal Med Progress Note ---
Date of Encounter: 07/16/17 Time of Encounter: 14:05 - Assessment and plan (1) Diabetes mellitus Current Visit: Yes Status: Chronic Qualifiers: Diabetes mellitus type: type 2 Diabetes mellitus correction insulin use: with correction use Diabetes mellitus complication status: with kidney complications Diabetes mellitus complication detail: with chronic kidney disease Chronic kidney disease stage: stage 4 (severe) Qualified Code(s): E11.22 - Type 2 diabetes mellitus with diabetic chronic kidney disease; N18.4 - Chronic kidney disease, stage 4 (severe); N18.4 - Chronic kidney disease, stage 4 (severe); N18.4 - Chronic kidney disease, stage 4 (severe); N18.4 - Chronic kidney disease, stage 4 (severe); 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; Z79.4 - correction (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; 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; Z79.4 - correction (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 (2) DVT prophylaxis Current Visit: Yes Status: Acute (3) A-fib Current Visit: Yes Status: Chronic Qualifiers: Atrial fibrillation type: chronic Qualified Code(s): I48.2 - Chronic atrial fibrillation (4) UTI (urinary tract infection) Current Visit: Yes Status: Acute Qualifiers: Urinary tract infection type: acute cystitis Hematuria presence: without hematuria Qualified Code(s): N30.00 - Acute cystitis without hematuria (5) HTN (hypertension) Current Visit: Yes Status: Chronic Qualifiers: Hypertension type: essential hypertension Qualified Code(s): I10 - Essential (primary) hypertension (6) Anemia in chronic kidney disease (CKD) Current Visit: Yes Status: Chronic Qualifiers: Chronic kidney disease stage: on chronic dialysis Qualified Code(s): N18.6 - End stage renal disease; D63.1 - Anemia in chronic kidney disease; D63.1 - Anemia in chronic kidney disease; Z99.2 - Dependence on renal dialysis; Z99.2 - Dependence on renal dialysis; Z99.2 - Dependence on renal dialysis; Z99.2 - Dependence on renal dialysis (7) ESRD (end stage renal disease) Current Visit: Yes Status: Chronic (8) Fluid overload Current Visit: Yes Status: Acute Qualifiers: Hypervolemia type: other Qualified Code(s): E87.79 - Other fluid overload (9) Hypokalemia Current Visit: Yes Status: Resolved - Time Spent With Patient Total time spent is greater than 50% in coordination of care (as documented) at patient's floor/unit and/or counseling patient: - Subjective Interval history: Pt seen and examined at bedside. Saturating well on 4L NC. PT evaluation recommended ECF D/C pending ECF placement tentative D/C in am pt encouraged to get out of bed to chair and increase activity as tolerated with assistance - Assessment and plan (1) Fluid overload Current Visit: Yes Status: Acute Assessment and plan: Improving. Pulmonary input appreciated. S/P thoracentesis on 07/12/17 with removal of 1L pleural fluid Nephrology on board and consultation appreciated, s/p HD (07/15/17) Respiratory status improving, currently saturating well on 5L NC, will continue HD on MWF, monitor daily weights, strict I/Os, fluid restriction diet will switch to PO lasix (home dose of 80mg PO BID) Qualifiers: Hypervolemia type: other Qualified Code(s): E87.79 - Other fluid overload (2) ESRD (end stage renal disease) Current Visit: Yes Status: Chronic Assessment and plan: Nephrology consultation appreciated Continue M-W-F dialysis. (3) UTI (urinary tract infection) Current Visit: Yes Status: Acute Assessment and plan: Continue renally-dosed levaquin. Follow up on urine culture. Qualifiers: Urinary tract infection type: acute cystitis Hematuria presence: without hematuria Qualified Code(s): N30.00 - Acute cystitis without hematuria (4) Hypokalemia Current Visit: Yes Status: Resolved Assessment and plan: Resolved. K = 4.0 (5) Anemia in chronic kidney disease (CKD) Current Visit: Yes Status: Chronic Assessment and plan: H&H low but acceptable Baseline hemoglobin appears to be between 8-9. Continue to monitor. No acute bleeding reported at this time Qualifiers: Chronic kidney disease stage: on chronic dialysis Qualified Code(s): N18.6 - End stage renal disease; D63.1 - Anemia in chronic kidney disease; D63.1 - Anemia in chronic kidney disease; Z99.2 - Dependence on renal dialysis; Z99.2 - Dependence on renal dialysis; Z99.2 - Dependence on renal dialysis; Z99.2 - Dependence on renal dialysis (6) A-fib Current Visit: Yes Status: Chronic Assessment and plan: Continue telemetry and home metoprolol. Qualifiers: Atrial fibrillation type: chronic Qualified Code(s): I48.2 - Chronic atrial fibrillation (7) Diabetes mellitus Current Visit: Yes Status: Chronic Assessment and plan: Continue Sliding scale insulin algorithm in addition to home basal insulin monitor FS and BG ADA diet Qualifiers: Diabetes mellitus type: type 2 Diabetes mellitus correction insulin use: with correction use Diabetes mellitus complication status: with kidney complications Diabetes mellitus complication detail: with chronic kidney disease Chronic kidney disease stage: stage 4 (severe) Qualified Code(s): E11.22 - Type 2 diabetes mellitus with diabetic chronic kidney disease; N18.4 - Chronic kidney disease, stage 4 (severe); N18.4 - Chronic kidney disease, stage 4 (severe); N18.4 - Chronic kidney disease, stage 4 (severe); N18.4 - Chronic kidney disease, stage 4 (severe); 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 Qualifiers: Hypertension type: essential hypertension Qualified Code(s): I10 - Essential (primary) hypertension (9) DVT prophylaxis Current Visit: Yes Status: Acute Assessment and plan: Heparin SQ - Constitutional Vitals: Temp Pulse Resp BP Pulse Ox 97.9 F 100 16 112/60 91 07/16/17 11:15 07/16/17 11:15 07/16/17 11:15 07/16/17 11:15 07/16/17 11:15 General appearance: Present: cooperative, A&O X 3, pleasant, no acute distress, obese, answers questions appropriately - Head Head exam: Present: atraumatic, normocephalic - Eye Eye exam: Present: conjuntiva pink, sclera anicteric - Respiratory Respiratory exam: Absent: rales, respiratory distress, wheezes - Cardiovascular Cardiovascular exam: Present: RRR, +S1, +S2. Absent: diastolic murmur, gallop, rubs, systolic murmur - GI/Abdominal GI/Abdominal exam: Present: normal bowel sounds, soft. Absent: distended, tenderness - Extremities Exam Extremities exam: Present: pedal edema (pitting edema in b/l LE ), warm, radial pulses palpable and symmetrical. Absent: calf tenderness - Neurological Exam Neurological exam: Present: oriented X3 Internal Medicine: Result - Labs CBC & Chem 7: 07/16/17 06:44 07/16/17 06:44 Labs: Short CBC 07/16/17 Range/Units 06:44 WBC 6.3 (4.3-11.1) K/mcL Hgb 9.6 L (11.5-15.4) g/dL Hct 31.9 L (35.3-44.9) % Plt Count 207 (140-400) K/mcL Neutrophils # 3.8 (1.6-8.9) K/mcL BMP 07/16/17 06:44 Sodium 135 L Potassium 4.0 Chloride 101 Carbon Dioxide 30 H BUN 18 Creatinine 2.58 H Glucose 81 Calcium 8.6 - ABG Interpretation ABG results: PT/INR, D-dimer PT 11.7 Seconds (9.4-12.1) 07/11/17 03:32 Consult Discharge Plan - Plan Referrals: Krystle Henderson [Primary Care Provider] - 07/23/17 1:00 pm (Please bring your insurance card and photo id. Also please bring your green discharge folder with your discharge paper work in it to your appointment. Thank you!)
[2017-07-16] MEDS: Furosemide 40 MG TABLET PO SCH (17:15)
[2017-07-16] MEDS: Insulin DETEMIR 100 UNIT/ML X5UNITS SQ SCH (22:23)
[2017-07-16] MEDS: Melatonin 3 MG TABLET PO SCH (22:23)
[2017-07-17] MEDS: Ipratropium/Albuterol Neb 3 ML IH SCH ×3 (04:46→15:15)
[2017-07-17 05:15] LABS: Basophils % 0.2 %; Eosinophils % 0.6 %; Hematocrit 31.5 % (35.3-44.9); Hemoglobin 9.3 g/dL (11.5-15.4); Immature Granulocytes % 0.9 % (0-4); Lymphocytes # 0.7 K/mcL (0.6-4.6); Lymphocytes % 11.1 %; Mean Corpuscular HGB Conc 29.5 g/dL (31.6-35.5); Mean Corpuscular Volume 101.6 fL (83.0-100.0); Mean Platelet Volume 10.6 fL (9.4-12.4); Monocytes # 1.8 K/mcL (0.0-1.3); Monocytes % 27.3 %; Platelet Count 211 K/mcL (140-400); Red Cell Distribution Width 17.1 % (11.5-14.5); Segmented Neutrophils % 59.9 %
[2017-07-17 05:33] LABS: Calcium 8.9 mg/dL (8.6-10.3); Magnesium 1.9 mg/dL (1.6-2.6); Phosphorous 3.2 mg/dL (2.7-4.5); Potassium 4.5 mEq/L (3.5-5.1)
[2017-07-17] MEDS: *HR* Heparin 5,000 UNIT/ML VIAL SQ SCH (05:44)
[2017-07-17 05:45] LABS: Platelet Estimate Normal (Normal)
[2017-07-17] MEDS ORDERED: 0.9 % Sodium Chloride 2,000 ML ONE (07:15)
[2017-07-17] MEDS ORDERED: 0.9 % Sodium Chloride 250 ML IVC PRN (07:47)
[2017-07-17] MEDS ORDERED: *HR* Heparin 10,000 UNIT/10 ML VIAL IV PRN (07:47)
[2017-07-17] MEDS ORDERED: 0.9 % Sodium Chloride 1,000 ML PRIME SCH (08:00)
[2017-07-17] MEDS: Insulin LISPRO 300 UNITS/3 ML VIAL SQ SCH ×2 (08:04→11:29)
[2017-07-17] MEDS: Gabapentin 300 MG CAPSULE PO SCH (08:19)
[2017-07-17] MEDS: Cholecalciferol (D-3) 1,000 UNIT TABLET PO SCH (08:19)
[2017-07-17] MEDS: Sennosides/Docusate Sodium TABLET PO SCH (08:19)
[2017-07-17] MEDS: Furosemide 40 MG TABLET PO SCH (08:19)
[2017-07-17] MEDS: Fluticasone Propionate Nasal 50 MCG/SPRAY BOTTLE NS SCH (08:20)
[2017-07-17] MEDS: hydrALAZINE 25 MG TABLET PO SCH ×2 (12:07→15:04)
--- NOTE | 2017-07-17 13:12 | Discharge Summary ---
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 use Diabetes mellitus complication status: with kidney complications Diabetes mellitus complication detail: with chronic kidney disease Chronic kidney disease stage: stage 4 (severe) Qualified Code(s): E11.22 - Type 2 diabetes mellitus with diabetic chronic kidney disease; N18.4 - Chronic kidney disease, stage 4 (severe); N18.4 - Chronic kidney disease, stage 4 (severe); N18.4 - Chronic kidney disease, stage 4 (severe); N18.4 - Chronic kidney disease, stage 4 (severe); Z79.4 - retirement (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; Z79.4 - retirement (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; Z79.4 - retirement (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; Z79.4 - retirement (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 (2) DVT prophylaxis Priority: Secondary Status: Acute (3) A-fib Priority: Secondary Status: Chronic Qualifiers: Atrial fibrillation type: chronic Qualified Code(s): I48.2 - Chronic atrial fibrillation (4) UTI (urinary tract infection) Priority: Secondary Status: Acute Qualifiers: Urinary tract infection type: acute cystitis Hematuria presence: without hematuria Qualified Code(s): N30.00 - Acute cystitis without hematuria (5) HTN (hypertension) Priority: Secondary Status: Chronic Qualifiers: Hypertension type: essential hypertension Qualified Code(s): I10 - Essential (primary) hypertension (6) Anemia in chronic kidney disease (CKD) Priority: Secondary Status: Chronic Qualifiers: Chronic kidney disease stage: on chronic dialysis Qualified Code(s): N18.6 - End stage renal disease; D63.1 - Anemia in chronic kidney disease; D63.1 - Anemia in chronic kidney disease; Z99.2 - Dependence on renal dialysis; Z99.2 - Dependence on renal dialysis; Z99.2 - Dependence on renal dialysis; Z99.2 - Dependence on renal dialysis (7) ESRD (end stage renal disease) Priority: Secondary Status: Chronic (8) Fluid overload Priority: Primary Status: Acute Qualifiers: Hypervolemia type: other Qualified Code(s): E87.79 - Other fluid overload (9) Hypokalemia Priority: Secondary Status: Resolved Hospital course: Ms. Dorsey is a 81 year old female with PMH of ESRD on HD(MWF), Afib, CHF, DM, HTN, HLD who was admitted for respiratory failure secondary to volume overload. She was followed by nephrology and had aggressive dialysis along with diuretic therapy. She also required thoracentesis with chest tube placement due to persistent pleural effusion. Pt was also treated with abx for UTI. She was evaluated by physical therapy and ECF was recommended. Pt's chest tube has been removed, she is saturating well on her baseline O2 supplementation. She is medically stable for discharge to ECF after finishing her hemodialysis today. Pt in agreement of the discharge care and plan. Discharge discussed with: patient, nurse, social work, case management - Time Spent with Patient Total time spent providing and/or coordinating discharge services: Greater than 30 minutes - Discharge Medications Home Medications: Amlodipine Besylate 10 mg PO DAILY 10/02/15 [History] DULoxetine [Cymbalta] 30 mg PO DAILY 10/02/15 [History] Gabapentin [Neurontin] 300 mg PO DAILY 10/02/15 [History] Insulin Glargine,Hum.rec.anlog [Lantus Solostar] 10 unit SQ HS 10/02/15 [History ] Cyclosporine [Restasis] 1 drop OP BID 04/14/17 [History] Ergocalciferol (VITAMIN D2) [Vitamin D] 400 unit PO DAILY 04/14/17 [History] Fluticasone Propionate Nasal [Flonase] 1 spr NS BID 04/14/17 [History] Melatonin 10 mg PO HS 04/14/17 [History] Metoprolol Succinate 25 mg PO DAILY 04/14/17 [History] Iron 65 mg PO DAILY #0 04/21/17 [Rx] Isosorbide MONOnitrate (24 HR) [Imdur] 60 mg PO DAILY #30 tab.er.24h 04/21/17 [ Rx] Furosemide [Lasix] 80 mg PO BID 07/10/17 [History] hydrALAZINE [HydrALAZINE] 50 mg PO TID 07/10/17 [History] Levalbuterol Tartrate [Xopenex Hfa] 2 puff IH Q4-6H 07/12/17 [History] Omeprazole [PriLOSEC] 40 mg PO DAILY 07/12/17 [History] Sevelamer [Renvela] 800 mg PO QID 07/12/17 [History] Acetaminophen [Tylenol] 650 mg PO Q6HR PRN tablet 07/17/17 [Rx] Polyethylene Glycol 3350 [MiraLAX] 17 gm PO DAILY powd.pack 07/17/17 [Rx] Sennosides/Docusate Sodium [Senna Plus] 1 each PO BID tablet 07/17/17 [Rx] levoFLOXacin [Levaquin] 500 mg PO Q48H #1 tablet 07/17/17 [Rx] Allergies/Adverse Reactions: 3 Allergy/AdvReac Type Severity Reaction Status Date / Time cephalexin [From Keflex] AdvReac Unknown Hypotension Verified 04/14/17 20:54 codeine AdvReac Hypotension Verified 04/14/17 20:54 lisinopril AdvReac See Verified 04/14/17 20:54 Comments Date of admission: 07/11/17 17:39 Primary care physician: Krystle Henderson Consults: 07/10/17 23:38 Consult to Pastoral Services [CONS] Routine Comment: 07/11/17 14:36 Consult to Pulmonology [CONS] Routine Consulting Provider: [facility] Katty Reason for Consult: Pleural Effusion, Thoracentesis? Time Notified: 14:36 Call Completed: Yes 07/12/17 07:55 Consult to Nephrology [CONS] Routine Consulting Provider: Kidney Katty/ALONDRA/JORGE LUIS/JUVENCIO Reason for Consult: ESRD, Dialysis Call Completed: No 07/13/17 08:45 Consult to Dialysis [CONS] ONCE 07/14/17 07:30 Consult to Dialysis [CONS] ONCE 07/14/17 13:22 Consult to Occupational Therapy [CONS] Routine Comment: Evaluate, develop and implement POC Reason for Consult: weakness Does patient have active BEDREST order?: No Is patient medically & hemodynamically stable?: Yes Patient assessed for mobility or mobilized this visit?: No Consult to Physical Therapy [CONS] Routine Comment: Evaluate, develop and implement POC Reason for Consult: weakness Does patient have active BEDREST order?: No Is patient medically & hemodynamically stable?: Yes Patient assessed for mobility or mobilized this visit?: Yes 07/15/17 08:45 Consult to Dialysis [CONS] ONCE 07/16/17 07:42 Consult to Oven Stripper [CONS] Routine Reason for SW Consult: needs ecf 07/17/17 08:00 Consult to Dialysis [CONS] ONCE Discharging clinician: Raven Boyd Anticipated date of discharge: 07/17/17 - Constitutional Vitals: Temp Pulse Resp BP Pulse Ox 97.8 F 92 16 131/64 94 07/17/17 10:54 07/17/17 10:54 07/17/17 10:54 07/17/17 10:54 07/17/17 10:54 General appearance: Present: cooperative, A&O X 3, pleasant, no acute distress, obese, answers questions appropriately - Head Head exam: Present: atraumatic, normocephalic - Eye Eye exam: Present: conjuntiva pink, sclera anicteric - Respiratory Respiratory exam: Absent: respiratory distress, wheezes - Cardiovascular Cardiovascular exam: Present: bradycardia - GI/Abdominal GI/Abdominal exam: Present: normal bowel sounds, soft, no peritoneal signs. Absent: distended, tenderness - Extremities Exam Extremities exam: Present: pedal edema, warm, radial pulses palpable and symmetrical. Absent: tenderness - Neurological Exam Neurological exam: Present: oriented X3 - Patient Status Disposition: Transfer SNF Condition: Good Functional capacity at discharge: uses cane/walker Overall status at discharge: patient is back to baseline - Discharge Instructions Follow Up With: Krystle Henderson [Primary Care Provider] - 07/23/17 1:00 pm (Please bring your insurance card and photo id. Also please bring your green discharge folder with your discharge paper work in it to your appointment. Thank you!) Additional Instructions: Please follow up with your primary care physician within five days after your discharge from the hospital. Please follow up with nephrology and continue your scheduled hemodialysis sessions after discharge. Continue oral antibiotics as prescribed. Resume all other medications as prescribed by your primary care physician. - Diet and Activity Activity: as per physical therapy, wear oxygen at all times, wear oxygen at night Diet: diabetic diet, low fat, low cholesterol, low salt diet
--- NOTE | 2017-07-17 15:34 | Physician Discharge Referral ---
ExtendedCare Referral Info Transfer To: ECF Provider in Charge after Transfer: PCP - Diagnosis (1) Diabetes mellitus Priority: Secondary Status: Chronic (2) DVT prophylaxis Priority: Secondary Status: Acute (3) A-fib Priority: Secondary Status: Chronic (4) UTI (urinary tract infection) Priority: Secondary Status: Acute (5) HTN (hypertension) Priority: Secondary Status: Chronic (6) Anemia in chronic kidney disease (CKD) Priority: Secondary Status: Chronic (7) ESRD (end stage renal disease) Priority: Secondary Status: Chronic (8) Fluid overload Priority: Primary Status: Acute (9) Hypokalemia Priority: Secondary Status: Resolved - Transfer Medications Home Medications: Amlodipine Besylate 10 mg PO DAILY 10/02/15 [History] DULoxetine [Cymbalta] 30 mg PO DAILY 10/02/15 [History] Gabapentin [Neurontin] 300 mg PO DAILY 10/02/15 [History] Insulin Glargine,Hum.rec.anlog [Lantus Solostar] 10 unit SQ HS 10/02/15 [History ] Cyclosporine [Restasis] 1 drop OP BID 04/14/17 [History] Ergocalciferol (VITAMIN D2) [Vitamin D] 400 unit PO DAILY 04/14/17 [History] Fluticasone Propionate Nasal [Flonase] 1 spr NS BID 04/14/17 [History] Melatonin 10 mg PO HS 04/14/17 [History] Metoprolol Succinate 25 mg PO DAILY 04/14/17 [History] Iron 65 mg PO DAILY #0 04/21/17 [Rx] Isosorbide MONOnitrate (24 HR) [Imdur] 60 mg PO DAILY #30 tab.er.24h 04/21/17 [ Rx] Furosemide [Lasix] 80 mg PO BID 07/10/17 [History] hydrALAZINE [HydrALAZINE] 50 mg PO TID 07/10/17 [History] Levalbuterol Tartrate [Xopenex Hfa] 2 puff IH Q4-6H 07/12/17 [History] Omeprazole [PriLOSEC] 40 mg PO DAILY 07/12/17 [History] Sevelamer [Renvela] 800 mg PO QID 07/12/17 [History] Acetaminophen [Tylenol] 650 mg PO Q6HR PRN tablet 07/17/17 [Rx] Polyethylene Glycol 3350 [MiraLAX] 17 gm PO DAILY powd.pack 07/17/17 [Rx] Sennosides/Docusate Sodium [Senna Plus] 1 each PO BID tablet 07/17/17 [Rx] levoFLOXacin [Levaquin] 500 mg PO Q48H #1 tablet 07/17/17 [Rx] Allergies/Adverse Reactions: 3 Allergy/AdvReac Type Severity Reaction Status Date / Time cephalexin [From Keflex] AdvReac Unknown Hypotension Verified 04/14/17 20:54 codeine AdvReac Hypotension Verified 04/14/17 20:54 lisinopril AdvReac See Verified 04/14/17 20:54 Comments - Respiratory Orders Smoking Cessation: Smoking cessation has been advised. For more information, call the [place] Tobacco Quit Line at 0-257-SCMKNOW. CERTIFICATION: I certify that the transfer of the above named patient to an Extended Care Facility is necessary for the continuing treatment of the diagnosis listed. The above information is true and accurate reflection of patient's current condition. Confidential - Redisclosure prohibited without a patient's written consent.
[2017-07-17 18:19] VITALS: BP 139/61
[2017-07-17] MEDS: Metoprolol XL (24 HR) Succ 25 MG TAB.ER.24H PO SCH (18:25)
[2017-07-17] MEDS: amLODIPine 5 MG TABLET PO SCH (18:25)
[2017-07-17] MEDS: Isosorbide MONOnitrate (24 HR) 60 MG TAB.ER.24H PO SCH (18:25)
--- NOTE | 2017-07-17 19:57 | Nephrology Progress Note ---
Date of Encounter: 07/17/17 Time of Encounter: 19:56 - Assessment and Plan (1) ESRD (end stage renal disease) Status: Chronic Patient seen on dialysis. She will be discharged today. Subjective Principal diagnosis: ESRD on dialysis, anemia Interval history: Patient seen on dialysis. No complaint. Objective - Vital Signs Vital signs: Vital Signs Temp Pulse Resp BP Pulse Ox 07/17/17 18:16 98.0 F 18 139/61 07/17/17 18:00 126/56 07/17/17 17:45 140/70 07/17/17 17:30 127/57 07/17/17 17:15 118/53 07/17/17 17:00 129/61 07/17/17 16:45 121/76 07/17/17 16:30 131/69 07/17/17 16:15 148/74 07/17/17 16:00 135/59 07/17/17 15:45 126/55 07/17/17 15:30 144/69 07/17/17 15:15 132/64 07/17/17 15:00 139/68 07/17/17 14:45 136/70 07/17/17 14:30 97.9 F 20 188/68 07/17/17 10:54 97.8 F 92 16 131/64 94 07/17/17 10:08 16 94 07/17/17 09:04 94 07/17/17 08:26 94 07/17/17 06:32 98.3 F 101 16 124/63 94 07/17/17 04:47 17 96 07/17/17 03:19 98.9 F 89 19 141/60 97 07/17/17 00:14 98.9 F 97 16 122/67 94 07/16/17 22:37 97 07/16/17 22:36 17 97 07/16/17 20:21 98.3 F 95 16 111/56 97 Intake and Output 07/17/17 07/17/17 07/17/17 07:59 15:59 23:59 Intake Total 960 / 960 Output Total 0 / 0 5000 / 5000 Balance 0 / 0 960 / 960 -5000 / -5000 Intake: Oral 360 / 360 Intake, Rinseback and Flushes 600 / 600 Output: Urine 0 / 0 Total Dialysis (HD) Output 4600 / 4600 Catheter 0 / 0 400 / 400 Urethral ([place]) 400 / 400 Other: Meal Breakfast Percent of Meal Consumed 100% Weight 91.3 kg 91.3 kg Blood Glucose* 89 131 86 Hemodialysis Net Fluid Removed 1625 4000 (mL) Patient Weight 07/17/17 23:59 Weight 91.3 kg - General Appearance General appearance: Present: well-developed EENT: Present: ATNC Cardiology: Present: regular rate - Lab 07/17/17 04:44 07/17/17 04:44 Most recent lab results Calcium 8.9 mg/dL (8.6-10.3) 07/17/17 04:44 Phosphorus 3.2 mg/dL (2.7-4.5) 07/17/17 04:44 Magnesium 1.9 mg/dL (1.6-2.6) 07/17/17 04:44 Consult Discharge Plan - Plan Additional Instructions: Please follow up with your primary care physician within five days after your discharge from the hospital. Please follow up with nephrology and continue your scheduled hemodialysis sessions after discharge. Continue oral antibiotics as prescribed. Resume all other medications as prescribed by your primary care physician. Referrals: Krystle Henderson [Primary Care Provider] - 07/23/17 1:00 pm (Please bring your insurance card and photo id. Also please bring your green discharge folder with your discharge paper work in it to your appointment. Thank you!)
== END 2017-07-17 18:55 | DRG 640 ==
LOC: 2ANU → SUATTDRO 07-11 17:39
PROVIDERS: ADMIT Internal Medicine Nephrology; ATTEND Internal Medicine

== ENCOUNTER 2017-11-04 17:18 | Observation (INO) ==
[2017-11-05] MEDS ORDERED: Naloxone 0.4 MG/ML INJ IVP PRN (01:20)
[2017-11-05] MEDS ORDERED: Ipratropium/Albuterol Neb 3 ML IH PRN ×2 (01:27→10:10)
[2017-11-05] MEDS ORDERED: *HR* Dextrose 50 % in Water (Syg) 50 ML SYRINGE IVP PRN (01:28)
[2017-11-05] MEDS ORDERED: Dextrose Gel 15 GM/37.5 ML TUBE PO PRN ×2 (01:28)
[2017-11-05] MEDS ORDERED: D5% in Water 1,000 ML IVC PRN (01:28)
[2017-11-05 01:55] LABS: Hematocrit 35.1 % (35.3-44.9); Hemoglobin 10.9 g/dL (11.5-15.4); Mean Corpuscular HGB Conc 31.1 g/dL (31.6-35.5); Mean Corpuscular Hemoglobin 30.9 pg (28.0-33.3); Mean Corpuscular Volume 99.4 fL (83.0-100.0); Mean Platelet Volume 10.4 fL (9.4-12.4); Platelet Count 172 K/mcL (140-400); Red Blood Count 3.53 M/mcL (3.82-4.97); Red Cell Distribution Width 17.2 % (11.5-14.5)
--- NOTE | 2017-11-05 02:09 | Internal Med History&Physical ---
Date of Encounter: 11/05/17 Time of Encounter: 01:30 Internal Medicine - H&P: HPI Admitted From: Home Plans for Post Hospital Care: Home History of present illness: Ms. Dorsey is a 81 year old female Patient states she was getting short of breath more and more with ambulation, and now starting to get short of breath even at rest. She had a similar episode like this back in June and had to be admitted for CHF exacerbation. She has a history of end-stage renal disease, starting about 5 months ago and actually went to dialysis on the morning of her admission. Her shortness of breath did improve afterwards, but not completely. She has a history of diastolic congestive heart failure with ejection fraction 60-65%. After dialysis she presented to the [place] [facility] where a chest x-ray showed pulmonary edema similar to previous exams. She was also in atrial fibrillation with RVR and a cardizem drip was started. She was transferred to [place] for further management. Past Med Surg Social Fam HX - Past Medical History Medical history: arthritis, atrial fibrillation, CHF, diabetes, dialysis, GERD, hyperlipidemia, hypertension, renal disease Psychiatric history: no psych history - Past Surgical History Surgical History: cholecystectomy, orthopedic, other, PJ/BSO Additional surgical history: left hip surgery. - Social History Smoking Status: Never smoker Smokeless Tobacco Status: No Alcohol use: none Drug use: none - Family History Brother Family Member Ethnicity: Non- Living Status: Still Living Hx Family Cancer: Yes Sister Family Member Ethnicity: Non- Living Status: Still Living Hx Family Respiratory Disorders: Yes (COPD) Hx Family Cancer: Yes Mother Family Member Ethnicity: Non- Living Status: Hx Family Cardiac Disorders: Yes Hx Family Respiratory Disorders: No Hx Family Cancer: Yes Hx Family Endocrine Disorder: Yes Hx Family Neurologic Disorders: Yes Father Adopted: No Family Member Ethnicity: Non- Living Status: Hx Family Cardiac Disorders: Yes ([place]) Hx Family Endocrine Disorder: Yes Internal Medicine - H&P: Meds Amlodipine Besylate 10 mg PO DAILY 10/02/15 [History] DULoxetine [Cymbalta] 30 mg PO DAILY 10/02/15 [History] Gabapentin [Neurontin] 300 mg PO TID 10/02/15 [History] Insulin Glargine,Hum.rec.anlog [Lantus Solostar] 10 unit SQ HS 10/02/15 [History ] Fluticasone Propionate Nasal [Flonase] 1 spr NS BID 04/14/17 [History] Melatonin 10 mg PO HS PRN 04/14/17 [History] Metoprolol Succinate 25 mg PO DAILY 04/14/17 [History] Iron 65 mg PO DAILY #0 04/21/17 [Rx] hydrALAZINE [HydrALAZINE] 50 mg PO TID 07/10/17 [History] Sevelamer [Renvela] 800 mg PO TID 07/12/17 [History] Acetaminophen [Tylenol] 650 mg PO Q6HR PRN tablet 07/17/17 [Rx] Ipratropium/Albuterol Neb [Duoneb] 3 ml IH TID PRN 11/04/17 [History] Isosorbide MONOnitrate (24 HR) [Imdur] 30 mg PO DAILY 11/04/17 [History] Loteprednol Etabonate [Lotemax] 5 ml OP DAILY 11/04/17 [History] Pantoprazole Sodium [Protonix] 40 mg PO DAILY 11/04/17 [History] 3 Allergy/AdvReac Type Severity Reaction Status Date / Time cephalexin [From Keflex] AdvReac Unknown Hypotension Verified 04/14/17 20:54 codeine AdvReac Hypotension Verified 04/14/17 20:54 lisinopril AdvReac See Verified 04/14/17 20:54 Comments All Systems PM: A 10-system review of systems was performed and is negative for pertinent findings except as documented above in the HPI. - Constitutional Vitals: Temp Pulse Resp BP Pulse Ox 97.8 F 87 18 126/56 95 11/04/17 23:50 11/04/17 23:50 11/04/17 23:50 11/04/17 23:50 11/04/17 23:50 General appearance: Present: cooperative, mild distress, A&O X 3, pleasant, answers questions appropriately - Head Head exam: Present: normal inspection - Eye Eye exam: Present: EOMI, normal appearance - Respiratory Respiratory exam: Present: decreased breath sounds, rales, respiratory distress , wheezes. Absent: chest wall tenderness, CTAB - Cardiovascular Cardiovascular exam: Present: irregular rhythm. Absent: diastolic murmur, systolic murmur - GI/Abdominal GI/Abdominal exam: Present: normal bowel sounds, soft. Absent: guarding, tenderness - Extremities Exam Extremities exam: Present: pedal edema, warm, radial pulses palpable and symmetrical. Absent: calf tenderness, tenderness - Neurological Exam Neurological exam: Present: oriented X3, strengths equal and symetr throughout. Absent: motor sensory deficit, facial droop, speech deficit - Skin Skin exam: Present: dry, normal color, rash, warm Internal Med - H&P Results - Labs CBC & Chem 7: 11/05/17 01:42 11/05/17 01:42 Labs: Short CBC 11/05/17 Range/Units 01:42 WBC 5.6 (4.3-11.1) K/mcL Hgb 10.9 L (11.5-15.4) g/dL Hct 35.1 L (35.3-44.9) % Plt Count 172 (140-400) K/mcL - Assessment and plan (1) Acute exacerbation of CHF (congestive heart failure) Current Visit: No Status: Acute Assessment and plan: Patient had crackles on lung exam as well as bilateral pitting edema on lower extremities. She is on 4L of oxygen via nasal cannula at home, and currently she is saturating in the high 80's at 5L. Her baseline is around 89-90%. Likely would benefit from an additional dialysis day to help offload some fluid as she is ESRD and this improved her symptoms in the past. Consult nephrology Monitor O2 saturation Patient states that breathing treatments help as well, continue as needed. Qualifiers: Qualified Code(s): I50.33 - Acute on chronic diastolic (congestive) heart failure (2) Acute and chronic respiratory failure Current Visit: No Status: Acute Assessment and plan: Worsened secondary to fluid overload, treatment as above. Qualifiers: Respiratory failure complication: hypoxia Qualified Code(s): J96.21 - Acute and chronic respiratory failure with hypoxia (3) Fluid overload Current Visit: No Status: Acute Assessment and plan: Secondary to ESRD, treatment as above. Qualifiers: Hypervolemia type: other Qualified Code(s): E87.79 - Other fluid overload (4) ESRD (end stage renal disease) Current Visit: No Status: Chronic Assessment and plan: Has been on dialysis for about 5 months. Had dialysis on day of admission. Consult nephrology Consider additional dialysis session to improve fluid overload. (5) Elevated troponin Current Visit: No Status: Chronic Assessment and plan: At [facility] troponins were <0.017, which is normal range, repeat was 0.05. Likely related to CHF, patient denies chest pain but does have chest pressure and shortness of breath. Patient also known afib patient, currently on cardizem drip. Repeat EKG similar to previous at [place]. Continue to monitor troponins. Consider cardiology consult if troponins continue to increase despite treatment for CHF. (6) Atrial fibrillation with rapid ventricular response Current Visit: Yes Status: Acute Assessment and plan: Started on Cardiem drip at [place] [facility], rate has been in the 90s for much of the night. Continue to monitor Patient takes metoprolol at home, likely can restart at discharge if rate is controlled. (7) DVT prophylaxis Current Visit: No Status: Acute Assessment and plan: SCDs - Time Spent With Patient Total time spent is greater than 50% in coordination of care (as documented) at patient's floor/unit and/or counseling patient: Greater than 35 minutes
[2017-11-05 02:11] LABS: Calcium 9.6 mg/dL (8.6-10.3); Potassium 3.4 mEq/L (3.5-5.1)
[2017-11-05] MEDS: Insulin LISPRO 300 UNITS/3 ML VIAL SQ SCH ×3 (09:02→16:51)
[2017-11-05] MEDS ORDERED: *HR* Heparin 10,000 UNIT/10 ML VIAL IV PRN (09:50)
[2017-11-05] MEDS ORDERED: 0.9 % Sodium Chloride 250 ML IVC PRN (09:50)
[2017-11-05] MEDS ORDERED: 0.9 % Sodium Chloride 1,000 ML PRIME SCH (10:00)
[2017-11-05] MEDS ORDERED: Melatonin 3 MG TABLET PO PRN (10:10)
[2017-11-05] MEDS ORDERED: Acetaminophen 325 MG TABLET PO PRN (10:10)
[2017-11-05] MEDS ORDERED: 0.9 % Sodium Chloride 2,000 ML ONE (10:13)
--- NOTE | 2017-11-05 10:44 | Nephrology Consult Note ---
<Stu Palencia - Last Filed: 11/05/17 17:25> Date of Encounter: 11/05/17 Time of Encounter: 09:30 Assessment and Plan (1) ESRD on dialysis Status: Acute MWF through [facility], follows Dr. Michael Clinically appears slightly above euvolemic; she is s/p dialysis yesterday stopped 3 1/2 hours in of 4 total +1 pitting edema, lung sound currently without crackles, good aeration Na 136, K 3.4, BUN 19, SCr 2.59, Phos 2.0 P: Plan for ultrafiltration today attempting ~3L removal, scheduled HD tomorrow (2) Atrial fibrillation with rapid ventricular response Status: Acute Converted after Cardizem drip, managed and now d/c'd by primary team Patient not on anticoag Likely component to patient's shortness of breath on presentation to [facility] (3) Elevated troponin Status: Chronic Adynamic, without st elevation or depression, multiple readings at 0.05 per chart review Patient denies chest discomfort or shortness of breath or radiating pain Exertional dyspnea from presentation in setting of afib-rvr and mild volume overload Doubt ACS (4) (HFpEF) heart failure with preserved ejection fraction Status: Acute LVEF of 60% 2017; plan for echo by primary team this admission History of Present Illness - Reason for Consult Consult date: 11/05/17 end stage renal disease Requesting physician: Ramon Jane - Chief Complaint ESRD on dialysis, CHF exacerbation - History of Present Illness Mini Dorsey is an 81 y/o female with history significant for ESRD on dialysis MWF ([facility]/Dr. Michael pt), diastolic HF with preserved EF of 60% (echo Dec 2016), afib (not on anticoag), who is s/p 3.5 hours of dialysis yesterday . She presented to [facility] with shortness of breath, she was found to have stable pulm edema on CXR and afib with RVR started on cardizem, then transferred to [facility]. Nephrology has been consulted for dialysis management. At time of my evaluation , patient is sitting comfortably in a chair at bedside on 5L (4L home o2), she states she is breathing slightly better than yesterday, she denies fever, abd pain, or chest discomfort; Cardizem has been d/c'd by primary team. AM labs show Scr 2.59, K+ 3.4,, phos controlled with home binders at 2.0. Past Med Surg Social Fam HX - Past Medical History Medical history: arthritis, atrial fibrillation, CHF, diabetes, dialysis, GERD, hyperlipidemia, hypertension, renal disease Psychiatric history: no psych history - Past Surgical History Surgical History: cholecystectomy, orthopedic, other, PJ/BSO Additional surgical history: left hip surgery. - Social History Smoking Status: Never smoker Smokeless Tobacco Status: No Alcohol use: none Drug use: none - Family History Brother Family Member Ethnicity: Non- Living Status: Still Living Hx Family Cancer: Yes Sister Family Member Ethnicity: Non- Living Status: Still Living Hx Family Respiratory Disorders: Yes (COPD) Hx Family Cancer: Yes Mother Family Member Ethnicity: Non- Living Status: Hx Family Cardiac Disorders: Yes Hx Family Respiratory Disorders: No Hx Family Cancer: Yes Hx Family Endocrine Disorder: Yes Hx Family Neurologic Disorders: Yes Father Adopted: No Family Member Ethnicity: Non- Living Status: Hx Family Cardiac Disorders: Yes ([place]) Hx Family Endocrine Disorder: Yes Medications and Allergies Amlodipine Besylate 10 mg PO DAILY 10/02/15 [History] DULoxetine [Cymbalta] 30 mg PO DAILY 10/02/15 [History] Gabapentin [Neurontin] 300 mg PO TID 10/02/15 [History] Insulin Glargine,Hum.rec.anlog [Lantus Solostar] 10 unit SQ HS 10/02/15 [History ] Fluticasone Propionate Nasal [Flonase] 1 spr NS BID 04/14/17 [History] Melatonin 10 mg PO HS PRN 04/14/17 [History] Metoprolol Succinate 25 mg PO DAILY 04/14/17 [History] Iron 65 mg PO DAILY #0 04/21/17 [Rx] Sevelamer [Renvela] 800 mg PO QID 07/12/17 [History] Acetaminophen [Tylenol] 650 mg PO Q6HR PRN tablet 07/17/17 [Rx] Ipratropium/Albuterol Neb [Duoneb] 3 ml IH TID PRN 11/04/17 [History] Isosorbide MONOnitrate (24 HR) [Imdur] 60 mg PO DAILY 11/04/17 [History] Loteprednol Etabonate [Lotemax] 5 ml OP DAILY 11/04/17 [History] Hydralazine HCl 50 mg PO TID 11/05/17 [History] Omeprazole [PriLOSEC] 40 mg PO DAILY 11/05/17 [History] 3 Allergy/AdvReac Type Severity Reaction Status Date / Time cephalexin [From Keflex] AdvReac Unknown Hypotension Verified 04/14/17 20:54 codeine AdvReac Hypotension Verified 04/14/17 20:54 lisinopril AdvReac See Verified 04/14/17 20:54 Comments Review of Systems All Systems: reviewed and no additional remarkable complaints except as stated Exam - Vital Signs Vital signs: Initial Vital Signs Pulse BP 110 136/81 11/04/17 21:00 11/04/17 21:00 Vital Signs - Last 8 Hours Temp Pulse Resp BP Pulse Ox 11/05/17 07:58 97.9 F 92 17 124/58 95 11/05/17 06:00 97 123/71 11/05/17 05:00 100 141/58 11/05/17 04:00 91 142/60 11/05/17 03:43 98.0 F 94 18 138/70 94 11/05/17 03:00 100 154/68 Intake and Output 11/04/17 11/05/17 11/05/17 23:59 07:59 15:59 Intake Total 50 / 50 240 / 240 Output Total 100 / 100 Balance -50 / -50 240 / 240 Intake: IV Fluids 50 / 50 Cardizem 50 MG In 0.9 % Sodium 50 / 50 Chloride 40 ML @ 5 MG/HR 5 mls/ hr IVC .Q10H [facility] Rx#:[id number] Oral 240 / 240 Output: Urine 100 / 100 Other: Meal Breakfast Percent of Meal Consumed 90% Stool Size Moderate Stool Consistency soft Stool Characteristics Tarry Stool Color Black Weight 79.634 kg Blood Glucose* 84 - General Appearance General appearance: well-developed, well-nourished, appears started age EENT: mucous membranes moist Neck: no JVD Additional Comments: normal chest wall excursion, good aeration, no overt crackles Cardiology: no murmurs, edema (+1), irregular rhythm - Dialysis Access Additional Comments: permacath R Gastrointestinal: no tenderness Integumentary: warm and dry Neurologic: no focal deficit, alert and oriented x3 Musculoskeletal: no deformities, no erythema, no cyanosis Psychiatric: mood/affect appropriate, cooperative Results - Lab Results 11/05/17 01:42 11/05/17 01:42 Most recent lab results Calcium 9.6 mg/dL (8.6-10.3) 11/05/17 01:42 Phosphorus 2.0 mg/dL (2.7-4.5) L 11/05/17 01:42 Consult Discharge Plan - Plan Instructions: Heart Failure (DC) Additional Instructions: F/up with HD 3times/week- MWF Referrals: Krystle Henderson [Primary Care Provider] - 11/12/17 11:00 am <Fabián Colunga - Last Filed: 11/11/17 08:52> Date of Encounter: 11/05/17 Exam - Vital Signs Vital signs: Initial Vital Signs Pulse BP 110 136/81 11/04/17 21:00 11/04/17 21:00 Results - Lab Results 11/07/17 03:41 11/07/17 03:41 Most recent lab results Calcium 9.8 mg/dL (8.6-10.3) 11/07/17 03:41 Phosphorus 4.2 mg/dL (2.7-4.5) 11/06/17 04:01 - Attending Attestation I examined this patient and my medical decision-making was reviewed with the Resident Physician/CUT OFF SAW OPERATOR. I agree with the documented findings, disposition and treatment plan as described except to the extent set forth below. Pt seen and examined at HD unit In brief, 82 y o female with PMH of Afib, diastolic CHF with preserved EF and ESRD on HD admitted with SOB after HD yesterday. CXR showed pulm edema. Labs stable. Exam shows no LE edema but slightly decreased BS bases bilat. Will plan UF today with goal of 3-4kg as tolerated. HD planned tomorrow as well.
[2017-11-05 11:14] LABS: Hepatitis B Surface Antigen Nonreactive (Nonreactive)
[2017-11-05] MEDS: Metoprolol XL (24 HR) Succ 25 MG TAB.ER.24H PO SCH (12:51)
[2017-11-05] MEDS: hydrALAZINE 25 MG TABLET PO SCH ×2 (16:51→21:20)
[2017-11-05] MEDS: Gabapentin 300 MG CAPSULE PO SCH ×2 (16:52→21:20)
--- NOTE | 2017-11-05 18:17 | Electrocardiograph Report ---
[place] [id number] Test Date: 2017-11-05 Pat Name: Mini Dosrey Department: 110 Room: 08 Gender: F Ware Carrier: CARMEN : 1935 Requested By: Ramon Jane Order Number: [id number] Reading MD: Deven Mcbride Measurements Intervals [place] Rate: 92 P: [place]: 0 QRS: -61 QRSD: 126 T: 91 QT: 376 QTc: 426 Interpretive Statements ATRIAL FIBRILLATION LEFT ANTERIOR FASCICULAR BLOCK Poor R wave progression Electronically Signed On 11-05-2017 18:15:30 EDT by Deven Mcbride
[2017-11-05] MEDS: Insulin DETEMIR 100 UNIT/ML X5UNITS SQ SCH (21:20)
[2017-11-05] MEDS: Fluticasone Propionate Nasal 50 MCG/SPRAY BOTTLE NS SCH (21:33)
[2017-11-06 04:37] LABS: Basophils % 0.3 %; Eosinophils # 0.1 K/mcL (0.0-0.6); Eosinophils % 1.4 %; Hematocrit 35.7 % (35.3-44.9); Hemoglobin 10.7 g/dL (11.5-15.4); Immature Granulocytes % 0.7 % (0-4); Lymphocytes % 16.6 %; Mean Corpuscular Hemoglobin 30.1 pg (28.0-33.3); Mean Corpuscular Volume 100.3 fL (83.0-100.0); Mean Platelet Volume 10.9 fL (9.4-12.4); Monocytes # 1.8 K/mcL (0.0-1.3); Monocytes % 30.8 %; Neutrophils # 2.9 K/mcL (1.6-8.9); Platelet Count 200 K/mcL (140-400); Red Blood Count 3.56 M/mcL (3.82-4.97); Red Cell Distribution Width 17.2 % (11.5-14.5); Segmented Neutrophils % 50.2 %
[2017-11-06 04:55] LABS: Albumin 3.8 g/dL (3.5-5.7); Phosphorous 4.2 mg/dL (2.7-4.5); Potassium 3.7 mEq/L (3.5-5.1)
[2017-11-06 04:57] LABS: Anisocytosis 1+ (Not Present); Hypochromasia Present (Not Present); Platelet Estimate Normal (Normal); Reactive Lymphocytes Present (Not Present)
[2017-11-06] MEDS ORDERED: 0.9 % Sodium Chloride 250 ML IVC PRN (07:30)
[2017-11-06] MEDS ORDERED: 0.9 % Sodium Chloride 1,000 ML PRIME SCH (07:30)
[2017-11-06] MEDS: Gabapentin 300 MG CAPSULE PO SCH ×3 (08:29→21:22)
[2017-11-06] MEDS: Isosorbide MONOnitrate (24 HR) 60 MG TAB.ER.24H PO SCH (08:29)
[2017-11-06] MEDS: Metoprolol XL (24 HR) Succ 25 MG TAB.ER.24H PO SCH (08:30)
[2017-11-06] MEDS: amLODIPine 5 MG TABLET PO SCH (08:30)
[2017-11-06] MEDS: hydrALAZINE 25 MG TABLET PO SCH ×3 (08:31→21:22)
[2017-11-06] MEDS: Fluticasone Propionate Nasal 50 MCG/SPRAY BOTTLE NS SCH ×2 (08:36→21:25)
[2017-11-06] MEDS: Insulin LISPRO 300 UNITS/3 ML VIAL SQ SCH ×3 (08:39→18:17)
[2017-11-06] MEDS: LOTEPREDNOL ETABONATE EYE OP SCH (13:14)
--- NOTE | 2017-11-06 15:01 | Nephrology Progress Note ---
<Stu Palencia - Last Filed: 11/06/17 15:10> Date of Encounter: 11/06/17 Time of Encounter: 12:45 - Assessment and Plan (1) ESRD on dialysis Status: Acute S/p 4kg off with UF yesterday HD planned for today Renal diet and continued nephroprotective strategy (2) Atrial fibrillation with rapid ventricular response Status: Acute Converted after Cardizem drip, managed and now d/c'd by primary team Patient not on anticoag Likely component to patient's shortness of breath on presentation to [place] [facility] (3) Elevated troponin Status: Chronic Adynamic, without st elevation or depression, multiple readings at 0.05 per chart review Patient denies chest discomfort or shortness of breath or radiating pain Exertional dyspnea from presentation in setting of afib-rvr and mild volume overload Doubt ACS No changes/no new symptoms since admission (4) (HFpEF) heart failure with preserved ejection fraction Status: Acute LVEF of 60% Severe pulm HTN Consider outpatient evaluation or pulm or cardiac consult (Right heart cath diagnostic) Subjective Principal diagnosis: ESRD on dialysis Interval history: Patient seen and evaluated in chair near bed. She states she is breathing a lot better after UF yesterday. Planned HD today per schedule in the afternoon. She states her legs feel less swollen, she denies syncope, dyspnea, fevers. Objective - Vital Signs Vital signs: Vital Signs Temp Pulse Resp BP Pulse Ox 11/06/17 12:28 99.5 F 93 18 112/67 96 11/06/17 07:19 97.9 F 84 17 130/68 88 11/06/17 04:03 98.0 F 81 18 120/53 92 11/05/17 23:26 98.8 F 84 19 139/71 95 11/05/17 19:40 97.8 F 83 19 138/73 97 11/05/17 16:36 98 F 92 17 127/92 92 Intake and Output 11/05/17 11/06/17 11/06/17 23:59 07:59 15:59 Intake Total 240 / 240 480 / 480 Output Total 25 / 25 Balance 240 / 240 455 / 455 Intake: Oral 240 / 240 480 / 480 Output: Urine 25 / 25 Other: Meal Dinner Lunch Percent of Meal Consumed 75% 90% Stool Size Moderate Stool Consistency soft formed Stool Color Brown # Voids 1 # Bowel Movements 1 Weight 78.2 kg Blood Glucose* 148 90 106 Patient Weight 11/06/17 23:59 Weight 78.2 kg - General Appearance General appearance: Present: well-developed, well-nourished, appears started age EENT: Present: mucous membranes moist Neck: Present: no JVD, supple Cardiology: Present: no murmurs, no rub, no gallops, no edema, regular rate, regular rhythm, normal S1, normal S2 Additional Comments: R permacath Gastrointestinal: Present: normoactive bowel sounds, no tenderness Integumentary: Present: no rash, warm and dry Neurologic: Present: no focal deficit, alert and oriented x3 Musculoskeletal: Present: no deformities, no erythema, no cyanosis, no clubbing Psychiatric: Present: mood/affect appropriate, cooperative - Lab 11/06/17 04:01 11/06/17 04:01 Most recent lab results Calcium 10.0 mg/dL (8.6-10.3) 11/06/17 04:01 Phosphorus 4.2 mg/dL (2.7-4.5) 11/06/17 04:01 - VTE Documentation of Mechanical Device: Intermittent pneumatic compression device Consult Discharge Plan - Plan Instructions: Heart Failure (DC) Additional Instructions: F/up with HD 3times/week- MWF Referrals: Krystle Henderson [Primary Care Provider] - 11/12/17 11:00 am <Fabián Colunga - Last Filed: 11/14/17 23:34> Date of Encounter: 11/06/17 Objective - Lab 11/07/17 03:41 11/07/17 03:41 Most recent lab results Calcium 9.8 mg/dL (8.6-10.3) 11/07/17 03:41 Phosphorus 4.2 mg/dL (2.7-4.5) 11/06/17 04:01 - Attending Attestation I examined this patient and my medical decision-making was reviewed with the Resident Physician/UTILITY FORESTER. I agree with the documented findings, disposition and treatment plan as described except to the extent set forth below. Pt seen and examined on HD, doing better and breathing better overall after UF yesterday. Afib rate controlled by primary team. Exam shows good areation ant bilat. Lytes stable. Will continue HD with UF as tolerated today. Plan to have pt weighed standing to get accurate new estimated dry weight to convey to her outpatient hD unit for better fluid management outpatient.
[2017-11-06] MEDS ORDERED: *HR* Heparin 10,000 UNIT/10 ML VIAL IV PRN (17:14)
--- NOTE | 2017-11-06 17:34 | Internal Med Progress Note ---
Date of Encounter: 11/06/17 Time of Encounter: 10:15 - Assessment and plan (1) Atrial fibrillation with rapid ventricular response Current Visit: Yes Status: Acute Assessment and plan: Heart rate is currently better controlled. This is likely the reason for her dyspnea. Has been on IV Cardizem drip briefly, home dose of oral metoprolol has been resumed. Continue telemetry monitoring. Patient was supposed to be on Coumadin, which has been stopped for at least the last 3-4 months due to fall and head trauma. Encouraged patient to follow up with cardiology and possibly resuming anticoagulation when safe. (2) ESRD on dialysis Current Visit: Yes Status: Chronic Assessment and plan: Nephrology is on board, plan for hemodialysis today. (3) Acute and chronic respiratory failure Current Visit: Yes Status: Acute Assessment and plan: Improved. Patient does have 4 L/m supplemental oxygen at home. Qualifiers: Respiratory failure complication: hypoxia Qualified Code(s): J96.21 - Acute and chronic respiratory failure with hypoxia (4) Diabetes mellitus Current Visit: Yes Status: Chronic Assessment and plan: Blood sugars well controlled. Continue current insulin regimen and Accu-Chek blood glucose monitoring. Diabetic diet. Qualifiers: Diabetes mellitus type: type 2 Diabetes mellitus parts counterman insulin use: with assisted use Diabetes mellitus complication status: with kidney complications Diabetes mellitus complication detail: with chronic kidney disease Chronic kidney disease stage: on chronic dialysis Qualified Code(s) : E11.22 - Type 2 diabetes mellitus with diabetic chronic kidney disease; N18.6 - End stage renal disease; Z79.4 - custodial (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; Z99.2 - Dependence on renal dialysis (5) Essential hypertension Current Visit: Yes Status: Chronic (6) HLD (hyperlipidemia) Current Visit: Yes Status: Chronic Qualifiers: Hyperlipidemia type: unspecified Qualified Code(s): E78.5 - Hyperlipidemia , unspecified (7) (HFpEF) heart failure with preserved ejection fraction Current Visit: Yes Status: Acute Assessment and plan: Echocardiogram shows preserved EF, indeterminate diastolic function, severe pulmonary hypertension, small pericardial effusion, no tamponade. Continue nitrate and beta everardo, volume removal with dialysis as scheduled. Telemetry monitoring. Mild troponin leak around 0.06 due to tachycardia and demand ischemia. - Time Spent With Patient Total time spent is greater than 50% in coordination of care (as documented) at patient's floor/unit and/or counseling patient: - Subjective Interval history: Reports feeling better. Improved shortness of breath And leg swelling. No chest pain, cough, palpitations. Awaiting hemodialysis. - Constitutional Vitals: Temp Pulse Resp BP Pulse Ox 98.8 F 93 20 107/57 96 11/06/17 14:10 11/06/17 12:28 11/06/17 14:10 11/06/17 17:02 11/06/17 12:28 General appearance: Present: cooperative, A&O X 3, answers questions appropriately - Respiratory Respiratory exam: Present: CTAB. Absent: accessory muscle use, rales, rhonchi, wheezes - Cardiovascular Cardiovascular exam: Present: irregular rhythm, +S1, +S2. Absent: diastolic murmur, gallop, rubs, systolic murmur - GI/Abdominal GI/Abdominal exam: Present: normal bowel sounds, soft, no peritoneal signs. Absent: distended, tenderness - Extremities Exam Extremities exam: Present: full ROM, warm, radial pulses palpable and symmetrical. Absent: calf tenderness, cyanotic, pedal edema Internal Medicine: Result - Labs CBC & Chem 7: 11/06/17 04:01 11/06/17 04:01 Labs: Short CBC 11/06/17 Range/Units 04:01 WBC 5.7 (4.3-11.1) K/mcL Hgb 10.7 L (11.5-15.4) g/dL Hct 35.7 (35.3-44.9) % Plt Count 200 (140-400) K/mcL Neutrophils # 2.9 (1.6-8.9) K/mcL BMP 11/06/17 04:01 Sodium 138 Potassium 3.7 Chloride 100 Carbon Dioxide 28 BUN 34 H Creatinine 3.54 H Glucose 91 Calcium 10.0 Liver Function 11/06/17 Range/Units 04:01 Albumin 3.8 (3.5-5.7) g/dL - VTE Documentation of Mechanical Device: Intermittent pneumatic compression device Consult Discharge Plan - Plan Referrals: Krystle Henderson [Primary Care Provider] - 11/12/17 11:00 am
[2017-11-06] MEDS: *HR* Heparin 5,000 UNIT/ML VIAL SQ SCH (21:13)
[2017-11-06] MEDS: Insulin DETEMIR 100 UNIT/ML X5UNITS SQ SCH (21:22)
[2017-11-07 04:57] LABS: Basophils % 0.3 %; Eosinophils # 0.1 K/mcL (0.0-0.6); Eosinophils % 1.8 %; Hemoglobin 11.5 g/dL (11.5-15.4); Immature Granulocytes % 0.7 % (0-4); Lymphocytes # 1.2 K/mcL (0.6-4.6); Lymphocytes % 19.9 %; Mean Corpuscular HGB Conc 29.5 g/dL (31.6-35.5); Mean Corpuscular Hemoglobin 29.8 pg (28.0-33.3); Mean Platelet Volume 11.3 fL (9.4-12.4); Monocytes # 1.6 K/mcL (0.0-1.3); Monocytes % 26.9 %; Platelet Count 195 K/mcL (140-400); Red Blood Count 3.86 M/mcL (3.82-4.97); Red Cell Distribution Width 17.3 % (11.5-14.5); Segmented Neutrophils % 50.4 %
[2017-11-07 05:01] LABS: Calcium 9.8 mg/dL (8.6-10.3); Potassium 4.1 mEq/L (3.5-5.1)
[2017-11-07] MEDS: *HR* Heparin 5,000 UNIT/ML VIAL SQ SCH (05:35)
[2017-11-07 06:35] LABS: Anisocytosis 2+ (Not Present); Hypochromasia Present (Not Present); Macrocytosis Present (Not Present); Platelet Estimate Normal (Normal); Toxic Granulation Present (Not Present)
[2017-11-07 06:36] LABS: Large Platelets Present (Not Present)
[2017-11-07] MEDS: amLODIPine 5 MG TABLET PO SCH (08:08)
[2017-11-07] MEDS: Metoprolol XL (24 HR) Succ 25 MG TAB.ER.24H PO SCH (08:08)
[2017-11-07] MEDS: Gabapentin 300 MG CAPSULE PO SCH ×2 (08:09→14:35)
[2017-11-07] MEDS: hydrALAZINE 25 MG TABLET PO SCH ×2 (08:09→14:35)
[2017-11-07] MEDS: Isosorbide MONOnitrate (24 HR) 60 MG TAB.ER.24H PO SCH (08:09)
[2017-11-07] MEDS: Fluticasone Propionate Nasal 50 MCG/SPRAY BOTTLE NS SCH (08:10)
[2017-11-07] MEDS: Insulin LISPRO 300 UNITS/3 ML VIAL SQ SCH ×2 (08:11→11:30)
[2017-11-07] MEDS: LOTEPREDNOL ETABONATE EYE OP SCH (08:12)
--- NOTE | 2017-11-07 10:45 | Discharge Summary ---
- NOTES TO OUTPATIENT PROVIDER Notes to Outpatient Provider: Acute resp failure due to a.fib with RVR, volume overload- improved now; Orders not resulted at time of discharge: Pending orders 11/08/17 04:00 BMP [Basic Metabolic Panel] AM 0400 Complete Blood Count [HEME] AM 0400 11/09/17 04:00 BMP [Basic Metabolic Panel] AM 0400 Complete Blood Count [HEME] AM 0400 11/10/17 04:00 BMP [Basic Metabolic Panel] AM 0400 Complete Blood Count [HEME] AM 0400 11/11/17 04:00 BMP [Basic Metabolic Panel] AM 0400 Complete Blood Count [HEME] AM 0400 11/12/17 04:00 BMP [Basic Metabolic Panel] AM 0400 Complete Blood Count [HEME] AM 0400 11/13/17 04:00 BMP [Basic Metabolic Panel] AM 0400 Complete Blood Count [HEME] AM 0400 11/14/17 04:00 BMP [Basic Metabolic Panel] AM 0400 Complete Blood Count [HEME] AM 0400 Date of Encounter: 11/07/17 Time of Encounter: 10:43 - Discharge Diagnosis (1) Atrial fibrillation with rapid ventricular response Priority: Primary Status: Resolved (2) ESRD on dialysis Priority: Secondary Status: Chronic (3) Acute and chronic respiratory failure Priority: Primary Status: Acute Qualifiers: Respiratory failure complication: hypoxia Qualified Code(s): J96.21 - Acute and chronic respiratory failure with hypoxia (4) Diabetes mellitus Priority: Secondary Status: Chronic Qualifiers: Diabetes mellitus type: type 2 Diabetes mellitus terminal carman insulin use: with senior living use Diabetes mellitus complication status: with kidney complications Diabetes mellitus complication detail: with chronic kidney disease Chronic kidney disease stage: on chronic dialysis Qualified Code(s) : E11.22 - Type 2 diabetes mellitus with diabetic chronic kidney disease; N18.6 - End stage renal disease; Z79.4 - intermodal dispatcher (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; Z99.2 - Dependence on renal dialysis (5) Essential hypertension Priority: Secondary Status: Chronic (6) HLD (hyperlipidemia) Priority: Secondary Status: Chronic Qualifiers: Hyperlipidemia type: unspecified Qualified Code(s): E78.5 - Hyperlipidemia , unspecified (7) (HFpEF) heart failure with preserved ejection fraction Priority: Primary Status: Acute Hospital course: Ms. Dorsey is a 81 year old female with the above medical problems, who was admitted with shortness of breath and hypoxia. She did not receive regular hemodialysis sessions, including on the day of admission. She was noted to have atrial fibrillation with rapid ventricular response, briefly started on IV Cardizem drip with improvement in heart rate, home dose of metoprolol was resumed. Nephrology was consulted and patient underwent consecutive hemodialysis sessions with extra fluid removal with significant improvement in symptoms. Echocardiogram was done, showed preserved EF, indeterminate diastolic function, severe pulmonary hypertension, small pericardial effusion with no tamponade. Case was discussed with nephrology, patient is currently medically stable for discharge home. Dry weight adjustments will be made during outpatient dialysis. Discharge discussed with: patient, nurse - Time Spent with Patient Total time spent providing and/or coordinating discharge services: Greater than 30 minutes (45 min) - Discharge Medications Home Medications: Amlodipine Besylate 10 mg PO DAILY 10/02/15 [History] DULoxetine [Cymbalta] 30 mg PO DAILY 10/02/15 [History] Gabapentin [Neurontin] 300 mg PO TID 10/02/15 [History] Insulin Glargine,Hum.rec.anlog [Lantus Solostar] 10 unit SQ HS 10/02/15 [History ] Fluticasone Propionate Nasal [Flonase] 1 spr NS BID 04/14/17 [History] Melatonin 10 mg PO HS PRN 04/14/17 [History] Metoprolol Succinate 25 mg PO DAILY 04/14/17 [History] Iron 65 mg PO DAILY #0 04/21/17 [Rx] Sevelamer [Renvela] 800 mg PO QID 07/12/17 [History] Acetaminophen [Tylenol] 650 mg PO Q6HR PRN tablet 07/17/17 [Rx] Ipratropium/Albuterol Neb [Duoneb] 3 ml IH TID PRN 11/04/17 [History] Isosorbide MONOnitrate (24 HR) [Imdur] 60 mg PO DAILY 11/04/17 [History] Loteprednol Etabonate [Lotemax] 5 ml OP DAILY 11/04/17 [History] Hydralazine HCl 50 mg PO TID 11/05/17 [History] Omeprazole [PriLOSEC] 40 mg PO DAILY 11/05/17 [History] Allergies/Adverse Reactions: 3 Allergy/AdvReac Type Severity Reaction Status Date / Time cephalexin [From Keflex] AdvReac Unknown Hypotension Verified 04/14/17 20:54 codeine AdvReac Hypotension Verified 04/14/17 20:54 lisinopril AdvReac See Verified 04/14/17 20:54 Comments Date of admission: 11/04/17 20:49 Primary care physician: Krystle Henderson Consults: 11/05/17 01:23 Consult to Nephrology [CONS] Routine Consulting Provider: Kidney Katty/ALONDRA/JORGE LUIS/JUVENCIO Reason for Consult: ESRD patient with CHF exacerbation and fluid overload. Dialysis MWF, may need additional dialysis Call Completed: No 11/05/17 10:00 Consult to Dialysis [CONS] ONCE 11/06/17 07:30 Consult to Dialysis [CONS] ONCE 11/07/17 07:30 Consult to Dialysis [CONS] ONCE Discharging clinician: Elizabeth Arce Anticipated date of discharge: 11/07/17 - Constitutional Vitals: Temp Pulse Resp BP Pulse Ox 98.0 F 89 18 115/71 96 11/07/17 07:39 11/07/17 07:39 11/07/17 07:39 11/07/17 07:39 11/07/17 07:39 General appearance: Present: cooperative, A&O X 3, answers questions appropriately - Cardiovascular Cardiovascular exam: Present: irregular rhythm, +S1, +S2. Absent: diastolic murmur, gallop, rubs, systolic murmur - Patient Status Disposition: Home, Self-Care Condition: Good Functional capacity at discharge: uses cane/walker Overall status at discharge: patient is progressing back to baseline - Discharge Instructions Instructions: Heart Failure (DC) Follow Up With: Krystle Henderson [Primary Care Provider] - 11/12/17 11:00 am Additional Instructions: F/up with HD 3times/week- MWF - Diet and Activity Activity: resume usual activities as tolerated, wear oxygen at all times Diet: diabetic diet, low fat, low cholesterol, low salt diet, other (renal diet) - VTE Documentation of Mechanical Device: Intermittent pneumatic compression device
[2017-11-07 14:37] VITALS: BP 113/63
== END 2017-11-07 17:20 | disposition home or self-care (01) ==
LOC: SUATTDRO 20:49 → 2NNU 20:49 → INTOOBSV 20:49
PROVIDERS: ADMIT Internal Medicine; ATTEND Internal Medicine

== ENCOUNTER 2018-02-08 12:15 | Inpatient (IN) ==
[2018-02-08] MEDS ORDERED: 0.9 % Sodium Chloride 250 ML IVC PRN (16:07)
[2018-02-08] MEDS ORDERED: *HR* Heparin 10,000 UNIT/10 ML VIAL IV PRN (16:07)
[2018-02-08] MEDS ORDERED: 0.9 % Sodium Chloride 1,000 ML PRIME SCH (16:15)
[2018-02-08 16:30] LABS: Hepatitis B Surface Antigen Nonreactive (Nonreactive)
[2018-02-08] MEDS ORDERED: Naloxone 0.4 MG/ML INJ IVP PRN (16:58)
[2018-02-08] MEDS ORDERED: Melatonin 3 MG TABLET PO PRN (17:01)
[2018-02-08] MEDS ORDERED: Ipratropium/Albuterol Neb 3 ML IH PRN (17:01)
[2018-02-08 17:27] LABS: Calcium 9.6 mg/dL (8.6-10.3); Hematocrit 28.5 % (35.3-44.9); Hemoglobin 9.2 g/dL (11.5-15.4); Mean Corpuscular HGB Conc 32.3 g/dL (31.6-35.5); Mean Corpuscular Hemoglobin 32.6 pg (28.0-33.3); Mean Corpuscular Volume 101.1 fL (83.0-100.0); Mean Platelet Volume 11.1 fL (9.4-12.4); Platelet Count 203 K/mcL (140-400); Red Blood Count 2.82 M/mcL (3.82-4.97); Red Cell Distribution Width 14.7 % (11.5-14.5)
--- NOTE | 2018-02-08 19:57 | Internal Med History&Physical ---
Date of Encounter: 02/08/18 Time of Encounter: 17:00 Internal Medicine - H&P: HPI Chief complaint: Dyspnea on exertion Admitted From: Hospital to Hospital Transfer Plans for Post Hospital Care: Home History of present illness: Patient is a 82-year-old female with past medical history significant for end- stage renal disease, diastolic heart failure with preserved ejection fraction, atrial fibrillation, hypertension, diabetes and hyperlipidemia who presents to [facility] on 02/08/18 as a transfer from [facility] due to acute renal failure. Patient reported of increased dyspnea on exertion so decided to go to [facility] for evaluation. At [facility], patient was found to have chest x-ray showing pulmonary edema similar to prior exams. Patient was transferred to [facility] for further management and nephrology was consulted with recommendations for additional hemodialysis. Past Med Surg Social Fam HX - Past Medical History Medical history: arthritis, atrial fibrillation, CHF, diabetes, dialysis, GERD, hyperlipidemia, hypertension, renal disease Psychiatric history: no psych history - Past Surgical History Surgical History: cholecystectomy, orthopedic, other, PJ/BSO Additional surgical history: left hip surgery. - Social History Smoking Status: Never smoker Smokeless Tobacco Status: No Alcohol use: none Drug use: none - Family History Brother Family Member Ethnicity: Non- Living Status: Still Living Hx Family Cancer: Yes Sister Family Member Ethnicity: Non- Living Status: Still Living Hx Family Respiratory Disorders: Yes (COPD) Hx Family Cancer: Yes Mother Family Member Ethnicity: Non- Living Status: Hx Family Cardiac Disorders: Yes Hx Family Respiratory Disorders: No Hx Family Cancer: Yes Hx Family Endocrine Disorder: Yes Hx Family Neurologic Disorders: Yes Father Adopted: No Family Member Ethnicity: Non- Living Status: Hx Family Cardiac Disorders: Yes (OK) Hx Family Endocrine Disorder: Yes Internal Medicine - H&P: Meds Amlodipine Besylate 10 mg PO DAILY 10/02/15 [History] DULoxetine [Cymbalta] 30 mg PO DAILY 10/02/15 [History] Gabapentin [Neurontin] 300 mg PO HS 10/02/15 [History] Insulin Glargine,Hum.rec.anlog [Lantus Solostar] 10 unit SQ HS 10/02/15 [History] Fluticasone Propionate Nasal [Flonase] 1 spr NS BID 04/14/17 [History] Melatonin 10 mg PO HS PRN 04/14/17 [History] Metoprolol Succinate 25 mg PO DAILY 04/14/17 [History] Iron 65 mg PO DAILY #0 04/21/17 [Rx] Sevelamer [Renvela] 800 mg PO TIDWM 07/12/17 [History] Acetaminophen [Tylenol] 650 mg PO Q6HR PRN tablet 07/17/17 [Rx] Ipratropium/Albuterol Neb [Duoneb] 3 ml IH TID PRN 11/04/17 [History] Isosorbide MONOnitrate (24 HR) [Imdur] 60 mg PO DAILY 11/04/17 [History] Hydralazine HCl 25 mg PO BID 11/05/17 [History] Omeprazole [PriLOSEC] 40 mg PO DAILY 11/05/17 [History] Ergocalciferol (VITAMIN D2) [Vitamin D] 400 unit PO DAILY 02/08/18 [History] Levalbuterol Tartrate [Xopenex Hfa] 45 gm IH TID 02/08/18 [History] Multivit/Iron/FA/K/Herb No.244 [Alive Women's Energy Mv Tablet] 1 tab PO DAILY 02/08/18 [History] Nystatin POWDER [Nystop] 1 appl TP BID 02/08/18 [History] Polyethylene Glycol 3350 [MiraLAX] 17 gm PO DAILY 02/08/18 [History] Allergy/AdvReac Type Severity Reaction Status Date / Time cephalexin [From Keflex] AdvReac Unknown Hypotension Verified 04/14/17 20:54 codeine AdvReac Hypotension Verified 04/14/17 20:54 lisinopril AdvReac See Verified 04/14/17 20:54 Comments metoprolol AdvReac Drowsy Verified 02/08/18 15:54 All Systems PM: A 10-system review of systems was performed and is negative for pertinent findings except as documented above in the HPI. - Constitutional Vitals: Temp Pulse Resp BP Pulse Ox 97.2 F L 90 17 148/78 94 02/08/18 16:30 02/08/18 14:53 02/08/18 16:30 02/08/18 19:15 02/08/18 14:53 General appearance: Present: A&O X 3 Exam: As above - Eye Eye exam: Present: normal appearance - ENT ENT exam: Present: mucous membranes moist - Respiratory Respiratory exam: Present: CTAB. Absent: accessory muscle use, rales, rhonchi, wheezes - Cardiovascular Cardiovascular exam: Present: RRR, +S1, +S2. Absent: diastolic murmur, gallop, rubs, systolic murmur - GI/Abdominal GI/Abdominal exam: Present: normal bowel sounds, soft, no peritoneal signs. Absent: distended, tenderness - Extremities Exam Extremities exam: Absent: pedal edema - Neurological Exam Neurological exam: Present: oriented X3 - Psychiatric Psychiatric exam: Present: normal mood - Skin Skin exam: Present: normal color Internal Med - H&P Results - Labs CBC & Chem 7: 02/08/18 16:35 02/08/18 16:35 Labs: Short CBC 02/08/18 Range/Units 16:35 WBC 6.1 (4.3-11.1) K/mcL Hgb 9.2 L (11.5-15.4) g/dL Hct 28.5 L (35.3-44.9) % Plt Count 203 (140-400) K/mcL [facility] 02/08/18 16:35 Sodium 136 Potassium 4.0 Chloride 96 L Carbon Dioxide 27 BUN 33 H Creatinine 4.82 H Glucose 99 Calcium 9.6 - Assessment and plan (1) (HFpEF) heart failure with preserved ejection fraction Current Visit: No Status: Acute Assessment and plan: Patient not short of breath at rest but on exertion She is at her baseline O2 requirements Suspect patient would benefit for additional hemodialysis for fluid removal Nephrology consulted for management with hemodialysis Will continue to monitor (2) ESRD (end stage renal disease) Current Visit: No Status: Chronic Assessment and plan: Nephrology consulted for recommendations for hemodialysis (3) Fluid overload Current Visit: No Status: Acute Assessment and plan: Patient on baseline O2 requirements Management for hemodialysis per nephrology as above Qualifiers: Hypervolemia type: other Qualified Code(s): E87.79 - Other fluid overload (4) Pleural effusion Current Visit: No Status: Acute Assessment and plan: Suspect secondary to volume overload due to needing dialysis as above Patient on baseline O2 requirements; continue to monitor (5) Essential hypertension Current Visit: No Status: Chronic Assessment and plan: Continue home medications (6) Obesity (BMI 30-39.9) Current Visit: No Status: Chronic Assessment and plan: Lifestyle modifications (7) DVT prophylaxis Current Visit: No Status: Acute Assessment and plan: Heparin subcutaneous - Time Spent With Patient Total time spent is greater than 50% in coordination of care (as documented) at patient's floor/unit and/or counseling patient:
[2018-02-08] MEDS: Levalbuterol 1 PUFF INHALER IH SCH (20:37)
[2018-02-08] MEDS ORDERED: Dextrose Gel 15 GM/37.5 ML TUBE PO PRN ×2 (21:04)
[2018-02-08] MEDS ORDERED: *HR* Dextrose 50 % in Water (Syg) 50 ML SYRINGE IVP PRN (21:04)
[2018-02-08] MEDS ORDERED: D5% in Water 1,000 ML IVC PRN (21:04)
[2018-02-08] MEDS: Gabapentin 300 MG CAPSULE PO SCH (22:04)
[2018-02-08] MEDS: Insulin DETEMIR 100 UNIT/ML X5UNITS SQ SCH (22:04)
[2018-02-08] MEDS: hydrALAZINE 25 MG TABLET PO SCH (22:04)
[2018-02-08] MEDS: Nystatin POWDER 30 GM BOTTLE TP SCH (22:05)
[2018-02-08] MEDS: Fluticasone Propionate Nasal 50 MCG/SPRAY BOTTLE NS SCH (22:06)
[2018-02-08] MEDS: Insulin LISPRO 300 UNITS/3 ML VIAL SQ SCH (22:07)
--- NOTE | 2018-02-08 22:26 | Nephrology Consult Note ---
Date of Encounter: 02/08/18 Time of Encounter: 22:23 Assessment and Plan (1) Acute kidney injury superimposed on chronic kidney disease Current Visit: No Status: Acute HD MWF. Renal vitamins. Renal dose medications. Renal diet. Additional dialysis and ultrafiltration as needed. Patient with dialysis dependent acute on chronic kidney disease that is likely end-stage renal disease. She was seen on dialysis. Evaluate for the need for ultrafiltration tomorrow. (2) Anemia in chronic kidney disease (CKD) Current Visit: No Status: Chronic Monitor for the need for the need for transfusion. Qualifiers: Chronic kidney disease stage: on chronic dialysis Qualified Code(s): N18.6 - End stage renal disease; D63.1 - Anemia in chronic kidney disease; D63.1 - Anemia in chronic kidney disease; Z99.2 - Dependence on renal dialysis; Z99.2 - Dependence on renal dialysis; Z99.2 - Dependence on renal dialysis; Z99.2 - Dependence on renal dialysis (3) Diabetes mellitus Current Visit: No Status: Chronic Per The primary team Qualifiers: Diabetes mellitus type: type 2 Diabetes mellitus shelter insulin use: with warp knitter helper use Diabetes mellitus complication status: with kidney complications Diabetes mellitus complication detail: with chronic kidney disease Chronic kidney disease stage: on chronic dialysis Qualified Code(s): E11.22 - Type 2 diabetes mellitus with diabetic chronic kidney disease; N18.6 - End stage renal disease; 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 Qualifiers: Hypertension type: essential hypertension Qualified Code(s): I10 - Essential (primary) hypertension History of Present Illness - Reason for Consult Consult date: 02/08/18 end stage renal disease - Chief Complaint ESRD - History of Present Illness His Willian is an 82-year-old woman with a history of end-stage renal disease who receives dialysis Thursday who is presenting as a transfer from [facility] secondary to dyspnea and the need for dialysis. My evaluation the patient was dyspneic, but denying chest pain. She denies fever. She has no other complaints. She has a left upper arm fistula, that has recently had revision. However, she gets dialysis via right IJ tunneled dialysis catheter until her fistula heals. Past Med Surg Social Fam HX - Past Medical History Medical history: arthritis, atrial fibrillation, CHF, diabetes, dialysis, GERD, hyperlipidemia, hypertension, renal disease Psychiatric history: no psych history - Past Surgical History Surgical History: cholecystectomy, orthopedic, other, PJ/BSO Additional surgical history: left hip surgery. - Social History Smoking Status: Never smoker Smokeless Tobacco Status: No Alcohol use: none Drug use: none - Family History Brother Family Member Ethnicity: Non- Living Status: Still Living Hx Family Cancer: Yes Sister Family Member Ethnicity: Non- Living Status: Still Living Hx Family Respiratory Disorders: Yes (COPD) Hx Family Cancer: Yes Mother Family Member Ethnicity: Non- Living Status: Hx Family Cardiac Disorders: Yes Hx Family Respiratory Disorders: No Hx Family Cancer: Yes Hx Family Endocrine Disorder: Yes Hx Family Neurologic Disorders: Yes Father Adopted: No Family Member Ethnicity: Non- Living Status: Hx Family Cardiac Disorders: Yes (NM) Hx Family Endocrine Disorder: Yes Medications and Allergies Amlodipine Besylate 10 mg PO DAILY 10/02/15 [History] DULoxetine [Cymbalta] 30 mg PO DAILY 10/02/15 [History] Gabapentin [Neurontin] 300 mg PO HS 10/02/15 [History] Insulin Glargine,Hum.rec.anlog [Lantus Solostar] 10 unit SQ HS 10/02/15 [History] Fluticasone Propionate Nasal [Flonase] 1 spr NS BID 04/14/17 [History] Melatonin 10 mg PO HS PRN 04/14/17 [History] Metoprolol Succinate 25 mg PO DAILY 04/14/17 [History] Iron 65 mg PO DAILY #0 04/21/17 [Rx] Sevelamer [Renvela] 800 mg PO TIDWM 07/12/17 [History] Acetaminophen [Tylenol] 650 mg PO Q6HR PRN tablet 07/17/17 [Rx] Ipratropium/Albuterol Neb [Duoneb] 3 ml IH TID PRN 11/04/17 [History] Isosorbide MONOnitrate (24 HR) [Imdur] 60 mg PO DAILY 11/04/17 [History] Hydralazine HCl 25 mg PO BID 11/05/17 [History] Omeprazole [PriLOSEC] 40 mg PO DAILY 11/05/17 [History] Ergocalciferol (VITAMIN D2) [Vitamin D] 400 unit PO DAILY 02/08/18 [History] Levalbuterol Tartrate [Xopenex Hfa] 45 gm IH TID 02/08/18 [History] Multivit/Iron/FA/K/Herb No.244 [Alive Women's Energy Mv Tablet] 1 tab PO DAILY 02/08/18 [History] Nystatin POWDER [Nystop] 1 appl TP BID 02/08/18 [History] Polyethylene Glycol 3350 [MiraLAX] 17 gm PO DAILY 02/08/18 [History] Allergy/AdvReac Type Severity Reaction Status Date / Time cephalexin [From Keflex] AdvReac Unknown Hypotension Verified 04/14/17 20:54 codeine AdvReac Hypotension Verified 04/14/17 20:54 lisinopril AdvReac See Verified 04/14/17 20:54 Comments metoprolol AdvReac Drowsy Verified 02/08/18 15:54 Review of Systems All Systems: reviewed and no additional remarkable complaints except as stated (For history of present illness) Exam - Vital Signs Vital signs: Initial Vital Signs Temp Pulse Resp BP Pulse Ox 97.5 F L 90 16 133/66 94 02/08/18 14:53 02/08/18 14:53 02/08/18 14:53 02/08/18 14:53 02/08/18 14:53 Vital Signs - Last 8 Hours Temp Pulse Resp BP Pulse Ox 02/08/18 20:39 97.7 F 101 18 149/75 96 02/08/18 20:38 18 93 02/08/18 20:10 98.0 F 17 173/91 02/08/18 20:00 158/97 02/08/18 19:45 141/89 02/08/18 19:30 170/101 02/08/18 19:15 148/78 02/08/18 19:00 149/89 02/08/18 18:45 158/75 02/08/18 18:30 154/79 02/08/18 18:15 152/84 02/08/18 18:00 147/78 02/08/18 17:45 147/93 02/08/18 17:30 143/91 02/08/18 17:15 137/90 02/08/18 17:00 144/91 02/08/18 16:45 146/91 02/08/18 16:30 97.2 F L 17 159/89 02/08/18 14:53 97.5 F L 90 16 133/66 94 Intake and Output 02/08/18 02/08/18 02/08/18 07:59 15:59 23:59 Intake Total 600 / 600 Output Total 2057 Balance -1458 / -1458 Intake: Oral 0 / 0 Intake, Rinseback and Flushes 600 / 600 Output: Total Dialysis (HD) Output 2057 Other: Weight 74.3 kg Blood Glucose* 82 Hemodialysis Net Fluid Removed 1458 (mL) Patient Weight 02/08/18 23:59 Weight 74.3 kg - General Appearance General appearance: well-developed, well-nourished EENT: ATNC Neck: supple Respiratory: rales Cardiology: edema, regular rate - Dialysis Access Dialysis Vascular Access: Venous Catheter Gastrointestinal: no tenderness Integumentary: warm and dry Neurologic: alert and oriented x3 Musculoskeletal: no cyanosis Psychiatric: mood/affect appropriate Results - Lab Results 02/08/18 16:35 02/08/18 16:35 Most recent lab results Calcium 9.6 mg/dL (8.6-10.3) 02/08/18 16:35
[2018-02-09 05:45] LABS: Basophils % 0.3 %; Eosinophils # 0.1 K/mcL (0.0-0.6); Eosinophils % 1.2 %; Hemoglobin 9.1 g/dL (11.5-15.4); Immature Granulocytes % 0.5 % (0-4); Lymphocytes % 16.4 %; Mean Corpuscular HGB Conc 32.5 g/dL (31.6-35.5); Mean Corpuscular Hemoglobin 32.9 pg (28.0-33.3); Mean Corpuscular Volume 101.1 fL (83.0-100.0); Mean Platelet Volume 10.9 fL (9.4-12.4); Monocytes # 1.9 K/mcL (0.0-1.3); Platelet Count 191 K/mcL (140-400); Red Blood Count 2.77 M/mcL (3.82-4.97); Segmented Neutrophils % 49.6 %
[2018-02-09 06:01] LABS: Calcium 9.6 mg/dL (8.6-10.3); Potassium 3.7 mEq/L (3.5-5.1)
[2018-02-09] MEDS: *HR* Heparin 5,000 UNIT/ML VIAL SQ SCH ×2 (06:17→17:51)
[2018-02-09 06:51] LABS: Platelet Estimate Normal (Normal)
[2018-02-09 06:52] LABS: Anisocytosis 1+ (Not Present); Hypochromasia Present (Not Present); Large Platelets Present (Not Present); Macrocytosis Present (Not Present)
[2018-02-09] MEDS: Isosorbide MONOnitrate (24 HR) 60 MG TAB.ER.24H PO SCH (08:34)
[2018-02-09] MEDS: Cholecalciferol (D-3) 1,000 UNIT TABLET PO SCH (08:34)
[2018-02-09] MEDS: amLODIPine 5 MG TABLET PO SCH (08:34)
[2018-02-09] MEDS: Metoprolol XL (24 HR) Succ 25 MG TAB.ER.24H PO SCH (08:34)
[2018-02-09] MEDS: Renal Vitamin 1 CAP CAPSULE PO SCH (08:34)
[2018-02-09] MEDS: Insulin LISPRO 300 UNITS/3 ML VIAL SQ SCH ×4 (08:35→20:13)
[2018-02-09] MEDS: Fluticasone Propionate Nasal 50 MCG/SPRAY BOTTLE NS SCH ×2 (08:36→20:17)
[2018-02-09] MEDS: hydrALAZINE 25 MG TABLET PO SCH ×3 (08:42→20:16)
[2018-02-09] MEDS: Nystatin POWDER 30 GM BOTTLE TP SCH ×2 (08:46→20:17)
[2018-02-09] MEDS ORDERED: Multivit/Ca/Min/Fe/FA 1 TAB TABLET PO SCH (09:00)
[2018-02-09] MEDS: Levalbuterol 1 PUFF INHALER IH SCH ×3 (10:32→19:58)
--- NOTE | 2018-02-09 16:35 | Internal Med Progress Note ---
Hospitalist Progress Note - Encounter Date of Encounter: 02/09/18 Time of Encounter: 16:31 - Subjective Interval History: Patient is a 82-year-old female with past medical history significant for end- stage renal disease, diastolic heart failure with preserved ejection fraction, atrial fibrillation, hypertension, diabetes and hyperlipidemia who presents to [facility] on 02/08/18 as a transfer from [facility] due to acute renal failure. Patient reported of increased dyspnea on exertion so decided to go to [facility] for evaluation. At [facility], patient was found to have chest x-ray showing pulmonary edema similar to prior exams. Patient was transferred to [facility] for further management and nephrology was consulted with recommendations for additional hemodialysis. Patient was admitted to the yesterday for pulmonary edema. Had HD with fluids removal. her shortness of breath improved but she developed leg cramping after dialysis, she ready does not want to have HD today, she gets HD on [facility]. she Still has significant shortness of breath, probably will need a couple more times of fluids removal. - Exam Vitals: Temp Pulse Resp BP Pulse Ox 98.0 F 98 17 112/64 94 02/09/18 11:58 02/09/18 11:58 02/09/18 11:58 02/09/18 11:58 02/09/18 15:45 Exam: CONSTITUTIONAL: patient appears as an age appropriate female in no acute distress. EYES Clear sclerae, bilateral pupils are equal, reactive to light. EMOI. RESPIRATORY: No accessory muscle use, bilateral clear to auscultation, no wheezing, no crackles/rales. CARDIOVASCULAR: Regular heart rate, normal S1 and S2, no murmurs GASTROINTESTINAL: bowel sounds present, soft, no tenderness. MUSCULOSKELETAL: Joints in normal range of motion, no clubbing, no edema, no cyanosis. Bilateral peripheral pulses 2+. NEUROLOGIC: CN II to XII are grossly intact, no focal neurological deficit. - Assessment and Plan (1) (HFpEF) heart failure with preserved ejection fraction Current Visit: No Status: Acute Assessment and Plan: Likely from fluid overload, nephrology is on board and continue fluids to move she is on 4 L nasal cannula which is her home level (2) HLD (hyperlipidemia) Current Visit: Yes Status: Chronic (3) HTN (hypertension) Current Visit: Yes Status: Chronic (4) Pleural effusion Current Visit: Yes Status: Acute Assessment and Plan: Likely from fluid overload (5) Anemia in chronic kidney disease (CKD) Current Visit: Yes Status: Chronic (6) ESRD (end stage renal disease) Current Visit: Yes Status: Chronic Assessment and Plan: Dialyzes Thursday (7) Fluid overload Current Visit: Yes Status: Acute (8) Pleural effusion Current Visit: No Status: Acute - Time Spent with Patient Total time spent is greater than 50% in coordination of care (as documented) at patient's floor/unit and/or counseling patient: 25 - 35 minutes Plan of Care Discussed with: patient Internal Medicine: Result - Labs CBC & Chem 7: 02/09/18 05:11 02/09/18 05:11 Labs: Short CBC 02/08/18 02/09/18 Range/Units 16:35 05:11 WBC 6.1 6.0 (4.3-11.1) K/mcL Hgb 9.2 L 9.1 L (11.5-15.4) g/dL Hct 28.5 L 28.0 L (35.3-44.9) % Plt Count 203 191 (140-400) K/mcL Neutrophils # 3.0 (1.6-8.9) K/mcL BMP 02/08/18 02/09/18 16:35 05:11 Sodium 136 138 Potassium 4.0 3.7 Chloride 96 L 99 Carbon Dioxide 27 30 H BUN 33 H 15 Creatinine 4.82 H 2.81 H Glucose 99 69 L Calcium 9.6 9.6 Consult Discharge Plan - Plan Referrals: NONE,PCP [Primary Care Provider] - (2) HLD (hyperlipidemia) Qualifiers: Hyperlipidemia type: unspecified Qualified Code(s): E78.5 - Hyperlipidemia, unspecified (3) HTN (hypertension) Qualifiers: Hypertension type: essential hypertension Qualified Code(s): I10 - Essential (primary) hypertension (5) Anemia in chronic kidney disease (CKD) Qualifiers: Chronic kidney disease stage: on chronic dialysis Qualified Code(s): N18.6 - End stage renal disease; D63.1 - Anemia in chronic kidney disease; D63.1 - Anemia in chronic kidney disease; Z99.2 - Dependence on renal dialysis; Z99.2 - Dependence on renal dialysis; Z99.2 - Dependence on renal dialysis; Z99.2 - Dependence on renal dialysis (7) Fluid overload Qualifiers: Hypervolemia type: other Qualified Code(s): E87.79 - Other fluid overload
--- NOTE | 2018-02-09 18:44 | Nephrology Progress Note ---
Date of Encounter: 02/09/18 Time of Encounter: 18:42 - Assessment and Plan (1) Acute kidney injury superimposed on chronic kidney disease Current Visit: No Status: Acute HD MWF. Renal vitamins. Renal dose medications. Renal diet. Additional dialysis and ultrafiltration as needed. Patient with dialysis dependent acute on chronic kidney disease that is likely end-stage renal disease. Patient's dyspnea likely related to pleural effusions and not volume overload state. Consider thoracentesis. (2) Anemia in chronic kidney disease (CKD) Current Visit: Yes Status: Chronic Qualifiers: Chronic kidney disease stage: on chronic dialysis Qualified Code(s): N18.6 - End stage renal disease; D63.1 - Anemia in chronic kidney disease; D63.1 - Anemia in chronic kidney disease; Z99.2 - Dependence on renal dialysis; Z99.2 - Dependence on renal dialysis; Z99.2 - Dependence on renal dialysis; Z99.2 - Depe ndence on renal dialysis (3) Diabetes mellitus Current Visit: No Status: Chronic Qualifiers: Diabetes mellitus type: type 2 Diabetes mellitus prison insulin use: with prison use Diabetes mellitus complication status: with kidney complications Diabetes mellitus complication detail: with chronic kidney disease Chronic kidney disease stage: on chronic dialysis Qualified Code(s): E11.22 - Type 2 diabetes mellitus with diabetic chronic kidney disease; N18.6 - End stage renal disease; Z79.4 - [facility] (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; Z99.2 - Dependence on renal dialysis (4) HTN (hypertension) Current Visit: Yes Status: Chronic Qualifiers: Hypertension type: essential hypertension Qualified Code(s): I10 - Essential (primary) hypertension Subjective Principal diagnosis: ESRD Interval history: Patient feels better. No complaint. She still has dyspnea. Objective - Vital Signs Vital signs: Vital Signs Temp Pulse Resp BP Pulse Ox 02/09/18 16:32 97.9 F 97 17 101/62 90 02/09/18 15:45 94 02/09/18 11:58 98.0 F 98 17 112/64 93 02/09/18 10:32 16 94 02/09/18 07:44 97.6 F 98 18 126/76 90 02/09/18 03:56 97.9 F 105 17 125/80 93 02/08/18 23:18 98.1 F 96 17 143/73 97 02/08/18 20:39 97.7 F 101 18 149/75 96 02/08/18 20:38 18 93 02/08/18 20:10 98.0 F 17 173/91 02/08/18 20:00 158/97 02/08/18 19:45 141/89 02/08/18 19:30 170/101 02/08/18 19:15 148/78 02/08/18 19:00 149/89 02/08/18 18:45 158/75 Intake and Output 02/09/18 02/09/18 02/09/18 07:59 15:59 23:59 Intake Total 480 / 480 Balance 480 / 480 Intake: Oral 480 / 480 Other: Meal Lunch Percent of Meal Consumed 100% Blood Glucose* 70 104 146 - General Appearance General appearance: Present: well-developed, well-nourished EENT: Present: ATNC Neck: Present: supple Cardiology: Present: regular rate Neurologic: Present: alert and oriented x3 - Lab 02/09/18 05:11 02/09/18 05:11 Most recent lab results Calcium 9.6 mg/dL (8.6-10.3) 02/09/18 05:11 Consult Discharge Plan - Plan Referrals: NONE,PCP [Primary Care Provider] -
[2018-02-09] MEDS: Gabapentin 300 MG CAPSULE PO SCH (20:16)
[2018-02-09] MEDS: Insulin DETEMIR 100 UNIT/ML X5UNITS SQ SCH (20:18)
[2018-02-10] MEDS: *HR* Heparin 5,000 UNIT/ML VIAL SQ SCH ×2 (06:27→17:24)
[2018-02-10 07:49] LABS: Basophils % 0.4 %; Eosinophils # 0.1 K/mcL (0.0-0.6); Eosinophils % 1.6 %; Hemoglobin 9.4 g/dL (11.5-15.4); Immature Granulocytes % 0.5 % (0-4); Lymphocytes # 0.8 K/mcL (0.6-4.6); Lymphocytes % 14.9 %; Mean Corpuscular HGB Conc 31.3 g/dL (31.6-35.5); Mean Corpuscular Hemoglobin 32.6 pg (28.0-33.3); Mean Corpuscular Volume 104.2 fL (83.0-100.0); Mean Platelet Volume 11.1 fL (9.4-12.4); Monocytes # 1.5 K/mcL (0.0-1.3); Monocytes % 26.5 %; Platelet Count 186 K/mcL (140-400); Red Blood Count 2.88 M/mcL (3.82-4.97); Red Cell Distribution Width 15.1 % (11.5-14.5); Segmented Neutrophils % 56.1 %
[2018-02-10 07:59] LABS: Neutrophils # 3.1 K/mcL (1.6-8.9)
[2018-02-10 08:07] LABS: Calcium 10.1 mg/dL (8.6-10.3); Potassium 4.1 mEq/L (3.5-5.1)
[2018-02-10] MEDS: Insulin LISPRO 300 UNITS/3 ML VIAL SQ SCH ×4 (08:34→21:14)
[2018-02-10] MEDS: Renal Vitamin 1 CAP CAPSULE PO SCH (08:47)
[2018-02-10] MEDS: Cholecalciferol (D-3) 1,000 UNIT TABLET PO SCH (08:47)
[2018-02-10] MEDS: amLODIPine 5 MG TABLET PO SCH (08:47)
[2018-02-10] MEDS: Fluticasone Propionate Nasal 50 MCG/SPRAY BOTTLE NS SCH ×2 (08:48→21:14)
[2018-02-10] MEDS: Nystatin POWDER 30 GM BOTTLE TP SCH ×2 (08:48→21:14)
[2018-02-10] MEDS ORDERED: 0.9 % Sodium Chloride 250 ML IVC PRN (08:51)
[2018-02-10] MEDS ORDERED: *HR* Heparin 10,000 UNIT/10 ML VIAL IV PRN (08:51)
[2018-02-10] MEDS ORDERED: 0.9 % Sodium Chloride 1,000 ML PRIME SCH (09:00)
[2018-02-10] MEDS: Levalbuterol 1 PUFF INHALER IH SCH ×3 (09:55→20:22)
[2018-02-10] MEDS: Metoprolol XL (24 HR) Succ 25 MG TAB.ER.24H PO SCH (13:27)
[2018-02-10] MEDS: hydrALAZINE 25 MG TABLET PO SCH ×2 (13:27→21:16)
[2018-02-10] MEDS: Isosorbide MONOnitrate (24 HR) 60 MG TAB.ER.24H PO SCH (13:27)
--- NOTE | 2018-02-10 16:24 | Internal Med Progress Note ---
Date of Encounter: 02/10/18 Time of Encounter: 16:22 - Time Spent With Patient - Assessment and Plan (1) (HFpEF) heart failure with preserved ejection fraction Current Visit: No Status: Acute Assessment and Plan: Likely from fluid overload, nephrology is on board and continue fluids to move she is on 4 L nasal cannula which is her home level (2) HLD (hyperlipidemia) Current Visit: Yes Status: Chronic Continue current therapy. (3) HTN (hypertension) Current Visit: Yes Status: Chronic Stable. Continue current therapy. (4) Pleural effusion Current Visit: Yes Status: Acute Assessment and Plan: Likely from fluid overload vs from chronic renal disease. Will obtain a chest x-ray. Will send a consult interventional radiologist for possible thoracentesis. Meanwhile check a PT and PTT to rule out increased bleeding tendency during the procedure. (5) Anemia in chronic kidney disease (CKD) Current Visit: Yes Status: Chronic (6) ESRD (end stage renal disease) Current Visit: Yes Status: Chronic Assessment and Plan: Dialyzes Thursday (7) Fluid overload Current Visit: Yes Status: Acute Addressed above under dialysis. (8) Pleural effusion Current Visit: No Status: Acute - Time Spent with Patient Total time spent is greater than 50% in coordination of care (as documented) at patient's floor/unit and/or counseling patient: 25 - 35 minutes Plan of Care Discussed with: patient - Subjective Interval history: Patient seen and examined today. She is comfortable at rest but she has dyspnea with minimal exertion. She is asking for thoracentesis if she has pleural fluid because in the past she has felt better after thoracentesis. Nephrology has also recommended tapping pleural effusion. She had dialysis today. - Constitutional Vitals: Temp Pulse Resp BP Pulse Ox 98.4 F 84 16 107/67 93 02/10/18 16:18 02/10/18 16:18 02/10/18 16:18 02/10/18 16:18 02/10/18 16:18 General appearance: Present: A&O X 3 Exam: CONSTITUTIONAL: patient appears as an age appropriate female in no acute distress. EYES Clear sclerae, bilateral pupils are equal, reactive to light. EMOI. RESPIRATORY: No accessory muscle use, bilateral clear to auscultation, decreased breath sounds at bases. CARDIOVASCULAR: Regular heart rate, normal S1 and S2, no murmurs GASTROINTESTINAL: bowel sounds present, soft, no tenderness. MUSCULOSKELETAL: Joints in normal range of motion, no clubbing, no edema, no cyanosis. Bilateral peripheral pulses 2+. NEUROLOGIC: CN II to XII are grossly intact, no focal neurological deficit. Internal Medicine: Result - Labs CBC & Chem 7: 02/10/18 07:34 02/10/18 07:34 Labs: Short CBC 02/10/18 Range/Units 07:34 WBC 5.6 (4.3-11.1) K/mcL Hgb 9.4 L (11.5-15.4) g/dL Hct 30.0 L (35.3-44.9) % Plt Count 186 (140-400) K/mcL Neutrophils # 3.1 (1.6-8.9) K/mcL BMP 02/10/18 07:34 Sodium 135 L Potassium 4.1 Chloride 98 Carbon Dioxide 29 BUN 28 H Creatinine 4.24 H Glucose 108 H Calcium 10.1 Consult Discharge Plan - Plan Referrals: NONE,PCP [Primary Care Provider] -
[2018-02-10] MEDS: Acetaminophen 325 MG TABLET PO PRN (16:25)
[2018-02-10] MEDS ORDERED: Mag Hydrox/Al Hydrox/Simeth 30 ML UDC PO PRN (16:30)
[2018-02-10 17:30] LABS: INR 1.1; Prothrombin Time 12.9 Seconds (9.4-12.1)
[2018-02-10 17:32] LABS: Activated Partial Thrombo Time 31.1 Seconds (26.0-36.0)
[2018-02-10] MEDS: Insulin DETEMIR 100 UNIT/ML X5UNITS SQ SCH (21:13)
[2018-02-10] MEDS: Gabapentin 300 MG CAPSULE PO SCH (21:13)
--- NOTE | 2018-02-10 22:57 | Nephrology Progress Note ---
Date of Encounter: 02/10/18 Time of Encounter: 22:57 - Assessment and Plan (1) Acute kidney injury superimposed on chronic kidney disease Current Visit: No Status: Acute HD MWF. Renal vitamins. Renal dose medications. Renal diet. Additional dialysis and ultrafiltration as needed. Patient with dialysis dependent acute on chronic kidney disease that is likely end-stage renal disease. Patient's dyspnea likely related to pleural effusions and not volume overload state. Consider thoracentesis. Patient seen on dialysis today. (2) Anemia in chronic kidney disease (CKD) Current Visit: Yes Status: Chronic Qualifiers: Chronic kidney disease stage: on chronic dialysis Qualified Code(s): N18.6 - End stage renal disease; D63.1 - Anemia in chronic kidney disease; D63.1 - Anemia in chronic kidney disease; Z99.2 - Dependence on renal dialysis; Z99.2 - Dependence on renal dialysis; Z99.2 - Dependence on renal dialysis; Z99.2 - Dependence on renal dialysis (3) Diabetes mellitus Current Visit: No Status: Chronic Qualifiers: Diabetes mellitus type: type 2 Diabetes mellitus halfway insulin use: with halfway use Diabetes mellitus complication status: with kidney complications Diabetes mellitus complication detail: with chronic kidney disease Chronic kidney disease stage: on chronic dialysis Qualified Code(s): E11.22 - Type 2 diabetes mellitus with diabetic chronic kidney disease; N18.6 - End stage renal disease; 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 No complaint. She still has dyspnea. Objective - Vital Signs Vital signs: Vital Signs Temp Pulse Resp BP Pulse Ox 02/10/18 20:22 16 92 02/10/18 19:21 97.4 F L 89 17 114/58 97 02/10/18 16:18 98.4 F 84 16 107/67 93 02/10/18 15:45 16 93 02/10/18 13:08 97.5 F L 18 114/55 02/10/18 12:50 106/56 02/10/18 12:35 115/54 02/10/18 12:20 116/55 02/10/18 12:05 123/58 02/10/18 11:50 125/61 02/10/18 11:35 118/61 02/10/18 11:20 124/61 02/10/18 11:05 121/61 02/10/18 10:50 130/63 02/10/18 10:35 121/55 02/10/18 10:20 115/50 02/10/18 10:05 115/56 02/10/18 09:50 125/52 02/10/18 09:35 116/63 02/10/18 09:20 97.0 F L 18 130/29 02/10/18 07:39 97.4 F L 98 16 123/68 91 02/10/18 04:03 97.6 F 95 17 123/64 92 02/09/18 23:41 98.0 F 94 16 112/57 94 Intake and Output 02/10/18 02/10/18 02/10/18 07:59 15:59 23:59 Intake Total 0 / 0 1220 / 1220 Output Total 0 / 0 3125 / 3125 Balance 0 / 0 -1905 / -1905 Intake: Oral 0 / 0 620 / 620 Intake, Rinseback and Flushes 600 / 600 Output: Urine 0 / 0 25 / 25 Total Dialysis (HD) Output 3100 / 3100 Other: Meal Lunch Percent of Meal Consumed 45% Blood Glucose* 108 135 142 Hemodialysis Net Fluid Removed 2500 (mL) - Lab 02/10/18 07:34 02/10/18 07:34 Most recent lab results Calcium 10.1 mg/dL (8.6-10.3) 02/10/18 07:34 Consult Discharge Plan - Plan Referrals: NONE,PCP [Primary Care Provider] -
[2018-02-11] MEDS: *HR* Heparin 5,000 UNIT/ML VIAL SQ SCH ×2 (06:47→16:28)
[2018-02-11 07:17] LABS: Basophils % 0.7 %; Eosinophils # 0.1 K/mcL (0.0-0.6); Eosinophils % 1.9 %; Hematocrit 29.2 % (35.3-44.9); Hemoglobin 9.3 g/dL (11.5-15.4); Immature Granulocytes % 2.8 % (0-4); Lymphocytes # 1.3 K/mcL (0.6-4.6); Lymphocytes % 24.8 %; Mean Corpuscular HGB Conc 31.8 g/dL (31.6-35.5); Mean Corpuscular Volume 103.5 fL (83.0-100.0); Mean Platelet Volume 11.8 fL (9.4-12.4); Monocytes # 1.4 K/mcL (0.0-1.3); Monocytes % 26.3 %; Neutrophils # 2.4 K/mcL (1.6-8.9); Platelet Count 115 K/mcL (140-400); Red Blood Count 2.82 M/mcL (3.82-4.97); Segmented Neutrophils % 43.5 %
[2018-02-11 07:33] LABS: Calcium 9.5 mg/dL (8.6-10.3); Potassium 4.7 mEq/L (3.5-5.1)
[2018-02-11] MEDS: Levalbuterol 1 PUFF INHALER IH SCH ×3 (07:46→21:18)
[2018-02-11] MEDS: Insulin LISPRO 300 UNITS/3 ML VIAL SQ SCH ×4 (08:06→21:26)
[2018-02-11] MEDS: Cholecalciferol (D-3) 1,000 UNIT TABLET PO SCH (09:01)
[2018-02-11] MEDS: Metoprolol XL (24 HR) Succ 25 MG TAB.ER.24H PO SCH (09:01)
[2018-02-11] MEDS: Renal Vitamin 1 CAP CAPSULE PO SCH (09:01)
[2018-02-11] MEDS: Fluticasone Propionate Nasal 50 MCG/SPRAY BOTTLE NS SCH ×2 (09:01→20:57)
[2018-02-11] MEDS: Nystatin POWDER 30 GM BOTTLE TP SCH ×2 (09:01→20:52)
[2018-02-11] MEDS: hydrALAZINE 25 MG TABLET PO SCH ×3 (09:01→20:55)
--- NOTE | 2018-02-11 10:16 | Nephrology Progress Note ---
Addendum entered and electronically signed by Robin Cowan MD 02/11/18 23:52: I examined this patient and discussed the medical decision-making with MARYSOL Moreau. I agree with the documented findings, disposition and treatment plan as described except to the extent set forth below. Patient underwent thoracentesis and her respiratory status improved. Original Note: Date of Encounter: 02/11/18 Time of Encounter: 10:12 - Assessment and Plan (1) Acute kidney injury superimposed on chronic kidney disease Current Visit: No Status: Acute HD MWF. Renal vitamins. Renal dose medications. Renal diet. Additional dialysis and ultrafiltration as needed. Patient with dialysis dependent acute on chronic kidney disease that is likely end-stage renal disease. Patient's dyspnea likely related to pleural effusions and not volume overload state. Consider thoracentesis. . (2) Diabetes mellitus Current Visit: No Status: Chronic Per The primary team Qualifiers: Diabetes mellitus type: type 2 Diabetes mellitus longterm insulin use: with longterm use Diabetes mellitus complication status: with kidney complications Diabetes mellitus complication detail: with chronic kidney disease Chronic kidney disease stage: on chronic dialysis Qualified Code(s): E11.22 - Type 2 diabetes mellitus with diabetic chronic kidney disease; N18.6 - End stage renal disease; Z79.4 - rn long term care (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; Z99.2 - Dependence on renal dialysis (3) HTN (hypertension) Current Visit: Yes Status: Chronic Titrate antihypertensive medications as needed. Qualifiers: Hypertension type: essential hypertension Qualified Code(s): I10 - Essential (primary) hypertension (4) Anemia in chronic kidney disease (CKD) Current Visit: Yes Status: Chronic Goal HGB is 10-11. Hgb is 9.3 today. Qualifiers: Chronic kidney disease stage: on chronic dialysis Qualified Code(s): N18.6 - End stage renal disease; D63.1 - Anemia in chronic kidney disease; D63.1 - Anemia in chronic kidney disease; Z99.2 - Dependence on renal dialysis; Z99.2 - Dependence on renal dialysis; Z99.2 - Dependence on renal dialysis; Z99.2 - Dependence on renal dialysis Subjective Principal diagnosis: ESRD Interval history: Pt seen and examined, doing well. Denies any CP, admits to fatigue and shortness of breath. Objective - Vital Signs Vital signs: Vital Signs Temp Pulse Resp BP Pulse Ox 02/11/18 09:38 97 02/11/18 07:26 97.8 F 90 16 107/62 97 02/11/18 04:11 97.8 F 81 17 122/73 97 02/10/18 23:36 98.1 F 73 17 121/61 96 02/10/18 23:31 97.3 F L 88 17 122/71 98 02/10/18 20:22 16 92 02/10/18 19:21 97.4 F L 89 17 114/58 97 02/10/18 16:18 98.4 F 84 16 107/67 93 02/10/18 15:45 16 93 02/10/18 13:08 97.5 F L 18 114/55 02/10/18 12:50 106/56 02/10/18 12:35 115/54 02/10/18 12:20 116/55 02/10/18 12:05 123/58 02/10/18 11:50 125/61 02/10/18 11:35 118/61 02/10/18 11:20 124/61 02/10/18 11:05 121/61 02/10/18 10:50 130/63 02/10/18 10:35 121/55 02/10/18 10:20 115/50 Intake and Output 02/10/18 02/11/18 02/11/18 23:59 07:59 15:59 Other: Weight 74.9 kg Blood Glucose* 142 84 - General Appearance General appearance: Present: well-developed, well-nourished EENT: Present: ATNC, hearing intact, vision intact Neck: Present: supple Respiratory: Present: clear Cardiology: Present: no edema, normal S1, normal S2 Dialysis Vascular Access: Venous Catheter (Tunneled Line, DRSG C/D/I) Gastrointestinal: Present: normoactive bowel sounds, no tenderness, no guarding Integumentary: Present: no rash, warm and dry Neurologic: Present: alert and oriented x3 Psychiatric: Present: mood/affect appropriate, cooperative - Lab 02/11/18 06:18 02/11/18 06:18 Most recent lab results Calcium 9.5 mg/dL (8.6-10.3) 02/11/18 06:18 Consult Discharge Plan - Plan Referrals: NONE,PCP [Primary Care Provider] -
--- NOTE | 2018-02-11 10:40 | Internal Med Progress Note ---
Hospitalist Progress Note - Encounter Date of Encounter: 02/11/18 Time of Encounter: 08:15 - Subjective Interval History: Today Ms. Dorsey is concerned about the suture in the left upper arm. She states that prior to admission she was sent to have the fistula re-evaluated and that they had to widen current fistula for her dry. She reports that there was something placed in the left upper deltoid area and it was sutured in place and the sutures have been in place for 1 week and needs to come out. Ports that she was told that the next time she went for dialysis that they would take that the suture otherwise today she has no complaints she is pleasant resting comfortably in bed. - Exam Vitals: Temp Pulse Resp BP Pulse Ox 97.8 F 90 16 107/62 97 02/11/18 07:26 02/11/18 07:26 02/11/18 07:26 02/11/18 07:26 02/11/18 09:38 Exam: As above - Assessment and Plan (1) DVT prophylaxis Current Visit: No Status: Acute (2) Essential hypertension Current Visit: No Status: Chronic (3) Obesity (BMI 30-39.9) Current Visit: No Status: Chronic (4) Pleural effusion Current Visit: Yes Status: Acute (5) ESRD (end stage renal disease) Current Visit: Yes Status: Chronic (6) Fluid overload Current Visit: Yes Status: Acute (7) (HFpEF) heart failure with preserved ejection fraction Current Visit: No Status: Acute - Summary of Assessment and Plan Summary of Assessment and Plan: This is an 82-year-old female patient who presented, as a transfer patient from [facility] on 02/08/2018 for acute renal failure. She has a positive for past medical history for chronic renal failure probable end-stage diabetes type 2 hyperlipidemia congestive heart failure with preserved ejection fraction atrial fib. Chief complaints upon admission was increased dyspnea on exertion. Chest x-ray that was completed in the hospital was positive for pulmonary edema. He has been transferred for further evaluation and was currently admitted for acute renal failure on end-stage renal failure dyspnea, hypercalcemia hypertension pleural effusion, fluid overload, and hypokalemia . She currently is receiving dialysis every other day , he is dialysis dependent. She is being followed by nephrology who feels that her dyspnea is more due to pleural effusion and not fluid overload. He is requesting to consider thoracentesis interventional radiology consult has been made per Dr. Monreal , and is pending. Today she was interviewed at bedside and is pleasant she has no chief complaints and now worried over the suture removal of the left upper arm where her fistula was enlarged 1 week prior to her being admitted to the hospital. She denies any chest pain shortness of breath dizziness blurred vision, swelling of the feet or legs. She is currently without her oxygen SPO2 is 97% on room air. Physical exam she shows mild dyspnea with decreased breath sounds of the right upper and mid Heart rate is an irregular regular rhythm. He is awake alert oriented in no acute distress. There is a single suture holding a blue small to in place in the left mid anterior deltoid of the left upper arm. Her fistula is present and thrill is palpable in the left forearm. She has bilateral lower pedal and pretibial pulses that are 2+ Review of today's lab work shows that hemoglobin remains mildly low at 9.3 with hematocrit of 29.2. See the is elevated at 103.2 indicative of B12 deficiency. Sodium remains low at 123. GFR today is 14, with creatinine of 3.17. Chest x-ray was positive for bilateral pleural effusion and bibasilar basilar airspace opacification representing atelectasis or pneumonia. Assessment/plan 1. Pleural effusion; Salma is admitted as inpatient today continues with mild dyspnea, SPO2 is 97% without oxygen at the time of visit, IR is pending for possible thorencentitis today Will continue with current medications, oxygen, nebulizer treatments, 2. ESRD: We will continue with renal dialysis per nephrology Suture in the left upper deltoid will be removed per nursing staff order for him nephrology We will continue her medications, anticoagulation with heparin drip, and daily monitoring with PT INR, CMP hematoma CBC, 3. Type 2 Diabetes: We will continue with POC and serum testing and continue with insulin protocol as well as medications 4 mild hypotension Blood pressure today is running a little low with blood pressure 107/62. She continues to have a follow-up with an irregular regular rhythm rate. Today we are going to hold her Norvasc and Imdur. Will continue to receive her beta blockers. 5. A. fib; Patient continues with an irregular regular rhythm rate she denies any palpitations today pulse is 90 We will continue with her current medication regimen and monitor with telemetry 6. Risk for skin breakdown Will elevate feet off the bed placeable skin across the bottom of the bed to relieve pressure on the heels Orders for turning every 2 hours Patient is to be up in the chair twice a day And to ambulate in hallway as tolerated With assistance 7. Hypokalemia; Resolved potassium today is 4.7 and stable 8 DVT prophylaxis; We will continue with heparin drip and DVT prophylaxis per protocol - Time Spent with Patient Total time spent is greater than 50% in coordination of care (as documented) at patient's floor/unit and/or counseling patient: less than 15 minutes Plan of Care Discussed with: patient Internal Medicine: Result - Labs CBC & Chem 7: 02/11/18 06:18 02/11/18 06:18 Labs: Short CBC 02/11/18 Range/Units 06:18 WBC 5.4 (4.3-11.1) K/mcL Hgb 9.3 L (11.5-15.4) g/dL Hct 29.2 L (35.3-44.9) % Plt Count 115 L (140-400) K/mcL Neutrophils # 2.4 (1.6-8.9) K/mcL BMP 02/11/18 06:18 Sodium 133 L Potassium 4.7 Chloride 98 Carbon Dioxide 20 L BUN 18 Creatinine 3.17 H Glucose 87 Calcium 9.5 - ABG Interpretation ABG results: PT/INR, D-dimer PT 12.9 Seconds (9.4-12.1) H 02/10/18 16:40 - Impressions Impressions Chest X-Ray 02/10/18 16:10 IMPRESSION: Bilateral pleural effusions. Bibasilar airspace opacification could represent atelectasis or pneumonia D/ / Rolf Huang MD / Rolf Huang MD Interpreting Provider: Rolf Huang MD Consult Discharge Plan - Plan Referrals: NONE,PCP [Primary Care Provider] - (6) Fluid overload Qualifiers: Hypervolemia type: other Qualified Code(s): E87.79 - Other fluid overload
[2018-02-11] MEDS: Isosorbide MONOnitrate (24 HR) 60 MG TAB.ER.24H PO SCH (11:48)
[2018-02-11] MEDS: amLODIPine 5 MG TABLET PO SCH (11:48)
--- NOTE | 2018-02-11 16:14 | IR Procedure Note ---
Date of procedure: 02/11/18 Consent Obtained: Verbal consent, Written consent Timeout: Correct patient and procedure verified, Correct site verified, Time out performed, Skin prep completed Local anesthetic: Lidocaine 1% Indications: pleural effusion Procedure Performed: thoracentesis Was there an assistant accounting manager present: No Site/Technique: left Estimated blood loss (cc): 1 Complications: None; Tolerated procedure well Specimen: 500 mL serous fluid aspirated
[2018-02-11] MEDS: Acetaminophen 325 MG TABLET PO PRN (20:56)
[2018-02-11] MEDS: Gabapentin 300 MG CAPSULE PO SCH (20:56)
[2018-02-11] MEDS: Insulin DETEMIR 100 UNIT/ML X5UNITS SQ SCH (20:56)
[2018-02-12 03:35] LABS: Basophils % 0.2 %; Eosinophils # 0.1 K/mcL (0.0-0.6); Hematocrit 28.7 % (35.3-44.9); Hemoglobin 8.9 g/dL (11.5-15.4); Immature Granulocytes % 0.9 % (0-4); Lymphocytes # 0.9 K/mcL (0.6-4.6); Lymphocytes % 11.5 %; Mean Corpuscular Hemoglobin 32.4 pg (28.0-33.3); Mean Corpuscular Volume 104.4 fL (83.0-100.0); Mean Platelet Volume 11.4 fL (9.4-12.4); Monocytes # 2.4 K/mcL (0.0-1.3); Monocytes % 29.2 %; Neutrophils # 4.6 K/mcL (1.6-8.9); Platelet Count 188 K/mcL (140-400); Red Blood Count 2.75 M/mcL (3.82-4.97); Segmented Neutrophils % 57.2 %
[2018-02-12 03:46] LABS: INR 1.1; Prothrombin Time 11.9 Seconds (9.4-12.1)
[2018-02-12 03:48] LABS: Activated Partial Thrombo Time 30.6 Seconds (26.0-36.0)
[2018-02-12] MEDS ORDERED: *HR* Heparin 10,000 UNIT/10 ML VIAL IV PRN (05:28)
[2018-02-12] MEDS ORDERED: 0.9 % Sodium Chloride 250 ML IVC PRN (05:28)
[2018-02-12] MEDS ORDERED: 0.9 % Sodium Chloride 1,000 ML PRIME SCH (05:30)
--- NOTE | 2018-02-12 07:53 | Nephrology Progress Note ---
Date of Encounter: 02/12/18 Time of Encounter: 09:20 - Assessment and Plan (1) Acute kidney injury superimposed on chronic kidney disease Current Visit: No Status: Acute Dialysis note: She is on thrice weekly HD by history but seems to still be listed as Dialysis- dependent RIYA. She is due for HD today (Thursday). Next HD would be planned for Thursday. I will be available this weekend, if needed. Otherwise, will plan to see pt again on Thursday. Subjective Principal diagnosis: ESRD Interval history: She was seen and examined while on dialysis. She denied having any dialysis-related complaints, such as cramping, nausea, dizziness, or vomiting. Objective - Vital Signs Vital signs: Vital Signs Temp Pulse Resp BP Pulse Ox 02/12/18 07:00 113/48 02/12/18 06:45 115/50 02/12/18 06:30 119/48 02/12/18 06:15 119/56 02/12/18 06:00 97.8 F 18 130/57 02/12/18 04:48 97.5 F L 89 16 112/60 93 02/12/18 00:03 99.2 F 94 17 106/57 93 02/11/18 22:06 95 02/11/18 21:28 18 93 02/11/18 19:54 98.5 F 89 16 112/67 95 02/11/18 16:30 18 99 02/11/18 15:40 97.5 F L 76 16 103/62 98 02/11/18 11:25 97.8 F 97 16 118/65 98 02/11/18 09:38 97 Intake and Output 02/11/18 02/11/18 02/12/18 15:59 23:59 07:59 Intake Total 600 / 600 Balance 600 / 600 Intake: Oral 0 / 0 Intake, Rinseback and Flushes 600 / 600 Other: Weight 74.2 kg Blood Glucose* 124 169 98 Hemodialysis Net Fluid Removed 1050 (mL) Patient Weight 02/12/18 23:59 Weight 74.2 kg - General Appearance General appearance: Present: well-developed, well-nourished, appears started age EENT: Present: ATNC, PERRL, mucous membranes moist Neck: Present: supple Respiratory: Present: clear Cardiology: Present: regular rate, regular rhythm, normal S1, normal S2 Dialysis Vascular Access: Venous Catheter (Right sided tunneled hemodialysis catheter, with dressing that was clean, dry, and intact.) Gastrointestinal: Present: normoactive bowel sounds, no tenderness, no guarding Integumentary: Present: no rash, warm and dry Neurologic: Present: no focal deficit, no asterixis Musculoskeletal: Present: no cyanosis Psychiatric: Present: mood/affect appropriate, cooperative - Lab 02/12/18 03:09 02/12/18 03:09 Most recent lab results Calcium 9.5 mg/dL (8.6-10.3) 02/11/18 06:18 Consult Discharge Plan - Plan Referrals: NONE,PCP [Primary Care Provider] -
[2018-02-12] MEDS: Insulin LISPRO 300 UNITS/3 ML VIAL SQ SCH ×4 (07:55→20:56)
[2018-02-12] MEDS: Acetaminophen 325 MG TABLET PO PRN ×2 (09:21→19:36)
[2018-02-12] MEDS ORDERED: 0.9 % Sodium Chloride 1,000 ML ONE (09:33)
[2018-02-12] MEDS: Levalbuterol 1 PUFF INHALER IH SCH ×3 (10:19→20:32)
[2018-02-12] MEDS: Isosorbide MONOnitrate (24 HR) 60 MG TAB.ER.24H PO SCH (10:26)
[2018-02-12] MEDS: amLODIPine 5 MG TABLET PO SCH (10:26)
[2018-02-12] MEDS: hydrALAZINE 25 MG TABLET PO SCH ×2 (10:27→20:56)
[2018-02-12] MEDS: Fluticasone Propionate Nasal 50 MCG/SPRAY BOTTLE NS SCH ×2 (10:27→21:02)
[2018-02-12] MEDS: Cholecalciferol (D-3) 1,000 UNIT TABLET PO SCH (10:27)
[2018-02-12] MEDS: Metoprolol XL (24 HR) Succ 25 MG TAB.ER.24H PO SCH (10:27)
[2018-02-12] MEDS: Renal Vitamin 1 CAP CAPSULE PO SCH (10:27)
[2018-02-12] MEDS: *HR* Heparin 5,000 UNIT/ML VIAL SQ SCH ×2 (10:27→17:08)
[2018-02-12] MEDS: Nystatin POWDER 30 GM BOTTLE TP SCH ×2 (10:31→21:04)
--- NOTE | 2018-02-12 11:18 | Internal Med Progress Note ---
Hospitalist Progress Note - Encounter Date of Encounter: 02/12/18 Time of Encounter: 11:18 - Subjective Interval History: Initial encounter This is an 82-year-old female patient who presented, as a transfer patient from [facility] on 02/08/2018 for fluid overload with SOB and bilateral effusions She has a PMH of ESRD on HD, DM, HLD, CHFpEF Afib She also has chronic respiratory failure and is on continuous O2 at home She is s/p thoracentensis with removal of 500cc of fluid from her L pleural cavity, specimen was not sent for work up She denies new complains this mrn, but reports that she is not yet at her baseline She also states "my SOB has imprroved but not to the extent that I can go home " her vitals are stable and O2 requirement is stable - Exam Vitals: Temp Pulse Resp BP Pulse Ox 97.3 F L 89 18 121/55 93 02/12/18 10:20 02/12/18 04:48 02/12/18 10:22 02/12/18 10:20 02/12/18 10:22 Exam: VSS Gen: Elderly, co-operative, pleasant, not in any form of distress HEENT: Acyotic, anicteric, not pale, moist oral mucosa Chest: R chest wall with permacath Resp: CTAB Heart: S1, S2 only, no m/g/r Abdomen: Soft, not tender, no palpably enlarged organs Extremities: NO pedal edema neuro: AAOX3, no focal deficits - Assessment and Plan (1) DVT prophylaxis Current Visit: Yes Status: Acute Assessment and Plan: Heparin subcutaneous (2) Essential hypertension Current Visit: Yes Status: Chronic Assessment and Plan: Blood pressure is low normal Hold Norvasc Continue Isosorbide Continue Metoprolol (3) Obesity (BMI 30-39.9) Current Visit: Yes Status: Chronic Assessment and Plan: Lifestyle modifications (4) Pleural effusion Current Visit: Yes Status: Acute Assessment and Plan: Suspect secondary to volume overload due to needing dialysis as above s/p L thoracentensis with removal of 500cc fluid Rpt CXR post-procedure shows improvement Patient stable on current O2, continue to monitor (5) ESRD (end stage renal disease) Current Visit: Yes Status: Chronic Assessment and Plan: Nephrology following for hemodialysis (6) Fluid overload Current Visit: Yes Status: Acute Assessment and Plan: Patient on baseline O2 requirements Management for hemodialysis per nephrology as above (7) (HFpEF) heart failure with preserved ejection fraction Current Visit: Yes Status: Chronic Assessment and Plan: Patient not short of breath at rest but on exertion She is at her baseline O2 requirements Continue home meds, continue HD - Time Spent with Patient Total time spent is greater than 50% in coordination of care (as documented) at patient's floor/unit and/or counseling patient: Plan of Care Discussed with: patient Internal Medicine: Result - Labs CBC & Chem 7: 02/12/18 03:09 02/12/18 03:09 Labs: Short CBC 02/12/18 Range/Units 03:09 WBC 8.1 (4.3-11.1) K/mcL Hgb 8.9 L (11.5-15.4) g/dL Hct 28.7 L (35.3-44.9) % Plt Count 188 D (140-400) K/mcL Neutrophils # 4.6 (1.6-8.9) K/mcL BMP 02/12/18 03:09 Creatinine 4.29 H - ABG Interpretation ABG results: PT/INR, D-dimer PT 11.9 Seconds (9.4-12.1) 02/12/18 03:09 - Impressions Impressions Thoracentesis 02/11/18 13:58 IMPRESSION: Successful ultrasound guided thoracentesis. D/ / Duong Cedeno MD / Duong Cedeno MD Interpreting Provider: Duong Cedeno MD Chest X-Ray 02/11/18 15:06 IMPRESSION: Interval decrease in bilateral pleural effusions with no pneumothorax following bilateral thoracentesis. D/ / Giovany Rao MD / Giovany Rao MD Interpreting Provider: Giovany Rao MD Consult Discharge Plan - Plan Referrals: NONE,PCP [Primary Care Provider] - (6) Fluid overload Qualifiers: Hypervolemia type: other Qualified Code(s): E87.79 - Other fluid overload
--- NOTE | 2018-02-12 14:14 | IR Procedure Note ---
Date of procedure: 02/12/18 Consent Obtained: Written consent Timeout: Correct patient and procedure verified, Correct site verified, Time out performed, Skin prep completed Indications: rt effusion Procedure Performed: rt thoracentesis Was there an certified physician's assistant present: No Site/Technique: 8F sheath, rt effusion Results/Findings: large effusion Estimated blood loss (cc): 0 Complications: None; Tolerated procedure well Post Procedure Treatment Plan: CXR Specimen: none
[2018-02-12] MEDS: Insulin DETEMIR 100 UNIT/ML X5UNITS SQ SCH (20:56)
[2018-02-12] MEDS: Gabapentin 300 MG CAPSULE PO SCH (20:56)
[2018-02-12] MEDS ORDERED: Ibuprofen 400 MG TABLET PO ONE (21:21)
[2018-02-13 04:17] LABS: Basophils % 0.1 %; Eosinophils # 0.1 K/mcL (0.0-0.6); Hematocrit 28.2 % (35.3-44.9); Hemoglobin 8.9 g/dL (11.5-15.4); Lymphocytes # 1.3 K/mcL (0.6-4.6); Lymphocytes % 17.5 %; Mean Corpuscular HGB Conc 31.6 g/dL (31.6-35.5); Mean Corpuscular Hemoglobin 32.8 pg (28.0-33.3); Mean Corpuscular Volume 104.1 fL (83.0-100.0); Mean Platelet Volume 11.6 fL (9.4-12.4); Monocytes # 2.1 K/mcL (0.0-1.3); Monocytes % 28.7 %; Neutrophils # 3.8 K/mcL (1.6-8.9); Platelet Count 177 K/mcL (140-400); Red Blood Count 2.71 M/mcL (3.82-4.97); Red Cell Distribution Width 15.1 % (11.5-14.5); Segmented Neutrophils % 51.7 %
[2018-02-13 04:34] LABS: Hypochromasia Present (Not Present); Platelet Estimate Normal (Normal)
[2018-02-13 04:37] LABS: Calcium 9.5 mg/dL (8.6-10.3); Potassium 4.6 mEq/L (3.5-5.1)
[2018-02-13] MEDS: *HR* Heparin 5,000 UNIT/ML VIAL SQ SCH ×2 (06:01→16:18)
--- NOTE | 2018-02-13 07:40 | Event Note ---
Date of Encounter: 02/13/18 Time of Encounter: 07:39 Nephrology Chart Review/Update Her last dialyzed on Thursday, and I would expect no extra dialysis needed this weekend, so her next HD is tentatively planned for Thursday. I will be available this weekend, if needed; and please feel free to call or page me with any questions. My colleague Dr. Riddle will be on-call starting Thursday. Thank you.
[2018-02-13] MEDS: Cholecalciferol (D-3) 1,000 UNIT TABLET PO SCH (08:05)
[2018-02-13] MEDS: Renal Vitamin 1 CAP CAPSULE PO SCH (08:05)
[2018-02-13] MEDS: Metoprolol XL (24 HR) Succ 25 MG TAB.ER.24H PO SCH (08:05)
[2018-02-13] MEDS: Insulin LISPRO 300 UNITS/3 ML VIAL SQ SCH ×4 (08:06→20:25)
[2018-02-13] MEDS: Isosorbide MONOnitrate (24 HR) 60 MG TAB.ER.24H PO SCH (08:06)
[2018-02-13] MEDS: Fluticasone Propionate Nasal 50 MCG/SPRAY BOTTLE NS SCH ×2 (08:08→20:25)
[2018-02-13] MEDS: hydrALAZINE 25 MG TABLET PO SCH ×3 (08:10→20:25)
[2018-02-13] MEDS: Levalbuterol 1 PUFF INHALER IH SCH ×3 (09:26→22:24)
[2018-02-13] MEDS: Nystatin POWDER 30 GM BOTTLE TP SCH ×2 (10:36→20:25)
--- NOTE | 2018-02-13 10:36 | Internal Med Progress Note ---
Hospitalist Progress Note - Encounter Date of Encounter: 02/13/18 Time of Encounter: 10:36 - Subjective Interval History: This is an 82-year-old female patient who presented, as a transfer patient from [facility] on 02/08/2018 for fluid overload with SOB and bilateral effusions She has a PMH of ESRD on HD, DM, HLD, CHFpEF Afib She also has chronic respiratory failure and is on continuous O2 at home She is s/p thoracentensis 02/11 with removal of 500cc of fluid from her R pleural cavity, specimen was not sent for work up She is now s/p L thoracentensis as well on 02/12 She denies new complains this mrn, and report she feels great She is clinically stable for discharge, but reports her grand-daughter who she lives with, will not be available at home today - Exam Vitals: Temp Pulse Resp BP Pulse Ox 97.6 F 78 16 102/64 97 02/13/18 07:11 02/13/18 07:11 02/13/18 09:28 02/13/18 07:11 02/13/18 09:28 Exam: VSS Gen: Elderly, co-operative, pleasant, not in any form of distress HEENT: Acyotic, anicteric, not pale, moist oral mucosa Chest: R chest wall with permacath Resp: CTAB Heart: S1, S2 only, no m/g/r Abdomen: Soft, not tender, no palpably enlarged organs Extremities: NO pedal edema neuro: AAOX3, no focal deficits - Assessment and Plan (1) DVT prophylaxis Current Visit: Yes Status: Acute Assessment and Plan: Heparin subcutaneous (2) Essential hypertension Current Visit: Yes Status: Chronic Assessment and Plan: Blood pressure is low normal Hold Norvasc Continue Isosorbide Continue Metoprolol (3) Obesity (BMI 30-39.9) Current Visit: Yes Status: Chronic Assessment and Plan: Lifestyle modifications (4) Pleural effusion Current Visit: Yes Status: Acute Assessment and Plan: Suspect secondary to volume overload due to needing dialysis as above s/p bilateral thoracentensis , specimen not sent Rpt CXR post-procedure shows improvement Patient stable on current O2, continue to monitor (5) ESRD (end stage renal disease) Current Visit: Yes Status: Chronic Assessment and Plan: Nephrology following for hemodialysis (6) Fluid overload Current Visit: Yes Status: Resolved Assessment and Plan: Resolved Patient on baseline O2 requirements Management for hemodialysis per nephrology as above (7) (HFpEF) heart failure with preserved ejection fraction Current Visit: Yes Status: Chronic Assessment and Plan: Patient not short of breath at rest but on exertion She is at her baseline O2 requirements Continue home meds, continue HD DVT Prophylaxis: SQ heparin - Time Spent with Patient Total time spent is greater than 50% in coordination of care (as documented) at patient's floor/unit and/or counseling patient: Plan of Care Discussed with: patient Internal Medicine: Result - Labs CBC & Chem 7: 02/13/18 03:35 02/13/18 03:35 Labs: Short CBC 02/13/18 Range/Units 03:35 WBC 7.3 (4.3-11.1) K/mcL Hgb 8.9 L (11.5-15.4) g/dL Hct 28.2 L (35.3-44.9) % Plt Count 177 (140-400) K/mcL Neutrophils # 3.8 (1.6-8.9) K/mcL BMP 02/13/18 03:35 Sodium 136 Potassium 4.6 Chloride 96 L Carbon Dioxide 33 H BUN 29 H Creatinine 3.24 H Glucose 87 Calcium 9.5 - ABG Interpretation ABG results: PT/INR, D-dimer PT 11.9 Seconds (9.4-12.1) 02/12/18 03:09 - Impressions Impressions Chest X-Ray 02/12/18 14:11 IMPRESSION: Interval decrease in size of right pleural effusion. No pneumothorax. Small to moderate left pleural effusion. D/ / Kimberly Dominguez MD / Kimberly Dominguez MD Interpreting Provider: Kimberly Dominguez MD Consult Discharge Plan - Plan Referrals: NONE,PCP [Primary Care Provider] - (6) Fluid overload Qualifiers: Hypervolemia type: other Qualified Code(s): E87.79 - Other fluid overload
[2018-02-13] MEDS: Acetaminophen 325 MG TABLET PO PRN (20:23)
[2018-02-13] MEDS: Gabapentin 300 MG CAPSULE PO SCH (20:24)
[2018-02-13] MEDS: Insulin DETEMIR 100 UNIT/ML X5UNITS SQ SCH (20:24)
[2018-02-13] MEDS ORDERED: Ibuprofen 400 MG TABLET PO ONE (22:03)
[2018-02-14] MEDS: *HR* Heparin 5,000 UNIT/ML VIAL SQ SCH (06:07)
[2018-02-14 07:23] VITALS: BP 122/70
[2018-02-14] MEDS: Levalbuterol 1 PUFF INHALER IH SCH (07:46)
[2018-02-14] MEDS: Insulin LISPRO 300 UNITS/3 ML VIAL SQ SCH ×2 (07:49→11:49)
[2018-02-14] MEDS: Cholecalciferol (D-3) 1,000 UNIT TABLET PO SCH (07:57)
[2018-02-14] MEDS: Renal Vitamin 1 CAP CAPSULE PO SCH (07:57)
[2018-02-14] MEDS: Metoprolol XL (24 HR) Succ 25 MG TAB.ER.24H PO SCH (07:57)
[2018-02-14] MEDS: Isosorbide MONOnitrate (24 HR) 60 MG TAB.ER.24H PO SCH (07:57)
[2018-02-14] MEDS: hydrALAZINE 25 MG TABLET PO SCH ×2 (07:57→07:59)
[2018-02-14] MEDS: Nystatin POWDER 30 GM BOTTLE TP SCH (08:00)
[2018-02-14] MEDS: Fluticasone Propionate Nasal 50 MCG/SPRAY BOTTLE NS SCH (08:02)
--- NOTE | 2018-02-14 09:44 | Discharge Summary ---
- NOTES TO OUTPATIENT PROVIDER Notes to Outpatient Provider: 82 F admitte for SOB and fluid overload with bilateral moderate pleural effusions, s/p bilateral thoracentensis with remarkable improvement. Due to low blood pressures, Norvasc has been discontinued, her other home meds and chronic medical conditions remained stable. Discharged home to follow up with PCP and nephrology Orders not resulted at time of discharge: Pending orders 02/11/18 15:34 Cytology [PTH] Stat 02/12/18 IR thoracentesis RIGHT [IR] Routine 02/15/18 04:00 BMP [Basic Metabolic Panel] AM 0400 Complete Blood Count [HEME] AM 0400 Date of Encounter: 02/14/18 Time of Encounter: 09:42 - Discharge Diagnosis (1) DVT prophylaxis Priority: Primary Status: Acute (2) Essential hypertension Priority: Secondary Status: Chronic (3) Obesity (BMI 30-39.9) Priority: Secondary Status: Chronic (4) Pleural effusion Priority: Primary Status: Resolved (5) ESRD (end stage renal disease) Priority: Secondary Status: Chronic (6) Fluid overload Priority: Primary Status: Resolved Qualifiers: Hypervolemia type: other Qualified Code(s): E87.79 - Other fluid overload (7) (HFpEF) heart failure with preserved ejection fraction Priority: Secondary Status: Chronic Hospital course: Ms. Dorsey is a 82 year old female patient who presented, as a transfer patient from [facility] on 02/08/2018 for fluid overload with SOB and bilateral effusions She has a PMH of ESRD on HD, DM, HLD, CHFpEF Afib She also has chronic respiratory failure and is on continuous O2 at home She is s/p thoracentensis 02/11 with removal of 500cc of fluid from her R pleural cavity, specimen was not sent for work up She is now s/p L thoracentensis as well on 02/12 She had routine HD per schedule, and has been clinically stable. Repeat CXR X2 shows resolution of effusions. Patient's baseline O2 requirement remained stable, telephonic case manager confirmed patient has O2 with [facility], [place] She was seen and evaluated, no new complains, clinically stable and discharged home with family, informed about medication change verbalized understanding Discharge discussed with: patient, nurse - Time Spent with Patient Total time spent providing and/or coordinating discharge services: Less than 30 minutes - Discharge Medications Home Medications: Amlodipine Besylate 10 mg PO DAILY 10/02/15 [History] DULoxetine [Cymbalta] 30 mg PO DAILY 10/02/15 [History] Gabapentin [Neurontin] 300 mg PO HS 10/02/15 [History] Insulin Glargine,Hum.rec.anlog [Lantus Solostar] 10 unit SQ HS 10/02/15 [History] Fluticasone Propionate Nasal [Flonase] 1 spr NS BID 04/14/17 [History] Melatonin 10 mg PO HS PRN 04/14/17 [History] Metoprolol Succinate 25 mg PO DAILY 04/14/17 [History] Iron 65 mg PO DAILY #0 04/21/17 [Rx] Sevelamer [Renvela] 800 mg PO TIDWM 07/12/17 [History] Acetaminophen [Tylenol] 650 mg PO Q6HR PRN tablet 07/17/17 [Rx] Ipratropium/Albuterol Neb [Duoneb] 3 ml IH TID PRN 11/04/17 [History] Isosorbide MONOnitrate (24 HR) [Imdur] 60 mg PO DAILY 11/04/17 [History] Hydralazine HCl 25 mg PO BID 11/05/17 [History] Omeprazole [PriLOSEC] 40 mg PO DAILY 11/05/17 [History] Ergocalciferol (VITAMIN D2) [Vitamin D] 400 unit PO DAILY 02/08/18 [History] Levalbuterol Tartrate [Xopenex Hfa] 45 gm IH TID 02/08/18 [History] Multivit/Iron/FA/K/Herb No.244 [Alive Women's Energy Mv Tablet] 1 tab PO DAILY 02/08/18 [History] Nystatin POWDER [Nystop] 1 appl TP BID 02/08/18 [History] Polyethylene Glycol 3350 [MiraLAX] 17 gm PO DAILY 02/08/18 [History] Allergies/Adverse Reactions: Allergy/AdvReac Type Severity Reaction Status Date / Time cephalexin [From Keflex] AdvReac Unknown Hypotension Verified 04/14/17 20:54 codeine AdvReac Hypotension Verified 04/14/17 20:54 lisinopril AdvReac See Verified 04/14/17 20:54 Comments metoprolol AdvReac Drowsy Verified 02/08/18 15:54 Date of admission: 02/11/18 08:05 Primary care physician: PCP NONE Consults: 02/08/18 15:32 Consult to Nutrition [CONS] Routine Comment: Consulting Provider: NUTRITION Reason for Dietary Consult: MST Score 02/08/18 16:15 Consult to Dialysis [CONS] ONCE 02/10/18 09:00 Consult to Dialysis [CONS] ONCE 02/10/18 10:43 Consult to Nephrology [CONS] Routine Consulting Provider: Kidney Katty/ALONDRA/JORGE LUIS/JUVENCIO Reason for Consult: HD Call Completed: Yes 02/10/18 16:20 Consult to Interventional Radiology [CONS] Routine Consulting Provider: Radiology Interventional Cols Reason for Consult: Possible throacentesis Time Notified: 16:21 Call Completed: No 02/11/18 13:47 Consult to Interventional Radiology [CONS] Stat Consulting Provider: Radiology Interventional Cols Reason for Consult: large bibasilar plueral effusion on Chest x-ray Time Notified: 13:53 Call Completed: Yes 02/12/18 05:30 Consult to Dialysis [CONS] ONCE Discharging clinician: Junaid Whelan Anticipated date of discharge: 02/14/18 - Constitutional Vitals: Temp Pulse Resp BP Pulse Ox 98.0 F 76 16 122/70 93 02/14/18 07:20 02/14/18 07:20 02/14/18 07:47 02/14/18 07:20 02/14/18 07:47 General appearance: Present: A&O X 3, pleasant, no acute distress Exam: VSS Gen: Elderly, co-operative, pleasant, not in any form of distress HEENT: Acyotic, anicteric, not pale, moist oral mucosa Chest: R chest wall with permacath Resp: CTAB Heart: S1, S2 only, no m/g/r Abdomen: Soft, not tender, no palpably enlarged organs Extremities: NO pedal edema neuro: AAOX3, no focal deficits - Patient Status Disposition: Home, Self-Care Condition: Fair Functional capacity at discharge: independent ambulation Overall status at discharge: patient is progressing back to baseline - Discharge Instructions Follow Up With: NONE,PCP [Primary Care Provider] - - Diet and Activity Activity: resume usual activities as tolerated, wear oxygen at all times Diet: diabetic diet, low fat, low cholesterol, low salt diet
== END 2018-02-14 13:18 | disposition home or self-care (01) | DRG 291 ==
LOC: INTOOBSV 14:12 → SUATTDRO 14:12 → 2ANU 14:12 → SUATTDRO 02-11 08:05
PROVIDERS: ADMIT Hospitalist; ATTEND Internal Medicine

== ENCOUNTER 2018-04-19 17:12 | Inpatient (IN) ==
[2018-04-19] MEDS ORDERED: Naloxone 0.4 MG/ML INJ IVP PRN (21:52)
[2018-04-19] MEDS ORDERED: D5% in Water 1,000 ML IVC PRN (21:55)
[2018-04-19] MEDS ORDERED: *HR* Dextrose 50 % in Water (Syg) 50 ML SYRINGE IVP PRN (21:55)
[2018-04-19] MEDS ORDERED: Dextrose Gel 15 GM/37.5 ML TUBE PO PRN ×2 (21:55)
[2018-04-19] MEDS: Ipratropium/Albuterol Neb 3 ML IH SCH (22:44)
[2018-04-19] MEDS: Insulin LISPRO 300 UNITS/3 ML VIAL SQ SCH ×2 (22:52→23:08)
[2018-04-19] MEDS: Insulin DETEMIR 100 UNIT/ML X5UNITS SQ SCH (23:08)
[2018-04-20] MEDS: Ipratropium/Albuterol Neb 3 ML IH SCH ×4 (03:52→22:26)
--- NOTE | 2018-04-20 06:50 | Internal Med History&Physical ---
Date of Encounter: 04/19/18 Time of Encounter: 20:00 Internal Medicine - H&P: HPI Admitted From: Long-term Nursing Facility Plans for Post Hospital Care: Transfer Shelter Facility History of present illness: The patient is an 82-year-old woman. She is brought to us from [facility] ED. she was brought there from her snf with symptoms of difficulty breathing/weakness. The patient is a very poor historian. She tells me, that she feels good. She tells me that she is using oxygen at 4 L/min nasal cannula. Currently, she is on 2 L/min. Denies chest pain. Denies difficulty breathingon supplemental oxygen. The patient gets hemodialysis on Wednesdays and Fridays. PAST MEDICAL HX: The patient is treated for ESRD (on HD), atrial fibrillation, type 2 diabetes mellitus, hypertension, hyperlipidemia and GERD. PAST FAMILY HX: See below.. PAST SOCIAL HX: There is no history of alcohol or tobacco use. REVIEW OF SYSTEMS: All 14 organ systems were reviewed by me with the patient. Positive and pertinent negative findings are listed above. The rest of organ systems is negative. PHYSICAL EXAM: Skin: Free of rash and discoloration. Eyes: Sclera is white. There is no discharge from eyes. ENMT: Oral/pharyngeal mucosa is normal in appearance. There is no discharge from nose or ears. Respiratory: Normal breath sounds with no crackles and wheezes bilaterally. CV: Heart is regular with no gallop or murmur. GI: Abdomen is flat and soft with no palpable mass or visceromegaly. : There is no tenderness in patient's flanks bilaterally. Neuro exam: He has good strength in upper and lower extremities. He has normal eye movements. Psychiatric: He has normal affect. His thought process is appropriate to the situation. ADDITIONAL DATA: Chest x-ray done at the outpatient facility does not show any significant pulmonary congestion or other abnormalities. She has mild anemia with normal WBC count. She has lactic acid of 0.4. Her creatinine is over 5. She is end-stage renal disease, on hemodialysis. A/P: End-stage renal disease, on hemodialysis. She may be a little bit fluid overloaded. It could be causing some dyspnea reported to us before. We will consult nephrology. She will continue hemodialysis. There is no evidence for pneumonia or COPD exacerbation. Her last echocardiogram was done in October 2017. It showed LVEF of 60%. With indeterminate diastolic function. Together with severe pulmonary hypertension (estimated RVSP of 60 mmHg). Atrial fibrillation. Rate controlled. She is not getting any anticoagulation. I see him, that she has some contraindications to do that. She is on Toprol-XL at 25 mg by mouth daily. Type 2 diabetes mellitus. Insulin-dependent. I will keep her on Levemir and when necessary Humalog. Her other medical problems are mentioned by me above. The stable/controlled. Past Med Surg Social Fam HX - Past Medical History Medical history: arthritis, atrial fibrillation, CHF, diabetes, dialysis, GERD, hyperlipidemia, hypertension, renal disease Additional medical history: TAI, dialysis, fluid overload Psychiatric history: depression - Past Surgical History Surgical History: appendectomy, cholecystectomy, hysterectomy, orthopedic, other, PJ/BSO Additional surgical history: left hip surgery, tubal, spinal fusion, right pleurx cath placement and removal. - Social History Smoking Status: Never smoker Smokeless Tobacco Status: No Alcohol use: none Drug use: none - Family History Brother Family Member Ethnicity: Non- Living Status: Still Living Hx Family Cancer: Yes Sister Family Member Ethnicity: Non- Living Status: Still Living Hx Family Cardiac Disorders: No Hx Family Respiratory Disorders: Yes (COPD) Hx Family Cancer: Yes Hx Family GI Disorders: No Hx Family Endocrine Disorder: No Hx Family Neuromuscular Disorders: No Hx Family Neurologic Disorders: No Hx Family HEENT Disorders: No Hx Family Autoimmune Disorders: No Mother Family Member Ethnicity: Non- Living Status: Hx Family Cardiac Disorders: Yes Hx Family Respiratory Disorders: No Hx Family Cancer: Yes Hx Family Endocrine Disorder: Yes Hx Family Neurologic Disorders: Yes Father Adopted: No Family Member Ethnicity: Non- Living Status: Hx Family Cardiac Disorders: Yes ([place]) Hx Family Endocrine Disorder: Yes Internal Medicine - H&P: Meds DULoxetine [Cymbalta] 60 mg PO DAILY 10/02/15 [History] Gabapentin [Neurontin] 300 mg PO HS 10/02/15 [History] Insulin Glargine,Hum.rec.anlog [Lantus Solostar] 10 unit SQ HS 10/02/15 [History] Fluticasone Propionate Nasal [Flonase] 1 spr NS BID 04/14/17 [History] Melatonin 10 mg PO HS PRN 04/14/17 [History] Metoprolol Succinate 25 mg PO DAILY 04/14/17 [History] Iron 65 mg PO DAILY #0 04/21/17 [Rx] Sevelamer [Renvela] 800 mg PO TIDWM 07/12/17 [History] Acetaminophen [Tylenol] 650 mg PO Q6HR PRN tablet 07/17/17 [Rx] Ipratropium/Albuterol Neb [Duoneb] 3 ml IH Q8H PRN 11/04/17 [History] Omeprazole [PriLOSEC] 40 mg PO DAILY 11/05/17 [History] Ergocalciferol (VITAMIN D2) [Vitamin D] 400 unit PO DAILY 02/08/18 [History] Levalbuterol Tartrate [Xopenex Hfa] 45 gm IH TID 02/08/18 [History] Multivit/Iron/FA/K/Herb No.244 [Alive Women's Energy Mv Tablet] 1 tab PO DAILY 02/08/18 [History] Nystatin POWDER [Nystop] 1 appl TP BID 02/08/18 [History] Polyethylene Glycol 3350 [MiraLAX] 17 gm PO DAILY PRN 02/08/18 [History] Isosorbide MONOnitrate (24 HR) [Imdur] 30 mg PO DAILY 03/21/18 [History] Aspirin [Lo-Dose Aspirin EC] 81 mg PO DAILY 04/19/18 [History] Insulin ASPART [NovoLOG] 2 unit SQ TID 04/19/18 [History] Midodrine [ProAmatine] 20 mg PO JIE 04/19/18 [History] Ondansetron ODT [Zofran ODT] 4 mg SL Q6HR PRN 04/19/18 [History] Allergy/AdvReac Type Severity Reaction Status Date / Time cephalexin [From Keflex] AdvReac Unknown Hypotension Verified 03/19/18 11:56 codeine AdvReac Hypotension Verified 03/19/18 11:56 lisinopril AdvReac See Verified 03/19/18 11:56 Comments metoprolol AdvReac Drowsy Verified 03/19/18 11:56 - Constitutional Vitals: Temp Pulse Resp BP Pulse Ox 97.4 F L 81 17 150/96 98 04/20/18 00:23 04/20/18 00:23 04/20/18 03:53 04/20/18 00:23 04/20/18 03:53 General appearance: Present: A&O X 2, no acute distress, answers questions appropriately Exam: xx - Assessment and plan (1) Dyspnea Current Visit: Yes Status: Acute Qualifiers: Dyspnea type: unspecified Qualified Code(s): R06.00 - Dyspnea, unspecified (2) ESRD (end stage renal disease) on dialysis Current Visit: Yes Status: Chronic (3) AF (atrial fibrillation) Current Visit: Yes Status: Chronic Qualifiers: Atrial fibrillation type: chronic Qualified Code(s): I48.2 - Chronic atrial fibrillation (4) Type 2 diabetes mellitus Current Visit: Yes Status: Chronic Qualifiers: Diabetes mellitus detention insulin 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
[2018-04-20 07:34] LABS: Hematocrit 38.6 % (35.3-44.9); Hemoglobin 11.9 g/dL (11.5-15.4); Mean Corpuscular HGB Conc 30.8 g/dL (31.6-35.5); Mean Corpuscular Hemoglobin 32.1 pg (28.0-33.3); Mean Platelet Volume 11.6 fL (9.4-12.4); Nucleated Red Blood Cells 0.5 /100 WBC (0); Platelet Count 154 K/mcL (140-400); Red Blood Count 3.71 M/mcL (3.82-4.97); Red Cell Distribution Width 16.9 % (11.5-14.5)
[2018-04-20] MEDS ORDERED: Melatonin 3 MG TABLET PO PRN (07:52)
[2018-04-20] MEDS ORDERED: Ipratropium/Albuterol Neb 3 ML IH PRN (07:52)
[2018-04-20] MEDS ORDERED: Ondansetron ODT 4 MG TAB.RAPDIS SL PRN (07:52)
[2018-04-20] MEDS ORDERED: Acetaminophen 325 MG TABLET PO PRN (07:52)
[2018-04-20 07:56] LABS: Calcium 9.5 mg/dL (8.6-10.3); Magnesium 2.2 mg/dL (1.6-2.6); Potassium 5.8 mEq/L (3.5-5.1)
[2018-04-20] MEDS: Insulin LISPRO 300 UNITS/3 ML VIAL SQ SCH ×4 (08:02→21:21)
[2018-04-20 08:15] LABS: Anisocytosis 1+ (Not Present); Monocytes # 1.9 K/mcL (0.0-1.3); Neutrophils # 5.6 K/mcL (1.6-8.9); Platelet Estimate Normal (Normal)
[2018-04-20] MEDS ORDERED: Levalbuterol 1 PUFF INHALER IH SCH (09:00)
[2018-04-20] MEDS ORDERED: 0.9 % Sodium Chloride 250 ML IVC PRN (09:06)
[2018-04-20] MEDS ORDERED: 0.9 % Sodium Chloride 1,000 ML PRIME SCH (09:15)
[2018-04-20 10:38] LABS: Hepatitis B Surface Antibody < 3.10 mIU/mL
[2018-04-20 10:49] LABS: Hepatitis B Surface Antigen Nonreactive (Nonreactive)
[2018-04-20] MEDS: Aspirin Enteric Coated 81 MG Tablet PO SCH (10:49)
[2018-04-20] MEDS: Fluticasone Propionate Nasal 50 MCG/SPRAY BOTTLE NS SCH ×2 (10:50→21:24)
[2018-04-20] MEDS: Nystatin POWDER 30 GM BOTTLE TP SCH ×2 (10:50→21:23)
[2018-04-20] MEDS: Isosorbide MONOnitrate (24 HR) 30 MG TAB.ER.24H PO SCH (10:50)
[2018-04-20] MEDS: Cholecalciferol (D-3) 1,000 UNIT TABLET PO SCH (10:51)
[2018-04-20] MEDS: Renal Vitamin 1 CAP CAPSULE PO SCH (10:51)
[2018-04-20] MEDS: Furosemide 40 MG/4 ML VIAL IVP SCH (12:25)
[2018-04-20] MEDS: Metoprolol XL (24 HR) Succ 25 MG TAB.ER.24H PO SCH (12:25)
--- NOTE | 2018-04-20 13:11 | Nephrology Consult Note ---
Date of Encounter: 04/20/18 Time of Encounter: 11:25 Assessment and Plan (1) ESRD (end stage renal disease) on dialysis Current Visit: Yes Status: Chronic Patient sees Dr. Michael for nephrology outpatient. Dialysis MWF at [facility] on , last time she went to dialysis was Thursday; missed yesterday's appointment. Access is left upper arm AV fistula placement with good thrill and bruit. Patient cannot answer why she undergoes dialysis/cause for ESRD due to patient confusion/alert to self only. Creatinine 6.69, BUN 68, GFR 6, bicarb 6, potassium 5.8 on 04/20/18 Patient currently undergoing dialysis, continue MWF dialysis as prescribed with additional as necessary. Patient on 2L O2 nasal cannula with 96% saturation. Continue renal vitamins, avoid nephrotoxins, renally dose medications. Okay to discharge from renal standpoint with dialysis outpatient as prescribed. (2) Dyspnea Current Visit: Yes Status: Acute Patient previously had dyspnea due to fluid overload, currently undergoing dialysis today to remove fluid. On MWF scheduled dialysis for ESRD. Continue dialysis MWF with additional as needed. Qualifiers: Dyspnea type: unspecified Qualified Code(s): R06.00 - Dyspnea, unspecified (3) Type 2 diabetes mellitus Current Visit: Yes Status: Chronic Insulin controlled per primary team Qualifiers: Diabetes mellitus medical intern insulin use: with medical intern use Diabetes mellitus complication status: with kidney complications Diabetes mellitus complication detail: with chronic kidney disease Chronic kidney disease stage: on chronic dialysis Qualified Code(s): E11.22 - Type 2 diabetes mellitus with diabetic chronic kidney disease; N18.6 - End stage renal disease; Z79.4 - alf (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; Z99.2 - Dependence on renal dialysis (4) AF (atrial fibrillation) Current Visit: Yes Status: Chronic Qualifiers: Atrial fibrillation type: chronic Qualified Code(s): I48.2 - Chronic atrial fibrillation History of Present Illness - Reason for Consult Consult date: 04/20/18 end stage renal disease Requesting physician: Matty Mcarthur - Chief Complaint Difficulty Breathing - History of Present Illness Ms. Dorsey is a 82 year old female who was seen during dialysis for her ESRD with CC of "difficulty breathing". Patient has PMH of ESRD w/ dialysis, atrial fibrillation, type 2 diabetes mellitus, HTN, HLD, GERD. Nephrology consulted for management of patient's ESRD with dialysis. Patient is a poor historian and states she seems fine but appears to be somewhat confused. Patient is unable to answer questions about medical history. She was admitted from [facility] due to difficulty breathing and weakness. Patient has left upper arm AV fistula for dialysis. Patient admits shortness of breath but says she feels fine but is alert to self and location only. Past Med Surg Social Fam HX - Past Medical History Medical history: arthritis, atrial fibrillation, CHF, diabetes, dialysis, GERD, hyperlipidemia, hypertension, renal disease Additional medical history: TAI, dialysis, fluid overload Psychiatric history: depression - Past Surgical History Surgical History: appendectomy, cholecystectomy, hysterectomy, orthopedic, other, PJ/BSO Additional surgical history: left hip surgery, tubal, spinal fusion, right pleurx cath placement and removal. - Social History Smoking Status: Never smoker Smokeless Tobacco Status: No Alcohol use: none Drug use: none - Family History Brother Family Member Ethnicity: Non- Living Status: Still Living Hx Family Cancer: Yes Sister Family Member Ethnicity: Non- Living Status: Still Living Hx Family Cardiac Disorders: No Hx Family Respiratory Disorders: Yes (COPD) Hx Family Cancer: Yes Hx Family GI Disorders: No Hx Family Endocrine Disorder: No Hx Family Neuromuscular Disorders: No Hx Family Neurologic Disorders: No Hx Family HEENT Disorders: No Hx Family Autoimmune Disorders: No Mother Family Member Ethnicity: Non- Living Status: Hx Family Cardiac Disorders: Yes Hx Family Respiratory Disorders: No Hx Family Cancer: Yes Hx Family Endocrine Disorder: Yes Hx Family Neurologic Disorders: Yes Father Adopted: No Family Member Ethnicity: Non- Living Status: Hx Family Cardiac Disorders: Yes ([place]) Hx Family Endocrine Disorder: Yes Medications and Allergies DULoxetine [Cymbalta] 60 mg PO DAILY 10/02/15 [History] Gabapentin [Neurontin] 300 mg PO HS 10/02/15 [History] Insulin Glargine,Hum.rec.anlog [Lantus Solostar] 10 unit SQ HS 10/02/15 [History] Fluticasone Propionate Nasal [Flonase] 1 spr NS BID 04/14/17 [History] Melatonin 10 mg PO HS PRN 04/14/17 [History] Metoprolol Succinate 25 mg PO DAILY 04/14/17 [History] Iron 65 mg PO DAILY #0 04/21/17 [Rx] Sevelamer [Renvela] 800 mg PO TIDWM 07/12/17 [History] Acetaminophen [Tylenol] 650 mg PO Q6HR PRN tablet 07/17/17 [Rx] Ipratropium/Albuterol Neb [Duoneb] 3 ml IH Q8H PRN 11/04/17 [History] Omeprazole [PriLOSEC] 40 mg PO DAILY 11/05/17 [History] Ergocalciferol (VITAMIN D2) [Vitamin D] 400 unit PO DAILY 02/08/18 [History] Levalbuterol Tartrate [Xopenex Hfa] 45 gm IH TID 02/08/18 [History] Multivit/Iron/FA/K/Herb No.244 [Alive Women's Energy Mv Tablet] 1 tab PO DAILY 02/08/18 [History] Nystatin POWDER [Nystop] 1 appl TP BID 02/08/18 [History] Polyethylene Glycol 3350 [MiraLAX] 17 gm PO DAILY PRN 02/08/18 [History] Isosorbide MONOnitrate (24 HR) [Imdur] 30 mg PO DAILY 03/21/18 [History] Aspirin [Lo-Dose Aspirin EC] 81 mg PO DAILY 04/19/18 [History] Insulin ASPART [NovoLOG] 2 unit SQ TID 04/19/18 [History] Midodrine [ProAmatine] 20 mg PO JIE 04/19/18 [History] Ondansetron ODT [Zofran ODT] 4 mg SL Q6HR PRN 04/19/18 [History] Allergy/AdvReac Type Severity Reaction Status Date / Time cephalexin [From Keflex] AdvReac Unknown Hypotension Verified 03/19/18 11:56 codeine AdvReac Hypotension Verified 03/19/18 11:56 metoprolol AdvReac Drowsy Verified 03/19/18 11:56 Review of Systems Constitutional: no chills, no fever(s) Cardiovascular: palpitations, no chest pain Respiratory: dyspnea, no cough Gastrointestinal: constipation, no abdominal pain Genitourinary Female: no difficulty urinating, no dysuria, no urinary hesitancy Exam - Vital Signs Vital signs: Initial Vital Signs Temp Pulse Resp BP Pulse Ox 98.4 F 90 20 132/81 100 04/19/18 21:03 04/19/18 21:03 04/19/18 21:03 04/19/18 21:03 04/19/18 21:03 Vital Signs - Last 8 Hours Temp Pulse Resp BP Pulse Ox 04/20/18 12:35 111/76 04/20/18 12:20 120/71 04/20/18 12:05 120/75 04/20/18 11:50 120/76 04/20/18 11:35 121/77 04/20/18 11:20 125/68 04/20/18 11:07 96 04/20/18 11:05 117/55 04/20/18 10:50 120/67 04/20/18 10:35 143/67 04/20/18 10:20 137/71 04/20/18 10:05 125/90 04/20/18 09:50 97.0 F L 18 139/72 04/20/18 07:46 97.7 F 107 19 128/74 96 Intake and Output 04/19/18 04/20/18 04/20/18 23:59 07:59 15:59 Intake Total 600 / 600 Balance 600 / 600 Intake: Oral 0 / 0 Intake, Rinseback and Flushes 600 / 600 Other: Weight 76 kg Blood Glucose* 84 80 107 Hemodialysis Net Fluid Removed 2405 (mL) - General Appearance Exam: General: awake, alert to self, no acute distress, pleasant; confused HEENT: normocephalic, atraumatic. mucus membranes moist CV: Irregular tachycardic rhythm, no murmurs. Resp: LCTAB, no wheezes or rhonchi Abd: soft, nontender, no guarding. Bowel sounds present. Neuro: Alert to self and location only. No focal deficits. Results - Lab Results 04/20/18 07:14 04/20/18 07:14 Most recent lab results Calcium 9.5 mg/dL (8.6-10.3) 04/20/18 07:14 Magnesium 2.2 mg/dL (1.6-2.6) 04/20/18 07:14 Consult Discharge Plan - Plan Referrals: Krystle Henderson [Primary Care Provider] -
--- NOTE | 2018-04-20 16:50 | Internal Med Progress Note ---
Hospitalist Progress Note - Encounter Date of Encounter: 04/20/18 Time of Encounter: 16:48 - Subjective Interval History: Pt's breathing improved. She denies chest pain or SOB. She denies N/V or diarrhea - Exam Vitals: Temp Pulse Resp BP Pulse Ox 97.4 F L 104 19 106/62 90 04/20/18 15:48 04/20/18 15:48 04/20/18 15:48 04/20/18 15:48 04/20/18 15:48 Exam: Exam: General: awake, alert to self, no acute distress, pleasant; confused HEENT: normocephalic, atraumatic. mucus membranes moist CV: Irregular tachycardic rhythm, no murmurs. Resp: LCTAB, no wheezes or rhonchi Abd: soft, nontender, no guarding. Bowel sounds present. Extremities: trace edema. Denies joint pain. Neuro: Alert to self and location only. No focal deficits. Skin: warm, dry, no rash - Assessment and Plan (1) Dyspnea Current Visit: Yes Status: Acute Assessment and Plan: Slowly improving following HD. She denies chest pain or SOB. She denies fever, chills, N/V or diarrhea. Pt requesting being placed at a different ECF. Social work on the case. (2) ESRD (end stage renal disease) on dialysis Current Visit: Yes Status: Chronic Assessment and Plan: Nephrology following on HD (3) AF (atrial fibrillation) Current Visit: Yes Status: Chronic Assessment and Plan: ASA and on Metoprolol. (4) Type 2 diabetes mellitus Current Visit: Yes Status: Chronic Assessment and Plan: Levemir 20 units QHS and on SSI as well. DVT Prophylaxis: SCD - Summary of Assessment and Plan Summary of Assessment and Plan: History of present illness: Dr. Mcarthur The patient is an 82-year-old woman. She is brought to us from [facility] ED. she was brought there from her care home with symptoms of difficulty breathing/weakness. The patient is a very poor historian. She tells me, that she feels good. She tells me that she is using oxygen at 4 L/min nasal cannula. Currently, she is on 2 L/min. Denies chest pain. Denies difficulty breathingon supplemental oxygen. The patient gets hemodialysis on Wednesdays and Fridays. - Time Spent with Patient Total time spent is greater than 50% in coordination of care (as documented) at patient's floor/unit and/or counseling patient: less than 15 minutes Plan of Care Discussed with: patient Internal Medicine: Result - Labs CBC & Chem 7: 04/20/18 07:14 04/20/18 07:14 Labs: Short CBC 04/20/18 Range/Units 07:14 WBC 8.5 (4.3-11.1) K/mcL Hgb 11.9 (11.5-15.4) g/dL Hct 38.6 (35.3-44.9) % Plt Count 154 (140-400) K/mcL Neutrophils # 5.6 (1.6-8.9) K/mcL BMP 04/20/18 07:14 Sodium 132 L Potassium 5.8 H Chloride 91 L Carbon Dioxide 28 BUN 68 H Creatinine 6.69 H Glucose 83 Calcium 9.5 - Impressions Impressions Echocardiogram 04/20/18 21:59 Impressions: LVEF 50%. Mild concentric left ventricular hypertrophy. Indeterminate diastolic function. RV is dilated. Function normal by Doppler. Severe bi-atrial enlargement. Mild mitral regurgitation. Moderate-severe tricuspid regurgitation. Mild pulmonic regurgitation. Moderate pulmonary hypertension. There is a small to moderate circumferential pericardial effusion present. There is no echocardiographic evidence of tamponade. A pleural effusion is present. Left Ventricular Wall Motion: Rest Echo Findings The apex, apical inferior, mid inferior, basal inferior, apical anterior, mid anterior and basal anterior gilmore were not visualized. All other wall segments showed normal motion. Findings: Study Quality * Technically adequate exam. ECG Findings * Atrial fibrillation. Left Ventricle * LVEF 50%. * Mild concentric left ventricular hypertrophy. * Indeterminate diastolic function. Right Ventricle * RV is dilated. Function normal by Doppler. Left Atrium * Severely dilated left atrium. Right Atrium * Severely dilated right atrium. Mitral Valve * Mild-moderate mitral annular calcification * Mild mitral regurgitation. * No mitral stenosis. Aortic Valve * No aortic regurgitation. * Trileaflet aortic valve. * No aortic stenosis. Tricuspid Valve * Tricuspid valve not well visualized - possibly poor leaflet coaptation. * Moderate-severe tricuspid regurgitation. * Estimated RA pressure is 20 mmHg. * Estimated RVSP is 50 mmHg. * Moderate pulmonary hypertension. Pulmonic Valve * Pulmonic valve is not well visualized. * No pulmonic stenosis. * Mild pulmonic regurgitation. Pulmonary Artery * Pulmonary artery not well visualized. Aorta * Normally sized aortic root. Pericardium * There is a small to moderate pericardial effusion present. * There is no echocardiographic evidence of tamponade. Pleural Effusion * A pleural effusion is present. Interatrial Septum * No evidence of PFO by color Doppler. IVC * < 50% respiratory change. * The IVC is dilated. Consult Discharge Plan - Plan Referrals: Krystle Henderson [Primary Care Provider] - (1) Dyspnea Qualifiers: Dyspnea type: unspecified Qualified Code(s): R06.00 - Dyspnea, unspecified (3) AF (atrial fibrillation) Qualifiers: Atrial fibrillation type: chronic Qualified Code(s): I48.2 - Chronic atrial fibrillation (4) Type 2 diabetes mellitus Qualifiers: Diabetes mellitus terminal worker insulin use: with terminal worker use Diabetes mellitus complication status: with kidney complications Diabetes mellitus complication detail: with chronic kidney disease Chronic kidney disease stage: on chronic dialysis Qualified Code(s): E11.22 - Type 2 diabetes mellitus with diabetic chronic kidney disease; N18.6 - End stage renal disease; Z79.4 - terminal worker (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; Z99.2 - Dependence on renal dialysis
[2018-04-20] MEDS: Gabapentin 300 MG CAPSULE PO SCH (21:23)
[2018-04-20] MEDS: Insulin DETEMIR 100 UNIT/ML X5UNITS SQ SCH (21:29)
[2018-04-21] MEDS: Ipratropium/Albuterol Neb 3 ML IH SCH ×4 (04:34→22:52)
[2018-04-21 06:18] LABS: Hematocrit 38.6 % (35.3-44.9); Hemoglobin 11.4 g/dL (11.5-15.4); Mean Corpuscular HGB Conc 29.5 g/dL (31.6-35.5); Mean Corpuscular Hemoglobin 32.7 pg (28.0-33.3); Mean Platelet Volume 11.3 fL (9.4-12.4); Platelet Count 145 K/mcL (140-400); Red Blood Count 3.49 M/mcL (3.82-4.97); Red Cell Distribution Width 17.2 % (11.5-14.5)
[2018-04-21 06:27] LABS: Mean Corpuscular Volume 110.6 fL (83.0-100.0)
[2018-04-21 06:37] LABS: Calcium 9.3 mg/dL (8.6-10.3)
[2018-04-21] MEDS ORDERED: 0.9 % Sodium Chloride 250 ML IVC PRN (07:44)
[2018-04-21] MEDS ORDERED: 0.9 % Sodium Chloride 1,000 ML PRIME SCH (07:45)
[2018-04-21] MEDS: Insulin LISPRO 300 UNITS/3 ML VIAL SQ SCH ×4 (08:25→21:35)
[2018-04-21] MEDS: Renal Vitamin 1 CAP CAPSULE PO SCH (08:40)
[2018-04-21] MEDS: Cholecalciferol (D-3) 1,000 UNIT TABLET PO SCH (08:40)
[2018-04-21] MEDS: Aspirin Enteric Coated 81 MG Tablet PO SCH (08:40)
[2018-04-21] MEDS: Fluticasone Propionate Nasal 50 MCG/SPRAY BOTTLE NS SCH ×2 (08:42→21:34)
[2018-04-21] MEDS: Nystatin POWDER 30 GM BOTTLE TP SCH ×2 (08:43→21:38)
--- NOTE | 2018-04-21 09:58 | Nephrology Progress Note ---
Date of Encounter: 04/21/18 Time of Encounter: 09:05 - Assessment and Plan (1) ESRD (end stage renal disease) on dialysis Current Visit: Yes Status: Chronic Patient seems to be doing better after yesterday's dialysis with 2000mL of fluid removed. Currently undergoing dialysis today per her MWF schedule. Patient sees Dr. Michael for nephrology outpatient. Dialysis MWF at [facility] on , missed appointment Thursday and was subsequently admitted to hospital Thursday and dialyzed in hospital. Access is left upper arm AV fistula placement with good thrill and bruit. Patient cannot answer why she undergoes dialysis/cause for ESRD due to patient confusion; states her son will be here tonight and will be better able to answer medical history questions. Creatinine 5.14 on 04/21/18 from 6.69 on admission 04/20/18, BUN 42 04/21/18 from 68 on admission 04/20/18, GFR 8 04/21/18 from 6 on admission 04/20/18, bicarb 25 04/21/18 from 28 on admission 04/20/18, potassium 5.0 04/21/18 from 5.8 on 04/20/18 Patient currently undergoing dialysis, continue MWF dialysis as prescribed with additional as necessary. Patient on 2L O2 nasal cannula with 96% saturation. Continue renal vitamins, avoid nephrotoxins, renally dose medications. Okay to discharge from renal standpoint with dialysis outpatient as prescribed. (2) Dyspnea Current Visit: Yes Status: Acute Patient notes that her dyspnea has gotten better post dialysis yesterday, she previously had dyspnea due to fluid overload, currently undergoing dialysis today to remove fluid. On MWF scheduled dialysis for ESRD. Continue dialysis MWF with additional as needed. Qualifiers: Dyspnea type: unspecified Qualified Code(s): R06.00 - Dyspnea, unspecified (3) Type 2 diabetes mellitus Current Visit: Yes Status: Chronic Insulin controlled per primary team Qualifiers: Diabetes mellitus senior living insulin use: with senior living use Diabetes mellitus complication status: with kidney complications Diabetes mellitus complication detail: with chronic kidney disease Chronic kidney disease stage: on chronic dialysis Qualified Code(s): E11.22 - Type 2 diabetes mellitus with diabetic chronic kidney disease; N18.6 - End stage renal disease; Z79.4 - nursing home (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; Z99.2 - Dependence on renal dialysis (4) AF (atrial fibrillation) Current Visit: Yes Status: Chronic Qualifiers: Atrial fibrillation type: chronic Qualified Code(s): I48.2 - Chronic atrial fibrillation Subjective Principal diagnosis: SOB Interval history: Ms. Dorsey is a pleasant 82 year old female who was seen during dialysis for her ESRD for CC "shortness of breath". Patient notes that her shortness of b reath is significantly better and although she is unable to walk she feels that she is no longer short of breath. Patient has PMH of ESRD w/ dialysis, AFib, T2DM, HTN, HLD, GERD. Nephrology on board for patient's dialysis management. Patient was less confused than yesterday but stated that her son will visit [facility] and will be better able to answer questions about medical history. Dialysis access through left upper arm AV fistula. Patient admits "diarrhea for past couple days" but denies fever, chills, nausea, vomiting, chest pain, palpitations, abdominal pain, urinary changes, blood in urine, frothy urine. Objective - Vital Signs Vital signs: Vital Signs Temp Pulse Resp BP Pulse Ox 04/21/18 08:51 96 04/21/18 06:56 98.2 F 102 19 116/75 96 04/21/18 05:00 97.8 F 109 16 129/86 96 04/21/18 04:34 18 94 04/21/18 00:58 98.2 F 108 16 110/70 95 04/20/18 22:26 18 99 04/20/18 20:11 98.0 F 105 16 138/70 98 04/20/18 15:48 97.4 F L 104 19 106/62 90 04/20/18 15:46 18 98 04/20/18 13:07 97.3 F L 18 128/77 04/20/18 12:50 108/54 04/20/18 12:35 111/76 04/20/18 12:20 120/71 04/20/18 12:05 120/75 04/20/18 11:50 120/76 04/20/18 11:35 121/77 04/20/18 11:20 125/68 04/20/18 11:07 96 04/20/18 11:05 117/55 04/20/18 10:50 120/67 04/20/18 10:35 143/67 04/20/18 10:20 137/71 04/20/18 10:05 125/90 Intake and Output 04/20/18 04/21/18 04/21/18 23:59 07:59 15:59 Other: Weight 77.2 kg Blood Glucose* 111 83 Patient Weight 04/21/18 23:59 Weight 77.2 kg - General Appearance Exam: Gen: Awake, alert to self and location, pleasant but confused. HEENT: Normocephalic, atraumatic. Mucus membranes moist CV: Irregular tachycardic rhythm, no murmurs or rubs Resp: LCTAB, no wheezes, rales or rhonchi GI: Abdomen soft, nondistended, no guarding. Bowel sounds present. Neuro: Alert and oriented to self and location in hospital. No focal deficits Psych: Normal mood & behavior - Lab 04/21/18 05:39 04/21/18 05:39 Most recent lab results Calcium 9.3 mg/dL (8.6-10.3) 04/21/18 05:39 Magnesium 2.2 mg/dL (1.6-2.6) 04/20/18 07:14 Consult Discharge Plan - Plan Referrals: Krystle Henderson [Primary Care Provider] -
[2018-04-21] MEDS: Metoprolol XL (24 HR) Succ 25 MG TAB.ER.24H PO SCH (13:47)
[2018-04-21] MEDS: Furosemide 40 MG/4 ML VIAL IVP SCH (13:47)
[2018-04-21] MEDS: Isosorbide MONOnitrate (24 HR) 30 MG TAB.ER.24H PO SCH (13:55)
--- NOTE | 2018-04-21 18:02 | Internal Med Progress Note ---
Hospitalist Progress Note - Encounter Date of Encounter: 04/21/18 Time of Encounter: 17:59 - Subjective Interval History: Pt's breathing improved. She denies chest pain or SOB. She denies N/V or diarrhea - Exam Vitals: Temp Pulse Resp BP Pulse Ox 97.9 F 101 18 131/81 96 04/21/18 16:02 04/21/18 16:02 04/21/18 16:02 04/21/18 16:02 04/21/18 16:02 Exam: Exam: General: awake, alert to self, no acute distress, pleasant; confused HEENT: normocephalic, atraumatic. mucus membranes moist CV: Irregular tachycardic rhythm, no murmurs. Resp: LCTAB, no wheezes or rhonchi Abd: soft, nontender, no guarding. Bowel sounds present. Extremities: trace edema. Denies joint pain. Neuro: Alert to self and location only. No focal deficits. Skin: warm, dry, no rash - Assessment and Plan (1) Dyspnea Current Visit: Yes Status: Acute Assessment and Plan: Likely due to volume overload. Continues to improve following HD. She denies chest pain or SOB. She denies fever, chills, N/V or diarrhea. Pt requesting being placed at a different ECF. Social work on the case. (2) ESRD (end stage renal disease) on dialysis Current Visit: Yes Status: Chronic Assessment and Plan: Nephrology following on HD (3) AF (atrial fibrillation) Current Visit: Yes Status: Chronic Assessment and Plan: ASA and on Metoprolol. (4) Type 2 diabetes mellitus Current Visit: Yes Status: Chronic Assessment and Plan: Levemir 20 units QHS and on SSI as well. (5) (HFpEF) heart failure with preserved ejection fraction Current Visit: No Status: Chronic Assessment and Plan: Lasix 40 mg IV QD. Pt is not on Lasix at home. DVT Prophylaxis: SCD - Summary of Assessment and Plan Summary of Assessment and Plan: History of present illness: Dr. Mcarthur The patient is an 82-year-old woman. She is brought to us from [facility] ED. she was brought there from her longterm with symptoms of difficulty breathing/weakness. The patient is a very poor historian. She tells me, that she feels good. She tells me that she is using oxygen at 4 L/min nasal cannula. Currently, she is on 2 L/min. Denies chest pain. Denies difficulty breathingon supplemental oxygen. The patient gets hemodialysis on Wednesdays and Fridays. - Time Spent with Patient Total time spent is greater than 50% in coordination of care (as documented) at patient's floor/unit and/or counseling patient: less than 15 minutes Plan of Care Discussed with: patient Internal Medicine: Result - Labs CBC & Chem 7: 04/21/18 05:39 04/21/18 05:39 Labs: Short CBC 04/21/18 Range/Units 05:39 WBC 7.1 (4.3-11.1) K/mcL Hgb 11.4 L (11.5-15.4) g/dL Hct 38.6 (35.3-44.9) % Plt Count 145 (140-400) K/mcL BMP 04/21/18 05:39 Sodium 133 L Potassium 5.0 Chloride 93 L Carbon Dioxide 25 BUN 42 H Creatinine 5.14 H Glucose 96 Calcium 9.3 Consult Discharge Plan - Plan Referrals: Krystle Henderson [Primary Care Provider] - (Patient is going to [facility] ) (1) Dyspnea Qualifiers: Dyspnea type: unspecified Qualified Code(s): R06.00 - Dyspnea, unspecified (3) AF (atrial fibrillation) Qualifiers: Atrial fibrillation type: chronic Qualified Code(s): I48.2 - Chronic atrial fibrillation (4) Type 2 diabetes mellitus Qualifiers: Diabetes mellitus tire mechanic insulin use: with tire mechanic use Diabetes mellitus complication status: with kidney complications Diabetes mellitus complication detail: with chronic kidney disease Chronic kidney disease stage: on chronic dialysis Qualified Code(s): E11.22 - Type 2 diabetes mellitus with diabetic chronic kidney disease; N18.6 - End stage renal disease; Z79.4 - custodial (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; Z99.2 - Dependence on renal dialysis
[2018-04-21] MEDS: Gabapentin 300 MG CAPSULE PO SCH (21:35)
[2018-04-21] MEDS: Insulin DETEMIR 100 UNIT/ML X5UNITS SQ SCH (21:35)
[2018-04-22] MEDS: Ipratropium/Albuterol Neb 3 ML IH SCH ×4 (04:02→22:37)
[2018-04-22 07:28] LABS: Calcium 9.5 mg/dL (8.6-10.3)
[2018-04-22] MEDS: Insulin LISPRO 300 UNITS/3 ML VIAL SQ SCH ×4 (07:37→21:07)
[2018-04-22] MEDS: Isosorbide MONOnitrate (24 HR) 30 MG TAB.ER.24H PO SCH (08:05)
[2018-04-22] MEDS: Renal Vitamin 1 CAP CAPSULE PO SCH (08:05)
[2018-04-22] MEDS: Cholecalciferol (D-3) 1,000 UNIT TABLET PO SCH (08:05)
[2018-04-22] MEDS: Metoprolol XL (24 HR) Succ 25 MG TAB.ER.24H PO SCH (08:05)
[2018-04-22] MEDS: Aspirin Enteric Coated 81 MG Tablet PO SCH (08:05)
[2018-04-22] MEDS: Fluticasone Propionate Nasal 50 MCG/SPRAY BOTTLE NS SCH ×2 (08:07→21:10)
[2018-04-22 08:53] LABS: Hematocrit 41.2 % (35.3-44.9); Hemoglobin 12.2 g/dL (11.5-15.4); Mean Corpuscular HGB Conc 29.6 g/dL (31.6-35.5); Mean Corpuscular Hemoglobin 31.9 pg (28.0-33.3); Mean Corpuscular Volume 107.9 fL (83.0-100.0); Mean Platelet Volume 10.8 fL (9.4-12.4); Platelet Count 178 K/mcL (140-400); Red Blood Count 3.82 M/mcL (3.82-4.97); Red Cell Distribution Width 17.3 % (11.5-14.5)
[2018-04-22] MEDS: Nystatin POWDER 30 GM BOTTLE TP SCH ×2 (09:28→21:10)
--- NOTE | 2018-04-22 09:42 | Nephrology Progress Note ---
Date of Encounter: 04/22/18 Time of Encounter: 09:00 - Assessment and Plan (1) ESRD (end stage renal disease) on dialysis Current Visit: Yes Status: Chronic Patient seems to be doing better after yesterday's dialysis with 3000mL of fluid removed and dialysis on 04/20/17 with 2000mL fluid removed. Patient sees Dr. Michael for nephrology outpatient. Dialysis MWF at [facility] on , missed appointment Thursday and was subsequently admitted to hospital Thursday and dialyzed in hospital. Access is left upper arm AV fistula placement with good thrill and bruit. Patient cannot answer why she undergoes dialysis/cause for ESRD due to patient confusion; states her son will be here tonight and will be better able to answer medical history questions. Creatinine 3.90 on 04/22/18 from 6.69 on admission 04/20/18, BUN 29 04/22/18 from 68 on admission 04/20/18, GFR 11 04/22/18 from 6 on admission 04/20/18, bicarb 25 04/22/18 from 28 on admission 04/20/18, potassium 5.0 04/22/18 from 5.8 on 04/20/18 Continue MWF dialysis as prescribed with additional as necessary. Patient on 2L O2 nasal cannula with 96% saturation. Continue renal vitamins, avoid nephrotoxins, renally dose medications. Okay to discharge from renal standpoint with dialysis outpatient as prescribed. (2) Dyspnea Current Visit: Yes Status: Acute Patient notes that her dyspnea has gotten better post dialysis yesterday and 04/20/18, she previously had dyspnea due to fluid overload. On MWF scheduled dialysis for ESRD. Continue dialysis MWF with additional as needed. 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 Dorsey is a pleasant 82 year old female who was seen bedside for CC "shortness of breath". Patient notes that her shortness of breath is significantly better and although she is unable to walk she feels that she is no longer short of breath. Patient recalls seeing me yesterday during dialysis and notes that today she is "shaky" but otherwise has no complaint. Patient has PMH of ESRD w/ dialysis, AFib, T2DM, HTN, HLD, GERD. Nephrology on board for patient's dialysis management. Patient's confusion seems to diminish as her hospital course progresses. Dialysis access through left upper arm AV fistula. Patient denies fever, chills, nausea, vomiting, chest pain, palpitations, abdominal pain, constipation, diarrhea, urinary changes, blood in urine, frothy urine. Objective - Vital Signs Vital signs: Vital Signs Temp Pulse Resp BP Pulse Ox 04/22/18 06:25 97.7 F 118 16 146/74 100 04/22/18 04:03 97.5 F L 104 18 121/65 95 04/22/18 04:02 19 95 04/22/18 00:04 98.1 F 110 18 133/76 96 04/21/18 22:52 17 92 04/21/18 19:49 97.6 F 98 18 134/67 98 04/21/18 16:11 18 99 04/21/18 16:02 97.9 F 101 18 131/81 96 04/21/18 13:20 97.2 F L 18 113/92 04/21/18 12:55 119/82 04/21/18 12:40 127/75 04/21/18 12:25 130/79 04/21/18 12:10 127/73 04/21/18 11:55 113/70 04/21/18 11:40 126/78 04/21/18 11:25 130/68 04/21/18 11:10 121/69 04/21/18 10:55 110/65 04/21/18 10:40 115/64 04/21/18 10:25 119/71 04/21/18 10:10 118/85 04/21/18 09:55 113/84 Intake and Output 04/21/18 04/22/18 04/22/18 23:59 07:59 15:59 Intake Total 60 / 60 0 / 0 Balance 60 / 60 0 / 0 Intake: Oral 60 / 60 0 / 0 Other: # Voids 1 Weight 75.5 kg Blood Glucose* 117 65 Patient Weight 04/22/18 23:59 Weight 75.5 kg - General Appearance Exam: Gen: AAO, pleasant, in no acute distress. HEENT: Normocephalic, atraumatic. Mucus membranes moist CV: Irregular rhythm, no murmurs or rubs Resp: LCTAB, no wheezes, rales or rhonchi GI: Abdomen soft, nondistended, no guarding. Bowel sounds present. Neuro: Alert and oriented to self and location in hospital and time (recalls seeing me yesterday at dialysis). No focal deficits Psych: Normal mood & behavior - Lab 04/22/18 08:30 04/22/18 05:49 Most recent lab results Calcium 9.5 mg/dL (8.6-10.3) 04/22/18 05:49 Magnesium 2.2 mg/dL (1.6-2.6) 04/20/18 07:14 Consult Discharge Plan - Plan Referrals: Krystle Henderson [Primary Care Provider] - (Patient is going to [facility] )
--- NOTE | 2018-04-22 16:05 | Internal Med Progress Note ---
Hospitalist Progress Note - Encounter Date of Encounter: 04/22/18 Time of Encounter: 17:42 - Subjective Interval History: Pt's breathing improved. She denies chest pain or SOB. She denies N/V or diarrhea - Exam Vitals: Temp Pulse Resp BP Pulse Ox 98.6 F 106 16 127/75 98 04/22/18 10:43 04/22/18 10:43 04/22/18 11:04 04/22/18 10:43 04/22/18 11:04 Exam: Exam: General: awake, alert to self, no acute distress, pleasant; confused HEENT: normocephalic, atraumatic. mucus membranes moist CV: Irregular tachycardic rhythm, no murmurs. Resp: LCTAB, no wheezes or rhonchi Abd: soft, nontender, no guarding. Bowel sounds present. Extremities: trace edema. Denies joint pain. Neuro: Alert to self and location only. No focal deficits. Skin: warm, dry, no rash - Assessment and Plan (1) Dyspnea Current Visit: Yes Status: Acute Assessment and Plan: Likely due to volume overload. Continues to improve following HD. She denies chest pain or SOB. She denies fever, chills, N/V or diarrhea. Pt requesting being placed at a different ECF. Social work on the case. (2) ESRD (end stage renal disease) on dialysis Current Visit: Yes Status: Chronic Assessment and Plan: Nephrology following on HD (3) AF (atrial fibrillation) Current Visit: Yes Status: Chronic Assessment and Plan: ASA and on Metoprolol. (4) Type 2 diabetes mellitus Current Visit: Yes Status: Chronic Assessment and Plan: Levemir 20 units decreased to 10 units QHS and on SSI as well. (5) (HFpEF) heart failure with preserved ejection fraction Current Visit: No Status: Chronic Assessment and Plan: HEpEF of unknown type Lasix 40 mg IV QD. Pt is not on Lasix at home. DVT Prophylaxis: SCD - Summary of Assessment and Plan Summary of Assessment and Plan: History of present illness: Dr. Mcarthur The patient is an 82-year-old woman. She is brought to us from [facility]. she was brought there from her [facility] with symptoms of difficulty breathing/weakness. The patient is a very poor historian. She tells me, that she feels good. She tells me that she is using oxygen at 4 L/min nasal cannula. Currently, she is on 2 L/min. Denies chest pain. Denies difficulty breathingon supplemental oxygen. The patient gets hemodialysis on Wednesdays and Fridays. - Time Spent with Patient Total time spent is greater than 50% in coordination of care (as documented) at patient's floor/unit and/or counseling patient: less than 15 minutes Plan of Care Discussed with: patient Internal Medicine: Result - Labs CBC & Chem 7: 04/22/18 08:30 04/22/18 05:49 Labs: Short CBC 04/22/18 Range/Units 08:30 WBC 7.9 (4.3-11.1) K/mcL Hgb 12.2 (11.5-15.4) g/dL Hct 41.2 (35.3-44.9) % Plt Count 178 (140-400) K/mcL BMP 04/22/18 05:49 Sodium 136 Potassium 5.0 Chloride 97 L Carbon Dioxide 25 BUN 29 H Creatinine 3.90 H Glucose 39 L* Calcium 9.5 Consult Discharge Plan - Plan Referrals: Krystle Henderson [Primary Care Provider] - (Patient is going to [facility] ) (1) Dyspnea Qualifiers: Dyspnea type: unspecified Qualified Code(s): R06.00 - Dyspnea, unspecified (3) AF (atrial fibrillation) Qualifiers: Atrial fibrillation type: chronic Qualified Code(s): I48.2 - Chronic atrial fibrillation (4) Type 2 diabetes mellitus Qualifiers: Diabetes mellitus nursing home insulin use: with nursing home use Diabetes mellitus complication status: with kidney complications Diabetes mellitus complication detail: with chronic kidney disease Chronic kidney disease stage: on chronic dialysis Qualified Code(s): E11.22 - Type 2 diabetes mellitus with diabetic c hronic kidney disease; N18.6 - End stage renal disease; Z79.4 - care home (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; Z99.2 - Dependence on renal dialysis
[2018-04-22 19:15] LABS: Bilirubin,Urine Negative (Negative); Blood,Urine Large (Negative); Clarity,Urine Turbid (Clear); Color,Urine Dark Yellow (Yellow); Glucose,Urine (UA) Normal (Normal); Ketones,Urine Trace mg/dL (Negative); Leukocyte Esterase,Urine Large (Negative); Nitrite,Urine Negative (Negative); PH,Urine 7.5 pH Units (5.0-8.0); Protein,Urine >=1000 mg/dL (Neg-Trace); Urobilinogen,Urine Normal (Normal)
[2018-04-22] MEDS ORDERED: Insulin DETEMIR 100 UNIT/ML X5UNITS SQ SCH (21:00)
[2018-04-22] MEDS: Gabapentin 300 MG CAPSULE PO SCH (21:10)
[2018-04-23] MEDS: Ipratropium/Albuterol Neb 3 ML IH SCH ×3 (04:12→16:00)
[2018-04-23] MEDS ORDERED: 0.9 % Sodium Chloride 250 ML IVC PRN (07:13)
[2018-04-23] MEDS: Aspirin Enteric Coated 81 MG Tablet PO SCH (08:14)
[2018-04-23] MEDS: Cholecalciferol (D-3) 1,000 UNIT TABLET PO SCH (08:14)
[2018-04-23] MEDS: Metoprolol XL (24 HR) Succ 25 MG TAB.ER.24H PO SCH (08:14)
[2018-04-23] MEDS: Renal Vitamin 1 CAP CAPSULE PO SCH (08:14)
[2018-04-23] MEDS: Isosorbide MONOnitrate (24 HR) 30 MG TAB.ER.24H PO SCH (08:14)
[2018-04-23 08:15] LABS: Hematocrit 37.5 % (35.3-44.9); Hemoglobin 11.6 g/dL (11.5-15.4); Mean Corpuscular HGB Conc 30.9 g/dL (31.6-35.5); Mean Corpuscular Hemoglobin 32.9 pg (28.0-33.3); Mean Corpuscular Volume 106.2 fL (83.0-100.0); Mean Platelet Volume 10.7 fL (9.4-12.4); Platelet Count 165 K/mcL (140-400); Red Blood Count 3.53 M/mcL (3.82-4.97); Red Cell Distribution Width 17.5 % (11.5-14.5)
[2018-04-23] MEDS: Nystatin POWDER 30 GM BOTTLE TP SCH (08:15)
[2018-04-23 08:35] LABS: Calcium 9.6 mg/dL (8.6-10.3)
[2018-04-23] MEDS: Insulin LISPRO 300 UNITS/3 ML VIAL SQ SCH ×2 (08:39→11:53)
[2018-04-23] MEDS: Fluticasone Propionate Nasal 50 MCG/SPRAY BOTTLE NS SCH (08:39)
--- NOTE | 2018-04-23 09:33 | Discharge Summary ---
- NOTES TO OUTPATIENT PROVIDER Notes to Outpatient Provider: PCP in 5 to 7 days. Nephrology out pt Orders not resulted at time of discharge: Pending orders 04/22/18 17:55 Culture,Urine [RM] Routine 04/24/18 04:00 Chem 7 [Basic Metabolic Panel] AM 0400 Complete Blood Count w/o Diff [HEME] AM 0400 04/25/18 04:00 Chem 7 [Basic Metabolic Panel] AM 0400 Complete Blood Count w/o Diff [HEME] AM 04004/26/18 04:00 Chem 7 [Basic Metabolic Panel] AM 0400 Complete Blood Count w/o Diff [HEME] AM 0400 04/27/18 04:00 Chem 7 [Basic Metabolic Panel] AM 0400 Complete Blood Count w/o Diff [HEME] AM 04004/28/18 04:00 Chem 7 [Basic Metabolic Panel] AM 0400 Complete Blood Count w/o Diff [HEME] AM 0400 04/29/18 04:00 Chem 7 [Basic Metabolic Panel] AM 0400 Complete Blood Count w/o Diff [HEME] AM 04004/30/18 04:00 Chem 7 [Basic Metabolic Panel] AM 0400 Complete Blood Count w/o Diff [HEME] AM 0400 Date of Encounter: 04/23/18 Time of Encounter: 09:31 - Discharge Diagnosis (1) (HFpEF) heart failure with preserved ejection fraction Priority: Primary Status: Chronic Assessment and Plan: HEpEF of unknown type Lasix 40 mg IV QD. Pt is not on Lasix at home. Pt on HD. Pt states she is feeling much better and tolerating her baseline home oxygen. Qualifiers: Qualified Code(s): I50.30 - Unspecified diastolic (congestive) heart failure (2) Dyspnea Priority: Primary Status: Acute Assessment and Plan: Likely due to volume overload. Improved following HD. She denies chest pain or SOB. She denies fever, chills, N/V or diarrhea. Pt requesting being placed at [facility]. Social work on the case. Pt accepted at [facility]. Qualifiers: Dyspnea type: unspecified Qualified Code(s): R06.00 - Dyspnea, unspecified (3) ESRD (end stage renal disease) on dialysis Priority: Primary Status: Chronic Assessment and Plan: Nephrology following on HD (4) AF (atrial fibrillation) Priority: Secondary Status: Chronic Assessment and Plan: ASA and on Metoprolol. Qualifiers: Atrial fibrillation type: chronic Qualified Code(s): I48.2 - Chronic atrial fibrillation (5) Type 2 diabetes mellitus Priority: Secondary Status: Chronic Assessment and Plan: Levemir 20 units decreased to 10 units QHS due to hypoglycemia. Was also on SSI as well. 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 Mcarthur The patient is an 82-year-old woman. She is brought to us from [facility] ED. she was brought there from her assisted with symptoms of difficulty breathing/weakness. The patient is a very poor historian. She tells me, that she feels good. She tells me that she is using oxygen at 4 L/min nasal cannula. Currently, she is on 2 L/min. Denies chest pain. Denies difficulty breathingon supplemental oxygen. The patient gets hemodialysis on Wednesdays and Fridays. Discharge discussed with: patient - Time Spent with Patient Total time spent providing and/or coordinating discharge services: Greater than 30 minutes - Discharge Medications Home Medications: DULoxetine [Cymbalta] 60 mg PO DAILY 10/02/15 [History] Gabapentin [Neurontin] 300 mg PO HS 10/02/15 [History] Fluticasone Propionate Nasal [Flonase] 1 spr NS BID 04/14/17 [History] Melatonin 10 mg PO HS PRN 04/14/17 [History] Iron 65 mg PO DAILY #0 04/21/17 [Rx] Sevelamer [Renvela] 800 mg PO TIDWM 07/12/17 [History] Acetaminophen [Tylenol] 650 mg PO Q6HR PRN tablet 07/17/17 [Rx] Ipratropium/Albuterol Neb [Duoneb] 3 ml IH Q8H PRN 11/04/17 [History] Omeprazole [PriLOSEC] 40 mg PO DAILY 11/05/17 [History] Ergocalciferol (VITAMIN D2) [Vitamin D] 400 unit PO DAILY 02/08/18 [History] Levalbuterol Tartrate [Xopenex Hfa] 45 gm IH TID 02/08/18 [History] Nystatin POWDER [Nystop] 1 appl TP BID 02/08/18 [History] Polyethylene Glycol 3350 [MiraLAX] 17 gm PO DAILY PRN 02/08/18 [History] Isosorbide MONOnitrate (24 HR) [Imdur] 30 mg PO DAILY 03/21/18 [History] Aspirin [Lo-Dose Aspirin EC] 81 mg PO DAILY 04/19/18 [History] Insulin ASPART [NovoLOG] 0 - 10 unit SQ TID 04/19/18 [History] Midodrine [ProAmatine] 20 mg PO MOWEFR 04/19/18 [History] Ondansetron ODT [Zofran ODT] 4 mg SL Q6HR PRN 04/19/18 [History] Insulin Glargine,Hum.rec.anlog [Basaglar Kwikpen U-100] 10 unit SQ HS 04/21/18 [History] Metoprolol [Lopressor] 25 mg PO DAILY 04/21/18 [History] Multivit,Th Iron,Other Min [Therems-M] 1 tab PO DAILY 04/21/18 [History] Allergies/Adverse Reactions: Allergy/AdvReac Type Severity Reaction Status Date / Time cephalexin [From Keflex] AdvReac Unknown Hypotension Verified 03/19/18 11:56 codeine AdvReac Hypotension Verified 03/19/18 11:56 metoprolol AdvReac Drowsy Verified 03/19/18 11:56 Date of admission: 04/19/18 21:52 Primary care physician: Krystle Henderson Consults: 04/19/18 22:45 Consult to Associate Professor Of Philosophy [CONS] Routine Reason for SW Consult: Patient from [facility]. Family dissatisfied with recent stay, although patient has had previous stays with no issues at this facility. Granddaughter, Sonja, is POA. Patient is HD MWF, wears oxygen at SNF and receives PT/OT per SNF records. 04/20/18 07:21 Consult to Nephrology [CONS] Routine Consulting Provider: Kidney Katty/ALONDRA/JORGE LUIS/JUVENCIO Reason for Consult: ESRD on hemodialisis Time Notified: 07:20 Call Completed: Yes 04/20/18 09:15 Consult to Dialysis [CONS] ONCE 04/21/18 07:45 Consult to Dialysis [CONS] ONCE 04/23/18 07:15 Consult to Dialysis [CONS] QMWF 04/26/18 07:15 Consult to Dialysis [CONS] QMWF 04/28/18 07:15 Consult to Dialysis [CONS] QMWF 04/30/18 07:15 Consult to Dialysis [CONS] QMWF Discharging clinician: Nasima Manriquez Anticipated date of discharge: 04/23/18 - Constitutional Vitals: Temp Pulse Resp BP Pulse Ox 97.9 F 109 20 120/58 96 04/23/18 07:18 04/23/18 07:18 04/23/18 07:18 04/23/18 07:18 04/23/18 07:18 General appearance: Present: A&O X 2, no acute distress, answers questions appropriately Exam: Exam: General: awake, alert to self, no acute distress, pleasant; confused HEENT: normocephalic, atraumatic. mucus membranes moist CV: Irregular tachycardic rhythm, no murmurs. Resp: LCTAB, no wheezes or rhonchi Abd: soft, nontender, no guarding. Bowel sounds present. Extremities: trace edema. Denies joint pain. Neuro: Alert to self and location only. No focal deficits. Skin: warm, dry, no rash - Patient Status Disposition: Transfer SNF Condition: Fair Overall status at discharge: patient is back to baseline - Discharge Instructions Follow Up With: Krystle Henderson [Primary Care Provider] - (D/C to [facility] ) - Diet and Activity Activity: increase activity as tolerated Diet: diabetic diet, low fat, low cholesterol, low salt diet
--- NOTE | 2018-04-23 09:40 | Nephrology Progress Note ---
Date of Encounter: 04/23/18 Time of Encounter: 07:50 - Assessment and Plan (1) ESRD (end stage renal disease) on dialysis Current Visit: Yes Status: Chronic ESRD on HD MWF. I reviewed the handoff info from my colleague Dr. Cowan; and I reviewed her labs, vitals, med lists, prior progress notes and imaging; and, with this data I performed MDM and E/M to arrange for her dialysis today. Next HD is planned for Thursday. I will be available this if needed. Please feel free to call or page me with any questions. Thank you. Subjective Principal diagnosis: SOB Interval history: Pt was s/e earlier today. Her Floor RN was present. The pt pleasantly did not affirm active N/V or cough. She seemed unaware that she has been on chronic dialysis. Objective - Vital Signs Vital signs: Vital Signs Temp Pulse Resp BP Pulse Ox 04/23/18 07:18 97.9 F 109 20 120/58 96 04/23/18 04:20 97.8 F 105 17 121/70 100 04/22/18 23:51 98.5 F 110 18 122/59 98 04/22/18 22:37 20 95 04/22/18 19:17 98.5 F 107 18 105/59 92 04/22/18 16:21 98.3 F 110 16 110/62 94 04/22/18 15:47 12 98 04/22/18 11:04 16 98 04/22/18 10:43 98.6 F 106 18 127/75 100 Intake and Output 04/22/18 04/23/18 04/23/18 23:59 07:59 15:59 Other: Stool Size Smear Stool Consistency loose Stool Color Brown Weight 73.7 kg Blood Glucose* 124 70 Patient Weight 04/23/18 23:59 Weight 73.7 kg - General Appearance General appearance: Present: well-developed, well-nourished, appears started age, cachectic, frail EENT: Present: ATNC, PERRL, mucous membranes moist Neck: Present: supple Respiratory: Present: clear Cardiology: Present: no edema, irregular rhythm, normal S1, normal S2 Dialysis Vascular Access: Arteriovenous Fistula (Left) thrill: Yes bruit: Yes Gastrointestinal: Present: normoactive bowel sounds, no tenderness, no guarding Integumentary: Present: warm and dry, ecchymotic Neurologic: Present: no asterixis, confused (pleasantly confused) Musculoskeletal: Present: no erythema, no cyanosis Psychiatric: Present: mood/affect appropriate, cooperative - Lab 04/23/18 07:43 04/23/18 07:43 Most recent lab results Calcium 9.6 mg/dL (8.6-10.3) 04/23/18 07:43 Magnesium 2.2 mg/dL (1.6-2.6) 04/20/18 07:14 Consult Discharge Plan - Plan Referrals: Krystle Henderson [Primary Care Provider] - (D/C to [facility] )
--- NOTE | 2018-04-23 13:34 | Physician Discharge Referral ---
ExtendedCare Referral Info Provider in Charge after Transfer: PCP Institutional Level of Care: Skilled - Diagnosis (1) (HFpEF) heart failure with preserved ejection fraction Priority: Primary Status: Chronic (2) Dyspnea Priority: Primary Status: Acute (3) ESRD (end stage renal disease) on dialysis Priority: Secondary Status: Chronic (4) AF (atrial fibrillation) Status: Chronic (5) Type 2 diabetes mellitus Priority: Secondary Status: Chronic - Transfer Medications Home Medications: DULoxetine [Cymbalta] 60 mg PO DAILY 10/02/15 [History] Gabapentin [Neurontin] 300 mg PO HS 10/02/15 [History] Fluticasone Propionate Nasal [Flonase] 1 spr NS BID 04/14/17 [History] Melatonin 10 mg PO HS PRN 04/14/17 [History] Iron 65 mg PO DAILY #0 04/21/17 [Rx] Sevelamer [Renvela] 800 mg PO TIDWM 07/12/17 [History] Acetaminophen [Tylenol] 650 mg PO Q6HR PRN tablet 07/17/17 [Rx] Ipratropium/Albuterol Neb [Duoneb] 3 ml IH Q8H PRN 11/04/17 [History] Omeprazole [PriLOSEC] 40 mg PO DAILY 11/05/17 [History] Ergocalciferol (VITAMIN D2) [Vitamin D] 400 unit PO DAILY 02/08/18 [History] Levalbuterol Tartrate [Xopenex Hfa] 45 gm IH TID 02/08/18 [History] Nystatin POWDER [Nystop] 1 appl TP BID 02/08/18 [History] Polyethylene Glycol 3350 [MiraLAX] 17 gm PO DAILY PRN 02/08/18 [History] Isosorbide MONOnitrate (24 HR) [Imdur] 30 mg PO DAILY 03/21/18 [History] Aspirin [Lo-Dose Aspirin EC] 81 mg PO DAILY 04/19/18 [History] Insulin ASPART [NovoLOG] 0 - 10 unit SQ TID 04/19/18 [History] Midodrine [ProAmatine] 20 mg PO MOWEFR 04/19/18 [History] Ondansetron ODT [Zofran ODT] 4 mg SL Q6HR PRN 04/19/18 [History] Insulin Glargine,Hum.rec.anlog [Basaglar Kwikpen U-100] 10 unit SQ HS 04/21/18 [History] Metoprolol [Lopressor] 25 mg PO DAILY 04/21/18 [History] Multivit,Th Iron,Other Min [Therems-M] 1 tab PO DAILY 04/21/18 [History] Allergies/Adverse Reactions: Allergy/AdvReac Type Severity Reaction Status Date / Time cephalexin [From Keflex] AdvReac Unknown Hypotension Verified 03/19/18 11:56 codeine AdvReac Hypotension Verified 03/19/18 11:56 metoprolol AdvReac Drowsy Verified 03/19/18 11:56 - Respiratory Orders Oxygen / L per min Smoking Cessation: Smoking cessation has been advised. For more information, call the [place] Tobacco Quit Line at 2-729-CJTB-NOW. - Advance Directives Code Status: Full Code - Rehabiliation Orders Rehab Orders: Evaluation for Physical Therapy, Evaluation for Occupational Therapy - Diet Orders Renal CERTIFICATION: I certify that the transfer of the above named patient to an Extended Care Facility is necessary for the continuing treatment of the diagnosis listed. The above information is true and accurate reflection of patient's current condition. Confidential - Redisclosure prohibited without a patient's written consent.
[2018-04-23 14:01] VITALS: BP 119/62
== END 2018-04-23 16:34 | DRG 291 ==
LOC: 2ANU
PROVIDERS: ADMIT Internal Medicine; ATTEND Internal Medicine